=== PATIENT | female | born 1980 | race Caucasian/White ===

== ENCOUNTER 2018-07-25 11:23 | Inpatient (IN) | payer BC, MEDICARE ==
[~2018-07-25] VITALS: Ht 152.4 cm; Wt 94.8 kg
--- OUTSIDE RECORDS SUMMARY | 2018-07-25 11:26 | XMS REPORT ---
Author Author [facility] Address Unknown Phone Unavailable Care Team Providers Care Assembler Bonding Name Role Phone Unavailable Unavailable Payers Payer Name Policy Type Policy Number Effective Date Expiration Date Problems This patient has no known problems. Allergies, Adverse Reactions, Alerts Allergy Name Allergy Type Status Severity Reaction(s) Onset Date Inactive Date Treating Clinician Comments promethazine DA Active 2018-07-24 00:00:00 metoclopramide DA Active 2018-07-24 00:00:00 promethazine DA Active 2018-07-23 00:00:00 metoclopramide DA Active 2018-07-23 00:00:00 promethazine DA Active 2018-07-22 00:00:00 metoclopramide DA Active 2018-07-22 00:00:00 promethazine DA Active 2018-05-12 00:00:00 metoclopramide DA Active 2018-05-12 00:00:00 promethazine DA Active 2018-02-25 00:00:00 metoclopramide DA Active SV 2018-02-25 00:00:00 promethazine DA Active SV 2017-09-17 00:00:00 metoclopramide DA Active SV 2017-09-17 00:00:00 Medications This patient has no known medications. Results Test Description Test Time Test Comments Text Results Atomic Results Result Comments COMPREHENSIVE METABOLIC PANEL 2018-07-24 19:40:00 SODIUM (test code=NA) 138 mmol/L 136-145 POTASSIUM (test code=K) 4.4 mmol/L 3.5-5.1 CHLORIDE (test code=CL) 103.0 mmol/L 98-107 CARBON DIOXIDE (test code=CO2) 24.0 mmol/L 21-32 ANION GAP (test code=GAP) 15.4 10-20 GLUCOSE (test code=GLU) 81 mg/dL 74-106 BLOOD UREA NITROGEN (test code=BUN) 6 mg/dL 7-18 GLOMERULAR FILTRATION RATE (test code=GFR) > 60 mL/min >=60 Estimated GFR by using Modified MDRD formula.Chronic kidney disease is defined as either kidney damageor GFR <60 mL/min/1.73 m2 for >3 months. CREATININE (test code=CREAT) 0.90 mg/dL 0.55-1.02 Note change in reference range due to change in reagent. BUN/CREATININE RATIO (test code=BUN/CREA) 6.9 10-20 TOTAL PROTEIN (test code=PROT) 7.7 gram/dL 6.4-8.2 ALBUMIN (test code=ALB) 3.9 g/dL 3.4-5.0 GLOBULIN (test code=GLOB) 3.8 gram/dL 2.7-4.2 ALBUMIN/GLOBULIN RATIO (test code=A/G) 1.0 0.75-1.50 CALCIUM (test code=CA) 9.2 mg/dL 8.5-10.1 BILIRUBIN TOTAL (test code=BILT) 0.20 mg/dL 0.0-1.0 SGOT/AST (test code=AST) 20 IUnit/L 15-37 SGPT/ALT (test code=ALT) 66 IUnit/L 12-78 ALKALINE PHOSPHATASE TOTAL (test code=ALKP) 92 IUnit/L 45-117 Note change in reference range due to change in reagent. HCG SERUM [id number] 19:40:00* Test Item Value Reference Range Comments HCG SERUM QUAL (test code=HCGQL) NEGATIVE NEGATIVE This HCGQL test is NOT applicable for MALE patients.Check with nurse about probable order error.If Tumor Marker Test needed, nurse should order test "HCGTU"(Test #550.28413) COMPREHENSIVE METABOLIC [id number] 19:22:00* Test Item Value Reference Range Comments SODIUM (test code=NA) 138 mmol/L 136-145 POTASSIUM (test code=K) 4.4 mmol/L 3.5-5.1 CHLORIDE (test code=CL) 103.0 mmol/L 98-107 CARBON DIOXIDE (test code=CO2) mmol/L 21-32 ANION GAP (test code=GAP) 10-20 GLUCOSE (test code=GLU) mg/dL 74-106 BLOOD UREA NITROGEN (test code=BUN) mg/dL 7-18 GLOMERULAR FILTRATION RATE (test code=GFR) mL/min >=60 CREATININE (test code=CREAT) mg/dL 0.55-1.02 BUN/CREATININE RATIO (test code=BUN/CREA) 10-20 TOTAL PROTEIN (test code=PROT) gram/dL 6.4-8.2 ALBUMIN (test code=ALB) g/dL 3.4-5.0 GLOBULIN (test code=GLOB) gram/dL 2.7-4.2 ALBUMIN/GLOBULIN RATIO (test code=A/G) 0.75-1.50 CALCIUM (test code=CA) mg/dL 8.5-10.1 BILIRUBIN TOTAL (test code=BILT) mg/dL 0.0-1.0 SGOT/AST (test code=AST) IUnit/L 15-37 SGPT/ALT (test code=ALT) IUnit/L 12-78 ALKALINE PHOSPHATASE TOTAL (test code=ALKP) IUnit/L 45-117 HCG SERUM [id number] 19:22:00* Test Item Value Reference Range Comments HCG SERUM QUAL (test code=HCGQL) NEGATIVE NEGATIVE This HCGQL test is NOT applicable for MALE patients.Check with nurse about probable order error.If Tumor Marker Test needed, nurse should order test "HCGTU"(Test #550.71429) COMPREHENSIVE METABOLIC [id number] 19:13:00* Test Item Value Reference Range Comments SODIUM (test code=NA) 138 mmol/L 136-145 POTASSIUM (test code=K) 4.4 mmol/L 3.5-5.1 CHLORIDE (test code=CL) 103.0 mmol/L 98-107 CARBON DIOXIDE (test code=CO2) mmol/L 21-32 ANION GAP (test code=GAP) 10-20 GLUCOSE (test code=GLU) mg/dL 74-106 BLOOD UREA NITROGEN (test code=BUN) mg/dL 7-18 GLOMERULAR FILTRATION RATE (test code=GFR) mL/min >=60 CREATININE (test code=CREAT) mg/dL 0.55-1.02 BUN/CREATININE RATIO (test code=BUN/CREA) 10-20 TOTAL PROTEIN (test code=PROT) gram/dL 6.4-8.2 ALBUMIN (test code=ALB) g/dL 3.4-5.0 GLOBULIN (test code=GLOB) gram/dL 2.7-4.2 ALBUMIN/GLOBULIN RATIO (test code=A/G) 0.75-1.50 CALCIUM (test code=CA) mg/dL 8.5-10.1 BILIRUBIN TOTAL (test code=BILT) mg/dL 0.0-1.0 SGOT/AST (test code=AST) IUnit/L 15-37 SGPT/ALT (test code=ALT) IUnit/L 12-78 ALKALINE PHOSPHATASE TOTAL (test code=ALKP) IUnit/L 45-117 HCG SERUM [id number] 19:13:00* Test Item Value Reference Range Comments HCG SERUM QUAL (test code=HCGQL) NEGATIVE CBC W/MANUAL [id number] 19:06:00* Test Item Value Reference Range Comments WHITE BLOOD CELL (test code=WBC) 11.4 K/mm3 4.5-12.5 RED BLOOD CELL (test code=RBC) 5.11 mill/mm3 3.7-5.2 HEMOGLOBIN (test code=HGB) 15.3 gram/dL 11.5-15.5 HEMATOCRIT (test code=HCT) 46.6 % 36.0-46.0 MEAN CELL VOLUME (test code=MCV) 91.2 fL 80-98 MEAN CELL HGB (test code=MCH) 29.9 picogram 27.0-33.0 MEAN CELL HGB CONCETRATION (test code=MCHC) 32.8 gram/dL 33.0-36.0 RED CELL DISTRIBUTION WIDTH (test code=RDW) 12.5 % 11.6-16.2 RED CELL DISTRIBUTION WIDTH SD (test code=RDW-SD) 41.6 fL 37.0-51.0 PLATELET COUNT (test code=PLT) 271 K/mm3 150-450 MEAN PLATELET VOLUME (test code=MPV) 9.7 fL 6.7-11.0 IMMATURE GRANULOCYTE % (test code=IG%) 0.4 % 0.0-5.0 NUCLEATED RBC % (test code=NRBC%) 0.0 % 0-0 NEUTROPHIL # (test code=NT#) 5.77 K/mm3 1.8-7.7 IMMATURE GRANULOCYTE # (test code=IG#) 0.05 x10 3/uL 0-0.03 LYMPHOCYTE # (test code=LY#) 4.53 K/mm3 1.0-5.0 MONOCYTE # (test code=MO#) 0.82 K/mm3 0-0.8 EOSINOPHIL # (test code=EO#) 0.20 K/mm3 0.0-0.5 BASOPHIL # (test code=BA#) 0.04 K/mm3 0.0-0.2 NUCLEATED RBC # (test code=NRBC#) 0.00 K/mm3 0.0-0.1 MANUAL DIFF REQUIRED (test code=MDIFF) YES STAIN ACCEPTABILITY (test code=STN ACCEPTABLE) STAIN ACCEPTABLE TOTAL CELLS COUNTED (test code=TCC) 112 #CELLS SEGMENTED NEUTROPHILS (test code=SEG) 51.8 % 39-69 BAND NEUTROPHIL (test code=BAND) 0 % 0-10 LYMPHOCYTE (test code=LYMPH) 41.1 % 25-55 REACTIVE LYMPH (test code=RELYMPH) 0.9 % MONOCYTE (test code=MON) 5.3 % 0-10 EOSINOPHIL (test code=EOS) 0 % 0.0-5.0 BASOPHIL (test code=BASO) 0.9 % 0-1.0 METAMYELOCYTE (test code=META) 0 % 0-0 MYELOCYTE (test code=MYELO) 0 % 0.0-0.0 PROMYELOCYTE (test code=PROM) 0 % 0-0 PLATELET ESTIMATE (test code=PLTEST) ADEQUATE PLATELET MORPHOLOGY (test code=PLTMORPH) NORMAL IMMATURE FORMS (test code=IMMAT) 0 % - XR HAND 3 + V [id number] 19:04:00 FAX: OSMAR LALA MD [place]: [address] St: REG FAX: Elieco Queen [phone] Name: XOCHILT FAN [facility] : 1980 Age/S: 37/F [address] [facility] Unit #: [id number] Loc: [place] [address] Phys: Eliceo Queen NP Acct: [id number] Dis Date: Status: REG ER PHONE #: [phone] Exam Date: 07/24/2018 1859 FAX #: [phone] Reason: SWELLING EXAMS: CPT CODE: [id number] XR HAND 3 + [place] [id number] REASON FOR EXAM: SWELLING EXAM ORDER DATE: 07/24/2018 6:11 PM Ordering [place]: Eliceo Queen NP PROCEDURE: - XR HAND 3 + V LT FINDINGS: 3 views of the left hand were obtained. The osseous structures are unremarkable in size and shape. The joint spaces are maintained. No evidence of fracture. The phalanges are intact. The carpal and metacarpal bones are unremarkable. There is normal alignment of the radiocarpal joint space IMPRESSION: Unremarkable left hand at 1904 Reported and signed by: Mohit Hudson M.D. CC: OSMAR LALA MD; Eliceo Queen NP Technologist: RT Paul(R Trnscrd Date/Time/By: 07/24/2018 (1903) : By: Teddy Orig Print D/T: S: 07/24/2018 (1907) PAGE 1 Signed Report CBC W/MANUAL [id number] 18:53:00 * Test Item Value Reference Range Comments WHITE BLOOD CELL (test code=WBC) 11.4 K/mm3 4.5-12.5 RED BLOOD CELL (test code=RBC) 5.11 mill/mm3 3.7-5.2 HEMOGLOBIN (test code=HGB) 15.3 gram/dL 11.5-15.5 HEMATOCRIT (test code=HCT) 46.6 % 36.0-46.0 MEAN CELL VOLUME (test code=MCV) 91.2 fL 80-98 MEAN CELL HGB (test code=MCH) 29.9 picogram 27.0-33.0 MEAN CELL HGB CONCETRATION (test code=MCHC) 32.8 gram/dL 33.0-36.0 RED CELL DISTRIBUTION WIDTH (test code=RDW) 12.5 % 11.6-16.2 RED CELL DISTRIBUTION WIDTH SD (test code=RDW-SD) 41.6 fL 37.0-51.0 PLATELET COUNT (test code=PLT) 271 K/mm3 150-450 MEAN PLATELET VOLUME (test code=MPV) 9.7 fL 6.7-11.0 IMMATURE GRANULOCYTE % (test code=IG%) 0.4 % 0.0-5.0 NUCLEATED RBC % (test code=NRBC%) 0.0 % 0-0 NEUTROPHIL # (test code=NT#) 5.77 K/mm3 1.8-7.7 IMMATURE GRANULOCYTE # (test code=IG#) 0.05 x10 3/uL 0-0.03 LYMPHOCYTE # (test code=LY#) 4.53 K/mm3 1.0-5.0 MONOCYTE # (test code=MO#) 0.82 K/mm3 0-0.8 EOSINOPHIL # (test code=EO#) 0.20 K/mm3 0.0-0.5 BASOPHIL # (test code=BA#) 0.04 K/mm3 0.0-0.2 NUCLEATED RBC # (test code=NRBC#) 0.00 K/mm3 0.0-0.1 MANUAL DIFF REQUIRED (test code=MDIFF) YES STAIN ACCEPTABILITY (test code=STN ACCEPTABLE) TOTAL CELLS COUNTED (test code=TCC) #CELLS SEGMENTED NEUTROPHILS (test code=SEG) % 39-69 LYMPHOCYTE (test code=LYMPH) % 25-55 MONOCYTE (test code=MON) % 0-10 MORPHOLOGY COMMENT (test code=MOC) PLATELET ESTIMATE (test code=PLTEST) PLATELET MORPHOLOGY (test code=PLTMORPH) CBC W/MANUAL [id number] 18:46:00* Test Item Value Reference Range Comments WHITE BLOOD CELL (test code=WBC) 11.4 K/mm3 4.5-12.5 RED BLOOD CELL (test code=RBC) 5.11 mill/mm3 3.7-5.2 HEMOGLOBIN (test code=HGB) 15.3 gram/dL 11.5-15.5 HEMATOCRIT (test code=HCT) 46.6 % 36.0-46.0 MEAN CELL VOLUME (test code=MCV) 91.2 fL 80-98 MEAN CELL HGB (test code=MCH) 29.9 picogram 27.0-33.0 MEAN CELL HGB CONCETRATION (test code=MCHC) 32.8 gram/dL 33.0-36.0 RED CELL DISTRIBUTION WIDTH (test code=RDW) 12.5 % 11.6-16.2 RED CELL DISTRIBUTION WIDTH SD (test code=RDW-SD) 41.6 fL 37.0-51.0 PLATELET COUNT (test code=PLT) 271 K/mm3 150-450 MEAN PLATELET VOLUME (test code=MPV) 9.7 fL 6.7-11.0 IMMATURE GRANULOCYTE % (test code=IG%) 0.4 % 0.0-5.0 NUCLEATED RBC % (test code=NRBC%) 0.0 % 0-0 NEUTROPHIL # (test code=NT#) 5.77 K/mm3 1.8-7.7 IMMATURE GRANULOCYTE # (test code=IG#) 0.05 x10 3/uL 0-0.03 LYMPHOCYTE # (test code=LY#) 4.53 K/mm3 1.0-5.0 MONOCYTE # (test code=MO#) 0.82 K/mm3 0-0.8 EOSINOPHIL # (test code=EO#) 0.20 K/mm3 0.0-0.5 BASOPHIL # (test code=BA#) 0.04 K/mm3 0.0-0.2 NUCLEATED RBC # (test code=NRBC#) 0.00 K/mm3 0.0-0.1 MANUAL DIFF REQUIRED (test code=MDIFF) YES STAIN ACCEPTABILITY (test code=STN ACCEPTABLE) TOTAL CELLS COUNTED (test code=TCC) #CELLS SEGMENTED NEUTROPHILS (test code=SEG) % 39-69 LYMPHOCYTE (test code=LYMPH) % 25-55 MONOCYTE (test code=MON) % 0-10 EOSINOPHIL (test code=EOS) % 0.0-5.0 CABOT RINGS (test code=CAB) MORPHOLOGY COMMENT (test code=MOC) PLATELET ESTIMATE (test code=PLTEST) PLATELET MORPHOLOGY (test code=PLTMORPH) CBC W/MANUAL [id number] 18:46:00* Test Item Value Reference Range Comments WHITE BLOOD CELL (test code=WBC) 11.4 K/mm3 4.5-12.5 RED BLOOD CELL (test code=RBC) 5.11 mill/mm3 3.7-5.2 HEMOGLOBIN (test code=HGB) 15.3 gram/dL 11.5-15.5 HEMATOCRIT (test code=HCT) 46.6 % 36.0-46.0 MEAN CELL VOLUME (test code=MCV) 91.2 fL 80-98 MEAN CELL HGB (test code=MCH) 29.9 picogram 27.0-33.0 MEAN CELL HGB CONCETRATION (test code=MCHC) 32.8 gram/dL 33.0-36.0 RED CELL DISTRIBUTION WIDTH (test code=RDW) 12.5 % 11.6-16.2 RED CELL DISTRIBUTION WIDTH SD (test code=RDW-SD) 41.6 fL 37.0-51.0 PLATELET COUNT (test code=PLT) 271 K/mm3 150-450 MEAN PLATELET VOLUME (test code=MPV) 9.7 fL 6.7-11.0 IMMATURE GRANULOCYTE % (test code=IG%) 0.4 % 0.0-5.0 NUCLEATED RBC % (test code=NRBC%) 0.0 % 0-0 NEUTROPHIL # (test code=NT#) 5.77 K/mm3 1.8-7.7 IMMATURE GRANULOCYTE # (test code=IG#) 0.05 x10 3/uL 0-0.03 LYMPHOCYTE # (test code=LY#) 4.53 K/mm3 1.0-5.0 MONOCYTE # (test code=MO#) 0.82 K/mm3 0-0.8 EOSINOPHIL # (test code=EO#) 0.20 K/mm3 0.0-0.5 BASOPHIL # (test code=BA#) 0.04 K/mm3 0.0-0.2 NUCLEATED RBC # (test code=NRBC#) 0.00 K/mm3 0.0-0.1 MANUAL DIFF REQUIRED (test code=MDIFF) YES STAIN ACCEPTABILITY (test code=STN ACCEPTABLE) TOTAL CELLS COUNTED (test code=TCC) #CELLS SEGMENTED NEUTROPHILS (test code=SEG) % 39-69 LYMPHOCYTE (test code=LYMPH) % 25-55 MONOCYTE (test code=MON) % 0-10 EOSINOPHIL (test code=EOS) % 0.0-5.0 CABOT RINGS (test code=CAB) MORPHOLOGY COMMENT (test code=MOC) PLATELET ESTIMATE (test code=PLTEST) PLATELET MORPHOLOGY (test code=PLTMORPH) CBC W/MANUAL [id number] 18:46:00* Test Item Value Reference Range Comments WHITE BLOOD CELL (test code=WBC) 11.4 K/mm3 4.5-12.5 RED BLOOD CELL (test code=RBC) 5.11 mill/mm3 3.7-5.2 HEMOGLOBIN (test code=HGB) 15.3 gram/dL 11.5-15.5 HEMATOCRIT (test code=HCT) 46.6 % 36.0-46.0 MEAN CELL VOLUME (test code=MCV) 91.2 fL 80-98 MEAN CELL HGB (test code=MCH) 29.9 picogram 27.0-33.0 MEAN CELL HGB CONCETRATION (test code=MCHC) 32.8 gram/dL 33.0-36.0 RED CELL DISTRIBUTION WIDTH (test code=RDW) 12.5 % 11.6-16.2 RED CELL DISTRIBUTION WIDTH SD (test code=RDW-SD) 41.6 fL 37.0-51.0 PLATELET COUNT (test code=PLT) 271 K/mm3 150-450 MEAN PLATELET VOLUME (test code=MPV) 9.7 fL 6.7-11.0 IMMATURE GRANULOCYTE % (test code=IG%) 0.4 % 0.0-5.0 NUCLEATED RBC % (test code=NRBC%) 0.0 % 0-0 NEUTROPHIL # (test code=NT#) 5.77 K/mm3 1.8-7.7 IMMATURE GRANULOCYTE # (test code=IG#) 0.05 x10 3/uL 0-0.03 LYMPHOCYTE # (test code=LY#) 4.53 K/mm3 1.0-5.0 MONOCYTE # (test code=MO#) 0.82 K/mm3 0-0.8 EOSINOPHIL # (test code=EO#) 0.20 K/mm3 0.0-0.5 BASOPHIL # (test code=BA#) 0.04 K/mm3 0.0-0.2 NUCLEATED RBC # (test code=NRBC#) 0.00 K/mm3 0.0-0.1 MANUAL DIFF REQUIRED (test code=MDIFF) YES STAIN ACCEPTABILITY (test code=STN ACCEPTABLE) TOTAL CELLS COUNTED (test code=TCC) #CELLS SEGMENTED NEUTROPHILS (test code=SEG) % 39-69 LYMPHOCYTE (test code=LYMPH) % 25-55 MONOCYTE (test code=MON) % 0-10 EOSINOPHIL (test code=EOS) % 0.0-5.0 MORPHOLOGY COMMENT (test code=MOC) PLATELET ESTIMATE (test code=PLTEST) PLATELET MORPHOLOGY (test code=PLTMORPH) CBC W/MANUAL [id number] 18:46:00* Test Item Value Reference Range Comments WHITE BLOOD CELL (test code=WBC) 11.4 K/mm3 4.5-12.5 RED BLOOD CELL (test code=RBC) 5.11 mill/mm3 3.7-5.2 HEMOGLOBIN (test code=HGB) 15.3 gram/dL 11.5-15.5 HEMATOCRIT (test code=HCT) 46.6 % 36.0-46.0 MEAN CELL VOLUME (test code=MCV) 91.2 fL 80-98 MEAN CELL HGB (test code=MCH) 29.9 picogram 27.0-33.0 MEAN CELL HGB CONCETRATION (test code=MCHC) 32.8 gram/dL 33.0-36.0 RED CELL DISTRIBUTION WIDTH (test code=RDW) 12.5 % 11.6-16.2 RED CELL DISTRIBUTION WIDTH SD (test code=RDW-SD) 41.6 fL 37.0-51.0 PLATELET COUNT (test code=PLT) 271 K/mm3 150-450 MEAN PLATELET VOLUME (test code=MPV) 9.7 fL 6.7-11.0 IMMATURE GRANULOCYTE % (test code=IG%) 0.4 % 0.0-5.0 NUCLEATED RBC % (test code=NRBC%) 0.0 % 0-0 NEUTROPHIL # (test code=NT#) 5.77 K/mm3 1.8-7.7 IMMATURE GRANULOCYTE # (test code=IG#) 0.05 x10 3/uL 0-0.03 LYMPHOCYTE # (test code=LY#) 4.53 K/mm3 1.0-5.0 MONOCYTE # (test code=MO#) 0.82 K/mm3 0-0.8 EOSINOPHIL # (test code=EO#) 0.20 K/mm3 0.0-0.5 BASOPHIL # (test code=BA#) 0.04 K/mm3 0.0-0.2 NUCLEATED RBC # (test code=NRBC#) 0.00 K/mm3 0.0-0.1 MANUAL DIFF REQUIRED (test code=MDIFF) YES STAIN ACCEPTABILITY (test code=STN ACCEPTABLE) TOTAL CELLS COUNTED (test code=TCC) #CELLS SEGMENTED NEUTROPHILS (test code=SEG) % 39-69 LYMPHOCYTE (test code=LYMPH) % 25-55 MONOCYTE (test code=MON) % 0-10 EOSINOPHIL (test code=EOS) % 0.0-5.0 CABOT RINGS (test code=CAB) MORPHOLOGY COMMENT (test code=MOC) PLATELET ESTIMATE (test code=PLTEST) PLATELET MORPHOLOGY (test code=PLTMORPH) BASIC METABOLIC [id number] 09:12:00* Test Item Value Reference Range Comments SODIUM (test code=NA) 139 mmol/L 136-145 POTASSIUM (test code=K) 4.1 mmol/L 3.5-5.1 CHLORIDE (test code=CL) 106.0 mmol/L 98-107 CARBON DIOXIDE (test code=CO2) 25.0 mmol/L 21-32 ANION GAP (test code=GAP) 12.1 10-20 GLUCOSE (test code=GLU) 75 mg/dL 74-106 BLOOD UREA NITROGEN (test code=BUN) 5 mg/dL 7-18 GLOMERULAR FILTRATION RATE (test code=GFR) > 60 mL/min >=60 Estimated GFR by using Modified MDRD formula.Chronic kidney disease is defined as either kidney damageor GFR <60 mL/min/1.73 m2 for >3 months. CREATININE (test code=CREAT) 0.90 mg/dL 0.55-1.02 Note change in reference range due to change in reagent. BUN/CREATININE RATIO (test code=BUN/CREA) 5.8 10-20 CALCIUM (test code=CA) 8.3 mg/dL 8.5-10.1 HCG SERUM [id number] 09:12:00* Test Item Value Reference Range Comments HCG SERUM QUAL (test code=HCGQL) NEGATIVE NEGATIVE This HCGQL test is NOT applicable for MALE patients.Check with nurse about probable order error.If Tumor Marker Test needed, nurse should order test "HCGTU"(Test #[id number]) BASIC METABOLIC [id number] 09:11:00* Test Item Value Reference Range Comments SODIUM (test code=NA) 139 mmol/L 136-145 POTASSIUM (test code=K) 4.1 mmol/L 3.5-5.1 CHLORIDE (test code=CL) 106.0 mmol/L 98-107 CARBON DIOXIDE (test code=CO2) 25.0 mmol/L 21-32 ANION GAP (test code=GAP) 12.1 10-20 GLUCOSE (test code=GLU) 75 mg/dL 74-106 BLOOD UREA NITROGEN (test code=BUN) 5 mg/dL 7-18 GLOMERULAR FILTRATION RATE (test code=GFR) > 60 mL/min >=60 Estimated GFR by using Modified MDRD formula.Chronic kidney disease is defined as either kidney damageor GFR <60 mL/min/1.73 m2 for >3 months. CREATININE (test code=CREAT) 0.90 mg/dL 0.55-1.02 Note change in reference range due to change in reagent. BUN/CREATININE RATIO (test code=BUN/CREA) 5.8 10-20 CALCIUM (test code=CA) 8.3 mg/dL 8.5-10.1 HCG SERUM [id number] 09:11:00* Test Item Value Reference Range Comments HCG SERUM QUAL (test code=HCGQL) NEGATIVE CBC W/O [id number] 09:03:00* Test Item Value Reference Range Comments WHITE BLOOD CELL (test code=WBC) 9.7 K/mm3 4.5-12.5 RED BLOOD CELL (test code=RBC) 5.09 mill/mm3 3.7-5.2 HEMOGLOBIN (test code=HGB) 15.2 gram/dL 11.5-15.5 HEMATOCRIT (test code=HCT) 47.2 % 36.0-46.0 MEAN CELL VOLUME (test code=MCV) 92.7 fL 80-98 MEAN CELL HGB (test code=MCH) 29.9 picogram 27.0-33.0 MEAN CELL HGB CONCETRATION (test code=MCHC) 32.2 gram/dL 33.0-36.0 RED CELL DISTRIBUTION WIDTH (test code=RDW) 12.5 % 11.6-16.2 PLATELET COUNT (test code=PLT) 229 K/mm3 150-450 MEAN PLATELET VOLUME (test code=MPV) 10.4 fL 6.7-11.0 CBC W/O [id number] 09:00:00* Test Item Value Reference Range Comments WHITE BLOOD CELL (test code=WBC) K/mm3 4.5-12.5 RED BLOOD CELL (test code=RBC) mill/mm3 3.7-5.2 HEMOGLOBIN (test code=HGB) 15.2 gram/dL 11.5-15.5 HEMATOCRIT (test code=HCT) % 36.0-46.0 MEAN CELL VOLUME (test code=MCV) fL 80-98 MEAN CELL HGB (test code=MCH) picogram 27.0-33.0 MEAN CELL HGB CONCETRATION (test code=MCHC) gram/dL 33.0-36.0 RED CELL DISTRIBUTION WIDTH (test code=RDW) % 11.6-16.2 PLATELET COUNT (test code=PLT) K/mm3 150-450 MEAN PLATELET VOLUME (test code=MPV) fL 6.7-11.0
[2018-07-25] MEDS ORDERED: CLINDAMYCIN PHOS 600 MG/ 4 ML VIAL IM NR (11:30)
[2018-07-25] MEDS ORDERED: HYDROCODONE/APAP 10MG-325MG TAB PO NR (11:30)
[2018-07-25] MEDS ORDERED: SODIUM CHLORIDE 0.9% 1000ML 1,000 ML IV STA (11:31)
[2018-07-25 12:17] LABS: CLARITY,URINE HAZY (CLEAR); COLOR,URINE YELLOW (YELLOW); KETONES,URINE NEGATIVE (NEGATIVE); LEUKOCYTE ESTERASE ,URINE TRACE (NEGATIVE); NITRITE,URINE NEGATIVE (NEGATIVE); PROTEIN,URINE DIPSTICK TRACE (NEGATIVE)
[2018-07-25 12:18] LABS: AMPHETAMINES SCREEN,URINE POSITIVE (NEGATIVE); BENZODIAZEPINES SCREEN,URINE POSITIVE (NEGATIVE); PHENCYCLIDINE SCREEN,URINE NEGATIVE (NEGATIVE)
[2018-07-25 12:19] LABS: PREGNANCY TEST, URINE NEGATIVE (NEGATIVE)
[2018-07-25 12:25] LABS: BILIRUBIN,URINE NEGATIVE (NEGATIVE); URINE UROBILINOGEN 0.2 mg/dL (0.2 - 1)
--- NOTE | 2018-07-25 12:25 | Diagnostic Imaging Report ---
Exam: Left hand radiographs - 3 views. History: Scabs on hand, no history of trauma. Query gas. Comparison: None. Findings: No radiographic evidence of acute fracture, malalignment, or soft tissue gas. Diffuse soft tissue edema in the hand. Impression: No acute osseous abnormality. Diffuse soft tissue edema in the hand without radiographic evidence of soft tissue gas. Signed by: Dr. Ap Angel MD on 07/25/2018 12:22 PM
[2018-07-25 12:26] LABS: BACTERIA,URINE FEW /HPF; EPITHELIAL CELLS,URINE MANY /LPF; RBC,URINE 0-5 /HPF (0-5); WBC,URINE (MAN) 0-5 /HPF (0-5)
[2018-07-25] MEDS: PIPER-TAZ 3.375 GM 50 ML IV SCH ×2 (13:05→17:27)
[2018-07-25 13:10] LABS: BASOPHILS % 0.3 % (0.0-1.0); EOSINOPHILS # (AUTO) 0.2 (0.0-0.4); EOSINOPHILS % 2.4 % (0.0-6.0); HEMATOCRIT 42.5 % (34.2-44.1); LYMPHOCYTES # (AUTO) 3.3 (1.0-3.2); LYMPHOCYTES % 44.6 % (18.0-39.1); MEAN CORPUSCULAR HEMOGLOBIN 29.4 pg (28-32); MEAN CORPUSCULAR HGB CONC 32.9 g/dL (31-35); MEAN CORPUSCULAR VOLUME 89.3 fL (81-99); MONOCYTES # (AUTO) 0.5 (0.2-0.8); MONOCYTES % 6.6 % (4.4-11.3); NEUTROPHILS # (AUTO) 3.4 (2.1-6.9); NEUTROPHILS % 45.7 % (38.7-80.0); PLATELET COUNT 240 x10e3/uL (140-360); RED BLOOD COUNT 4.76 x10e6/uL (3.6-5.1); RED CELL DISTRIBUTION WIDTH 12.7 % (11.7-14.4)
[2018-07-25] MEDS: VANCOMYCIN 1GM/NS 250 ML 250 ML IV SCH (13:22)
[2018-07-25 13:28] LABS: ALANINE AMINOTRANSFERASE 42 IU/L (0-55); ALBUMIN 3.4 g/dL (3.5-5.0); ALBUMIN/GLOBULIN RATIO 1.1 (0.8-2.0); ALKALINE PHOSPHATASE 63 IU/L (40-150); ANION GAP 14.3 mmol/L (8-16); BLOOD UREA NITROGEN 6 mg/dL (7-26); BUN/CREATININE RATIO 7 (6-25); CALCIUM 9.2 mg/dL (8.4-10.2); CARBON DIOXIDE 20 mmol/L (22-29); CHLORIDE 105 mmol/L (98-107); EST GLOMERULAR FILTRATION RATE > 60 ML/MIN (60-); GLUCOSE 106 mg/dL (74-118); POTASSIUM 4.3 mmol/L (3.5-5.1); SODIUM 135 mmol/L (136-145)
[2018-07-25] MEDS ORDERED: MORPHINE SULFATE INJ 4 MG/ML INJ 1ML IV PRN (13:45)
[2018-07-25] MEDS ORDERED: SODIUM CHLORIDE 0.9% 1000ML 1,000 ML IV SCH (14:15)
[2018-07-25] MEDS ORDERED: CYMBALTA20 MG (15:32)
[2018-07-25] MEDS ORDERED: PRAZOSIN HCL2 MG (15:32)
[2018-07-25] MEDS ORDERED: LUNESTA3 MG (15:32)
[2018-07-25] MEDS ORDERED: ADDERALL 20 MG20 MG PO (15:32)
[2018-07-25] MEDS ORDERED: TRAZODONE HCL50 MG PO (15:32)
[2018-07-25] MEDS ORDERED: BUPROPION XL300 MG (15:32)
[2018-07-25] MEDS ORDERED: ABILIFY10 MG (15:32)
[2018-07-25] MEDS ORDERED: CLONAZEPAM2 MG (15:32)
[2018-07-25 16:01] VITALS: BP 122/61
[2018-07-25 16:20] VITALS: BP 122/61
--- NOTE | 2018-07-25 16:20 | NUR ---
RECEIVED PATIENT FROM ER TO ROOM 286, SHE IS IN STABLE CONDITION. PAIN AT A TOLERABLE LEVEL. PATIENT ORIENTED TO ROOM, POLICIES, AND VISITING HOURS. ADMISSION HISTORY AND INITIAL PHYSICAL ASSESSMENT COMPLETED AND DOCUMENTED. CALL LIGHT WITHIN REACH. BED IN THE LOWEST POSITION.
--- NOTE | 2018-07-25 16:22 | Diagnostic Imaging Report ---
TECHNIQUE: Magnetic resonance imaging of the LEFT RING FINGER (hand) was performed WITHOUT injected contrast. HISTORY: Abscess, pulmonary side a subtle ring finger, open and unhealed wound COMPARISON: Left hip radiographs the 2018. FINDINGS: BONES: No focal or infiltrative bone marrow replacing abnormalities identified. No acute fracture or osteonecrosis. JOINTS: No dislocation or joint effusion. SOFT TISSUES: Cannot assess the enhancement in the absence of intravenous contrast. Amorphous confluent fluid sensitive hyperintense of the within the volar superficial soft tissues of the ring finger at the level of the proximal phalanx. No definitive well-defined drainable fluid collection. The visualized tendons are intact, no flexor tendon tenosynovitis. IMPRESSION: 1. No osteomyelitis. 2. Volar soft tissue edema may reflect cellulitis or possibly a phlegmon, but there is no discrete drainable abscess. A preliminary report was provided by Dr. Angel on July 25, 2018 at 1621 hours. Signed by: Dr. Don Sainz D.O., M.M.M. on 07/27/2018 8:10 AM
[2018-07-25 16:32] VITALS: BP 122/61
[2018-07-25] MEDS: SODIUM CHLORIDE 0.9% 1000ML 1,000 ML IV SCH ×2 (18:33→21:23)
--- NOTE | 2018-07-25 18:58 | NUR ---
REPORT GIVEN TO ONCOMING NURSE, WALKING ROUNDS DONE. PATIENT IS RESTING IN BED. NO ACUTE DISTRESS NOTED. NO S/S OF PAIN NOTED. CALL LIGHT WITHIN REACH. BED IN THE LOWEST POSITION.
--- NOTE | 2018-07-25 19:05 | NUR ---
Report received and walking rounds complete. Pt resting in bed and in no apparent distress. Pt on RA and no tele. L hand wound open to air. All safety measures ensured and pt call [facility] near.
[2018-07-25 20:00] VITALS: BP 95/42
[2018-07-25] MEDS: ONDANSETRON HCL INJ 2MG/ML 2ML 2 MG/ML VIAL IV PRN (21:09)
[2018-07-26] VITALS (8 sets, daily range): BP systolic 84–105; BP diastolic 47–58
[2018-07-26] MEDS: PIPER-TAZ 3.375 GM 50 ML IV SCH ×4 (00:37→17:52)
[2018-07-26] MEDS: VANCOMYCIN 1GM/NS 250 ML 250 ML IV SCH ×2 (01:11→12:50)
--- NOTE | 2018-07-26 03:36 | Consultation ---
DATE OF CONSULTATION: REASON FOR CONSULTATION: Left hand abscess. Thank you for asking me to see this patient. HISTORY OF PRESENT ILLNESS: This patient is a pleasant, unfortunate 37-year-old white female with history of posttraumatic stress syndrome, history of obesity, IV drug abuse as she is on methamphetamine. After drug abuse, the patient had left hand redness and swelling for the last 5 days. She went to [facility] twice, she was given oral antibiotics twice without any improvement, came here. Now the hand is red and swollen. While the patient denies any fever or chills, she says she is not feeling well. PAST MEDICAL HISTORY: IV drug abuser, obesity, posttraumatic stress syndrome. PAST SURGICAL HISTORY: Denies. ALLERGIES: NO KNOWN ALLERGIES. SOCIAL HISTORY: Currently, she smokes one pack a day. She also drinks alcohol . REVIEW OF SYSTEMS: HEENT: Negative. PULMONARY: Negative. CARDIAC: Negative. : Negative. SKIN: There are no other rashes. All her symptoms so far are negative as mentioned above except for the hands redness and swelling. PHYSICAL EXAMINATION: GENERAL: She is currently alert, oriented, does not seem to be in acute distress. VITAL SIGNS: Stable. HEENT: NECK: Supple. CHEST: Clear. COR: ABDOMEN: Soft. . EXTREMITIES: Left hand, there is erythema, there is edema and swelling. IMPRESSION: Left hand cellulitis with early abscess. I agree with MRI. I agree with vancomycin and Zosyn. We will obtain blood cultures. We will consult hand surgery, Dr. Sommer. We will check CBC panel. Obtain HIV hepatitis serology, RPR. We will follow. MD NORIS Mendoza/IFTIKHAR /[id number]
[2018-07-26 05:12] LABS: BASOPHILS % 0.4 % (0.0-1.0); EOSINOPHILS # (AUTO) 0.2 (0.0-0.4); EOSINOPHILS % 1.9 % (0.0-6.0); HEMATOCRIT 41.4 % (34.2-44.1); HEMOGLOBIN 12.9 g/dL (12.0-16.0); LYMPHOCYTES # (AUTO) 4.1 (1.0-3.2); LYMPHOCYTES % 51.6 % (18.0-39.1); MEAN CORPUSCULAR HEMOGLOBIN 29.5 pg (28-32); MEAN CORPUSCULAR HGB CONC 31.2 g/dL (31-35); MEAN CORPUSCULAR VOLUME 94.5 fL (81-99); MONOCYTES # (AUTO) 0.6 (0.2-0.8); MONOCYTES % 7.1 % (4.4-11.3); NEUTROPHILS # (AUTO) 3.1 (2.1-6.9); NEUTROPHILS % 38.7 % (38.7-80.0); PLATELET COUNT 152 x10e3/uL (140-360); RED BLOOD COUNT 4.38 x10e6/uL (3.6-5.1); RED CELL DISTRIBUTION WIDTH 12.6 % (11.7-14.4)
[2018-07-26] MEDS: SODIUM CHLORIDE 0.9% 1000ML 1,000 ML IV SCH ×3 (05:23→22:20)
[2018-07-26 05:27] LABS: ANION GAP 10.5 mmol/L (8-16); BLOOD UREA NITROGEN 7 mg/dL (7-26); BUN/CREATININE RATIO 9 (6-25); CALCIUM 8.1 mg/dL (8.4-10.2); CARBON DIOXIDE 19 mmol/L (22-29); CHLORIDE 111 mmol/L (98-107); CREATININE, SERUM 0.81 mg/dL (0.57-1.11); EST GLOMERULAR FILTRATION RATE > 60 ML/MIN (60-); GLUCOSE 85 mg/dL (74-118); POTASSIUM 4.5 mmol/L (3.5-5.1); SODIUM 136 mmol/L (136-145)
[2018-07-26 05:28] LABS: INR 0.86; PARTIAL THROMBOPLASTIN TIME 25.2 seconds (23.8-35.5); PROTHROMBIN TIME 12.5 seconds (11.9-14.5)
--- NOTE | 2018-07-26 07:00 | NUR ---
RECEIVED PATIENT RESTING IN BED. NO ACUTE DISTRESS NOTED. CALL LIGHT WITHIN REACH. BED IN THE LOWEST POSITION.
--- NOTE | 2018-07-26 07:05 | NUR ---
Report given and walking rounds completed.
--- NOTE | 2018-07-26 07:27 | NUR ---
PATIENT C/O PAIN, BP HAS BEEN LOW SINCE YESTERDAY. PAGED DR. MONTAÑO FOR A DIFFERENT PAIN MEDICATION THAN MORPHINE.
--- NOTE | 2018-07-26 08:10 | NUR ---
DR. MONTAÑO ROUNDING ON PATIENT AT THIS TIME.
[2018-07-26] MEDS ORDERED: TRAZODONE HCL 50 MG TAB PO PRN (08:15)
[2018-07-26] MEDS: ADDERALL 30MG PO SCH ×2 (09:07→12:50)
[2018-07-26] MEDS: BUPROPION HCL 150 MG TABCR PO SCH (09:08)
[2018-07-26] MEDS: HYDROCODONE/APAP 10MG-325MG TAB PO PRN ×2 (09:08→17:58)
[2018-07-26] MEDS ORDERED: MORPHINE SULFATE INJ 4 MG/ML INJ 1ML IV NR (11:00)
[2018-07-26] MEDS: ONDANSETRON HCL INJ 2MG/ML 2ML 2 MG/ML VIAL IV PRN (11:30)
[2018-07-26] MEDS ORDERED: D AMPHET PO SCH (12:00)
[2018-07-26] MEDS ORDERED: AMPHET PO SCH (12:00)
[2018-07-26] MEDS ORDERED: AMPHET ASP PO SCH (12:00)
--- NOTE | 2018-07-26 12:51 | Consultation ---
DATE OF CONSULTATION: WOUND CARE CONSULTATION Thank you, Dr. Cunningham for asking me to see this patient. HISTORY OF PRESENT ILLNESS: A 37-year-old female patient who is getting drugs, shooting at meth into her fingers between the finger fold, developed swelling, redness, pain on the left hand at the fourth finger at palmar aspect. Patient came to the emergency room, was draining some pus. She was admitted for cellulitis infection. She had MRI. PAST MEDICAL HISTORY: Bipolar, ADHD, manic depression. PAST SURGICAL HISTORY: Exploratory laparotomy, cholecystectomy, appendectomy, lap banding, T and A. PERSONAL HISTORY: Injects drugs, smokes cigarettes. GENERAL PHYSICAL EXAMINATION VITAL SIGNS: Blood pressure 80/48, pulse 63. HEENT: Normal. NECK: No JVD. LUNGS: Clear. ABDOMEN: Soft. Bowel sounds are normal. LOWER EXTREMITIES: No edema. Left hand between metacarpophalangeal area at the palmar aspect, patient has a wound with cellulitis, draining pus. After explaining the procedure, I did selective debridement, deroofed the slough and there was drainage of pus from the wound. There was an undermining for 0.3 cm between and 12 o'clock position. After draining the pus, I irrigated the wound with normal saline and also irrigated with iodine and packed the wound with 0.25-inch iodoform gauze, 4x4 and tape. Patient tolerated the procedure. Wound culture has been sent from the emergency room. ASSESSMENT: Abscess, hand, status post incision and drainage and selective debridement. PLAN: Continue IV antibiotic and pack wound with iodoform. Patient also had MRI. No specific MRI evidence of osteomyelitis and no evidence of tenosynovitis at this time. Also, patient was seen by hand surgeon, Dr. Sommer, who agreed with continuation of antibiotic and close monitoring. Job#: [id number]
--- NOTE | 2018-07-26 12:53 | Operative Report ---
DATE OF PROCEDURE: PROCEDURE PERFORMED: Incision, drainage and selective debridement of the left hand abscess. HISTORY: Pleasant 37-year-old female patient admitted with left hand abscess after IV drug use. Patient was injecting meth through the subcutaneous tissue between the finger fold, developed an abscess. DESCRIPTION OF PROCEDURE: After I explained the procedure, I used a #10 blade. I assisted on pickup. Incision and drainage of the abscess done and selective debridement of the wound done, removing the necrotic tissue. After draining the pus, irrigated with normal saline and iodine, packed with iodoform gauze, 4 x 4, and tape. Patient tolerated the procedure well. Morphine 4 mg given for pain. Job#: [id number] ARPIT
--- NOTE | 2018-07-26 17:04 | History and Physical ---
CHIEF COMPLAINT: Swelling in the left hand and abscess. HISTORY OF PRESENT ILLNESS: Ms. Ramírez is a 37-year-old female who presented to the emergency room with complaints of boil in the left hand, which is painful and drainage has been started. She has IV drug use. She shoots IV methamphetamine between her fingers and that resulted in abscess. She is on multiple psychiatric medications as well. She has mental health problems. She denies any complaints of chest pain, abdominal pain, nausea, or vomiting. She smokes for the last 10 years. REVIEW OF SYSTEMS: GENERAL: Denies any fever or chills. HEAD: Denies any head trauma. ENT: Denies any earaches. CV: Denies any chest pain. RESPIRATORY: Denies any shortness of breath. Rest of the review of systems are negative except as in the HPI. PAST MEDICAL HISTORY: Obesity, bipolar, and IV drug use. PAST SURGICAL HISTORY: None. SOCIAL HISTORY: She has been a smoker for 10 years. She uses IV drugs, methamphetamine. She denies any other drug use. FAMILY HISTORY: Not significant. She lives with her parents. PHYSICAL EXAMINATION: VITAL SIGNS: Temperature 97.0, pulse is 69, and blood pressure 105/55. CHEST: Clear to auscultation bilaterally. No wheezing. GENERAL APPEARANCE: Obese lady, in mild distress because of the hand abscess. ABDOMEN: Soft, nontender, nondistended. EXTREMITIES: No clubbing, cyanosis or edema. NEUROLOGICAL: Awake and alert, following commands. No focal neurologic deficits. LABORATORY DATA: White count of 7.8, hemoglobin 12.9, platelets 152. Chemistries within normal limits. ASSESSMENT: Ms. Ramírez is a 37-year-old female. She presented to the emergency room with hand abscess which is draining. PLAN: 1. Continue the patient on IV antibiotics per ID recommendation. 2. Dr. Sommer's consultation has been called. Hand MRIs are showing possibility of abscess. 3. The patient is hypotensive. I will discontinue morphine and start her on [place] for pain control. 4. Resume her bipolar medications and also start her on Adderall. I have asked, the patient is refusing psychiatric consultation. MD LELA Rodriguez/IFTIKHAR /[id number]
--- NOTE | 2018-07-26 18:47 | NUR ---
REPORT GIVEN TO ONCOMING NURSE, WALKING ROUNDS DONE. PATIENT IS IN STABLE CONDITION. CALL LIGHT WITHIN REACH. BED IN THE LOWEST POSITION.
--- NOTE | 2018-07-26 19:22 | NUR ---
Report received and walking rounds complete. Pt standing at bedside returning from bathroom.
[2018-07-26] MEDS: CLONAZEPAM 1 MG TAB PO SCH (20:16)
[2018-07-26] MEDS: DULOXETINE HCL 20 MG DELAYED RELEASE PO SCH (20:16)
[2018-07-26] MEDS: ARIPIPRAZOLE 20 MG TAB PO SCH (20:16)
[2018-07-27] VITALS (7 sets, daily range): BP systolic 82–114; BP diastolic 46–70
[2018-07-27] MEDS: PIPER-TAZ 3.375 GM 50 ML IV SCH ×4 (00:25→18:42)
[2018-07-27] MEDS: VANCOMYCIN 1GM/NS 250 ML 250 ML IV SCH ×3 (01:18→23:45)
[2018-07-27] MEDS: SODIUM CHLORIDE 0.9% 1000ML 1,000 ML IV SCH ×4 (05:23→20:28)
--- NOTE | 2018-07-27 07:03 | NUR ---
report given and walking rounds complete. pt sleeping in bed and in no apparent distress.
--- NOTE | 2018-07-27 07:30 | NUR ---
pt in bed sleeping ,no s/s discomfort.
[2018-07-27] MEDS: ADDERALL 30MG PO SCH ×2 (09:22→12:30)
[2018-07-27] MEDS: BUPROPION HCL 150 MG TABCR PO SCH (09:22)
[2018-07-27] MEDS: HYDROCODONE/APAP 10MG-325MG TAB PO PRN ×3 (09:23→21:12)
--- NOTE | 2018-07-27 09:23 | NUR ---
dr barroso here changed drsg to lt hand ,tolerated well
--- NOTE | 2018-07-27 13:38 | Consultation ---
DATE OF CONSULTATION: 07/26/2018 CHIEF COMPLAINT: Possible tenosynovitis, left hand. HISTORY OF PRESENT ILLNESS: The patient is a 37-year-old right-hand dominant female, who has a history of intravenous drug abuse. She was seen in the ER in the evening of July 25. According to the ER history, she had been seen at local area ER several times in the preceding days for possible abscess of the left hand secondary to intravenous drug abuse. Each time she was discharged; however, she states that the symptoms became rapidly worse on Friday morning and she presented to the emergency room. She was admitted and started on intravenous antibiotics and MRI was obtained without contrast. The patient was then admitted and started on intravenous vancomycin and Hand Surgery is now requested to consult to evaluate the possibility of tenosynovitis. On pertinent physical exam, the patient is afebrile. At the time of the consult, the primary care physician was performing a limited incision and drainage of left ring finger. There was noted to be a moderate amount of erythema and swelling on the volar aspect of the MPJ area and proximal phalanx area of the right ring finger. The soft tissues had been unroofed. The patient was able to both actively and passively extend and flexed the ring finger without significant pain. A Q-Tip was used to explore the subcutaneous space and a small mount of purulent exudate was encountered and there were noted to be no loculations. The patient's current white cell count is 7. The MRI shows no discrete abscess. No evidence of osteomyelitis and no evidence of tenosynovitis. IMPRESSION: Cellulitis, left hand. PLAN: After discussing the case with primary care physician, I feel that the patient should be maintained on IV antibiotics, warm soaks and elevation. It does not appear to be a surgical indication right now as there is no flexor tenosynovitis present. I will follow the patient along with you. Thank you for allowing me to participate in the care of your patient. Alonzo Sommer MD ER/MODL /[id number]
--- NOTE | 2018-07-27 17:29 | NUR ---
PT UP ON SIDE OF BED NO DISTRESS NTOED,PAIN LEVEL 4 TO LT HAND
--- NOTE | 2018-07-27 19:43 | NUR ---
RECEIVED PT IN BED AOX3 .LEFT HAND WITH DRESSING DENIES PAIN .LEFT FA 18G WITH NS AT 125 CC/HR NO ACUTE DISRTESS NOTED .CALL LIGHT WITH IN REACH .CONTINUE TO MONITOR
[2018-07-27] MEDS: DULOXETINE HCL 20 MG DELAYED RELEASE PO SCH (20:28)
[2018-07-27] MEDS: ARIPIPRAZOLE 20 MG TAB PO SCH (20:28)
[2018-07-27] MEDS: CLONAZEPAM 1 MG TAB PO SCH (20:28)
[2018-07-28] VITALS: BP 116/58
[2018-07-28 02:31] VITALS: BP 116/58
[2018-07-28 04:00] VITALS: BP 129/72
[2018-07-28] MEDS: PIPER-TAZ 3.375 GM 50 ML IV SCH ×2 (05:21)
[2018-07-28] MEDS: SODIUM CHLORIDE 0.9% 1000ML 1,000 ML IV SCH (05:21)
[2018-07-28] MEDS: HYDROCODONE/APAP 10MG-325MG TAB PO PRN ×2 (06:15→11:46)
--- NOTE | 2018-07-28 07:09 | NUR ---
pt c/o pain and given ordered pain medication .pt resting call light with in reach continue to monitor
[2018-07-28 07:25] VITALS: BP 106/53
--- NOTE | 2018-07-28 07:25 | NUR ---
PT UP IN BED , PAIN LEVEL 2 TO LT HAND
[2018-07-28 08:00] VITALS: BP 106/53
[2018-07-28] MEDS: ADDERALL 30MG PO SCH (08:25)
[2018-07-28] MEDS: BUPROPION HCL 150 MG TABCR PO SCH (08:25)
--- NOTE | 2018-07-28 10:26 | NUR ---
DR SEGURA HERE CHANGED DRSTiffanie.
[2018-07-28] MEDS: VANCOMYCIN 1GM/NS 250 ML 250 ML IV SCH (11:46)
[2018-07-28 12:03] VITALS: BP 129/65
[2018-07-28] MEDS ORDERED: CIPRO500 MG PO (13:18)
[2018-07-28] MEDS ORDERED: DOXYCYCLINE HY100 MG PO (13:18)
--- NOTE | 2018-07-28 15:08 | NUR ---
PT DISCHARGED HOME,IV DCD WITHOUT REDNESS OR SWELLING ,DRSG TO LT FINGER CD&I,INSTRUCTIONS GIVEN,PRESCRIPTIONS GIVNE COPY ON CHaRT.TRANSPORTED TO AUTO VIA W/C
--- NOTE | 2018-07-29 18:53 | Discharge Summary ---
FINAL DIAGNOSES: 1. Hand abscess. 2. Bipolar disorder. 3. Active IV drug use with methamphetamine. ADMISSION HISTORY AND HOSPITAL COURSE: Ms. Ramírez is a 37-year-old female. She is a regular patient of [facility], came in with swelling in the left hand and abscess. She has been shooting IV methamphetamine between the fingers that resulted in abscess. The patient was started on IV antibiotics. ID was consulted. Wound Care was consulted and wound debridement was done by Dr. Gardner. Dr. Sommer was consulted and he recommended no intervention. From surgical standpoint, the patient has been doing well, cleared by all services, the patient will be discharged home and follow up with Infectious Disease nursing consultant and Wound Care. MD LELA Rodriguez/IFTIKHAR /[id number]
== END 2018-07-28 13:43 | disposition home or self-care (01) | DRG 603 ==
LOC: ER 11:23 → ERHOLD 13:46 → MED/SURG3 15:50
PROVIDERS: ADMIT Internal Medicine; ATTEND Internal Medicine
PROC: 0H9GXZZ Drainage of Left Hand Skin, External Approach (ICD-10-PCS; principal; 2018-07-26)
DX: L02.512 Cutaneous abscess of left hand (principal); F11.20 Opioid dependence, uncomplicated; Z68.41 Body mass index [BMI] 40.0-44.9, adult; F31.9 Bipolar disorder, unspecified; F43.10 Post-traumatic stress disorder, unspecified; E66.01 Morbid (severe) obesity due to excess calories
CPT/HCPCS: 36415; 80048; 80053; 80202; 80307; 81001; 81025; 85025; 85610; 85730; 87040; 87071; 87086; 87205; 99284; J2270; J2405; J2543; J3370; J7030

== ENCOUNTER 2018-11-07 16:44 | Emergency (ER) | payer MEDICARE ==
[~2018-11-07] VITALS: Ht 152.4 cm; Wt 94.8 kg
[~2018-11-07 16:44] MED LIST: ABILIFY10 MG; ADDERALL 20 MG20 MG PO; BUPROPION XL300 MG; CIPRO500 MG PO; CLONAZEPAM2 MG; CYMBALTA20 MG; DOXYCYCLINE HY100 MG PO; LUNESTA3 MG; PRAZOSIN HCL2 MG; TRAZODONE HCL50 MG PO
--- OUTSIDE RECORDS SUMMARY | 2018-11-07 16:46 | XMS REPORT | Encounter Summary ---
Author Organization Unknown Address [address] [place] [address] Phone [phone] Care Team Providers Care Supervisor Press Room Name Role Phone Dr. Larry Rodarte 3 [phone] Herbert Whitkaer MD 102 [phone] Reason for Visit other - see typed reason; Tobacco Cessation Counseling Instructions 1. Body mass index 40+ - severely obese body mass index: care instructions learning about healthy weight 2. Long-term drug therapy 3. Nicotine dependence stopping smoking: care instructions advised to quit smoking deciding about using medicines to quit smoking 4. Abscess of upper limb general surgery referral Bactrim DS 800 mg-160 mg tablet Discussion Note will refer to general surgeon Plan of Care Patient Instructions Quitting Tobacco Goals Quitting smoking is important for your health, but it is hard to do. We agreed to the following goals towards reducing your tobacco habits: Today we talked about how you are . Since you want to smoke less, but are not ready to quit yet, we agreed that by your next appointment, you would . Since your ready to quit smoking, we agreed that you would smoke your last cigarette on . 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 *Regular exercise *Chew gum or hard candy *Identify triggers that lead to smoking, and establish new strategies for coping with these situations *Keep yourself busy *Contact additional resources for support, such as [employer] *Don't give up, even if you have a setback How can my healthcare team support me in quitting smoking? *Follow up visits to assess progress *Identify resources available to help you quit smoking *Consider medication to increase your chances of successfully quitting smoking *Referral to counseling for additional support Reminders Provider Appointments None recorded. Lab None recorded. Referral General Surgery Referral 09/30/2018 Herbert Tate MD Procedures None recorded. Surgeries None recorded. Imaging None recorded. Medications Name Start Date aripiprazole 30 mg tablet Take 1 tablet every day by oral route for 30 days. Bactrim DS 800 mg-160 mg tablet Take 1 tablet every 12 hours by oral route. bupropion HCl XL 300 mg 24 hr tablet, extended release Take 1 tablet every day by oral route at bedtime for 30 days. buspirone 10 mg tablet Take 2 tablets twice a day by oral route for 90 days. clonazepam 2 mg tablet Take 0.5 tablets 3 times a day by oral route as needed for 30 days. dextroamphetamine-amphetamine 20 mg tablet Take 1 tablet 3 times a day by oral route for 30 days. duloxetine 60 mg capsule,delayed release Take 1 capsule every day by oral route for 30 days. eszopiclone 3 mg tablet Take 1 tablet every day by oral route at bedtime for 30 days. lamotrigine 200 mg tablet Take 1 tablet every day by oral route for 30 days. prazosin 2 mg capsule Take 1 capsule every day by oral route for 30 days. trazodone 50 mg tablet Take 1 tablet 3 times a day by oral route as needed for 30 days. Medications Administered None recorded. Vitals Height Weight BMI Blood Pressure 5 ft 1 in 220.4 lbs 41.6 kg/m2 (1) 138/90 mm[Hg] (2) 120/78 mm[Hg] Lab Results None recorded. 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 Tobacco User Active 09/10/2016 Posttraumatic Stress Disorder Active 09/10/2016 Asthma Active 09/10/2016 Infection of Skin AND/OR Subcutaneous Tissue Active 09/10/2016 Tachycardia Active 09/10/2016 Electrocardiogram Abnormal Active 09/10/2016 Long-term Drug Therapy Active 09/10/2016 Vitamin D Deficiency Active 09/19/2016 Mixed Hyperlipidemia Active 09/19/2016 Elevated Blood-pressure Reading without Diagnosis of Hypertension Active 09/19/2016 Procedures Date Name Performed by 06/02/2004 Cholecystectomy (Gall Bladder Removal) Information not available 06/02/1995 Appendectomy Information not available 06/02/1983 Tonsillectomy Information not available Vaccine List Vaccine Type influenza, unspecified formulation 03/02/2018 Tdap 06/02/2013 Social History Smoking Status Heavy Tobacco Smoker (1/2 PPD) Past Encounters 09/30/2018 Body Mass Index 40+ - Severely Obese; Long-term Drug Therapy; Nicotine Dependence; Abscess of Upper Limb Mello Mayer MD: [address] [place] [address], Ph. History of Present Illness Tobacco Cessation Reported By: Patient Note:known iv amphetamine user c/o abscess R wrist/L forearm,ulcerated area L elbow Review of Systems:ROS as noted in the HPI Review of Systems None recorded. Physical Exam General Adult Exam (Female) Reported By: Patient Skin: Inspection and palpation: ulcer; abscess R ulna styloid/L fore arm/ulcerated lesion L ant cubital fossa
--- OUTSIDE RECORDS SUMMARY | 2018-11-07 16:47 | XMS REPORT | Encounter Summary ---
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 Larry Rodarte 3 [phone] Herbert Whitaker MD 102 [phone] Reason for Visit cold symptom Instructions 1. Body mass index 30+ - obesity body mass index: care instructions learning about healthy weight 2. Acute exacerbation of chronic obstructive airways disease dexamethasone 4 mg/mL injection solution triamcinolone acetonide 40 mg/mL suspension for injection albuterol sulfate 2.5 mg/3 mL (0.083 %) solution for nebulization ProAir RespiClick 90 mcg/actuation breath activated doxycycline hyclate 100 mg tablet XR, chest, 2 view - copd exacerbation with possible pneumonis Discussion Note f/u in 5 day s, Did inform pt we have urgent care clinic , if needed pl go there on Sat. Also encouraged to not start smoking anymore. Plan of Care Reminders Provider Appointments Est Patient 10/19/2018 10:15AM Larry Griffin MD Lab None recorded. Referral None recorded. Procedures None recorded. Surgeries None recorded. Imaging XR, Chest, 2 View 10/14/2018 [facility] [place] Medications Name Start Date albuterol sulfate 2.5 mg/3 mL (0.083 %) solution for nebulization Inhale 3 mL every day by nebulization route for 1 day. aripiprazole 30 mg tablet Take 1 tablet every day by oral route for 30 days. bupropion HCl XL 300 mg 24 hr tablet, extended release Take 1 tablet every day by oral route at bedtime for 30 days. buspirone 10 mg tablet Take 2 tablets twice a day by oral route for 90 days. clonazepam 2 mg tablet Take 0.5 tablets 3 times a day by oral route as needed for 30 days. dexamethasone 4 mg/mL injection solution Take 4 mg by injection route for 1 day. dextroamphetamine-amphetamine 20 mg tablet Take 1 tablet 3 times a day by oral route for 30 days. doxycycline hyclate 100 mg tablet Take 1 tablet twice a day by oral route for 10 days. Stay away from the sun when on this abx. duloxetine 60 mg capsule,delayed release Take 1 capsule every day by oral route for 30 days. eszopiclone 3 mg tablet Take 1 tablet every day by oral route at bedtime for 30 days. lamotrigine 200 mg tablet Take 1 tablet every day by oral route for 30 days. prazosin 2 mg capsule Take 1 capsule every day by oral route for 30 days. ProAir RespiClick 90 mcg/actuation breath activated Inhale 2 puffs every 4 hours by inhalation route as needed for 30 days. trazodone 50 mg tablet Take 1 tablet 3 times a day by oral route as needed for 30 days. triamcinolone acetonide 40 mg/mL suspension for injection Take 40 mg by injection route. Medications Administered Name Date dexamethasone 4 mg/mL injection solution Take 4 mg by injection route for 1 day. 6283-64-81V83:40:01 triamcinolone acetonide 40 mg/mL suspension for injection Take 40 mg by injection route. 9900-47-69Q15:39:02 albuterol sulfate 2.5 mg/3 mL (0.083 %) solution for nebulization Inhale 3 mL every day by nebulization route for 1 day. 6190-52-57F48:38:10 Vitals Height Weight BMI Blood Pressure 5 ft 1 in 220.6 lbs 41.7 kg/m2 138/79.99 mm[Hg] Lab Results None recorded. Allergies Code Code System Name Reaction Severity Status Onset 898487 RxNorm Phenergan Active 9230 RxNorm Reglan Active [...] not available 06/02/1983 Tonsillectomy Information not available 10/14/2018 XR, Chest, 2 View [facility] [place] [address] [place], [place] [phone] (Work Place) Vaccine List Vaccine Type influenza, unspecified formulation 03/02/2018 Tdap 06/02/2013 Social History Smoking Status Heavy Tobacco Smoker (1/2 PPD) Past Encounters 10/14/2018 Body Mass Index 30+ - Obesity; Acute Exacerbation of Chronic Obstructive Airways Disease Calista Sherman MD: [address] [place] [phone], Ph. 09/30/2018 Body Mass Index 40+ - Severely Obese; Long-term Drug Therapy; Nicotine Dependence; Abscess of Upper Limb Mello Mayer MD: [address] [place] [address], Ph. History of Present Illness Note:Here because she has cough & chest pain - like some one is sitting on her chest , breathing difficult x 2 days , Smoking - 1/2 pack / day , none in the last 2 days . No fever , chills x 1 day s, Took ashvin d<div> SMOKES-1/2 pack since 18 yrs , no recent long distance travel </div> Review of Systems:ROS as noted in the HPI Review of Systems None recorded. Physical Exam General Adult Exam (Female) Reported By: Patient Constitutional: General Appearance: well-developed, morbidly obese; short coughs. Level of Distress: NAD. Ambulation: ambulating normally Psychiatric: Insight: good judgement. Mental Status: active and alert, normal mood, normal affect. Orientation: to time, to place, to person Head: Head: normocephalic, atraumatic Eyes: Lids and Conjunctivae: non-injected, no discharge, no pallor. Pupils: PERRLA. Corneas: grossly intact. EOM: EOMI. Lens: clear. Sclerae: non-icteric ENMT: Ears: no lesions on external ear, EACs clear, TMs clear. Hearing: no hearing loss. Nose: no lesions on external nose, nares patent, no septal deviation, nasal passages clear, no sinus tenderness, no nasal discharge. Lips, Teeth, and Gums: no mouth or lip ulcers, no bleeding gums, normal dentition. Oropharynx: moist mucous membranes, no erythema, no exudates, tonsils not enlarged Neck: Neck: supple, trachea midline, no masses, FROM. Lymph Nodes: no cervical LAD, no supraclavicular LAD, no axillary LAD. Thyroid: no enlargement, non- tender, no nodules Lungs: Respiratory effort: no dyspnea. Auscultation: breath sounds normal, good air movement, CTA except as noted, no wheezing, no rales/crackles, no rhonchi Cardiovascular: Heart Auscultation: RRR, normal S1, normal S2, no murmurs, no rubs, no gallops Abdomen: Bowel Sounds: normal. Inspection and Palpation: soft, non-distended, no tenderness, no guarding, no rebound tenderness, no masses, no CVA tenderness. Liver: non-tender, no hepatomegaly Musculoskeletal:: Motor Strength and Tone: normal motor strength, normal tone. Joints, Bones, and Muscles: normal movement of all extremities, no bony abnormalities, no contractures, no malalignment, no tenderness. Extremities: no cyanosis, no edema, no varicosities Neurologic: Gait and Station: normal gait, normal station. Cranial Nerves: grossly intact. Sensation: grossly intact Skin: Inspection and palpation: no rash, no lesions, no abnormal nevi, good turgor, no jaundice; Punch biopsy on Rt fore arm , tattoos on gabrielle forearms. Nails: normal Back: Thoracolumbar Appearance: normal curvature
== END 2018-11-07 17:24 | disposition home or self-care (01) ==
LOC: ER 16:44
DX: L02.416 Cutaneous abscess of left lower limb (principal); L02.413 Cutaneous abscess of right upper limb; F19.90 Other psychoactive substance use, unspecified, uncomplicated; F17.210 Nicotine dependence, cigarettes, uncomplicated
CPT/HCPCS: 99282

== ENCOUNTER 2018-11-16 21:59 | Emergency (ER) | payer MEDICARE ==
[~2018-11-16] VITALS: Ht 152.4 cm; Wt 99.8 kg
[~2018-11-16 21:59] MED LIST changes: -CLONAZEPAM2 MG; +CLONAZEPAM2 MG PO
[2018-11-16] MEDS ORDERED: BUSPIRONE HCL5 MG PO (22:18)
[2018-11-16 23:16] LABS: BASOPHILS # (AUTO) 0.1 (0.0-0.1); BASOPHILS % 0.4 % (0.0-1.0); EOSINOPHILS # (AUTO) 0.2 (0.0-0.4); EOSINOPHILS % 1.5 % (0.0-6.0); HEMATOCRIT 40.1 % (34.2-44.1); HEMOGLOBIN 13.7 g/dL (12.0-16.0); LYMPHOCYTES # (AUTO) 3.9 (1.0-3.2); LYMPHOCYTES % 30.1 % (18.0-39.1); MEAN CORPUSCULAR HEMOGLOBIN 30.1 pg (28-32); MEAN CORPUSCULAR HGB CONC 34.2 g/dL (31-35); MEAN CORPUSCULAR VOLUME 88.1 fL (81-99); MONOCYTES % 7.4 % (4.4-11.3); NEUTROPHILS # (AUTO) 7.7 (2.1-6.9); NEUTROPHILS % 60.1 % (38.7-80.0); PLATELET COUNT 303 x10e3/uL (140-360); RED BLOOD COUNT 4.55 x10e6/uL (3.6-5.1); RED CELL DISTRIBUTION WIDTH 13.1 % (11.7-14.4)
[2018-11-16 23:36] LABS: ALANINE AMINOTRANSFERASE 16 IU/L (0-55); ALBUMIN 3.3 g/dL (3.5-5.0); ALBUMIN/GLOBULIN RATIO 0.9 (0.8-2.0); ALKALINE PHOSPHATASE 79 IU/L (40-150); ANION GAP 15.2 mmol/L (8-16); BLOOD UREA NITROGEN 8 mg/dL (7-26); BUN/CREATININE RATIO 8 (6-25); CALCIUM 9.1 mg/dL (8.4-10.2); CARBON DIOXIDE 23 mmol/L (22-29); CHLORIDE 99 mmol/L (98-107); CREATININE, SERUM 0.95 mg/dL (0.57-1.11); EST GLOMERULAR FILTRATION RATE > 60 ML/MIN (60-); GLUCOSE 99 mg/dL (74-118); POTASSIUM 4.2 mmol/L (3.5-5.1); SODIUM 133 mmol/L (136-145)
[2018-11-17 00:27] VITALS: BP 101/69
== END 2018-11-17 00:37 | disposition home or self-care (01) ==
LOC: ER 21:59
DX: L03.114 Cellulitis of left upper limb (principal); F11.90 Opioid use, unspecified, uncomplicated; E78.5 Hyperlipidemia, unspecified; F31.9 Bipolar disorder, unspecified
CPT/HCPCS: 36415; 80053; 85025; 87040; 99283

== ENCOUNTER 2018-12-13 04:11 | Emergency (ER) | payer MEDICARE ==
[~2018-12-13] VITALS: Ht 152.4 cm; Wt 99.8 kg
[~2018-12-13 04:11] MED LIST changes: +BUSPIRONE HCL5 MG PO
--- OUTSIDE RECORDS SUMMARY | 2018-12-13 04:15 | XMS REPORT | Encounter Summary ---
Author Organization Unknown Address [address] [place] [address] Phone [phone] Care Team Providers Care Pattern Keeper Name Role Phone Dr. Larry Rodarte 3 [phone] Herbert Whitaker MD 102 [phone] Reason for Visit other - see typed reason Instructions None recorded. Discussion Note: None recorded. Patient educational handouts: No information available. Plan of Care Reminders Provider Appointments None recorded. Lab None recorded. Referral None recorded. Procedures None recorded. Surgeries None recorded. Imaging None recorded. Medications Name Start Date albuterol sulfate 2.5 [...] day by oral route for 10 days. duloxetine 60 mg capsule,delayed release Take 1 capsule every day by oral route for 30 days. eszopiclone 3 mg tablet Take 1 tablet every day by oral route at bedtime for 30 days. lamotrigine 200 mg tablet Take 1 tablet every day by oral route for 30 days. levofloxacin 500 mg tablet prazosin 2 mg capsule Take 1 capsule [...] injection Take 40 mg by injection route. zolpidem 10 mg tablet Take 1 tablet every day by oral route as needed for 30 days. Medications Administered None recorded. Vitals None recorded. Lab Results None recorded. Allergies Code Code System Name Reaction Severity Status Onset 6915 RxNorm Metoclopramide Active 07/25/2018 8745 RxNorm Promethazine Active 07/25/2018 659437 RxNorm Phenergan Active 9230 RxNorm Reglan Active [...] not available 10/14/2018 XR, Chest, 2 View [facility] [place] [address] [place], [place] [phone] (Work Place) Vaccine List Vaccine Type influenza, unspecified formulation 03/02/2018 Tdap 06/02/2013 Social History Smoking Status Heavy Tobacco Smoker (1/2 PPD) Past Encounters 10/30/2018 Yaima Rodriguez MD: [address] [place] [address], Ph. 10/14/2018 Body Mass Index 30+ - Obesity; Acute Exacerbation of Chronic Obstructive Airways Disease Calista Sherman MD: [address] [place] [address], Ph. 09/30/2018 Body Mass Index 40+ - Severely Obese; Long-term Drug Therapy; Nicotine Dependence; Abscess of Upper Limb Mello Mayer MD: [address] [place] [address], Ph. History of Present Illness None recorded. Review of Systems None recorded. Physical Exam None recorded.
[2018-12-13] MEDS ORDERED: CLINDAMYCIN PHOS 900MG/ 50ML 50 ML IV ONE (05:00)
[2018-12-13 05:41] LABS: BASOPHILS # (AUTO) 0.1 (0.0-0.1); BASOPHILS % 0.7 % (0.0-1.0); EOSINOPHILS # (AUTO) 0.4 (0.0-0.4); EOSINOPHILS % 3.1 % (0.0-6.0); HEMATOCRIT 40.9 % (34.2-44.1); HEMOGLOBIN 13.6 g/dL (12.0-16.0); LYMPHOCYTES # (AUTO) 5.1 (1.0-3.2); LYMPHOCYTES % 40.6 % (18.0-39.1); MEAN CORPUSCULAR HEMOGLOBIN 29.7 pg (28-32); MEAN CORPUSCULAR HGB CONC 33.3 g/dL (31-35); MEAN CORPUSCULAR VOLUME 89.3 fL (81-99); MONOCYTES # (AUTO) 0.7 (0.2-0.8); MONOCYTES % 5.7 % (4.4-11.3); NEUTROPHILS # (AUTO) 6.2 (2.1-6.9); NEUTROPHILS % 49.6 % (38.7-80.0); PLATELET COUNT 292 x10e3/uL (140-360); RED BLOOD COUNT 4.58 x10e6/uL (3.6-5.1); RED CELL DISTRIBUTION WIDTH 13.1 % (11.7-14.4)
[2018-12-13 06:00] LABS: ALANINE AMINOTRANSFERASE 13 IU/L (0-55); ALBUMIN 3.4 g/dL (3.5-5.0); ALKALINE PHOSPHATASE 66 IU/L (40-150); ANION GAP 12.9 mmol/L (8-16); BLOOD UREA NITROGEN < 5 mg/dL (7-26); CALCIUM 8.8 mg/dL (8.4-10.2); CARBON DIOXIDE 23 mmol/L (22-29); CHLORIDE 107 mmol/L (98-107); CREATININE, SERUM 0.78 mg/dL (0.57-1.11); EST GLOMERULAR FILTRATION RATE > 60 ML/MIN (60-); GLUCOSE 74 mg/dL (74-118); POTASSIUM 3.9 mmol/L (3.5-5.1); SODIUM 139 mmol/L (136-145)
[2018-12-13 06:03] LABS: BUN/CREATININE RATIO 6 (6-25)
[2018-12-13 08:18] LABS: EOSINOPHILS % (MANUAL) 1 % (0-7); LYMPHOCYTES % (MANUAL) 46 % (19-48); MONOCYTES % (MANUAL) 1 % (3.4-9.0); NEUTROPHILS % (MANUAL) 51 % (40-74)
[2018-12-13 08:19] LABS: PLATELET ESTIMATE ADEQUATE; PLATELET MORPHOLOGY COMMENT NORMAL; RBC MORPHOLOGY COMMENT NORMAL
== END 2018-12-13 06:35 | disposition home or self-care (01) ==
LOC: ER 04:11
DX: L02.413 Cutaneous abscess of right upper limb (principal); F15.180 Other stimulant abuse with stimulant-induced anxiety disorder; F17.210 Nicotine dependence, cigarettes, uncomplicated
CPT/HCPCS: 36415; 80053; 85025; 87040; 96365; 99283

== ENCOUNTER 2019-04-21 13:54 | Emergency (ER) | payer MEDICARE ==
[~2019-04-21] VITALS: Ht 152.4 cm; Wt 99.8 kg
[2019-04-21] MEDS ORDERED: IPRATROPIUM BROMIDE 0.02% 2.5 ML NEB NEB STA (14:16)
[2019-04-21] MEDS ORDERED: ALBUTEROL SULF 0.083% NEB SOLN 3 ML NEB NEB STA (14:16)
[2019-04-21] MEDS ORDERED: DEXAMETHASONE SOD PHOS 10 MG/1 ML VIAL IM ONE (14:30)
[2019-04-21] MEDS ORDERED: ACETAMINOPHEN/CODEINE ELIX 120-12 MG/5 ML UDC PO ONE (14:30)
--- NOTE | 2019-04-21 15:47 | Diagnostic Imaging Report ---
EXAMINATION: CHEST 2 VIEWS INDICATION: Shortness of breath COMPARISON: None FINDINGS: LINES/TUBES:None LUNGS:The lungs are well-inflated. No focal consolidation or pulmonary edema. PLEURA:No pleural effusion or pneumothorax. MEDIASTINUM:The cardiomediastinal silhouette appears normal in size and shape. BONES/SOFT TISSUES:No acute osseous injury. ABDOMEN:No free air under the diaphragm. Status post gastric lap band. IMPRESSION: No focal pneumonia or pulmonary edema. Signed by: Otto Lau MD on 04/21/2019 3:44 PM
[2019-04-21] MEDS ORDERED: LIDOCAINE HCL 1% LOCAL INJ 20 ML VIAL INJ ONE (16:00)
[2019-04-21] MEDS ORDERED: KETOROLAC TROMETHAMINE 30 MG/ML VIAL IV STA (16:20)
[2019-04-21] MEDS ORDERED: DIPHENHYDRAMINE HCL INJ 50 MG/ML VIAL IV ONE (16:30)
== END 2019-04-21 16:20 | disposition home or self-care (01) ==
LOC: ER 13:54
DX: R05 Cough (principal); J20.9 Acute bronchitis, unspecified; E78.5 Hyperlipidemia, unspecified; F41.9 Anxiety disorder, unspecified; F31.9 Bipolar disorder, unspecified; F43.10 Post-traumatic stress disorder, unspecified; Z98.84 Bariatric surgery status
CPT/HCPCS: 71046; 87400; 94640; 99284; J1100

== ENCOUNTER 2019-10-04 05:02 | Emergency (ER) | payer MEDICARE ==
[~2019-10-04] VITALS: Ht 152.4 cm; Wt 99.8 kg
== END 2019-10-04 05:25 | disposition home or self-care (01) ==
LOC: ER 05:02
DX: L03.114 Cellulitis of left upper limb (principal); E78.5 Hyperlipidemia, unspecified; F41.9 Anxiety disorder, unspecified; Z98.84 Bariatric surgery status
CPT/HCPCS: 99282

== ENCOUNTER 2019-10-07 10:08 | Emergency (ER) | payer MEDICARE ==
[~2019-10-07] VITALS: Ht 152.4 cm; Wt 99.8 kg
[2019-10-07] MEDS ORDERED: VANCOMYCIN 1GM/NS 250 ML 250 ML IV STA (10:51)
[2019-10-07 11:31] LABS: BASOPHILS % 0.3 % (0.0-1.0); EOSINOPHILS # (AUTO) 0.2 (0.0-0.4); EOSINOPHILS % 2.6 % (0.0-6.0); HEMATOCRIT 42.7 % (34.2-44.1); HEMOGLOBIN 13.6 g/dL (12.0-16.0); LYMPHOCYTES % 33.3 % (18.0-39.1); MEAN CORPUSCULAR HEMOGLOBIN 28.7 pg (28-32); MEAN CORPUSCULAR HGB CONC 31.9 g/dL (31-35); MEAN CORPUSCULAR VOLUME 90.1 fL (81-99); MONOCYTES # (AUTO) 0.4 (0.2-0.8); MONOCYTES % 4.5 % (4.4-11.3); NEUTROPHILS # (AUTO) 5.2 (2.1-6.9); NEUTROPHILS % 58.7 % (38.7-80.0); PLATELET COUNT 349 x10e3/uL (140-360); RED BLOOD COUNT 4.74 x10e6/uL (3.6-5.1); RED CELL DISTRIBUTION WIDTH 12.8 % (11.7-14.4)
[2019-10-07 12:15] LABS: ANION GAP 11.8 mmol/L (8-16); BLOOD UREA NITROGEN 5 mg/dL (7-26); BUN/CREATININE RATIO 6 (6-25); CARBON DIOXIDE 24 mmol/L (22-29); CHLORIDE 105 mmol/L (98-107); CREATININE, SERUM 0.86 mg/dL (0.57-1.11); EST GLOMERULAR FILTRATION RATE > 60 ML/MIN (60-); GLUCOSE 140 mg/dL (74-118); POTASSIUM 3.8 mmol/L (3.5-5.1); SODIUM 137 mmol/L (136-145)
[2019-10-07] MEDS ORDERED: LIDOCAINE 1% W/EPINEPHRINE 20 ML VIAL INJ ONE (12:15)
== END 2019-10-07 13:34 | disposition home or self-care (01) ==
LOC: ER 10:08
DX: M25.522 Pain in left elbow (principal); L03.114 Cellulitis of left upper limb; L02.414 Cutaneous abscess of left upper limb
CPT/HCPCS: 10060; 36415; 80048; 85025; 93971; 99284; J3370

== ENCOUNTER 2019-10-19 15:24 | Emergency (ER) | payer MEDICARE ==
[~2019-10-19] VITALS: Ht 152.4 cm; Wt 108.0 kg
--- OUTSIDE RECORDS SUMMARY | 2019-10-19 15:27 | XMS REPORT ---
Author Author [facility] t Organization [facility] Address [address] [place] [address] Phone Unavailable Care Team Providers Care Assembly Operator Name Role Phone NO, PCP PCP Unavailable Chaparro TO Attphys Unavailable SABRACLUADIA ALMARAZHAMMAD Attphys Unavailable SABRADOREEN Admphys Unavailable Payers Payer Name Policy Type Policy Number Effective Date Expiration Date S ource Medicare A & B [id number] 2013 00:00:00 [facility] Medicare A & B [id number] 2013 00:00:00 [facility] Medicare A & B [id number] 2013 00:00:00 [facility] Medicare A & B [id number] 2013 00:00:00 [facility] Medicare A & B [id number] 2013 00:00:00 [facility] Advance Directives Directive Decision Effective Date Termination Date Comments Sour ce Yes N/A [facility] Problems Condition Name Condition Details Condition Category Status Onset Date Resolution Date Last Treatment Date Treating Clinician Comments Source Vitamin D deficiency Vitamin D Deficiency Problem Active 00:00:00 [facility] ice Mixed hyperlipidemia Mixed Hyperlipidemia Problem Active 00:00:00 [facility] ice Elevated blood-pressure reading without diagnosis of h ypertension Elevated Blood-pressure Reading without Diagnosis of Hypertension Problem Act van 2016-09-19 00:00:00 [facility] Body mass index 30+ - obesity Body Mass Index 30+ - Obesity Problem Active 2016-09-10 00:00:00 [facility] Bipolar disorder Bipolar Disorder Problem Active 2016-09-10 00:00:00 [facility] Multiple personality disorder Multiple Personality Disorder Problem Active 2016-09-10 00:00:00 [facility] Tobacco user Tobacco User Problem Active 2016-09-10 00:00:00 [facility] Posttraumatic stress disorder Posttraumatic Stress Disorder Problem Active 2016-09-10 00:00:00 [facility] Asthma Asthma Problem Active 2016-09-10 00:00:00 [facility] Infection of skin AND/OR subcutaneous tissue Infection of Skin AND/OR Subcutaneous Tissue Problem Active 2016-09-10 00:00:00 [facility] Tachycardia Tachycardia Problem Active 2016-09-10 00:00:00 [facility] Electrocardiogram abnormal Electrocardiogram Abnormal Problem Active 2016-09-10 00:00:00 [facility] Long-term drug therapy Long-term Drug Therapy Problem Active 2016-09-10 00:00:00 [facility] Problem Condition [facility] Allergies, Adverse Reactions, Alerts Allergy Name Allergy Type Status Severity Reaction(s) Onset Date Inacti ve Date Treating Clinician Comments Source Promethazine Allergy to substance Active Moderate COMBATIVE 2018-06 00:00:00 [facility] Metoclopramide Allergy to substance Active Moderate COMBATIVE 2019-04-21 00:00:00 [facility] Metoclopramide Allergy to substance Active 2018-07-25 00:00 :00 [facility] Promethazine Allergy to substance Active 2018-07-25 00:00:0 0 [facility] promethazine DA Active 2018-07-24 00:00:00 [facility] metoclopramide DA Active 2018-07-24 00:00:00 [facility] promethazine DA Active 2018-07-23 00:00:00 [facility] metoclopramide DA Active 2018-07-23 00:00:00 [facility] promethazine DA Active 2018-07-22 00:00:00 [facility] metoclopramide DA Active 2018-07-22 00:00:00 [facility] promethazine DA Active 2018-05-12 00:00:00 [facility] metoclopramide DA Active 2018-05-12 00:00:00 [facility] promethazine DA Active 2018-02-25 00:00:00 [facility] metoclopramide DA Active 2018-02-25 00:00:00 [facility] promethazine DA Active 2017-09-17 00:00:00 [facility] metoclopramide DA Active 2017-09-17 00:00:00 [facility] Phenergan Allergy to substance Active [facility] Reglan Allergy to substance Active [facility] Social History Social Habit Start Date Stop Date Quantity Comments Source Sex Ass[birth year] At 1980 00:00:00 1980 00:00:00 Female [facility] Smoking Status Start Date Stop Date Source Heavy Tobacco Smoker [facility] Medications Ordered Medication Name Filled Medication Name Start Date Stop Da te Current Medication? Ordering Clinician Indication Dosage Frequency Signature (SIG) Comments Components Source albuterol sulfate 2.5 mg/3 mL (0.083 %) solution for nebulization Inhale 3 mL every day by nebulization route for 1 day. albuterol sulfate 2.5 mg/3 mL (0.083 %) solution for nebulization Inhale 3 mL every day by nebulization route for 1 day. No 3mL Q1D albuterol sulfat e 2.5 mg/3 mL (0.083 %) solution for nebulization Inhale 3 mL every day by nebulization route for 1 day. [facility] aripiprazole 30 mg tablet Take 1 tablet every day by o ral route for 30 days. aripiprazole 30 mg tablet Take 1 tablet every day by oral route for 30 days. No aripiprazole 3 0 mg tablet Take 1 tablet every day by oral route for 30 days. [facility] 300 mg 24 hr tablet, ex tended release Take 1 tablet every day by oral route at bedtime for 30 days. bupropion HCl XL 300 mg 24 hr tablet, extended release Take 1 tablet every day by oral route at bedtime for 30 days. No bupropion HCl XL 300 mg 24 hr tablet, extended release Take 1 tablet every day by oral route at bedtime for 30 days. [facility] buspirone 10 mg tablet Take 2 tablets twice a day by o ral route for 90 days. buspirone 10 mg tablet Take 2 tablets twice a day by oral route for 90 days. No buspirone 10 m g tablet Take 2 tablets twice a day by oral route for 90 days. [facility] ice clonazepam 2 mg tablet Take 0.5 tablets 3 times a day by oral route as needed for 30 days. clonazepam 2 mg tablet Take 0.5 tablets 3 times a day by oral route as needed for 30 days. No c lonazepam 2 mg tablet Take 0.5 tablets 3 times a day by oral route as needed for 30 days. [facility] dexamethasone 4 mg/mL injection solution Take 4 mg by injection route for 1 day. dexamethasone 4 mg/mL injection solution Take 4 mg by injection route for 1 day. No 4mg dexamethasone 4 mg/mL injection solution Take 4 mg by injection route for 1 day. [facility] ice dextroamphetamine-amphetamine 20 mg tabl et Take 1 tablet 3 times a day by oral route for 30 days. dextroamphetamine-amphetamine 20 mg tabl et Take 1 tablet 3 times a day by oral route for 30 days. No dextroamphetamine- amphetamine 20 mg tablet Take 1 tablet 3 times a day by oral route for 30 days. [facility] doxycycline hyclate 100 mg tablet Take 1 tablet twice a day by oral route for 10 days. doxycycline hyclate 100 mg tablet Take 1 tablet twice a day by oral route for 10 days. No doxycycline hyclate 100 mg tablet Take 1 tablet twice a day by oral route for 10 days. [facility] duloxetine 60 mg capsule,delayed release Take 1 capsule every day by oral route for 30 days. duloxetine 60 mg capsule,delayed release Take 1 capsule every day by oral route for 30 days. No duloxetine 60 mg capsule,delayed release Take 1 capsule every day by oral route for 30 days. [facility] eszopiclone 3 mg tablet Take 1 tablet ev carlos day by oral route at bedtime for 30 days. eszopiclone 3 mg tablet Take 1 tablet ev carlos day by oral route at bedtime for 30 days. No eszopiclone 3 mg tablet Take 1 tablet every day by oral route at bedtime for 30 days. [facility] lamotrigine 200 mg tablet Take 1 tablet every day by o ral route for 30 days. lamotrigine 200 mg tablet Take 1 tablet every day by oral route for 30 days. No lamotrigine 20 0 mg tablet Take 1 tablet every day by oral route for 30 days. [facility] levofloxacin 500 mg tablet levofloxacin 500 mg tablet No levofloxacin 500 mg tablet [facility] prazosin 2 mg capsule Take 1 capsule every day by oral route for 30 days. prazosin 2 mg capsule Take 1 capsule every day by oral route for 30 days. No prazosin 2 mg c apsule Take 1 capsule every day by oral route for 30 days. [facility] ice ProAir RespiClick 90 mcg/actuation breat h activated Inhale 2 puffs every 4 hours by inhalation route as needed for 30 days. ProAir RespiClick 90 mcg/actuation breath activated Inhale 2 puffs every 4 hours by inhalation route as needed for 30 days. No ProAir RespiCli ck 90 mcg/actuation breath activated Inhale 2 puffs every 4 hours by inhalation route as needed for 30 days. [facility] trazodone 50 mg tablet Take 1 tablet 3 t imes a day by oral route as needed for 30 days. trazodone 50 mg tablet Take 1 tablet 3 t imes a day by oral route as needed for 30 days. No traz odone 50 mg tablet Take 1 tablet 3 times a day by oral route as needed for 30 days. [facility] triamcinolone acetonide 40 mg/mL suspens ion for injection Take 40 mg by injection route. triamcinolone acetonide 40 mg/mL suspens ion for injection Take 40 mg by injection route. No 40mg triamcinolone acetonide 40 mg/mL suspension for injection Take 40 mg by injection route. [facility] zolpidem 10 mg tablet Take 1 tablet ever y day by oral route as needed for 30 days. zolpidem 10 mg tablet Take 1 tablet ever y day by oral route as needed for 30 days. No zolpidem 10 mg tablet Take 1 tablet every day by oral route as needed for [address] [facility] Amphet Asp/Amphet/D-Amphet (Adderall 20 Mg Tablet) 20 Mg TABLET Amphet Asp/Amphet/D-Amphet (Adderall 20 Mg Tablet) 20 Mg TABLET Yes 60 [facility] Aripiprazole (Abilify) 10 Mg TABLET Aripiprazole (Abilify) 10 Mg TABL ET Yes 30 [facility] Bupropion Hcl (Bupropion Xl) 300 Mg TAB.ER.24H Bupropi on Hcl (Bupropion Xl) 300 Mg TAB.ER.24H Yes 300 [facility] Buspirone Hcl Buspirone Hcl Yes 20 [facility] Clonazepam Clonazepam Yes 2 [facility] Duloxetine Hcl (Cymbalta) 20 Mg CAPCR Duloxetine Hcl (Cymbalta) 20 Mg CAPCR Yes 60 [facility] Eszopiclone (Lunesta) 3 Mg TABLET Eszopiclone (Lunesta) 3 Mg TABLET Yes 3 [facility] Prazosin Hcl Prazosin Hcl Yes 2 [facility] Trazodone Hcl Trazodone Hcl Yes 50 [facility] Ciprofloxacin Hcl (Cipro) 500 Mg TABLET Ciprofloxacin Hcl (C ipro) 500 Mg TABLET 2018-11-16 00:00:00 No 500 [facility] Doxycycline Hyclate Doxycycline Hyclate 2018-11-16 00:00:00 No 100 [facility] Immunizations Ordered Immunization Name Filled Immunization Name Date Status Comments Source influenza, unspecified formulation influenza, unspecified fo rmulation 2018-03-02 00:00:00 [facility] 2013-06-02 00:00:00 Completed [facility] Vital Signs Vital Name Observation Time Observation Value Comments Source BP Diastolic 2018-10-14 00:00:00 79.99 mm[Hg] [facility] Height 2018-10-14 00:00:00 61 [in_i] [facility] BMI (Body Mass Index) 2018-10-14 00:00:00 41.7 kg/m2 [facility] BP Systolic 2018-10-14 00:00:00 138 mm[Hg] [facility] Body Weight 2018-10-14 00:00:00 220.6 [lb_av] [facility] BP Diastolic 2018-09-30 00:00:00 90 mm[Hg] [facility] Height 2018-09-30 00:00:00 61 [in_i] [facility] BMI (Body Mass Index) 2018-09-30 00:00:00 41.6 kg/m2 [facility] BP Systolic 2018-09-30 00:00:00 138 mm[Hg] [facility] Body Weight 2018-09-30 00:00:00 220.4 [lb_av] [facility] Weight 2019-10-07 10:45:00 220 [lb_av] [facility] BMI (Body Mass Index) 2019-10-07 10:45:00 43.0 kg/m2 [facility] Weight 2019-10-04 05:11:00 220 [lb_av] [facility] BMI (Body Mass Index) 2019-10-04 05:11:00 43.0 kg/m2 [facility] Procedures Procedure Date / Time Performed Performing Clinician [facility] e X-ray of chest, two views 2019-04-21 00:00:00 NICHOLE CHANG [facility] X-RAY OF CHEST 2 VIEW 2018-10-14 00:00:[address] [facility] Cholecystectomy (Gall Bladder Removal) 2004-06-02 00:00:00 [facility] Appendectomy 1995-06-02 00:00:00 [facility] Tonsillectomy 1983-06-02 00:00:00 [facility] Plan of Care Planned Activity Planned Date Details Comments Source Goal Patient referral [code = 3608144 ] [facility] Goal Patient referral [code = 7009118 ] [facility] Instructions Skin Abscess [facility] Instructions Skin Abscess [facility] Encounters Start Date/Time End Date/Time Encounter Type Admission Type Attendi [facility] Care Department Encounter ID Source 2019-10-07 10:08:00 2019-10-07 13:34:[address] [facility] [id number] [facility]3]. [facility] 2019-10-04 05:02:00 2019-10-04 05:25:00 Departed Emergency Room [facility] [id number] [facility] 2019-04-21 12:54:00 2019-04-21 15:20:00 Departed Emergency Room 1 YOUSUF MATTHEW [facility] [id number] Kris [facility] 2018-12-13 04:11:00 2018-12-13 06:35:[address] [facility] [id number] [facility]3]. [facility] 2018-11-16 21:59:00 2018-11-17 00:37:00 Departed Emergency Room [facility] [id number] [facility] 2018-11-07 16:44:00 2018-11-07 17:24:00 Departed Emergency Room [facility] [id number] [facility] 2018-10-30 00:00:00 2018-10-30 00:00:00 Yaima Rodriguez MD: [address] [place] [address], Ph. [facility] [id number] [facility] 2018-10-14 00:00:00 2018-10-14 00:00:00 Calista hopson MD: [address] [place] [address], Ph. [facility] [id number] [facility] 2018-09-30 00:00:00 2018-09-30 00:00:00 Mello Mayer MD: [address] [place] [address], Ph. [facility] [id number] [facility] 2018-07-25 13:46:00 2018-07-28 13:43:00 Discharged Inpatient 1 DOREEN MONTAÑO [facility] [id number] [facility] Results Test Description Test Time Test Comments Results Result Comments Source Blood leukocytes automated count (number/volume) 2019-10-07 10:53:00 Test Item White Blood Count (test code = 6690-2) 8.87 [facility] automated count (number/volume)2019-10-07 10:53:00* Test Item Value Reference Range Interpretation Comments Red Blood Count (test code = 789-8) 4.74 [facility] hemoglobin measurement (moles/volume)2019-10-07 10:53:00* Test Item Value Reference Range Interpretation Comments Hemoglobin (test code = 90547-9) 13.6 [facility] blood hematocrit (volume fraction)2019-10-07 10:53:00* Test Item Value Reference Range Interpretation Comments Hematocrit (test code = 4544-3) 42.7 [facility] erythrocyte mean corpuscular [id number] 10:53:00* Test Item Value Reference Range Interpretation Comments Mean Corpuscular Volume (test code = 787-2) 90.1 [facility] eryth[facility] mean corpuscular hemoglobin (mass per erythrocyte)2019-10-07 10:53:00* Test Item Value Reference Range Interpretation Comments Mean Corpuscular Hemoglobin (test code = 785-6) 28.7 [facility] erythrocyte mean corpuscular hemoglobin concentration measurement (mass/volume)2019-10-07 10:53:00* Test Item Value Reference Range Interpretation Comments Mean Corpuscular Hemoglobin Concent (test code = 786-4) 31.9 [facility] HospitalRDW [id number]-[id number] 10:53:00* Test Item Value Reference Range Interpretation Comments Red Cell Distribution Width (test code = 22268-1) 12.8 [facility] blood platelet count (count/volume)2019-10-07 10:53:00* Test Item Value Reference Range Interpretation Comments Platelet Count (test code = 777-3) 349 [facility] HospitalAutomated blood segmented neutrophil count as percentage of total [id number] 10:53:00* Test Item Value Reference Range Interpretation Comments Neutrophils (%) (Auto) (test code = 86240-0) 58.7 [facility]Aut[facility]ed [facility] lymphocyte count as percentage ot total [id number] 10:53:00* Test Item Value Reference Range Interpretation Comments Lymphocytes (%) (Auto) (test code = 736-9) 33.3 [facility] HospitalAutomated blood monocyte count as percentage of total [id number] 10:53:00* Test Item Value Reference Range Interpretation Comments Monocytes (%) (Auto) (test code = 5905-5) 4.5 [facility]ed blood eosinophil count as percentage of total iprqhfutdw9464-51-71 10:53:00* Test Item Value Reference Range Interpretation Comments Eosinophils (%) (Auto) (test code = 713-8) 2.6 [facility] HospitalAutom[facility] blood basophil count as percentage of total [id number] 10:53:00* Test Item Value Reference Range Interpretation Comments Basophils (%) (Auto) (test code = 706-2) 0.3 [facility] HospitalFluoroscopic procedure less than one hour [id number] 10:53:00* Test Item Value Reference Range Interpretation Comments IM GRANULOCYTES % (test code = IM GRANULOCYTES %) 0.6 [facility] HospitalAutomated blood neutrophil count 2019-10-07 10:53:00* Test Item Value Reference Range Interpretation Comments Neutrophils # (Auto) (test code = 751-8) 5.2 [facility]Blood lymphocytes count (number/volume) 2019-10-07 10:53:00* Test Item Value Reference Range Interpretation Comments Lymphocytes # (Auto) (test code = 74163-3) 3.0 [facility] monocytes automated count (number/volume)2019-10-07 10:53:00* Test Item Value Reference Range Interpretation Comments Monocytes # (Auto) (test code = 742-7) 0.4 [facility] HospitalAutom[facility] blood eosinophil count 2019-10-07 10:53:00* Test Item Value Reference Range Interpretation Comments Eosinophils # (Auto) (test code = 711-2) 0.2 [facility] HospitalAutomated blood basophil count (count/volume)2019-10-07 10:53:00* Test Item Value Reference Range Interpretation Comments Basophils # (Auto) (test code = 704-7) 0.0 [facility] HospitalFluoroscopic procedure less than one hour [id number] 10:53:00* Test Item Value Reference Range Interpretation Comments Absolute Immature Granulocyte (auto (aron t code = Absolute Immature Granulocyte (auto) 0.05 [facility] sodium measurement (moles/volume)2019-10-07 10:53:00* Test Item Value Reference Range Interpretation Comments Sodium Level (test code = 2951-2) 137 [facility] plasma potassium measurement (moles/volume)2019-10-07 10:53:00* Test Item Value Reference Range Interpretation Comments Potassium Level (test code = 2823-3) 3.8 [facility] or plasma chloride measurement (moles/volume)2019-10-07 10:53:00* Test Item Value Reference Range Interpretation Comments Chloride Level (test code = 2075-0) 105 [facility] or plasma carbon dioxide, total measurement (moles/volume)2019-10-07 10:53:00* Test Item Value Reference Range Interpretation Comments Carbon Dioxide Level (test code = 2028-9) 24 [facility] or plasma anion [id number] 10:53:00* Test Item Value Reference Range Interpretation Comments Anion Gap (test code = 04670-7) 11.8 [facility] or plasma urea nitrogen measurement (mass/volume)2019-10-07 10:53:00* Test Item Value Reference Range Interpretation Comments Blood Urea Nitrogen (test code = 3094-0) 5 [facility] or plasma creatinine measurement (mass/volume)2019-10-07 10:53:00* Test Item Value Reference Range Interpretation Comments Creatinine (test code = 2160-0) 0.86 [facility] or plasma urea nitrogen/creatinine mass [id number] 10:53:00* Test Item Value Reference Range Interpretation Comments BUN/Creatinine Ratio (test code = 3097-3) 6 [facility] HospitalEstimated glomerular filtration rate (GFR) [id number] 10:53:00* Test Item Value Reference Range Interpretation Comments Estimat Glomerular Filtration Rate (test code = 789208078) > 60 [facility] HospitalGlucose [id number] 10:53:00* Test Item Value Reference Range Interpretation Comments Glucose Level (test code = TDT4060) 140 [facility] or plasma calcium measurement (mass/volume)2019-10-07 10:53:00* Test Item Value Reference Range Interpretation Comments Calcium Level (test code = 59163-0) 9.0 [facility] HospitalCHEST 2 [id number] 15:43:00 [facility] [address] [address] Patient Name: XOCHILT FAN MR #: [id number] : 1980 Age/Sex: 38/F Req #: [id number] Adm Physician: Ordered by: NICHOLE CHANG [facility] Report #: [id number] Location: ER Room/Bed: Procedure: [id number] DX/ CHEST 2 VIEWS Exam Date: 04/21/19 Exam Time: 1515 REPORT STATUS: Signed EXAMINATION: CHEST 2 VIEWS INDICATION: Shortness of breath COMPARISON: None FINDINGS: LINES/TUBES:None LUNGS:The lungs are well-inflated. No focal consolidation or pulmonary edema. PLEURA:No pleural effusion or p neumothorax. MEDIASTINUM:The cardiomediastinal silhouette appears normal in size and shape. BONES/SOFT TISSUES:No acute osseous injury. ABDOMEN:No free air under the diaphragm. Status post gastric lap band. IMPRESSION: No focal pneumonia or pulmonary edema. Signed by: Cristian Vasquez MD on 3:44 PM Dictated By: CRISTIAN VASQUEZ MD [id number] Transcribed By: YULISSA on 04/21/19 1542 RADIOLOGY TECHNOLOGIST Y TO: NICHOLE CHANG [facility] Influenza virus A and B antigen identification by ncoxkvpobhumakoudf8986-08-31 14:10:00* Test Item Value Reference Range Interpretation Comments Influenza Virus Types A,B Antigen (test code = 93815-4) NEGATIVE [facility]Blood [id number] 05:28:00* Test Item Value Reference Range Interpretation Comments Blood Culture (test code = 15419240) NO GROWTH AFTER 5 DAYS, FINAL REPORT [facility] HospitalFluoroscopic procedure less than one hour bojotufc8055-43-28 05:23:00* Test Item Value Reference Range Interpretation Comments Differential Total Cells Counted (test code = Michele guerrier Total Cells Counted) 100 [facility] HospitalManual blood neutrophils/100 leukocytes 2018-12-13 05:23:00* Test Item Value Reference Range Interpretation Comments Neutrophils % (Manual) (test code = 00842-5) 51 [facility] lymphocytes[facility]100 leukocytes 2018-12-13 05:23:00* Test Item Value Reference Range Interpretation Comments Lymphocytes % (Manual) (test code = 737-7) 46 [facility]100 leukocytes 2018-12-13 05:23:00* Test Item Value Reference Range Interpretation Comments Monocytes % (Manual) (test code = 744-3) 1 [facility] blood eosinophil count as percentage of total [id number] 05:23:00* Test Item Value Reference Range Interpretation Comments Eosinophils % (Manual) (test code = 714-6) 1 [facility] [id number] 05:23:00* Test Item Value Reference Range Interpretation Comments Basophils % (Manual) (test code = 14743-5) 1 [facility] count by estimate (number/volume)2018-12-13 05:23:00* Test Item Value Reference Range Interpretation Comments Platelet Estimate (test code = 27402-2) ADEQUATE [facility]ate[facility] [id number] 05:23:00* Test Item Value Reference Range Interpretation Comments Platelet Morphology Comment (test code = 41683-2) NORMAL [facility] [id number] 05:23:00* Test Item Value Reference Range Interpretation Comments Red Cell Morphology Comment (test code = 6742-1) [facility]AL [facility] total bilirubin measurement (mass/volume)2018-12-13 05:23:00* Test Item Value Reference Range Interpretation Comments Total Bilirubin (test code = 1975-2) 0.2 [facility] less than one hour [id number] 05:23:00* Test Item Value Reference Range Interpretation Comments Aspartate Amino Transf (AST/SGOT) (test code = Aspartate Amino Transf (AST/SGOT)) 16 [facility] alanine aminotransferase measurement (enzymatic activity/volume)2018-12-13 05:23:00* Test Item Value Reference Range Interpretation Comments Alanine Aminotransferase (ALT/SGPT) (test code = 1742-6) 13 [facility] protein measurement (mass/volume)2018-12-13 05:23:00* Test Item Value Reference Range Interpretation Comments Total Protein (test code = 2885-2) 6.7 [facility] albumin measurement (mass/volume)2018-12-13 05:23:00* Test Item Value Reference Range Interpretation Comments Albumin (test code = 1751-7) 3.4 [facility] globulin measurement (mass/volume) 2018-12-13 05:23:00* Test Item Value Reference Range Interpretation Comments Globulin (test code = 54904-9) 3.3 [facility] plasma albumin/globulin mass [id number] 05:23:00* Test Item Value Reference Range Interpretation Comments Albumin/Globulin Ratio (test code = 1759-0) 1.0 [facility] plasma alkaline phosphatase measurement (enzymatic activity/volume)2018-12-13 05:23:00* Test Item Value Reference Range Interpretation Comments Alkaline Phosphatase (test code = 6768-6) 66 [facility] [id number] 15:54:00* Test Item Value Reference Range Interpretation Comments UA COLOR (test code = COLU) YELLOW YELLOW UA APPEARANCE (test code = APPU) CLEAR CLEAR UA GLUCOSE DIPSTICK (test code = DGLUU) norm mg/dL NEGATIVE UA BILIRUBIN DIPSTICK (test code = BILU) NEGATIVE mg/dL NEGATIVE UA KETONE DIPSTICK (test code = KETU) neg mg/dL NEGATIVE UA SPECIFIC GRAVITY (test code = SGU) 1.005 1.001-1.035 UA BLOOD DIPSTICK (test code = RENÉE) neg Carlos/uL NEGATIVE UA PH DIPSTICK (test code = DAWIT) 5.0 5.0-8.0 UA PROTEIN DIPSTICK (test code = PROU) neg mg/dL Neg-15 UA UROBILINIOGEN DIPSTICK (test code = URO) norm mg/dL 0.0-0.2 UA NITRITE DIPSTICK (test code = WILLIAMS) NEGATIVE NEGATIVE UA LEUKOCYTE ESTERASE DIPSTICK (test code = LEUU) neg uL NEGA TIVE UA WBC (test code = WBCU) NONE SEEN per HPF 0-5 UA RBC (test code = RBCU) NONE SEEN per HPF 0-5 UA EPITHELIAL CELLS (test code = EPIU) Moderate (5-10/hpf) per HPF Few UA BACTERIA (test code = BACU) TRACE per HPF NONE Urine Source? Clean CatchUR HCG [id number] 15:54:00* Test Item Value Reference Range Interpretation Comments UR HCG QUAL (test code = HCGQLU) NEGATIVE This HCGQL test is NOT applicable for MALE patients.Check with nurse about probable order error.If Tumor Marker Test needed, nurse should order test "HCGTU"(Test #550.01424) Urine Source? Clean CatchMRI HAND LEFT [id number] 16:10:00 [place] [address] Patient Name: XOCHILT FAN MR #: [id number] : 1980 Age/Sex: 37/F Req #: [id number] Adm Physician: DOREEN MONTAÑO MD Ordered by: KARLA FLORES MD Report #: [id number] Location: MED/SURG3 Room/Bed: [facility] Procedure: [id number] MRI/MRI HAND LEFT WO Exam Date: 07/25/18 Exam Time: 1515 REPORT STATUS: Signed TECHN IQUE: Magnetic resonance imaging of the LEFT RING FINGER (hand) was performed WITHOUT injected contrast. HISTORY: Abscess, pulmonary side a subtle ri ng finger, open and unhealed wound COMPARISON: Left hip radiographs the 2018. FINDINGS: BONES: No focal or infiltrative bone marrow replacing abnormalities identified. No acute fracture or osteonecrosis. JOINTS: No dislocation or joint effusion. SOFT TISSUES: Cannot assess the en hancement in the absence of intravenous contrast. Amorphous confluent fluid se nsitive hyperintense of the within the volar superficial soft tissues of the r ing finger at the level of the proximal phalanx. No definitive well-defined dr ainable fluid collection. The visualized tendons are intact, no flexor tendon tenosynovitis. IMPRESSION: 1. No osteomyelitis. 2. Volar soft tis natalia edema may reflect cellulitis or possibly a phlegmon, but there is no discr ete drainable abscess. A preliminary report was provided by Dr. Paul on Jul ru2018 at 1621 hours. Signed by: Dr. Don Davis D.O., M.M.M. on 07/27/2018 8:10 AM Dictated By: DON DAVIS DO 9 Transcribed By: YULISSA on 07/27/18809 COPY TO: KARLA FLORES MD HAND 3+ VIEWS [id number] 12:16:00 [place] [address] Patient Name: XOCHILT FAN MR #: [id number] : 1980 Age/Sex: 37/F Req #: [id number] Adm Physician: Ordered by: NICHOLE CHANG [employer] Report #: [id number] Location: ER Room/Bed: Procedure: [id number] DX/ HAND 3+ VIEWS LEFT Exam Date: 07/25/18 Exam Time: 12 10 REPORT STATUS: Signed Exam : Left hand radiographs - 3 views. History: Scabs on hand, no history of trauma. Query gas. Comparison: None. Findings: No radiographic [place]an[place] dence of acute fracture, malalignment, or soft tissue gas. Diffuse soft tissue edema in the hand. Impression: No acute osseous abnormality. Diffuse soft tissue edema in the hand without radiographic evidence of soft tissue gas. Signed by: Dr. Isma Paul MD on 07/25/2018 12:22 PM Dictated By: ISMA PAUL MD 1222 Transcribed By: YULISSA on 07/25/18 1222 COPY TO: NICHOLE CHANG NP COMPREHENSIVE METABOLIC [id number] 19:40:00* Test Item Value Reference Range Interpretation Comments SODIUM (test code = NA) 138 mmol/L 136-145 N POTASSIUM (test code = K) 4.4 mmol/L 3.5-5.1 N CHLORIDE (test code = CL) 103.0 mmol/L 98-107 N CARBON DIOXIDE (test code = CO2) 24.0 mmol/L 21-32 N ANION GAP (test code = GAP) 15.4 10-20 N GLUCOSE (test code = GLU) 81 mg/dL 74-106 N BLOOD UREA NITROGEN (test code = BUN) 6 mg/dL 7-18 L GLOMERULAR FILTRATION RATE (test code = GFR) > 60 mL/min >=60 Estimated GFR by using Modified MDRD formula.Chronic kidney disease is defined as either kidney damageor GFR <60 mL/min/1.73 m2 for >3 months. CREATININE (test code = CREAT) 0.90 mg/dL 0.55-1.02 N Note change in reference range due to change in reagent. BUN/CREATININE RATIO (test code = BUN/CREA) 6.9 10-20 L TOTAL PROTEIN (test code = PROT) 7.7 gram/dL 6.4-8.2 N ALBUMIN (test code = ALB) 3.9 g/dL 3.4-5.0 N GLOBULIN (test code = GLOB) 3.8 gram/dL 2.7-4.2 N ALBUMIN/GLOBULIN RATIO (test code = A/G) 1.0 0.75-1.50 N CALCIUM (test code = CA) 9.2 mg/dL 8.5-10.1 N BILIRUBIN TOTAL (test code = BILT) 0.20 mg/dL 0.0-1.0 N SGOT/AST (test code = AST) 20 IUnit/L 15-37 N SGPT/ALT (test code = ALT) 66 IUnit/L 12-78 N ALKALINE PHOSPHATASE TOTAL (test code = ALKP) 92 IUnit/L 45-117 N Note change in reference range due to change in reagent. HCG SERUM [id number] 19:40:00* Test Item Value Reference Range Interpretation Comments HCG SERUM QUAL (test code = HCGQL) NEGATIVE NEGATIVE This HCGQL test is NOT applicable for MALE patients.Check with nurse about probable order error.If Tumor Marker Test needed, nurse should order test "HCGTU"(Test #550.56284) COMPREHENSIVE METABOLIC [id number] 19:22:00* Test Item Value Reference Range Interpretation Comments SODIUM (test code = NA) 138 mmol/L 136-145 N POTASSIUM (test code = K) 4.4 mmol/L 3.5-5.1 N CHLORIDE (test code = CL) 103.0 mmol/L 98-107 N CARBON DIOXIDE (test code = CO2) mmol/L 21-32 ANION GAP (test code = GAP) 10-20 GLUCOSE (test code = GLU) mg/dL 74-106 BLOOD UREA NITROGEN (test code = BUN) mg/dL 7-18 GLOMERULAR FILTRATION RATE (test code = GFR) mL/min >=60 CREATININE (test code = CREAT) mg/dL 0.55-1.02 BUN/CREATININE RATIO (test code = BUN/CREA) 10-20 TOTAL PROTEIN (test code = PROT) gram/dL 6.4-8.2 ALBUMIN (test code = ALB) g/dL 3.4-5.0 GLOBULIN (test code = GLOB) gram/dL 2.7-4.2 ALBUMIN/GLOBULIN RATIO (test code = A/G) 0.75-1.50 CALCIUM (test code = CA) mg/dL 8.5-10.1 BILIRUBIN TOTAL (test code = BILT) mg/dL 0.0-1.0 SGOT/AST (test code = AST) IUnit/L 15-37 SGPT/ALT (test code = ALT) IUnit/L 12-78 ALKALINE PHOSPHATASE TOTAL (test code = ALKP) IUnit/L 45-117 HCG SERUM [id number] 19:22:00* Test Item Value Reference Range Interpretation Comments HCG SERUM QUAL (test code = HCGQL) NEGATIVE NEGATIVE This HCGQL test is NOT applicable for MALE patients.Check with nurse about probable order error.If Tumor Marker Test needed, nurse should order test "HCGTU"(Test #550.61421) COMPREHENSIVE METABOLIC [id number] 19:13:00* Test Item Value Reference Range Interpretation Comments SODIUM (test code = NA) 138 mmol/L 136-145 N POTASSIUM (test code = K) 4.4 mmol/L 3.5-5.1 N CHLORIDE (test code = CL) 103.0 mmol/L 98-107 N CARBON DIOXIDE (test code = CO2) mmol/L 21-32 ANION GAP (test code = GAP) 10-20 GLUCOSE (test code = GLU) mg/dL 74-106 BLOOD UREA NITROGEN (test code = BUN) mg/dL 7-18 GLOMERULAR FILTRATION RATE (test code = GFR) mL/min >=60 CREATININE (test code = CREAT) mg/dL 0.55-1.02 BUN/CREATININE RATIO (test code = BUN/CREA) 10-20 TOTAL PROTEIN (test code = PROT) gram/dL 6.4-8.2 ALBUMIN (test code = ALB) g/dL 3.4-5.0 GLOBULIN (test code = GLOB) gram/dL 2.7-4.2 ALBUMIN/GLOBULIN RATIO (test code = A/G) 0.75-1.50 CALCIUM (test code = CA) mg/dL 8.5-10.1 BILIRUBIN TOTAL (test code = BILT) mg/dL 0.0-1.0 SGOT/AST (test code = AST) IUnit/L 15-37 SGPT/ALT (test code = ALT) IUnit/L 12-78 ALKALINE PHOSPHATASE TOTAL (test code = ALKP) IUnit/L 45-117 HCG SERUM [id number] 19:13:00* Test Item Value Reference Range Interpretation Comments HCG SERUM QUAL (test code = HCGQL) NEGATIVE CBC W/MANUAL [id number] 19:06:00* Test Item Value Reference Range Interpretation Comments WHITE BLOOD CELL (test code = WBC) 11.4 K/mm3 4.5-12.5 N RED BLOOD CELL (test code = RBC) 5.11 mill/mm3 3.7-5.2 N HEMOGLOBIN (test code = HGB) 15.3 gram/dL 11.5-15.5 N HEMATOCRIT (test code = HCT) 46.6 % 36.0-46.0 H MEAN CELL VOLUME (test code = MCV) 91.2 fL 80-98 N MEAN CELL HGB (test code = MCH) 29.9 picogram 27.0-33.0 N MEAN CELL HGB CONCETRATION (test code = MCHC) 32.8 gram/dL 33.0-36. 0 L RED CELL DISTRIBUTION WIDTH (test code = RDW) 12.5 % 11.6-16. 2 N RED CELL DISTRIBUTION WIDTH SD (test code = RDW-SD) 41.6 fL 37 .0-51.0 N PLATELET COUNT (test code = PLT) 271 K/mm3 150-450 N MEAN PLATELET VOLUME (test code = MPV) 9.7 fL 6.7-11.0 N IMMATURE GRANULOCYTE % (test code = IG%) 0.4 % 0.0-5.0 N NUCLEATED RBC % (test code = NRBC%) 0.0 % 0-0 N NEUTROPHIL # (test code = NT#) 5.77 K/mm3 1.8-7.7 N IMMATURE GRANULOCYTE # (test code = IG#) 0.05 x10 3/uL 0-0.03 H LYMPHOCYTE # (test code = LY#) 4.53 K/mm3 1.0-5.0 N MONOCYTE # (test code = MO#) 0.82 K/mm3 0-0.8 H EOSINOPHIL # (test code = EO#) 0.20 K/mm3 0.0-0.5 N BASOPHIL # (test code = BA#) 0.04 K/mm3 0.0-0.2 N NUCLEATED RBC # (test code = NRBC#) 0.00 K/mm3 0.0-0.1 N MANUAL DIFF REQUIRED (test code = MDIFF) YES STAIN ACCEPTABILITY (test code = STN ACCEPTABLE) STAIN ACCEPTABLE TOTAL CELLS COUNTED (test code = TCC) 112 #CELLS SEGMENTED NEUTROPHILS (test code = SEG) 51.8 % 39-69 N BAND NEUTROPHIL (test code = BAND) 0 % 0-10 N LYMPHOCYTE (test code = LYMPH) 41.1 % 25-55 N REACTIVE LYMPH (test code = RELYMPH) 0.9 % MONOCYTE (test code = MON) 5.3 % 0-10 N EOSINOPHIL (test code = EOS) 0 % 0.0-5.0 N BASOPHIL (test code = BASO) 0.9 % 0-1.0 N METAMYELOCYTE (test code = META) 0 % 0-0 N MYELOCYTE (test code = MYELO) 0 % 0.0-0.0 N PROMYELOCYTE (test code = PROM) 0 % 0-0 N PLATELET ESTIMATE (test code = PLTEST) ADEQUATE PLATELET MORPHOLOGY (test code = PLTMORPH) NORMAL IMMATURE FORMS (test code = IMMAT) 0 % - XR HAND 3 + V [id number] 19:04:00 FAX: OSMAR LALA MD [place]: B St: REG FAX: Eliceo Queen [phone] [facility] 1980 Age/S: 37/F [address] Unit #: [id number] Loc: [place] [address] Phys: Eliceo Queen NP Acct: [id number] Dis Date: Status: REG ER PHONE #: [phone] Exam Date: 07/24/2018 1859 FAX #: [phone] Reason: SWELLING EXAMS: CPT CODE: [id number] XR HAND 3 + [place] [id number] REASON FOR EXAM: SWELLING EXAM ORDER DATE: 07/24/2018 6:11 PM Ordering MElgin: Eliceo Queen NP PROCEDURE: - XR HAND [...] OSMAR LALA MD; Eliceo Queen NP Technologist: PRASHANTH MillerR Trnscrd Date/Time/By: 07/24/2018 (1903) : By: JenniferVTL Orig Print D/T: S: 07/24/2018 (1907) PAGE 1 Signed Report CBC W/MANUAL [id number] 18:53:00 * Test Item Value Reference Range Interpretation Comments WHITE BLOOD CELL (test code = WBC) 11.4 K/mm3 4.5-12.5 N RED BLOOD CELL (test code = RBC) 5.11 mill/mm3 3.7-5.2 N HEMOGLOBIN (test code = HGB) 15.3 gram/dL 11.5-15.5 N HEMATOCRIT (test code = HCT) 46.6 % 36.0-46.0 H MEAN CELL VOLUME (test code = MCV) 91.2 fL 80-98 N MEAN CELL HGB (test code = MCH) 29.9 picogram 27.0-33.0 N MEAN CELL HGB CONCETRATION (test code = MCHC) 32.8 gram/dL 33.0-36. 0 L RED CELL DISTRIBUTION WIDTH (test code = RDW) 12.5 % 11.6-16. 2 N RED CELL DISTRIBUTION WIDTH SD (test code = RDW-SD) 41.6 fL 37 .0-51.0 N PLATELET COUNT (test code = PLT) 271 K/mm3 150-450 N MEAN PLATELET VOLUME (test code = MPV) 9.7 fL 6.7-11.0 N IMMATURE GRANULOCYTE % (test code = IG%) 0.4 % 0.0-5.0 N NUCLEATED RBC % (test code = NRBC%) 0.0 % 0-0 N NEUTROPHIL # (test code = NT#) 5.77 K/mm3 1.8-7.7 N IMMATURE GRANULOCYTE # (test code = IG#) 0.05 x10 3/uL 0-0.03 H LYMPHOCYTE # (test code = LY#) 4.53 K/mm3 1.0-5.0 N MONOCYTE # (test code = MO#) 0.82 K/mm3 0-0.8 H EOSINOPHIL # (test code = EO#) 0.20 K/mm3 0.0-0.5 N BASOPHIL # (test code = BA#) 0.04 K/mm3 0.0-0.2 N NUCLEATED RBC # (test code = NRBC#) 0.00 K/mm3 0.0-0.1 N MANUAL DIFF REQUIRED (test code = MDIFF) YES STAIN ACCEPTABILITY (test code = STN ACCEPTABLE) TOTAL CELLS COUNTED (test code = TCC) #CELLS SEGMENTED NEUTROPHILS (test code = SEG) % 39-69 LYMPHOCYTE (test code = LYMPH) % 25-55 MONOCYTE (test code = MON) % 0-10 MORPHOLOGY COMMENT (test code = MOC) PLATELET ESTIMATE (test code = PLTEST) PLATELET MORPHOLOGY (test code = PLTMORPH) CBC W/MANUAL [id number] 18:46:00* Test Item Value Reference Range Interpretation Comments WHITE BLOOD CELL (test code = WBC) 11.4 K/mm3 4.5-12.5 N RED BLOOD CELL (test code = RBC) 5.11 mill/mm3 3.7-5.2 N HEMOGLOBIN (test code = HGB) 15.3 gram/dL 11.5-15.5 N HEMATOCRIT (test code = HCT) 46.6 % 36.0-46.0 H MEAN CELL VOLUME (test code = MCV) 91.2 fL 80-98 N MEAN CELL HGB (test code = MCH) 29.9 picogram 27.0-33.0 N MEAN CELL HGB CONCETRATION (test code = MCHC) 32.8 gram/dL 33.0-36. 0 L RED CELL DISTRIBUTION WIDTH (test code = RDW) 12.5 % 11.6-16. 2 N RED CELL DISTRIBUTION WIDTH SD (test code = RDW-SD) 41.6 fL 37 .0-51.0 N PLATELET COUNT (test code = PLT) 271 K/mm3 150-450 N MEAN PLATELET VOLUME (test code = MPV) 9.7 fL 6.7-11.0 N IMMATURE GRANULOCYTE % (test code = IG%) 0.4 % 0.0-5.0 N NUCLEATED RBC % (test code = NRBC%) 0.0 % 0-0 N NEUTROPHIL # (test code = NT#) 5.77 K/mm3 1.8-7.7 N IMMATURE GRANULOCYTE # (test code = IG#) 0.05 x10 3/uL 0-0.03 H LYMPHOCYTE # (test code = LY#) 4.53 K/mm3 1.0-5.0 N MONOCYTE # (test code = MO#) 0.82 K/mm3 0-0.8 H EOSINOPHIL # (test code = EO#) 0.20 K/mm3 0.0-0.5 N BASOPHIL # (test code = BA#) 0.04 K/mm3 0.0-0.2 N NUCLEATED RBC # (test code = NRBC#) 0.00 K/mm3 0.0-0.1 N MANUAL DIFF REQUIRED (test code = MDIFF) YES STAIN ACCEPTABILITY (test code = STN ACCEPTABLE) TOTAL CELLS COUNTED (test code = TCC) #CELLS SEGMENTED NEUTROPHILS (test code = SEG) % 39-69 LYMPHOCYTE (test code = LYMPH) % 25-55 MONOCYTE (test code = MON) % 0-10 EOSINOPHIL (test code = EOS) % 0.0-5.0 CABOT RINGS (test code = CAB) MORPHOLOGY COMMENT (test code = MOC) PLATELET ESTIMATE (test code = PLTEST) PLATELET MORPHOLOGY (test code = PLTMORPH) CBC W/MANUAL [id number] 18:46:00* Test Item Value Reference Range Interpretation Comments WHITE BLOOD CELL (test code = WBC) 11.4 K/mm3 4.5-12.5 N RED BLOOD CELL (test code = RBC) 5.11 mill/mm3 3.7-5.2 N HEMOGLOBIN (test code = HGB) 15.3 gram/dL 11.5-15.5 N HEMATOCRIT (test code = HCT) 46.6 % 36.0-46.0 H MEAN CELL VOLUME (test code = MCV) 91.2 fL 80-98 N MEAN CELL HGB (test code = MCH) 29.9 picogram 27.0-33.0 N MEAN CELL HGB CONCETRATION (test code = MCHC) 32.8 gram/dL 33.0-36. 0 L RED CELL DISTRIBUTION WIDTH (test code = RDW) 12.5 % 11.6-16. 2 N RED CELL DISTRIBUTION WIDTH SD (test code = RDW-SD) 41.6 fL 37 .0-51.0 N PLATELET COUNT (test code = PLT) 271 K/mm3 150-450 N MEAN PLATELET VOLUME (test code = MPV) 9.7 fL 6.7-11.0 N IMMATURE GRANULOCYTE % (test code = IG%) 0.4 % 0.0-5.0 N NUCLEATED RBC % (test code = NRBC%) 0.0 % 0-0 N NEUTROPHIL # (test code = NT#) 5.77 K/mm3 1.8-7.7 N IMMATURE GRANULOCYTE # (test code = IG#) 0.05 x10 3/uL 0-0.03 H LYMPHOCYTE # (test code = LY#) 4.53 K/mm3 1.0-5.0 N MONOCYTE # (test code = MO#) 0.82 K/mm3 0-0.8 H EOSINOPHIL # (test code = EO#) 0.20 K/mm3 0.0-0.5 N BASOPHIL # (test code = BA#) 0.04 K/mm3 0.0-0.2 N NUCLEATED RBC # (test code = NRBC#) 0.00 K/mm3 0.0-0.1 N MANUAL DIFF REQUIRED (test code = MDIFF) YES STAIN ACCEPTABILITY (test code = STN ACCEPTABLE) TOTAL CELLS COUNTED (test code = TCC) #CELLS SEGMENTED NEUTROPHILS (test code = SEG) % 39-69 LYMPHOCYTE (test code = LYMPH) % 25-55 MONOCYTE (test code = MON) % 0-10 EOSINOPHIL (test code = EOS) % 0.0-5.0 CABOT RINGS (test code = CAB) MORPHOLOGY COMMENT (test code = MOC) PLATELET ESTIMATE (test code = PLTEST) PLATELET MORPHOLOGY (test code = PLTMORPH) CBC W/MANUAL [id number] 18:46:00* Test Item Value Reference Range Interpretation Comments WHITE BLOOD CELL (test code = WBC) 11.4 K/mm3 4.5-12.5 N RED BLOOD CELL (test code = RBC) 5.11 mill/mm3 3.7-5.2 N HEMOGLOBIN (test code = HGB) 15.3 gram/dL 11.5-15.5 N HEMATOCRIT (test code = HCT) 46.6 % 36.0-46.0 H MEAN CELL VOLUME (test code = MCV) 91.2 fL 80-98 N MEAN CELL HGB (test code = MCH) 29.9 picogram 27.0-33.0 N MEAN CELL HGB CONCETRATION (test code = MCHC) 32.8 gram/dL 33.0-36. 0 L RED CELL DISTRIBUTION WIDTH (test code = RDW) 12.5 % 11.6-16. 2 N RED CELL DISTRIBUTION WIDTH SD (test code = RDW-SD) 41.6 fL 37 .0-51.0 N PLATELET COUNT (test code = PLT) 271 K/mm3 150-450 N MEAN PLATELET VOLUME (test code = MPV) 9.7 fL 6.7-11.0 N IMMATURE GRANULOCYTE % (test code = IG%) 0.4 % 0.0-5.0 N NUCLEATED RBC % (test code = NRBC%) 0.0 % 0-0 N NEUTROPHIL # (test code = NT#) 5.77 K/mm3 1.8-7.7 N IMMATURE GRANULOCYTE # (test code = IG#) 0.05 x10 3/uL 0-0.03 H LYMPHOCYTE # (test code = LY#) 4.53 K/mm3 1.0-5.0 N MONOCYTE # (test code = MO#) 0.82 K/mm3 0-0.8 H EOSINOPHIL # (test code = EO#) 0.20 K/mm3 0.0-0.5 N BASOPHIL # (test code = BA#) 0.04 K/mm3 0.0-0.2 N NUCLEATED RBC # (test code = NRBC#) 0.00 K/mm3 0.0-0.1 N MANUAL DIFF REQUIRED (test code = MDIFF) YES STAIN ACCEPTABILITY (test code = STN ACCEPTABLE) TOTAL CELLS COUNTED (test code = TCC) #CELLS SEGMENTED NEUTROPHILS (test code = SEG) % 39-69 LYMPHOCYTE (test code = LYMPH) % 25-55 MONOCYTE (test code = MON) % 0-10 EOSINOPHIL (test code = EOS) % 0.0-5.0 MORPHOLOGY COMMENT (test code = MOC) PLATELET ESTIMATE (test code = PLTEST) PLATELET MORPHOLOGY (test code = PLTMORPH) CBC W/MANUAL [id number] 18:46:00* Test Item Value Reference Range Interpretation Comments WHITE BLOOD CELL (test code = WBC) 11.4 K/mm3 4.5-12.5 N RED BLOOD CELL (test code = RBC) 5.11 mill/mm3 3.7-5.2 N HEMOGLOBIN (test code = HGB) 15.3 gram/dL 11.5-15.5 N HEMATOCRIT (test code = HCT) 46.6 % 36.0-46.0 H MEAN CELL VOLUME (test code = MCV) 91.2 fL 80-98 N MEAN CELL HGB (test code = MCH) 29.9 picogram 27.0-33.0 N MEAN CELL HGB CONCETRATION (test code = MCHC) 32.8 gram/dL 33.0-36. 0 L RED CELL DISTRIBUTION WIDTH (test code = RDW) 12.5 % 11.6-16. 2 N RED CELL DISTRIBUTION WIDTH SD (test code = RDW-SD) 41.6 fL 37 .0-51.0 N PLATELET COUNT (test code = PLT) 271 K/mm3 150-450 N MEAN PLATELET VOLUME (test code = MPV) 9.7 fL 6.7-11.0 N IMMATURE GRANULOCYTE % (test code = IG%) 0.4 % 0.0-5.0 N NUCLEATED RBC % (test code = NRBC%) 0.0 % 0-0 N NEUTROPHIL # (test code = NT#) 5.77 K/mm3 1.8-7.7 N IMMATURE GRANULOCYTE # (test code = IG#) 0.05 x10 3/uL 0-0.03 H LYMPHOCYTE # (test code = LY#) 4.53 K/mm3 1.0-5.0 N MONOCYTE # (test code = MO#) 0.82 K/mm3 0-0.8 H EOSINOPHIL # (test code = EO#) 0.20 K/mm3 0.0-0.5 N BASOPHIL # (test code = BA#) 0.04 K/mm3 0.0-0.2 N NUCLEATED RBC # (test code = NRBC#) 0.00 K/mm3 0.0-0.1 N MANUAL DIFF REQUIRED (test code = MDIFF) YES STAIN ACCEPTABILITY (test code = STN ACCEPTABLE) TOTAL CELLS COUNTED (test code = TCC) #CELLS SEGMENTED NEUTROPHILS (test code = SEG) % 39-69 LYMPHOCYTE (test code = LYMPH) % 25-55 MONOCYTE (test code = MON) % 0-10 EOSINOPHIL (test code = EOS) % 0.0-5.0 CABOT RINGS (test code = CAB) MORPHOLOGY COMMENT (test code = MOC) PLATELET ESTIMATE (test code = PLTEST) PLATELET MORPHOLOGY (test code = PLTMORPH) BASIC METABOLIC [id number] 09:12:00* Test Item Value Reference Range Interpretation Comments SODIUM (test code = NA) 139 mmol/L 136-145 N POTASSIUM (test code = K) 4.1 mmol/L 3.5-5.1 N CHLORIDE (test code = CL) 106.0 mmol/L 98-107 N CARBON DIOXIDE (test code = CO2) 25.0 mmol/L 21-32 N ANION GAP (test code = GAP) 12.1 10-20 N GLUCOSE (test code = GLU) 75 mg/dL 74-106 N BLOOD UREA NITROGEN (test code = BUN) 5 mg/dL 7-18 L GLOMERULAR FILTRATION RATE (test code = GFR) > 60 mL/min >=60 Estimated GFR by using Modified MDRD formula.Chronic kidney disease is defined as either kidney damageor GFR <60 mL/min/1.73 m2 for >3 months. CREATININE (test code = CREAT) 0.90 mg/dL 0.55-1.02 N Note change in reference range due to change in reagent. BUN/CREATININE RATIO (test code = BUN/CREA) 5.8 10-20 L CALCIUM (test code = CA) 8.3 mg/dL 8.5-10.1 L HCG SERUM [id number] 09:12:00* Test Item Value Reference Range Interpretation Comments HCG SERUM QUAL (test code = HCGQL) NEGATIVE NEGATIVE This HCGQL test is NOT applicable for MALE patients.Check with nurse about probable order error.If Tumor Marker Test needed, nurse should order test "HCGTU"(Test #[id number]) BASIC METABOLIC [id number] 09:11:00* Test Item Value Reference Range Interpretation Comments SODIUM (test code = NA) 139 mmol/L 136-145 N POTASSIUM (test code = K) 4.1 mmol/L 3.5-5.1 N CHLORIDE (test code = CL) 106.0 mmol/L 98-107 N CARBON DIOXIDE (test code = CO2) 25.0 mmol/L 21-32 N ANION GAP (test code = GAP) 12.1 10-20 N GLUCOSE (test code = GLU) 75 mg/dL 74-106 N BLOOD UREA NITROGEN (test code = BUN) 5 mg/dL 7-18 L GLOMERULAR FILTRATION RATE (test code = GFR) > 60 mL/min >=60 Estimated GFR by using Modified MDRD formula.Chronic kidney disease is defined as either kidney damageor GFR <60 mL/min/1.73 m2 for >3 months. CREATININE (test code = CREAT) 0.90 mg/dL 0.55-1.02 N Note change in reference range due to change in reagent. BUN/CREATININE RATIO (test code = BUN/CREA) 5.8 10-20 L CALCIUM (test code = CA) 8.3 mg/dL 8.5-10.1 L HCG SERUM [id number] 09:11:00* Test Item Value Reference Range Interpretation Comments HCG SERUM QUAL (test code = HCGQL) NEGATIVE CBC W/O [id number] 09:03:00* Test Item Value Reference Range Interpretation Comments WHITE BLOOD CELL (test code = WBC) 9.7 K/mm3 4.5-12.5 N RED BLOOD CELL (test code = RBC) 5.09 mill/mm3 3.7-5.2 N HEMOGLOBIN (test code = HGB) 15.2 gram/dL 11.5-15.5 N HEMATOCRIT (test code = HCT) 47.2 % 36.0-46.0 H MEAN CELL VOLUME (test code = MCV) 92.7 fL 80-98 N MEAN CELL HGB (test code = MCH) 29.9 picogram 27.0-33.0 N MEAN CELL HGB CONCETRATION (test code = MCHC) 32.2 gram/dL 33.0-36. 0 L RED CELL DISTRIBUTION WIDTH (test code = RDW) 12.5 % 11.6-16. 2 N PLATELET COUNT (test code = PLT) 229 K/mm3 150-450 N MEAN PLATELET VOLUME (test code = MPV) 10.4 fL 6.7-11.0 N CBC W/O [id number] 09:00:00* Test Item Value Reference Range Interpretation Comments WHITE BLOOD CELL (test code = WBC) K/mm3 4.5-12.5 RED BLOOD CELL (test code = RBC) mill/mm3 3.7-5.2 HEMOGLOBIN (test code = HGB) 15.2 gram/dL 11.5-15.5 N HEMATOCRIT (test code = HCT) % 36.0-46.0 MEAN CELL VOLUME (test code = MCV) fL 80-98 MEAN CELL HGB (test code = MCH) picogram 27.0-33.0 MEAN CELL HGB CONCETRATION (test code = MCHC) gram/dL 33.0-36. 0 RED CELL DISTRIBUTION WIDTH (test code = RDW) % 11.6-16. 2 PLATELET COUNT (test code = PLT) K/mm3 150-450 MEAN PLATELET VOLUME (test code = MPV) fL 6.7-11.0
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
[2019-10-19] MEDS ORDERED: LIDOCAINE 1% W/EPINEPHRINE 20 ML VIAL INJ ONE (16:15)
[2019-10-19 17:05] VITALS: BP 116/80
== END 2019-10-19 17:07 | disposition home or self-care (01) ==
LOC: ER 15:24
DX: L02.413 Cutaneous abscess of right upper limb (principal); E78.5 Hyperlipidemia, unspecified; F31.9 Bipolar disorder, unspecified; Z98.84 Bariatric surgery status; F15.10 Other stimulant abuse, uncomplicated
CPT/HCPCS: 99283

== ENCOUNTER 2019-10-29 00:11 | Emergency (ER) | payer MEDICARE ==
[~2019-10-29] VITALS: Ht 152.4 cm; Wt 108.0 kg
--- OUTSIDE RECORDS SUMMARY | 2019-10-29 00:15 | XMS REPORT ---
Author Author [facility] t Organization [facility] Address [address] [place] [address] Phone Unavailable Care Team Providers Care Receiving Checker Name Role Phone NO, PCP PCP Unavailable YOUSUFChaparro CRUZ Attphys Unavailable SABRA, LOGAN Attphys Unavailable SABRA, LOGAN Admphys Unavailable Payers Payer Name Policy Type Policy Number Effective Date Expiration Date S ource Medicare A & B NA 2013 00:00:00 [facility] Problems Condition Name Condition Details Condition Category Status Onset Date Resolution Date Last Treatment Date Treating Clinician Comments Source Vitamin D deficiency Vitamin D Deficiency Problem Active 00:00:00 [facility] Pract ice Mixed hyperlipidemia Mixed Hyperlipidemia Problem Active 00:00:00 [facility] Pract ice Elevated blood-pressure reading without diagnosis of h ypertension Elevated Blood-pressure Reading without Diagnosis of Hypertension Problem Act jacqui 2016-09-19 00:00:00 [facility] Body mass index 30+ - obesity Body Mass Index 30+ - Obesity Problem Active 2016-09-10 00:00:00 [facility] Bipolar disorder Bipolar Disorder Problem Active 2016-09-10 00:00:00 [facility] Multiple personality disorder Multiple Personality Disorder Problem Active 2016-09-10 00:00:00 [facility] Tobacco user Tobacco User Problem Active 2016-09-10 00:00:00 [facility] Posttraumatic stress disorder Posttraumatic Stress Disorder Problem Active 2016-09-10 00:00:00 [facility] Asthma Asthma Problem Active 2016-09-10 00:00:00 [facility] Infection of skin AND/OR subcutaneous tissue Infection of Skin AND/OR Subcutaneous Tissue Problem Active 2016-09-10 00:00:00 [facility] Tachycardia Tachycardia Problem Active 2016-09-10 00:00:00 [facility] Electrocardiogram abnormal Electrocardiogram Abnormal Problem Active 2016-09-10 00:00:00 [facility] Long-term drug therapy Long-term Drug Therapy Problem Active 2016-09-10 00:00:00 [facility] Abscess Problem Active [facility] Cellulitis Problem Active [facility] Allergies, Adverse Reactions, Alerts Allergy Name Allergy Type Status Severity Reaction(s) Onset Date Inacti ve Date Treating Clinician Comments Source Promethazine Allergy to substance Active Moderate COMBATIVE 2018-06 00:00:00 [facility] Metoclopramide Allergy to substance Active Moderate COMBATIVE 2019-04-21 00:00:00 [facility] Metoclopramide Allergy to substance Active 2018-07-25 00:00 :00 [facility] Promethazine Allergy to substance Active 2018-07-25 00:00:0 0 [facility] promethazine DA Active 2018-07-24 00:00:00 [facility] metoclopramide DA Active 2018-07-24 00:00:00 [facility] promethazine DA Active 2018-07-23 00:00:00 [facility] metoclopramide DA Active 2018-07-23 00:00:00 [facility] promethazine DA Active 2018-07-22 00:00:00 [facility] metoclopramide DA Active 2018-07-22 00:00:00 [facility] promethazine DA Active 2018-05-12 00:00:00 [facility] metoclopramide DA Active 2018-05-12 00:00:00 [facility] promethazine DA Active 2018-02-25 00:00:00 [facility] metoclopramide DA Active 2018-02-25 00:00:00 [facility] promethazine DA Active 2017-09-17 00:00:00 [facility] metoclopramide DA Active 2017-09-17 00:00:00 [facility] Phenergan Allergy to substance Active [facility] Reglan Allergy to substance Active [facility] Social History Social Habit Start Date Stop Date Quantity Comments Source Sex Assigned At 1980 00:00:00 1980 00:00:00 Female [facility] Smoking Status Start Date Stop Date Source Heavy Tobacco Smoker [facility] Medications Ordered Medication Name Filled Medication [...] day by nebulization route for 1 day. [facility] aripiprazole 30 mg tablet Take 1 tablet every day by o ral route for 30 days. aripiprazole 30 mg tablet Take 1 tablet every day by oral route for 30 days. No aripiprazole 3 0 mg tablet Take 1 tablet every day by oral route for 30 days. [facility] ice bupropion HCl XL 300 mg 24 [...] oral route at bedtime for 30 days. [facility] buspirone 10 mg tablet Take 2 tablets twice a day by o ral route for 90 days. buspirone 10 mg tablet Take 2 tablets twice a day by oral route for 90 days. No buspirone 10 m g tablet Take 2 tablets twice a day by oral route for 90 days. [facility] mg tablet Take 0.5 tablets 3 times a day by oral route as needed for 30 days. clonazepam 2 mg tablet Take 0.5 tablets 3 times a day by oral route as needed for 30 days. No c lonazepam 2 mg tablet Take 0.5 tablets 3 times a day by oral route as needed for 30 days. [facility] dexamethasone 4 mg/mL injection solution Take 4 mg by injection route for 1 day. dexamethasone 4 mg/mL injection solution Take 4 mg by injection route for 1 day. No 4mg dexamethasone 4 mg/mL injection solution Take 4 mg by injection route for 1 day. [facility] dextroamphetamine-amphetamine 20 mg tabl et Take 1 tablet 3 times a day by oral route for 30 days. dextroamphetamine-amphetamine 20 mg tabl et Take 1 tablet 3 times a day by oral route for 30 days. No dextroamphetamine- amphetamine 20 mg tablet Take 1 tablet 3 times a day by oral route for 30 days. [facility] doxycycline hyclate 100 mg tablet Take 1 tablet twice a day by oral route for 10 days. doxycycline hyclate 100 mg tablet Take 1 tablet twice a day by oral route for 10 days. No doxycycline hyclate 100 mg tablet Take 1 tablet twice a day by oral route for 10 days. [facility] duloxetine 60 mg capsule,delayed release Take 1 capsule every day by oral route for 30 days. duloxetine 60 mg capsule,delayed release Take 1 capsule every day by oral route for 30 days. No duloxetine 60 mg capsule,delayed release Take 1 capsule every day by oral route for 30 days. [facility] eszopiclone 3 mg tablet Take 1 tablet ev carlos day by oral route at bedtime for 30 days. eszopiclone 3 mg tablet Take 1 tablet ev carlos day by oral route at bedtime for 30 days. No eszopiclone 3 mg tablet Take 1 tablet every day by oral route at bedtime for 30 days. [facility] lamotrigine 200 mg tablet Take 1 tablet every day by o ral route for 30 days. lamotrigine 200 mg tablet Take 1 tablet every day by oral route for 30 days. No lamotrigine 20 0 mg tablet Take 1 tablet every day by oral route for 30 days. [facility] lev[facility]oxacin 500 mg tablet levofloxacin 500 mg tablet No levofloxacin 500 mg tablet [facility] prazosin 2 mg capsule Take 1 capsule every day by oral route for 30 days. prazosin 2 mg capsule Take 1 capsule every day by oral route for 30 days. No prazosin 2 mg c apsule Take 1 capsule every day by oral route for 30 days. [facility] ProAir RespiClick 90 mcg/actuation breat h [...] inhalation route as needed for 30 days. [facility] trazodone 50 mg tablet Take 1 tablet 3 t imes a day by oral route as needed for 30 days. trazodone 50 mg tablet Take 1 tablet 3 t imes a day by oral route as needed for 30 days. No traz odone 50 mg tablet Take 1 tablet 3 times a day by oral route as needed for 30 days. [facility] triamcinolone acetonide 40 mg/mL suspens ion for injection Take 40 mg by injection route. triamcinolone acetonide 40 mg/mL suspens ion for injection Take 40 mg by injection route. No 40mg triamcinolone acetonide 40 mg/mL suspension for injection Take 40 mg by injection route. [facility] zolpidem 10 mg tablet Take 1 tablet ever y day by oral route as needed for 30 days. zolpidem 10 mg tablet Take 1 tablet ever y day by oral route as needed for 30 days. No zolpidem 10 mg tablet Take 1 tablet every day by oral route as needed for 30 days. [facility] Amphet Asp/Amphet/D-Amphet (Adderall 20 Mg Tablet) 20 Mg TABLET Amphet Asp/Amphet/D-Amphet (Adderall 20 Mg Tablet) 20 Mg TABLET Yes 60 Daily [facility] Aripiprazole (Abilify) 10 Mg TABLET Aripiprazole (Abilify) 10 Mg TABL ET Yes 30 Bedtime [facility] Bupropion Hcl (Bupropion Xl) 300 Mg TAB.ER.24H Bupropi on Hcl (Bupropion Xl) 300 Mg TAB.ER.24H Yes 300 Daily [facility] Buspirone Hcl Buspirone Hcl Yes 20 Bedtime [facility] Clonazepam Clonazepam Yes 2 Three Time s A Day as needed for Anxiety [facility] Duloxetine Hcl (Cymbalta) 20 Mg CAPCR Duloxetine Hcl (Cymbalta) 20 Mg CAPCR Yes 60 Bedtime [facility] Eszopiclone (Lunesta) 3 Mg TABLET Eszopiclone (Lunesta) 3 Mg TABLET Yes 3 Bedtime [facility] Prazosin Hcl Prazosin Hcl Yes 2 Bedtime [facility] Trazodone Hcl Trazodone Hcl Yes 50 Bedtime as n eeded for Insomnia [facility] Ciprofloxacin Hcl (Cipro) 500 Mg TABLET Ciprofloxacin Hcl (C ipro) 500 Mg TABLET 2018-11-16 00:00:00 No 500 Every 12 Hours [facility] Doxycycline Hyclate Doxycycline Hyclate 2018-11-16 00:00:00 No 100 Every 12 Hours [facility] Immunizations Ordered Immunization Name Filled Immunization Name Date Status Comments Source influenza, unspecified formulation influenza, unspecified fo rmulation 2018-03-02 00:00:00 Completed [facility] Tdap Tdap 2013-06-02 00:00:00 Completed [facility] Vital Signs Vital Name Observation Time Observation Value Comments Source BP Diastolic 2018-10-14 00:00:00 79.99 mm[Hg] [facility] Height 2018-10-14 00:00:00 61 [in_i] [facility] BMI (Body Mass Index) 2018-10-14 00:00:00 41.7 kg/m2 [facility] BP Systolic 2018-10-14 00:00:00 138 mm[Hg] [facility] Body Weight 2018-10-14 00:00:00 220.6 [lb_av] [facility] BP Diastolic 2018-09-30 00:00:00 90 mm[Hg] [facility] Height 2018-09-30 00:00:00 61 [in_i] [facility] BMI (Body Mass Index) 2018-09-30 00:00:00 41.6 kg/m2 [facility] BP Systolic 2018-09-30 00:00:00 138 mm[Hg] [facility] Body Weight 2018-09-30 00:00:00 220.4 [lb_av] [facility] Weight 2019-10-19 15:49:00 238 [lb_av] [facility] BMI (Body Mass Index) 2019-10-19 15:49:00 46.5 kg/m2 [facility] Weight 2019-10-07 10:45:00 220 [lb_av] [facility] BMI (Body Mass Index) 2019-10-07 10:45:00 43.0 kg/m2 [facility] Weight 2019-10-04 05:11:00 220 [lb_av] [facility] BMI (Body Mass Index) 2019-10-04 05:11:00 43.0 kg/m2 [facility] Procedures Procedure Date / Time Performed Performing Clinician Dorcas lay DRAINAGE OF SKIN ABSCESS 2019-10-07 00:00:00 [facility] X-ray of chest, two views 2019-04-21 00:00:00 NICHOLE CHANG [facility] X-RAY OF CHEST 2 VIEW 2018-10-14 00:00:00 Tirso lay [facility] Cholecystectomy (Gall Bladder Removal) 2004-06-02 00:00:00 [facility] Appendectomy 1995-06-02 00:00:00 [facility] Tonsillectomy 1983-06-02 00:00:00 [facility] Plan of Care Planned Activity Planned Date Details Comments Source Instructions Skin Abscess [facility] Encounters Start Date/Time End Date/Time Encounter Type Admission Type Attendi [facility] Care Department Encounter ID Source 2019-10-19 15:24:00 2019-10-19 17:07:00 Departed Emergency Room [facility] [id number] [facility] 2019-10-07 10:08:00 2019-10-07 13:34:00 Departed Emergency Room [facility] [id number] [facility] 2019-10-04 05:02:00 2019-10-04 05:25:00 Departed Emergency Room [facility] [id number] [facility] 2019-04-21 12:54:00 2019-04-21 15:20:00 [facility] [id number] [facility] 2018-12-13 04:11:00 2018-12-13 06:35:00 Departed Emergency Room [facility] [id number] [facility] 2018-11-16 21:59:00 2018-11-17 00:37:00 Departed Emergency Room [facility] [id number] [facility] 2018-11-07 16:44:00 2018-11-07 17:24:00 Departed Emergency Room [facility] [id number] [facility] 2018-10-30 00:00:00 2018-10-30 00:00:00 Yaima Rodriguez MD: [address] [place] [address], Ph. [facility] [id number] [facility] 2018-10-14 00:00:00 2018-10-14 00:00:00 Calista hopson MD: [address] [place] [address], Ph. [facility] [id number] [facility] 2018-09-30 00:00:00 2018-09-30 00:00:00 Mello Mayer MD: [address] [place] [address], Ph. [facility] [id number] [facility] 2018-07-25 13:46:00 2018-07-28 13:43:00 Discharged Inpatient 1 SABRA, LOGAN [facility] [id number] [facility] Results Test Description Test Time Test Comments Results Result Comments Source Blood leukocytes automated count (number/volume) 2019-10-07 10:53:00 Test Item White Blood Count (test code = 6690-2) 8.87 4.8-10.8 [facility] count (number/volume)2019-10-07 10:53:00* Test Item Value Reference Range Interpretation Comments Red Blood Count (test code = 789-8) 4.74 3.6-5.1 [facility] measurement (moles/volume)2019-10-07 10:53:00* Test Item Value Reference Range Interpretation Comments Hemoglobin (test code = 61000-1) 13.6 12.0-16.0 [facility] blood hematocrit (volume fraction)2019-10-07 10:53:00* Test Item Value Reference Range Interpretation Comments Hematocrit (test code = 4544-3) 42.7 34.2-44.1 [facility] erythrocyte mean corpuscular [id number] 10:53:00* Test Item Value Reference Range Interpretation Comments Mean Corpuscular Volume (test code = 787-2) 90.1 81-99 [facility] mean corpuscular hemoglobin (mass per erythrocyte)2019-10-07 10:53:00* Test Item Value Reference Range Interpretation Comments Mean Corpuscular Hemoglobin (test code = 785-6) 28.7 28-32 [facility] erythrocyte mean corpuscular hemoglobin concentration measurement (mass/volume)2019-10-07 10:53:00* Test Item Value Reference Range Interpretation Comments Mean Corpuscular Hemoglobin Concent (test code = 786-4) 31.9 31-35 [facility] HospitalRDW [id number]-[id number] 10:53:00* Test Item Value Reference Range Interpretation Comments Red Cell Distribution Width (test code = 59538-1) 12.8 11.7 -14.4 [facility] blood platelet count (count/volume)2019-10-07 10:53:00* Test Item Value Reference Range Interpretation Comments Platelet Count (test code = 777-3) 349 140-360 [facility] HospitalAutom[facility] blood segmented neutrophil count as percentage of total [id number] 10:53:00* Test Item Value Reference Range Interpretation Comments Neutrophils (%) (Auto) (test code = 68231-8) 58.7 38.7-80.0 [facility] HospitalAutom[facility] blood lymphocyte count as percentage ot total [id number] 10:53:00* Test Item Value Reference Range Interpretation Comments Lymphocytes (%) (Auto) (test code = 736-9) 33.3 18.0-39.1 [facility] HospitalAutom[facility] blood monocyte count as percentage of total rlvvvoqdep1782-49-67 10:53:00* Test Item Value Reference Range Interpretation Comments Monocytes (%) (Auto) (test code = 5905-5) 4.5 4.4-11.3 [facility] HospitalAut[facility] hospitaled blood eosinophil count as percentage of total phbmsggkyq2993-68-77 10:53:00* Test Item Value Reference Range Interpretation Comments Eosinophils (%) (Auto) (test code = 713-8) 2.6 0.0-6.0 [facility] HospitalAutom[facility] blood basophil count as percentage of total [id number] 10:53:00* Test Item Value Reference Range Interpretation Comments Basophils (%) (Auto) (test code = 706-2) 0.3 0.0-1.0 [facility] HospitalFluoroscopic procedure less than one hour [id number] 10:53:00* Test Item Value Reference Range Interpretation Comments IM GRANULOCYTES % (test code = IM GRANULOCYTES %) 0.6 0.0- 1.0 [facility] HospitalAutom[facility] blood neutrophil count 2019-10-07 10:53:00* Test Item Value Reference Range Interpretation Comments Neutrophils # (Auto) (test code = 751-8) 5.2 2.1-6.9 [facility] HospitalBlood lymphocytes count (number/volume) 2019-10-07 10:53:00* Test Item Value Reference Range Interpretation Comments Lymphocytes # (Auto) (test code = 78553-0) 3.0 1.0-3.2 [facility] HospitalBlood monocytes automated count (number/volume)2019-10-07 10:53:00* Test Item Value Reference Range Interpretation Comments Monocytes # (Auto) (test code = 742-7) 0.4 0.2-0.8 [facility] HospitalAutomated blood eosinophil count 2019-10-07 10:53:00* Test Item Value Reference Range Interpretation Comments Eosinophils # (Auto) (test code = 711-2) 0.2 0.0-0.4 [facility] HospitalAutomated blood basophil count (count/volume)2019-10-07 10:53:00* Test Item Value Reference Range Interpretation Comments Basophils # (Auto) (test code = 704-7) 0.0 0.0-0.1 [facility] HospitalFluoroscopic procedure less than one hour [id number] 10:53:00* Test Item Value Reference Range Interpretation Comments Absolute Immature Granulocyte (auto (aron t code = Absolute Immature Granulocyte (auto) 0.05 0-0.1 [facility] sodium measurement (moles/volume)2019-10-07 10:53:00* Test Item Value Reference Range Interpretation Comments Sodium Level (test code = 2951-2) 137 136-145 [facility] plasma potassium measurement (moles/volume)2019-10-07 10:53:00* Test Item Value Reference Range Interpretation Comments Potassium Level (test code = 2823-3) 3.8 3.5-5.1 [facility] or plasma chloride measurement (moles/volume)2019-10-07 10:53:00* Test Item Value Reference Range Interpretation Comments Chloride Level (test code = 2075-0) 105 98-107 [facility]erum or plasma carbon dioxide, total measurement (moles/volume)2019-10-07 10:53:00* Test Item Value Reference Range Interpretation Comments Carbon Dioxide Level (test code = 2028-9) 24 22-29 [facility] Hospitalerum or plasma anion kap2051-32-16 10:53:00* Test Item Value Reference Range Interpretation Comments Anion Gap (test code = 15574-2) 11.8 8-16 [facility] or plasma urea nitrogen measurement (mass/volume)2019-10-07 10:53:00* Test Item Value Reference Range Interpretation Comments Blood Urea Nitrogen (test code = 3094-0) 5 7-26 [facility] or plasma creatinine measurement (mass/volume)2019-10-07 10:53:00* Test Item Value Reference Range Interpretation Comments Creatinine (test code = 2160-0) 0.86 0.57-1.11 [facility] or plasma urea nitrogen/creatinine mass [id number] 10:53:00* Test Item Value Reference Range Interpretation Comments BUN/Creatinine Ratio (test code = 3097-3) 6 6-25 [facility] HospitalEstimated glomerular filtration rate (GFR) goimheeixrsji7048-69-66 10:53:00* Test Item Value Reference Range Interpretation Comments Estimat Glomerular Filtration Rate (test code = 162552824) > 60 >60 Ranges were taken from the National Kidney Disease Education Program and the [facility] Foundation literature.Reference ranges:60 or greater: Xsiiyr54-59 ( for 3 consecutive months): Chronic kidney disease 15 or less: Kidney failureHill Country Memorial HospitalGlucose dwcvgxukqkf1207-57-91 10:53:00* Test Item Value Reference Range Interpretation Comments Glucose Level (test code = GMQ7102) 140 74-118 [facility]um or plasma calcium measurement (mass/volume)2019-10-07 10:53:00* Test Item Value Reference Range Interpretation Comments Calcium Level (test code = 98850-1) 9.0 8.4-10.2 [facility] HospitalBlood leukocytes automated count (number/volume)2019-10-07 10:53:00* Test Item Value Reference Range Interpretation Comments White Blood Count (test code = 6690-2) 8.87 4.8-10.8 [facility] HospitalBlood erythrocytes automated count (number/volume)2019-10-07 10:53:00* Test Item Value Reference Range Interpretation Comments Red Blood Count (test code = 789-8) 4.74 3.6-5.1 [facility] HospitalBlood hemoglobin measurement (moles/volume)2019-10-07 10:53:00* Test Item Value Reference Range Interpretation Comments Hemoglobin (test code = 95941-2) 13.6 12.0-16.0 [facility] HospitalAutomated blood hematocrit (volume fraction)2019-10-07 10:53:00* Test Item Value Reference Range Interpretation Comments Hematocrit (test code = 4544-3) 42.7 34.2-44.1 [facility] HospitalAutomated erythrocyte mean corpuscular [id number] 10:53:00* Test Item Value Reference Range Interpretation Comments Mean Corpuscular Volume (test code = 787-2) 90.1 81-99 [facility] HospitalAutomated erythrocyte mean corpuscular hemoglobin (mass per erythrocyte)2019-10-07 10:53:00* Test Item Value Reference Range Interpretation Comments Mean Corpuscular Hemoglobin (test code = 785-6) 28.7 28-32 [facility] HospitalAutomated erythrocyte mean corpuscular hemoglobin concentration measurement (mass/volume)2019-10-07 10:53:00* Test Item Value Reference Range Interpretation Comments Mean Corpuscular Hemoglobin Concent (test code = 786-4) 31.9 31-35 [facility] HospitalRDW PnpJo-Zlz9058-99-07 10:53:00* Test Item Value Reference Range Interpretation Comments Red Cell Distribution Width (test code = 01443-3) 12.8 11.7 -14.4 [facility] HospitalAutomated blood platelet count (count/volume)2019-10-07 10:53:00* Test Item Value Reference Range Interpretation Comments Platelet Count (test code = 777-3) 349 140-360 [facility] HospitalAutcone health [facility] hospitaled blood segmented neutrophil count as percentage of total nooiiyzqkc6039-78-73 10:53:00* Test Item Value Reference Range Interpretation Comments Neutrophils (%) (Auto) (test code = 86597-2) 58.7 38.7-80.0 [facility] HospitalAutomated blood lymphocyte count as percentage ot total bannukkeax6258-13-86 10:53:00* Test Item Value Reference Range Interpretation Comments Lymphocytes (%) (Auto) (test code = 736-9) 33.3 18.0-39.1 [facility] HospitalAutomated blood monocyte count as percentage of total bjmwgdvezz8851-02-15 10:53:00* Test Item Value Reference Range Interpretation Comments Monocytes (%) (Auto) (test code = 5905-5) 4.5 4.4-11.3 [facility] HospitalAutomated blood eosinophil count as percentage of total uojfrtlxfz5844-89-90 10:53:00* Test Item Value Reference Range Interpretation Comments Eosinophils (%) (Auto) (test code = 713-8) 2.6 0.0-6.0 [facility] HospitalAutomated blood basophil count as percentage of total ajowonqoul0800-37-36 10:53:00* Test Item Value Reference Range Interpretation Comments Basophils (%) (Auto) (test code = 706-2) 0.3 0.0-1.0 [facility] HospitalFluoroscopic procedure less than one hour vevzyhzn2216-13-30 10:53:00* Test Item Value Reference Range Interpretation Comments IM GRANULOCYTES % (test code = IM GRANULOCYTES %) 0.6 0.0- 1.0 [facility] HospitalAutomated blood neutrophil count 2019-10-07 10:53:00* Test Item Value Reference Range Interpretation Comments Neutrophils # (Auto) (test code = 751-8) 5.2 2.1-6.9 [facility] HospitalBlood lymphocytes count (number/volume) 2019-10-07 10:53:00* Test Item Value Reference Range Interpretation Comments Lymphocytes # (Auto) (test code = 50105-7) 3.0 1.0-3.2 [facility] HospitalBlood monocytes automated count (number/volume)2019-10-07 10:53:00* Test Item Value Reference Range Interpretation Comments Monocytes # (Auto) (test code = 742-7) 0.4 0.2-0.8 [facility] HospitalAutomated blood eosinophil count 2019-10-07 10:53:00* Test Item Value Reference Range Interpretation Comments Eosinophils # (Auto) (test code = 711-2) 0.2 0.0-0.4 [facility] HospitalAutomated blood basophil count (count/volume)2019-10-07 10:53:00* Test Item Value Reference Range Interpretation Comments Basophils # (Auto) (test code = 704-7) 0.0 0.0-0.1 [facility] HospitalFluoroscopic procedure less than one hour ojaahcfk9341-66-17 10:53:00* Test Item Value Reference Range Interpretation Comments Absolute Immature Granulocyte (auto (aron t code = Absolute Immature Granulocyte (auto) 0.05 0-0.1 [facility]er[facility] plasma sodium measurement (moles/volume)2019-10-07 10:53:00* Test Item Value Reference Range Interpretation Comments Sodium Level (test code = 2951-2) 137 136-145 [facility] Hospitalerum or plasma potassium measurement (moles/volume)2019-10-07 10:53:00* Test Item Value Reference Range Interpretation Comments Potassium Level (test code = 2823-3) 3.8 3.5-5.1 [facility] Hospitalerum or plasma chloride measurement (moles/volume)2019-10-07 10:53:00* Test Item Value Reference Range Interpretation Comments Chloride Level (test code = 2075-0) 105 98-107 [facility] Hospitalerum or plasma carbon dioxide, total measurement (moles/volume)2019-10-07 10:53:00* Test Item Value Reference Range Interpretation Comments Carbon Dioxide Level (test code = 2028-9) 24 22-29 [facility] Hospitalerum or plasma anion gvr1445-10-51 10:53:00* Test Item Value Reference Range Interpretation Comments Anion Gap (test code = 79834-7) 11.8 8-16 [facility] Hospitalerum or plasma urea nitrogen measurement (mass/volume)2019-10-07 10:53:00* Test Item Value Reference Range Interpretation Comments Blood Urea Nitrogen (test code = 3094-0) 5 12-25 [facility] Hospitalerum or plasma creatinine measurement (mass/volume)2019-10-07 10:53:00* Test Item Value Reference Range Interpretation Comments Creatinine (test code = 2160-0) 0.86 0.57-1.11 [facility] Hospitalerum or plasma urea nitrogen/creatinine mass lksjz7488-03-86 10:53:00* Test Item Value Reference Range Interpretation Comments BUN/Creatinine Ratio (test code = 3097-3) 6 11-24 [facility] HospitalEstimated glomerular filtration rate (GFR) nwwclboxmzydn0068-39-22 10:53:00* Test Item Value Reference Range Interpretation Comments Estimat Glomerular Filtration Rate (test code = 896540949) > 60 >60 Ranges were taken from the National Kidney Disease Education Program and the [facility] literature.Reference ranges:60 or greater: Wonkrh71-66 ( for 3 consecutive months): Chronic kidney disease 15 or less: Kidney failureHill Country Memorial HospitalGlucose ykjoeaojoas4682-33-04 10:53:00* Test Item Value Reference Range Interpretation Comments Glucose Level (test code = VGT5296) 140 74-118 [facility] Hospitalerum or plasma calcium measurement (mass/volume)2019-10-07 10:53:00* Test Item Value Reference Range Interpretation Comments Calcium Level (test code = 25274-0) 9.0 8.4-10.2 [facility] HospitalCHEST 2 CHABA3923-61-04 15:43:00 [place] [address] Patient Name: XOCHILT FAN MR #: [id number] : 1980 Age/Sex: 38/F Req #: [id number] Adm Physician: Ordered by: NICHOLE CHANG NP Report #: [id number] Location: ER Room/Bed: Procedure: [id number] DX/ CHEST 2 VIEWS Exam Date: 04/21/19 Exam Time: 1515 REPORT STATUS: Signed EXAMINATION: CHEST 2 VIEWS INDICATION: Shortness of breath COMPARISON: None FINDINGS: LINES/TUBES:None LUNGS:The lungs are well-inflated. No focal consolidation or pulmonary edema. PLEURA:No pleural effusion or p neumothorax. MEDIASTINUM:The cardiomediastinal silhouette appears normal in size and shape. BONES/SOFT TISSUES:No acute osseous injury. ABDOMEN:N o free air under the diaphragm. Status post gastric lap band. IMPRESSION : No focal pneumonia or pulmonary edema. Signed by: Cristian Vasquez MD on 3:44 PM Dictated By: CRISTIAN VASQUEZ MD 43 Transcribed By: YULISSA on 04/21/191543 OB/GYN DOCTOR Y TO: NICHOLE CHANG [employer] Influenza virus A and B antigen identification by kfocyowkzgyrasypgh3307-02-79 14:10:00* Test Item Value Reference Range Interpretation Comments Influenza Virus Types A,B Antigen (test code = 86263-2) NEGATIVE NEGATIVE [facility] HospitalInfluenza virus A and B antigen identification by gosprcffhytjaoexgb4594-79-83 14:10:00* Test Item Value Reference Range Interpretation Comments Influenza Virus Types A,B Antigen (test code = 69094-5) NEGATIVE NEGATIVE [facility] HospitalInfluenza virus A and B antigen identification by lhvcchtkehgvinmqoz2976-39-05 14:10:00* Test Item Value Reference Range Interpretation Comments Influenza Virus Types A,B Antigen (test code = 20526-8) NEGATIVE NEGATIVE [facility] HospitalBlood Gugzvvl9494-48-07 05:56:00* Test Item Value Reference Range Interpretation Comments Blood Culture (test code = 33037851) NO GROWTH AFTER 5 DAYS, FINAL REPORT [facility] HospitalDifferential Total Cells Counted 2018-12-13 08:19:00* Test Item Value Reference Range Interpretation Comments Differential Total Cells Counted (test code = Michele guerrier Total Cells Counted) 100 [facility] HospitalNeutrophils % (Manual)2018-12-13 08:19:00 * Test Item Value Reference Range Interpretation Comments Neutrophils % (Manual) (test code = 27938-8) 51 40-74 [facility] HospitalLymphocytes % (Manual)2018-12-13 08:19:00 * Test Item Value Reference Range Interpretation Comments Lymphocytes % (Manual) (test code = 737-7) 46 19-48 [facility] HospitalMonocytes % (Manual)2018-12-13 08:19:00* Test Item Value Reference Range Interpretation Comments Monocytes % (Manual) (test code = 744-3) 1 3.4-9.0 L [facility] HospitalEosinophils % (Manual)2018-12-13 08:19:00 * Test Item Value Reference Range Interpretation Comments Eosinophils % (Manual) (test code = 714-6) 1 0-7 [facility] HospitalBasophils % (Manual)2018-12-13 08:19:00* Test Item Value Reference Range Interpretation Comments Basophils % (Manual) (test code = 06555-5) 1 0-1.5 [facility] HospitalPlatelet Exeeswhm1652-42-20 08:19:00* Test Item Value Reference Range Interpretation Comments Platelet Estimate (test code = 91802-2) ADEQUATE [facility] HospitalPlatelet Morphology Xhaejyb5799-33-23 08:19:00* Test Item Value Reference Range Interpretation Comments Platelet Morphology Comment (test code = 98975-4) NORMAL [facility] HospitalRed Cell Morphology Cvryqcd4402-13-76 08:19:00* Test Item Value Reference Range Interpretation Comments Red Cell Morphology Comment (test code = 6742-1) NORMAL [facility] Hospitalodium Uprdd2637-49-72 06:03:00* Test Item Value Reference Range Interpretation Comments Sodium Level (test code = 2951-2) 139 136-145 [facility] HospitalPotassium Ndafu8137-72-40 06:03:00* Test Item Value Reference Range Interpretation Comments Potassium Level (test code = 2823-3) 3.9 3.5-5.1 [facility] HospitalChloride Dirgm2594-35-78 06:03:00* Test Item Value Reference Range Interpretation Comments Chloride Level (test code = 2075-0) 107 98-107 [facility] HospitalCarbon Dioxide Kquzg9403-34-16 06:03:00* Test Item Value Reference Range Interpretation Comments Carbon Dioxide Level (test code = 2028-9) 23 22-29 [facility] HospitalAnion Nwz0400-81-51 06:03:00* Test Item Value Reference Range Interpretation Comments Anion Gap (test code = 01015-7) 12.9 8-16 [facility] HospitalBlood Urea Ipoodham8550-59-83 06:03:00* Test Item Value Reference Range Interpretation Comments Blood Urea Nitrogen (test code = 3094-0) < 5 7-26 L [facility] HospitalCreatinine2019-07-14 06:03:00* Test Item Value Reference Range Interpretation Comments Creatinine (test code = 2160-0) 0.78 0.57-1.11 [facility] HospitalBUN/Creatinine Rzhto0448-48-76 06:03:00* Test Item Value Reference Range Interpretation Comments BUN/Creatinine Ratio (test code = 3097-3) 6 6-25 [facility] HospitalEstimat Glomerular Filtration Rate 2018-12-13 06:03:00* Test Item Value Reference Range Interpretation Comments Estimat Glomerular Filtration Rate (test code = 916103257) > 60 >60 Ranges were taken from the National Kidney Disease Education Program and the [facility] Kidney Foundation literature.Reference ranges:60 or greater: Nhcjik54-04 ( for 3 consecutive months): Chronic kidney disease 15 or less: Kidney failureHill Country Memorial HospitalGlucose Ebxxz0714-05-21 06:03:00* Test Item Value Reference Range Interpretation Comments Glucose Level (test code = LFA6323) 74 74-118 [facility] HospitalCalcium Usidp9039-93-56 06:03:00* Test Item Value Reference Range Interpretation Comments Calcium Level (test code = 30752-2) 8.8 8.4-10.2 [facility] HospitalTotal Lkwmouxil1971-18-16 06:03:00* Test Item Value Reference Range Interpretation Comments Total Bilirubin (test code = 1975-2) 0.2 0.2-1.2 [facility] HospitalAspartate Amino Transf (AST/SGOT) 2018-12-13 06:03:00* Test Item Value Reference Range Interpretation Comments Aspartate Amino Transf (AST/SGOT) (test code = Aspartate Amino Transf (AST/SGOT)) 16 5-34 [facility] HospitalAlanine Aminotransferase (ALT/SGPT) 2018-12-13 06:03:00* Test Item Value Reference Range Interpretation Comments Alanine Aminotransferase (ALT/SGPT) (test code = 1742-6) 13 0-55 [facility] Ukuxqat3965-62-34 06:03:00* Test Item Value Reference Range Interpretation Comments Total Protein (test code = 2885-2) 6.7 6.5-8.1 [facility] HospitalAlbumin2019-07-14 06:03:00* Test Item Value Reference Range Interpretation Comments Albumin (test code = 1751-7) 3.4 3.5-5.0 L [facility] HospitalGlobulin2019-07-14 06:03:00* Test Item Value Reference Range Interpretation Comments Globulin (test code = 32281-9) 3.3 2.3-3.5 [facility] HospitalAlbumin/Globulin Hmywj2997-04-03 06:03:00 * Test Item Value Reference Range Interpretation Comments Albumin/Globulin Ratio (test code = 1759-0) 1.0 0.8-2.0 [facility] HospitalAlkaline Vvnycgeqqci3810-47-56 06:03:00* Test Item Value Reference Range Interpretation Comments Alkaline Phosphatase (test code = 6768-6) 66 40-150 [facility] Hospitalodium Urfpm2302-56-71 06:03:00* Test Item Value Reference Range Interpretation Comments Sodium Level (test code = 2951-2) 139 136-145 [facility] HospitalPotassium Rhzyc9304-75-75 06:03:00* Test Item Value Reference Range Interpretation Comments Potassium Level (test code = 2823-3) 3.9 3.5-5.1 [facility] HospitalChloride Llvhl6955-76-42 06:03:00* Test Item Value Reference Range Interpretation Comments Chloride Level (test code = 2075-0) 107 98-107 [facility] HospitalCarbon Dioxide Xmzsr1206-50-47 06:03:00* Test Item Value Reference Range Interpretation Comments Carbon Dioxide Level (test code = 2028-9) 23 22-29 [facility] HospitalAnion Jzk2484-58-13 06:03:00* Test Item Value Reference Range Interpretation Comments Anion Gap (test code = 46414-8) 12.9 8-16 [facility] HospitalBlood Urea Hyjexktp4461-22-79 06:03:00* Test Item Value Reference Range Interpretation Comments Blood Urea Nitrogen (test code = 3094-0) < 5 7-26 L [facility] HospitalCreatinine2019-07-14 06:03:00* Test Item Value Reference Range Interpretation Comments Creatinine (test code = 2160-0) 0.78 0.57-1.11 [facility] HospitalBUN/Creatinine Bqrww0403-25-82 06:03:00* Test Item Value Reference Range Interpretation Comments BUN/Creatinine Ratio (test code = 3097-3) 6 6-25 [facility] HospitalEstimat Glomerular Filtration Rate 2018-12-13 06:03:00* Test Item Value Reference Range Interpretation Comments Estimat Glomerular Filtration Rate (test code = 591810542) > 60 >60 Ranges were taken from the National Kidney Disease Education Program and the [facility] Foundation literature.Reference ranges:60 or greater: Ikfjzx32-02 ( for 3 consecutive months): Chronic kidney disease 15 or less: Kidney failureHill Country Memorial HospitalGlucose Jqpzq6817-62-17 06:03:00* Test Item Value Reference Range Interpretation Comments Glucose Level (test code = SOJ1766) 74 74-118 [facility] HospitalCalcium Kdiuj9402-13-38 06:03:00* Test Item Value Reference Range Interpretation Comments Calcium Level (test code = 07744-6) 8.8 8.4-10.2 [facility] HospitalTotal Sigmurprd2389-82-65 06:03:00* Test Item Value Reference Range Interpretation Comments Total Bilirubin (test code = 1975-2) 0.2 0.2-1.2 [facility] HospitalAspartate Amino Transf (AST/SGOT) 2018-12-13 06:03:00* Test Item Value Reference Range Interpretation Comments Aspartate Amino Transf (AST/SGOT) (test code = Aspartate Amino Transf (AST/SGOT)) 16 5-34 [facility] HospitalAlanine Aminotransferase (ALT/SGPT) 2018-12-13 06:03:00* Test Item Value Reference Range Interpretation Comments Alanine Aminotransferase (ALT/SGPT) (test code = 1742-6) 13 0-55 [facility] HospitalTotal Qyolqwu8953-83-93 06:03:00* Test Item Value Reference Range Interpretation Comments Total Protein (test code = 2885-2) 6.7 6.5-8.1 [facility] HospitalAlbumin2019-07-14 06:03:00* Test Item Value Reference Range Interpretation Comments Albumin (test code = 1751-7) 3.4 3.5-5.0 L [facility] HospitalGlobulin2019-07-14 06:03:00* Test Item Value Reference Range Interpretation Comments Globulin (test code = 35842-5) 3.3 2.3-3.5 [facility] HospitalAlbumin/Globulin Ixhly6550-19-36 06:03:00 * Test Item Value Reference Range Interpretation Comments Albumin/Globulin Ratio (test code = 1759-0) 1.0 0.8-2.0 [facility] HospitalAlkaline Fzdvsgyyuwa5650-39-51 06:03:00* Test Item Value Reference Range Interpretation Comments Alkaline Phosphatase (test code = 6768-6) 66 40-150 [facility] HospitalWhite Blood Jtxzg5610-94-92 05:43:00* Test Item Value Reference Range Interpretation Comments White Blood Count (test code = 6690-2) 12.56 4.8-10.8 H [facility] HospitalRed Blood Wqhef6696-50-05 05:43:00* Test Item Value Reference Range Interpretation Comments Red Blood Count (test code = 789-8) 4.58 3.6-5.1 [facility] HospitalHemoglobin2019-07-14 05:43:00* Test Item Value Reference Range Interpretation Comments Hemoglobin (test code = 68345-7) 13.6 12.0-16.0 [facility] HospitalHematocrit2019-07-14 05:43:00* Test Item Value Reference Range Interpretation Comments Hematocrit (test code = 4544-3) 40.9 34.2-44.1 [facility] HospitalMean Corpuscular Hpxpul5507-67-99 05:43:00* Test Item Value Reference Range Interpretation Comments Mean Corpuscular Volume (test code = 787-2) 89.3 81-99 [facility] HospitalMean Corpuscular Tcrodgkpeg5226-65-54 05:43:00* Test Item Value Reference Range Interpretation Comments Mean Corpuscular Hemoglobin (test code = 785-6) 29.7 28-32 [facility] HospitalMean Corpuscular Hemoglobin Concent 2018-12-13 05:43:00* Test Item Value Reference Range Interpretation Comments Mean Corpuscular Hemoglobin Concent (test code = 786-4) 33.3 31-35 [facility] HospitalRed Cell Distribution Chnug3440-42-89 05:43:00* Test Item Value Reference Range Interpretation Comments Red Cell Distribution Width (test code = 23485-1) 13.1 11.7 -14.4 [facility] HospitalPlatelet Wghml8972-62-27 05:43:00* Test Item Value Reference Range Interpretation Comments Platelet Count (test code = 777-3) 292 140-360 [facility] HospitalNeutrophils (%) (Auto)2018-12-13 05:43:00 * Test Item Value Reference Range Interpretation Comments Neutrophils (%) (Auto) (test code = 47038-6) 49.6 38.7-80.0 [facility] HospitalLymphocytes (%) (Auto)2018-12-13 05:43:00 * Test Item Value Reference Range Interpretation Comments Lymphocytes (%) (Auto) (test code = 736-9) 40.6 18.0-39.1 H [facility] HospitalMonocytes (%) (Auto)2018-12-13 05:43:00* Test Item Value Reference Range Interpretation Comments Monocytes (%) (Auto) (test code = 5905-5) 5.7 4.4-11.3 [facility] HospitalEosinophils (%) (Auto)2018-12-13 05:43:00 * Test Item Value Reference Range Interpretation Comments Eosinophils (%) (Auto) (test code = 713-8) 3.1 0.0-6.0 [facility] HospitalBasophils (%) (Auto)2018-12-13 05:43:00* Test Item Value Reference Range Interpretation Comments Basophils (%) (Auto) (test code = 706-2) 0.7 0.0-1.0 [facility] HospitalIM GRANULOCYTES %2018-12-13 05:43:00* Test Item Value Reference Range Interpretation Comments IM GRANULOCYTES % (test code = IM GRANULOCYTES %) 0.3 0.0- 1.0 [facility] HospitalNeutrophils # (Auto)2018-12-13 05:43:00* Test Item Value Reference Range Interpretation Comments Neutrophils # (Auto) (test code = 751-8) 6.2 2.1-6.9 [facility] HospitalLymphocytes # (Auto)2018-12-13 05:43:00* Test Item Value Reference Range Interpretation Comments Lymphocytes # (Auto) (test code = 34652-2) 5.1 1.0-3.2 H [facility] HospitalMonocytes # (Auto)2018-12-13 05:43:00* Test Item Value Reference Range Interpretation Comments Monocytes # (Auto) (test code = 742-7) 0.7 0.2-0.8 [facility] HospitalEosinophils # (Auto)2018-12-13 05:43:00* Test Item Value Reference Range Interpretation Comments Eosinophils # (Auto) (test code = 711-2) 0.4 0.0-0.4 [facility] HospitalBasophils # (Auto)2018-12-13 05:43:00* Test Item Value Reference Range Interpretation Comments Basophils # (Auto) (test code = 704-7) 0.1 0.0-0.1 [facility] HospitalAbsolute Immature Granulocyte (auto 2018-12-13 05:43:00* Test Item Value Reference Range Interpretation Comments Absolute Immature Granulocyte (auto (aron t code = Absolute Immature Granulocyte (auto) 0.04 0-0.1 [facility] HospitalWhite Blood Ksfek8133-71-06 05:43:00* Test Item Value Reference Range Interpretation Comments White Blood Count (test code = 6690-2) 12.56 4.8-10.8 H [facility] HospitalRed Blood Ncqjf5756-89-42 05:43:00* Test Item Value Reference Range Interpretation Comments Red Blood Count (test code = 789-8) 4.58 3.6-5.1 [facility] HospitalHemoglobin2019-07-14 05:43:00* Test Item Value Reference Range Interpretation Comments Hemoglobin (test code = 91993-7) 13.6 12.0-16.0 [facility] HospitalHematocrit2019-07-14 05:43:00* Test Item Value Reference Range Interpretation Comments Hematocrit (test code = 4544-3) 40.9 34.2-44.1 [facility] HospitalMean Corpuscular Vhuync4719-01-16 05:43:00* Test Item Value Reference Range Interpretation Comments Mean Corpuscular Volume (test code = 787-2) 89.3 81-99 [facility] HospitalMean Corpuscular Cxpdtsjowl7448-80-15 05:43:00* Test Item Value Reference Range Interpretation Comments Mean Corpuscular Hemoglobin (test code = 785-6) 29.7 28-32 [facility] HospitalMean Corpuscular Hemoglobin Concent 2018-12-13 05:43:00* Test Item Value Reference Range Interpretation Comments Mean Corpuscular Hemoglobin Concent (test code = 786-4) 33.3 31-35 [facility] HospitalRed Cell Distribution Ymxda6151-26-70 05:43:00* Test Item Value Reference Range Interpretation Comments Red Cell Distribution Width (test code = 45578-8) 13.1 11.7 -14.4 [facility] HospitalPlatelet Xypmq7699-71-47 05:43:00* Test Item Value Reference Range Interpretation Comments Platelet Count (test code = 777-3) 292 140-360 [facility] HospitalNeutrophils (%) (Auto)2018-12-13 05:43:00 * Test Item Value Reference Range Interpretation Comments Neutrophils (%) (Auto) (test code = 30967-7) 49.6 38.7-80.0 [facility] HospitalLymphocytes (%) (Auto)2018-12-13 05:43:00 * Test Item Value Reference Range Interpretation Comments Lymphocytes (%) (Auto) (test code = 736-9) 40.6 18.0-39.1 H [facility] HospitalMonocytes (%) (Auto)2018-12-13 05:43:00* Test Item Value Reference Range Interpretation Comments Monocytes (%) (Auto) (test code = 5905-5) 5.7 4.4-11.3 [facility] HospitalEosinophils (%) (Auto)2018-12-13 05:43:00 * Test Item Value Reference Range Interpretation Comments Eosinophils (%) (Auto) (test code = 713-8) 3.1 0.0-6.0 [facility] HospitalBasophils (%) (Auto)2018-12-13 05:43:00* Test Item Value Reference Range Interpretation Comments Basophils (%) (Auto) (test code = 706-2) 0.7 0.0-1.0 [facility] HospitalIM GRANULOCYTES %2018-12-13 05:43:00* Test Item Value Reference Range Interpretation Comments IM GRANULOCYTES % (test code = IM GRANULOCYTES %) 0.3 0.0- 1.0 [facility] HospitalNeutrophils # (Auto)2018-12-13 05:43:00* Test Item Value Reference Range Interpretation Comments Neutrophils # (Auto) (test code = 751-8) 6.2 2.1-6.9 [facility] HospitalLymphocytes # (Auto)2018-12-13 05:43:00* Test Item Value Reference Range Interpretation Comments Lymphocytes # (Auto) (test code = 26646-5) 5.1 1.0-3.2 H [facility] HospitalMonocytes # (Auto)2018-12-13 05:43:00* Test Item Value Reference Range Interpretation Comments Monocytes # (Auto) (test code = 742-7) 0.7 0.2-0.8 [facility] HospitalEosinophils # (Auto)2018-12-13 05:43:00* Test Item Value Reference Range Interpretation Comments Eosinophils # (Auto) (test code = 711-2) 0.4 0.0-0.4 [facility] HospitalBasophils # (Auto)2018-12-13 05:43:00* Test Item Value Reference Range Interpretation Comments Basophils # (Auto) (test code = 704-7) 0.1 0.0-0.1 [facility] HospitalAbsolute Immature Granulocyte (auto 2018-12-13 05:43:00* Test Item Value Reference Range Interpretation Comments Absolute Immature Granulocyte (auto (aron t code = Absolute Immature Granulocyte (auto) 0.04 0-0.1 [facility] HospitalBlood nfemzya0265-70-84 05:28:00* Test Item Value Reference Range Interpretation Comments Blood Culture (test code = 03593908) NO GROWTH AFTER 5 DAYS, FINAL REPORT [facility] HospitalBlvirginia hospital rijvxee6071-02-12 05:28:00* Test Item Value Reference Range Interpretation Comments Blood Culture (test code = 30506162) NO GROWTH AFTER 5 DAYS, FINAL REPORT [facility] HospitalBlvirginia hospital leukocytes automated count (number/volume)2018-12-13 05:23:00* Test Item Value Reference Range Interpretation Comments White Blood Count (test code = 6690-2) 12.56 4.8-10.8 [facility] erythrocytes automated count (number/volume)2018-12-13 05:23:00* Test Item Value Reference Range Interpretation Comments Red Blood Count (test code = 789-8) 4.58 3.6-5.1 [facility] HospitalBlood hemoglobin measurement (moles/volume)2018-12-13 05:23:00* Test Item Value Reference Range Interpretation Comments Hemoglobin (test code = 30983-6) 13.6 12.0-16.0 [facility] HospitalAutomated blood hematocrit (volume fraction)2018-12-13 05:23:00* Test Item Value Reference Range Interpretation Comments Hematocrit (test code = 4544-3) 40.9 34.2-44.1 [facility] HospitalAutomated erythrocyte mean corpuscular jggmga5772-74-84 05:23:00* Test Item Value Reference Range Interpretation Comments Mean Corpuscular Volume (test code = 787-2) 89.3 81-99 [facility] HospitalAutomated erythrocyte mean corpuscular hemoglobin (mass per erythrocyte)2018-12-13 05:23:00* Test Item Value Reference Range Interpretation Comments Mean Corpuscular Hemoglobin (test code = 785-6) 29.7 28-32 [facility] HospitalAutomated erythrocyte mean corpuscular hemoglobin concentration measurement (mass/volume)2018-12-13 05:23:00* Test Item Value Reference Range Interpretation Comments Mean Corpuscular Hemoglobin Concent (test code = 786-4) 33.3 31-35 [facility] HospitalRDW KikFt-Dxl5911-13-14 05:23:00* Test Item Value Reference Range Interpretation Comments Red Cell Distribution Width (test code = 94807-0) 13.1 11.7 -14.4 [facility] HospitalAutomated blood platelet count (count/volume)2018-12-13 05:23:00* Test Item Value Reference Range Interpretation Comments Platelet Count (test code = 777-3) 292 140-360 [facility] segmented neutrophil count as percentage of total hgyhohjghj2676-47-43 05:23:00* Test Item Value Reference Range Interpretation Comments Neutrophils (%) (Auto) (test code = 71664-2) 49.6 38.7-80.0 [facility] HospitalAutomated blood lymphocyte count as percentage ot total rodofxlemh0405-34-86 05:23:00* Test Item Value Reference Range Interpretation Comments Lymphocytes (%) (Auto) (test code = 736-9) 40.6 18.0-39.1 [facility] HospitalAutomated blood monocyte count as percentage of total enfqxkibhr5814-14-39 05:23:00* Test Item Value Reference Range Interpretation Comments Monocytes (%) (Auto) (test code = 5905-5) 5.7 4.4-11.3 [facility] HospitalAutomated blood eosinophil count as percentage of total pkwfhccqfm3819-75-61 05:23:00* Test Item Value Reference Range Interpretation Comments Eosinophils (%) (Auto) (test code = 713-8) 3.1 0.0-6.0 [facility] HospitalAutomated blood basophil count as percentage of total wauvakhdix5733-14-38 05:23:00* Test Item Value Reference Range Interpretation Comments Basophils (%) (Auto) (test code = 706-2) 0.7 0.0-1.0 [facility] HospitalFluoroscopic procedure less than one hour myiqkqqc9053-80-26 05:23:00* Test Item Value Reference Range Interpretation Comments IM GRANULOCYTES % (test code = IM GRANULOCYTES %) 0.3 0.0- 1.0 [facility] HospitalAutomated blood neutrophil count 2018-12-13 05:23:00* Test Item Value Reference Range Interpretation Comments Neutrophils # (Auto) (test code = 751-8) 6.2 2.1-6.9 [facility] HospitalBlood lymphocytes count (number/volume) 2018-12-13 05:23:00* Test Item Value Reference Range Interpretation Comments Lymphocytes # (Auto) (test code = 89861-7) 5.1 1.0-3.2 [facility] HospitalBlood monocytes automated count (number/volume)2018-12-13 05:23:00* Test Item Value Reference Range Interpretation Comments Monocytes # (Auto) (test code = 742-7) 0.7 0.2-0.8 [facility] HospitalAutomated blood eosinophil count 2018-12-13 05:23:00* Test Item Value Reference Range Interpretation Comments Eosinophils # (Auto) (test code = 711-2) 0.4 0.0-0.4 [facility] HospitalAutcone health ann[facility] hospitaled blood basophil count (count/volume)2018-12-13 05:23:00* Test Item Value Reference Range Interpretation Comments Basophils # (Auto) (test code = 704-7) 0.1 0.0-0.1 [facility] HospitalFluoroscopic procedure less than one hour poijnsuu8235-69-43 05:23:00* Test Item Value Reference Range Interpretation Comments Absolute Immature Granulocyte (auto (aron t code = Absolute Immature Granulocyte (auto) 0.04 0-0.1 [facility] HospitalFluoroscopic procedure less than one hour pqdyzxgk9737-91-56 05:23:00* Test Item Value Reference Range Interpretation Comments Differential Total Cells Counted (test code = Differzarina tial Total Cells Counted) 100 [facility] blood neutrophils/100 leukocytes 2018-12-13 05:23:00* Test Item Value Reference Range Interpretation Comments Neutrophils % (Manual) (test code = 55550-7) 51 40-74 [facility] blood lymphocytes/100 leukocytes 2018-12-13 05:23:00* Test Item Value Reference Range Interpretation Comments Lymphocytes % (Manual) (test code = 737-7) 46 19-48 [facility] blood monocytes/100 leukocytes 2018-12-13 05:23:00* Test Item Value Reference Range Interpretation Comments Monocytes % (Manual) (test code = 744-3) 1 3.4-9.0 [facility] blood eosinophil count as percentage of total eahsctaaaq2106-00-28 05:23:00* Test Item Value Reference Range Interpretation Comments Eosinophils % (Manual) (test code = 714-6) 1 0-7 [facility] basophil fwbihsypug4853-43-90 05:23:00* Test Item Value Reference Range Interpretation Comments Basophils % (Manual) (test code = 74901-0) 1 0-1.5 [facility] HospitalBlood platelets count by estimate (number/volume)2018-12-13 05:23:00* Test Item Value Reference Range Interpretation Comments Platelet Estimate (test code = 68949-0) ADEQUATE [facility] HospitalPlatelet riqmgnzqtb0934-95-87 05:23:00* Test Item Value Reference Range Interpretation Comments Platelet Morphology Comment (test code = 27283-0) NORMAL [facility] HospitalRBC gwdpokdqxl5874-84-72 05:23:00* Test Item Value Reference Range Interpretation Comments Red Cell Morphology Comment (test code = 6742-1) NORMAL [facility] sodium measurement (moles/volume)2018-12-13 05:23:00* Test Item Value Reference Range Interpretation Comments Sodium Level (test code = 2951-2) 139 136-145 [facility] Hospitalerum or plasma potassium measurement (moles/volume)2018-12-13 05:23:00* Test Item Value Reference Range Interpretation Comments Potassium Level (test code = 2823-3) 3.9 3.5-5.1 [facility] Hospitalerum or plasma chloride measurement (moles/volume)2018-12-13 05:23:00* Test Item Value Reference Range Interpretation Comments Chloride Level (test code = 2075-0) 107 98-107 [facility] Hospitalerum or plasma carbon dioxide, total measurement (moles/volume)2018-12-13 05:23:00* Test Item Value Reference Range Interpretation Comments Carbon Dioxide Level (test code = 2028-9) 23 22-29 [facility] Hospitalerum or plasma anion wsw8364-09-67 05:23:00* Test Item Value Reference Range Interpretation Comments Anion Gap (test code = 88423-6) 12.9 8-16 [facility] Hospitalerum or plasma urea nitrogen measurement (mass/volume)2018-12-13 05:23:00* Test Item Value Reference Range Interpretation Comments Blood Urea Nitrogen (test code = 3094-0) < 5 7-26 [facility] Hospitalerum or plasma creatinine measurement (mass/volume)2018-12-13 05:23:00* Test Item Value Reference Range Interpretation Comments Creatinine (test code = 2160-0) 0.78 0.57-1.11 [facility] Hospitalerum or plasma urea nitrogen/creatinine mass raqxo1522-39-13 05:23:00* Test Item Value Reference Range Interpretation Comments BUN/Creatinine Ratio (test code = 3097-3) 6 6-25 [facility] HospitalEstimated glomerular filtration rate (GFR) hsbdfyffangdd4930-57-30 05:23:00* Test Item Value Reference Range Interpretation Comments Estimat Glomerular Filtration Rate (test code = 600305128) > 60 >60 Ranges were taken from the National Kidney Disease Education Program and the [facility] Foundation literature.Reference ranges:60 or greater: Vgpqxg04-46 ( for 3 consecutive months): Chronic kidney disease 15 or less: Kidney failureHill Country Memorial HospitalGlucose dldxagvdgfn6437-89-17 05:23:00* Test Item Value Reference Range Interpretation Comments Glucose Level (test code = ARO5866) 74 74-118 [facility] Hospitalerum or plasma calcium measurement (mass/volume)2018-12-13 05:23:00* Test Item Value Reference Range Interpretation Comments Calcium Level (test code = 26184-8) 8.8 8.4-10.2 [facility] Hospitalerum or plasma total bilirubin measurement (mass/volume)2018-12-13 05:23:00* Test Item Value Reference Range Interpretation Comments Total Bilirubin (test code = 1975-2) 0.2 0.2-1.2 [facility] HospitalFluoroscopic procedure less than one hour qfcsgxvo5357-54-44 05:23:00* Test Item Value Reference Range Interpretation Comments Aspartate Amino Transf (AST/SGOT) (test code = Aspartate Amino Transf (AST/SGOT)) 16 5-34 [facility] Hospitalerum or plasma alanine aminotransferase measurement (enzymatic activity/volume)2018-12-13 05:23:00* Test Item Value Reference Range Interpretation Comments Alanine Aminotransferase (ALT/SGPT) (test code = 1742-6) 13 0-55 [facility] Hospitalerum or plasma protein measurement (mass/volume)2018-12-13 05:23:00* Test Item Value Reference Range Interpretation Comments Total Protein (test code = 2885-2) 6.7 6.5-8.1 [facility] Hospitalerum or plasma albumin measurement (mass/volume)2018-12-13 05:23:00* Test Item Value Reference Range Interpretation Comments Albumin (test code = 1751-7) 3.4 3.5-5.0 [facility] HospitalPlasma globulin measurement (mass/volume) 2018-12-13 05:23:00* Test Item Value Reference Range Interpretation Comments Globulin (test code = 34019-3) 3.3 2.3-3.5 [facility] Hospitalerum or plasma albumin/globulin mass pfvlf9925-15-30 05:23:00* Test Item Value Reference Range Interpretation Comments Albumin/Globulin Ratio (test code = 1759-0) 1.0 0.8-2.0 [facility] Hospitalerum or plasma alkaline phosphatase measurement (enzymatic activity/volume)2018-12-13 05:23:00* Test Item Value Reference Range Interpretation Comments Alkaline Phosphatase (test code = 6768-6) 66 40-150 [facility] HospitalFluoroscopic procedure less than one hour ddyeidnl6706-51-78 05:23:00* Test Item Value Reference Range Interpretation Comments Differential Total Cells Counted (test code = Differen tial Total Cells Counted) 100 [facility] blood neutrophils/100 leukocytes 2018-12-13 05:23:00* Test Item Value Reference Range Interpretation Comments Neutrophils % (Manual) (test code = 29026-5) 51 40-74 [facility] blood lymphocytes/100 leukocytes 2018-12-13 05:23:00* Test Item Value Reference Range Interpretation Comments Lymphocytes % (Manual) (test code = 737-7) 46 19-48 [facility] blood monocytes/100 leukocytes 2018-12-13 05:23:00* Test Item Value Reference Range Interpretation Comments Monocytes % (Manual) (test code = 744-3) 1 3.4-9.0 [facility] blood eosinophil count as percentage of total jxvrhfbdpt1308-83-66 05:23:00* Test Item Value Reference Range Interpretation Comments Eosinophils % (Manual) (test code = 714-6) 1 0-7 [facility] HospitalManual basophil xrogimilum3447-32-51 05:23:00* Test Item Value Reference Range Interpretation Comments Basophils % (Manual) (test code = 34106-3) 1 0-1.5 [facility] HospitalBlood platelets count by estimate (number/volume)2018-12-13 05:23:00* Test Item Value Reference Range Interpretation Comments Platelet Estimate (test code = 78767-7) ADEQUATE [facility] HospitalPlatelet giffoorfnq3910-65-95 05:23:00* Test Item Value Reference Range Interpretation Comments Platelet Morphology Comment (test code = 45761-1) NORMAL [facility] HospitalRBC dwsmrxersk5614-62-83 05:23:00* Test Item Value Reference Range Interpretation Comments Red Cell Morphology Comment (test code = 6742-1) NORMAL [facility]erum or plasma total bilirubin measurement (mass/volume)2018-12-13 05:23:00* Test Item Value Reference Range Interpretation Comments Total Bilirubin (test code = 1975-2) 0.2 0.2-1.2 [facility] HospitalFluoroscopic procedure less than one hour pyqklmcz4206-17-18 05:23:00* Test Item Value Reference Range Interpretation Comments Aspartate Amino Transf (AST/SGOT) (test code = Aspartate Amino Transf (AST/SGOT)) 16 5-34 [facility] Hospitalerum or plasma alanine aminotransferase measurement (enzymatic activity/volume)2018-12-13 05:23:00* Test Item Value Reference Range Interpretation Comments Alanine Aminotransferase (ALT/SGPT) (test code = 1742-6) 13 0-55 [facility] Hospitalerum or plasma protein measurement (mass/volume)2018-12-13 05:23:00* Test Item Value Reference Range Interpretation Comments Total Protein (test code = 2885-2) 6.7 6.5-8.1 [facility] Hospitalerum or plasma albumin measurement (mass/volume)2018-12-13 05:23:00* Test Item Value Reference Range Interpretation Comments Albumin (test code = 1751-7) 3.4 3.5-5.0 [facility] HospitalPlasma globulin measurement (mass/volume) 2018-12-13 05:23:00* Test Item Value Reference Range Interpretation Comments Globulin (test code = 91917-3) 3.3 2.3-3.5 [facility] Hospitalerum or plasma albumin/globulin mass deddk2242-44-76 05:23:00* Test Item Value Reference Range Interpretation Comments Albumin/Globulin Ratio (test code = 1759-0) 1.0 0.8-2.0 [facility] Hospitalerum or plasma alkaline phosphatase measurement (enzymatic activity/volume)2018-12-13 05:23:00* Test Item Value Reference Range Interpretation Comments Alkaline Phosphatase (test code = 6768-6) 66 40-150 [facility] HospitalBlood Uzzepol9012-71-33 23:12:00* Test Item Value Reference Range Interpretation Comments Blood Culture (test code = 91898766) NO GROWTH AFTER 5 DAYS, FINAL REPORT [facility] Hospitalodium Qhver3393-81-40 23:44:00* Test Item Value Reference Range Interpretation Comments Sodium Level (test code = 2951-2) 133 136-145 L [facility] HospitalPotassium Mmdtf8965-58-06 23:44:00* Test Item Value Reference Range Interpretation Comments Potassium Level (test code = 2823-3) 4.2 3.5-5.1 [facility] HospitalChloride Shbix3815-61-26 23:44:00* Test Item Value Reference Range Interpretation Comments Chloride Level (test code = 2075-0) 99 98-107 [facility] HospitalCarbon Dioxide Pzsuf9852-95-66 23:44:00* Test Item Value Reference Range Interpretation Comments Carbon Dioxide Level (test code = 2028-9) 23 22-29 [facility] HospitalAnion Mtp4272-78-90 23:44:00* Test Item Value Reference Range Interpretation Comments Anion Gap (test code = 97020-6) 15.2 8-16 [facility] HospitalBlood Urea Mvyqmbrg0962-39-25 23:44:00* Test Item Value Reference Range Interpretation Comments Blood Urea Nitrogen (test code = 3094-0) 8 7-26 [facility] HospitalCreatinine2019-06-17 23:44:00* Test Item Value Reference Range Interpretation Comments Creatinine (test code = 2160-0) 0.95 0.57-1.11 [facility] HospitalBUN/Creatinine Knpju8262-01-58 23:44:00* Test Item Value Reference Range Interpretation Comments BUN/Creatinine Ratio (test code = 3097-3) 8 6-25 [facility] HospitalEstimat Glomerular Filtration Rate 2018-11-16 23:44:00* Test Item Value Reference Range Interpretation Comments Estimat Glomerular Filtration Rate (test code = 832739808) > 60 >60 Ranges were taken from the National Kidney Disease Education Program and the [facility] Foundation literature.Reference ranges:60 or greater: Lweaqq02-32 ( for 3 consecutive months): Chronic kidney disease 15 or less: Kidney failureHill Country Memorial HospitalGlucose Phwpk0847-20-85 23:44:00* Test Item Value Reference Range Interpretation Comments Glucose Level (test code = JBF6633) 99 74-118 [facility] HospitalCalcium Fihss2338-20-76 23:44:00* Test Item Value Reference Range Interpretation Comments Calcium Level (test code = 75807-9) 9.1 8.4-10.2 [facility] HospitalTotal Dfxjijlrp1958-55-56 23:44:00* Test Item Value Reference Range Interpretation Comments Total Bilirubin (test code = 1975-2) 0.3 0.2-1.2 [facility] HospitalAspartate Amino Transf (AST/SGOT) 2018-11-16 23:44:00* Test Item Value Reference Range Interpretation Comments Aspartate Amino Transf (AST/SGOT) (test code = Aspartate Amino Transf (AST/SGOT)) 18 5-34 [facility] HospitalAlanine Aminotransferase (ALT/SGPT) 2018-11-16 23:44:00* Test Item Value Reference Range Interpretation Comments Alanine Aminotransferase (ALT/SGPT) (test code = 1742-6) 16 0-55 [facility] HospitalTotal Tzxlgyi0802-54-70 23:44:00* Test Item Value Reference Range Interpretation Comments Total Protein (test code = 2885-2) 7.1 6.5-8.1 [facility] HospitalAlbumin2019-06-17 23:44:00* Test Item Value Reference Range Interpretation Comments Albumin (test code = 1751-7) 3.3 3.5-5.0 L [facility] HospitalGlobulin2019-06-17 23:44:00* Test Item Value Reference Range Interpretation Comments Globulin (test code = 65182-3) 3.8 2.3-3.5 H [facility] HospitalAlbumin/Globulin Juwzs1082-23-97 23:44:00 * Test Item Value Reference Range Interpretation Comments Albumin/Globulin Ratio (test code = 1759-0) 0.9 0.8-2.0 [facility] HospitalAlkaline Apyczmutucf6108-72-40 23:44:00* Test Item Value Reference Range Interpretation Comments Alkaline Phosphatase (test code = 6768-6) 79 40-150 [facility] HospitalWhite Blood Decqf3865-66-87 23:24:00* Test Item Value Reference Range Interpretation Comments White Blood Count (test code = 6690-2) 12.83 4.8-10.8 H [facility] HospitalRed Blood Ivtqg5790-02-14 23:24:00* Test Item Value Reference Range Interpretation Comments Red Blood Count (test code = 789-8) 4.55 3.6-5.1 [facility] HospitalHemoglobin2019-06-17 23:24:00* Test Item Value Reference Range Interpretation Comments Hemoglobin (test code = 93418-7) 13.7 12.0-16.0 [facility] HospitalHematocrit2019-06-17 23:24:00* Test Item Value Reference Range Interpretation Comments Hematocrit (test code = 4544-3) 40.1 34.2-44.1 [facility] HospitalMean Corpuscular Kyyxhb2127-10-05 23:24:00* Test Item Value Reference Range Interpretation Comments Mean Corpuscular Volume (test code = 787-2) 88.1 81-99 [facility] HospitalMean Corpuscular Ylvuswqppx7893-19-63 23:24:00* Test Item Value Reference Range Interpretation Comments Mean Corpuscular Hemoglobin (test code = 785-6) 30.1 28-32 [facility] HospitalMean Corpuscular Hemoglobin Concent 2018-11-16 23:24:00* Test Item Value Reference Range Interpretation Comments Mean Corpuscular Hemoglobin Concent (test code = 786-4) 34.2 31-35 [facility] HospitalRed Cell Distribution Iuaor4291-29-43 23:24:00* Test Item Value Reference Range Interpretation Comments Red Cell Distribution Width (test code = 32976-2) 13.1 11.7 -14.4 [facility] HospitalPlatelet Hupib5217-57-64 23:24:00* Test Item Value Reference Range Interpretation Comments Platelet Count (test code = 777-3) 303 140-360 [facility] HospitalNeutrophils (%) (Auto)2018-11-16 23:24:00 * Test Item Value Reference Range Interpretation Comments Neutrophils (%) (Auto) (test code = 04799-5) 60.1 38.7-80.0 [facility] HospitalLymphocytes (%) (Auto)2018-11-16 23:24:00 * Test Item Value Reference Range Interpretation Comments Lymphocytes (%) (Auto) (test code = 736-9) 30.1 18.0-39.1 [facility] HospitalMonocytes (%) (Auto)2018-11-16 23:24:00* Test Item Value Reference Range Interpretation Comments Monocytes (%) (Auto) (test code = 5905-5) 7.4 4.4-11.3 [facility] HospitalEosinophils (%) (Auto)2018-11-16 23:24:00 * Test Item Value Reference Range Interpretation Comments Eosinophils (%) (Auto) (test code = 713-8) 1.5 0.0-6.0 [facility] HospitalBasophils (%) (Auto)2018-11-16 23:24:00* Test Item Value Reference Range Interpretation Comments Basophils (%) (Auto) (test code = 706-2) 0.4 0.0-1.0 [facility] HospitalIM GRANULOCYTES %2018-11-16 23:24:00* Test Item Value Reference Range Interpretation Comments IM GRANULOCYTES % (test code = IM GRANULOCYTES %) 0.5 0.0- 1.0 [facility] HospitalNeutrophils # (Auto)2018-11-16 23:24:00* Test Item Value Reference Range Interpretation Comments Neutrophils # (Auto) (test code = 751-8) 7.7 2.1-6.9 H [facility] HospitalLymphocytes # (Auto)2018-11-16 23:24:00* Test Item Value Reference Range Interpretation Comments Lymphocytes # (Auto) (test code = 54773-6) 3.9 1.0-3.2 H [facility] HospitalMonocytes # (Auto)2018-11-16 23:24:00* Test Item Value Reference Range Interpretation Comments Monocytes # (Auto) (test code = 742-7) 1.0 0.2-0.8 H [facility] HospitalEosinophils # (Auto)2018-11-16 23:24:00* Test Item Value Reference Range Interpretation Comments Eosinophils # (Auto) (test code = 711-2) 0.2 0.0-0.4 [facility] HospitalBasophils # (Auto)2018-11-16 23:24:00* Test Item Value Reference Range Interpretation Comments Basophils # (Auto) (test code = 704-7) 0.1 0.0-0.1 [facility] HospitalAbsolute Immature Granulocyte (auto 2018-11-16 23:24:00* Test Item Value Reference Range Interpretation Comments Absolute Immature Granulocyte (auto (aron t code = Absolute Immature Granulocyte (auto) 0.06 0-0.1 [facility] HospitalURINALYSIS OYUXUKZE7178-02-45 15:54:00* Test Item Value Reference Range Interpretation [...] HPF NONE Urine Source? Clean CatchUR HCG ZIBB6727-36-38 15:54:00* Test Item Value Reference Range Interpretation Comments UR HCG QUAL (test code = HCGQLU) NEGATIVE This HCGQL test is NOT applicable for MALE patients.Check with nurse about probable order error.If Tumor Marker Test needed, nurse should order test "HCGTU"(Test #550.79540) Urine Source? Clean CatchBlood Uamwpqj6195-23-62 16:36:00* Test Item Value Reference Range Interpretation Comments Blood Culture (test code = 51491526) NO GROWTH AFTER 5 DAYS, FINAL REPORT [facility] Mzqaatt4382-23-33 16:36:00* Test Item Value Reference Range Interpretation Comments Blood Culture (test code = 95273108) NO GROWTH AFTER 5 DAYS, FINAL REPORT [facility] Bwxcfzu2754-86-46 16:36:00* Test Item Value Reference Range Interpretation Comments Blood Culture (test code = 34832408) NO GROWTH AFTER 48 HOURS [facility] Jqblqc9233-49-94 12:01:00* Test Item Value Reference Range Interpretation Comments Vancomycin Level Trough (test code = 4092-3) 11.3 5.0-10.0 HH Results repeated and called to ISSARANACIA at 1200 on 07/26/18 by Babs duarte back and verified.[facility] Ltrgns5526-01-60 12:01:00* Test Item Value Reference Range Interpretation Comments Vancomycin Level Trough (test code = 4092-3) 11.3 5.0-10.0 HH Results repeated and called to ISSARANACIA at 1200 on 07/26/18 by Babs duarte back and verified.[facility] Vmaviu3559-96-28 12:01:00* Test Item Value Reference Range Interpretation Comments Vancomycin Level Trough (test code = 4092-3) 11.3 5.0-10.0 HH Results repeated and called to ISSARANACIA at 1200 on 07/26/18 by Babs duarte back and verified.[facility] Cezqmr2720-85-79 12:01:00* Test Item Value Reference Range Interpretation Comments Vancomycin Level Trough (test code = 4092-3) 11.3 5.0-10.0 HH Results repeated and called to ISMANIA at 1200 on 07/26/18 by Babs duarte back and verified.[facility] Ywagwt9599-18-10 12:01:00* Test Item Value Reference Range Interpretation Comments Vancomycin Level Trough (test code = 4092-3) 11.3 5.0-10.0 HH Results repeated and called to [place] at 1200 on 07/26/18 by Babs duarte back and verified.[facility] 2018-07-26 05:33:00* Test Item Value Reference Range Interpretation Comments Sodium Level (test code = 2951-2) 136 136-145 [facility] HospitalPotassium Emdsh4714-76-84 05:33:00* Test Item Value Reference Range Interpretation Comments Potassium Level (test code = 2823-3) 4.5 3.5-5.1 [facility] HospitalChloride Swlwa7168-69-74 05:33:00* Test Item Value Reference Range Interpretation Comments Chloride Level (test code = 2075-0) 111 98-107 H [facility] HospitalCarbon Dioxide Wuhzs2808-20-36 05:33:00* Test Item Value Reference Range Interpretation Comments Carbon Dioxide Level (test code = 2028-9) 19 22-29 L [facility] HospitalAnion Ayr9858-71-32 05:33:00* Test Item Value Reference Range Interpretation Comments Anion Gap (test code = 90605-6) 10.5 8-16 [facility] HospitalBlood Urea Qyumvbkx7290-85-72 05:33:00* Test Item Value Reference Range Interpretation Comments Blood Urea Nitrogen (test code = 3094-0) 7 7-26 [facility] HospitalCreatinine2019-02-24 05:33:00* Test Item Value Reference Range Interpretation Comments Creatinine (test code = 2160-0) 0.81 0.57-1.11 [facility] HospitalBUN/Creatinine Ydfop6571-12-31 05:33:00* Test Item Value Reference Range Interpretation Comments BUN/Creatinine Ratio (test code = 3097-3) 9 6-25 [facility] HospitalEstimat Glomerular Filtration Rate 2018-07-26 05:33:00* Test Item Value Reference Range Interpretation Comments Estimat Glomerular Filtration Rate (test code = 358883270) > 60 >60 Ranges were taken from the National Kidney Disease Education Program and the [facility] literature.Reference ranges:60 or greater: Csbhlj44-52 ( for 3 consecutive months): Chronic kidney disease 15 or less: Kidney failureHill [facility] Memorial HospitalGlucose Jiphg2333-27-35 05:33:00* Test Item Value Reference Range Interpretation Comments Glucose Level (test code = SRE9772) 85 74-118 [facility] HospitalCalcium Palnq3635-36-31 05:33:00* Test Item Value Reference Range Interpretation Comments Calcium Level (test code = 51977-5) 8.1 8.4-10.2 L [facility] Dihrf8648-44-32 05:33:00* Test Item Value Reference Range Interpretation Comments Sodium Level (test code = 2951-2) 136 136-145 [facility] HospitalPotassium Iajzw8606-20-96 05:33:00* Test Item Value Reference Range Interpretation Comments Potassium Level (test code = 2823-3) 4.5 3.5-5.1 [facility] HospitalChloride Kvkoy8566-13-00 05:33:00* Test Item Value Reference Range Interpretation Comments Chloride Level (test code = 2075-0) 111 98-107 H [facility] HospitalCarbon Dioxide Gnndh8264-08-45 05:33:00* Test Item Value Reference Range Interpretation Comments Carbon Dioxide Level (test code = 2028-9) 19 22-29 L [facility] HospitalAnion Hcl4736-92-56 05:33:00* Test Item Value Reference Range Interpretation Comments Anion Gap (test code = 79336-0) 10.5 8-16 [facility] HospitalBlood Urea Exbuhgoh1252-31-19 05:33:00* Test Item Value Reference Range Interpretation Comments Blood Urea Nitrogen (test code = 3094-0) 7 7-26 [facility] HospitalCreatinine2019-02-24 05:33:00* Test Item Value Reference Range Interpretation Comments Creatinine (test code = 2160-0) 0.81 0.57-1.11 [facility] HospitalBUN/Creatinine Wwjhv3572-07-24 05:33:00* Test Item Value Reference Range Interpretation Comments BUN/Creatinine Ratio (test code = 3097-3) 9 6-25 [facility] HospitalEstimat Glomerular Filtration Rate 2018-07-26 05:33:00* Test Item Value Reference Range Interpretation Comments Estimat Glomerular Filtration Rate (test code = 241886413) > 60 >60 Ranges were taken from the National Kidney Disease Education Program and the [facility] Foundation literature.Reference ranges:60 or greater: Qvrlqt82-51 ( for 3 consecutive months): Chronic kidney disease 15 or less: Kidney failureHill Country Memorial HospitalGlucose Clfce4902-16-48 05:33:00* Test Item Value Reference Range Interpretation Comments Glucose Level (test code = EZB1822) 85 74-118 [facility] HospitalCalcium Boupe2513-36-78 05:33:00* Test Item Value Reference Range Interpretation Comments Calcium Level (test code = 55731-5) 8.1 8.4-10.2 L [facility] HospitalProthrombin Tuuh6442-32-04 05:32:00* Test Item Value Reference Range Interpretation Comments Prothrombin Time (test code = 5902-2) 12.5 11.9-14.5 [facility] HospitalProthromb Time International Ratio 2018-07-26 05:32:00* Test Item Value Reference Range Interpretation Comments Prothromb Time International Ratio (test code = 6301-6) 0.86 Oral Anticoagulant Therapy INR Values:1. Low Intensity Therapy 1.5 - 2.02 . Moderate Intensity Therapy 2.0 - 3.03. High Intensity Therapy(1) 2.5 - 3. 54. High Intensity Therapy(2) 3.0 - 4.05. Panic Value INR > 5.0 [facility] HospitalActivated Partial Thromboplast Time 2018-07-26 05:32:00* Test Item Value Reference Range Interpretation Comments Activated Partial Thromboplast Time (test code = 19901-0) 25.2 23.8-35.5 [facility] HospitalProthrombin Tqgo2090-58-67 05:32:00* Test Item Value Reference Range Interpretation Comments Prothrombin Time (test code = 5902-2) 12.5 11.9-14.5 [facility] HospitalProthromb Time International Ratio 2018-07-26 05:32:00* Test Item Value Reference Range Interpretation Comments Prothromb Time International Ratio (test code = 6301-6) 0.86 Oral Anticoagulant Therapy INR Values:1. Low Intensity Therapy 1.5 - 2.02 . Moderate Intensity Therapy 2.0 - 3.03. High Intensity Therapy(1) 2.5 - 3. 54. High Intensity Therapy(2) 3.0 - 4.05. Panic Value INR > 5.0 [facility] HospitalActivated Partial Thromboplast Time 2018-07-26 05:32:00* Test Item Value Reference Range Interpretation Comments Activated Partial Thromboplast Time (test code = 11982-9) 25.2 23.8-35.5 [facility] HospitalProthrombin Rjgm4449-24-33 05:32:00* Test Item Value Reference Range Interpretation Comments Prothrombin Time (test code = 5902-2) 12.5 11.9-14.5 [facility] HospitalProthromb Time International Ratio 2018-07-26 05:32:00* Test Item Value Reference Range Interpretation Comments Prothromb Time International Ratio (test code = 6301-6) 0.86 Oral Anticoagulant Therapy INR Values:1. Low Intensity Therapy 1.5 - 2.02 . Moderate Intensity Therapy 2.0 - 3.03. High Intensity Therapy(1) 2.5 - 3. 54. High Intensity Therapy(2) 3.0 - 4.05. Panic Value INR > 5.0 [facility] HospitalActivated Partial Thromboplast Time 2018-07-26 05:32:00* Test Item Value Reference Range Interpretation Comments Activated Partial Thromboplast Time (test code = 43509-5) 25.2 23.8-35.5 [facility] HospitalProthrombin Dzbu1266-96-85 05:32:00* Test Item Value Reference Range Interpretation Comments Prothrombin Time (test code = 5902-2) 12.5 11.9-14.5 [facility] HospitalProthromb Time International Ratio 2018-07-26 05:32:00* Test Item Value Reference Range Interpretation Comments Prothromb Time International Ratio (test code = 6301-6) 0.86 Oral Anticoagulant Therapy INR Values:1. Low Intensity Therapy 1.5 - 2.02 . Moderate Intensity Therapy 2.0 - 3.03. High Intensity Therapy(1) 2.5 - 3. 54. High Intensity Therapy(2) 3.0 - 4.05. Panic Value INR > 5.0 [facility] HospitalActivated Partial Thromboplast Time 2018-07-26 05:32:00* Test Item Value Reference Range Interpretation Comments Activated Partial Thromboplast Time (test code = 57739-3) 25.2 23.8-35.5 [facility] HospitalProthrombin Lpvx9730-98-10 05:32:00* Test Item Value Reference Range Interpretation Comments Prothrombin Time (test code = 5902-2) 12.5 11.9-14.5 [facility] HospitalProthromb Time International Ratio 2018-07-26 05:32:00* Test Item Value Reference Range Interpretation Comments Prothromb Time International Ratio (test code = 6301-6) 0.86 Oral Anticoagulant Therapy INR Values:1. Low Intensity Therapy 1.5 - 2.02 . Moderate Intensity Therapy 2.0 - 3.03. High Intensity Therapy(1) 2.5 - 3. 54. High Intensity Therapy(2) 3.0 - 4.05. Panic Value INR > 5.0 [facility] HospitalActivated Partial Thromboplast Time 2018-07-26 05:32:00* Test Item Value Reference Range Interpretation Comments Activated Partial Thromboplast Time (test code = 12534-1) 25.2 23.8-35.5 [facility] HospitalWhite Blood Tqipk4858-00-92 05:16:00* Test Item Value Reference Range Interpretation Comments White Blood Count (test code = 6690-2) 7.88 4.8-10.8 [facility] HospitalRed Blood Ldtik7451-83-53 05:16:00* Test Item Value Reference Range Interpretation Comments Red Blood Count (test code = 789-8) 4.38 3.6-5.1 [facility] HospitalHemoglobin2019-02-24 05:16:00* Test Item Value Reference Range Interpretation Comments Hemoglobin (test code = 51968-4) 12.9 12.0-16.0 [facility] HospitalHematocrit2019-02-24 05:16:00* Test Item Value Reference Range Interpretation Comments Hematocrit (test code = 4544-3) 41.4 34.2-44.1 [facility] HospitalMean Corpuscular Rwhoaj0558-26-02 05:16:00* Test Item Value Reference Range Interpretation Comments Mean Corpuscular Volume (test code = 787-2) 94.5 81-99 [facility] HospitalMean Corpuscular Qdadsyqrkd1704-60-83 05:16:00* Test Item Value Reference Range Interpretation Comments Mean Corpuscular Hemoglobin (test code = 785-6) 29.5 28-32 [facility] HospitalMean Corpuscular Hemoglobin Concent 2018-07-26 05:16:00* Test Item Value Reference Range Interpretation Comments Mean Corpuscular Hemoglobin Concent (test code = 786-4) 31.2 31-35 [facility] HospitalRed Cell Distribution Uxahg4946-69-59 05:16:00* Test Item Value Reference Range Interpretation Comments Red Cell Distribution Width (test code = 31554-1) 12.6 11.7 -14.4 [facility] HospitalPlatelet Omptd0370-96-44 05:16:00* Test Item Value Reference Range Interpretation Comments Platelet Count (test code = 777-3) 152 140-360 [facility] HospitalNeutrophils (%) (Auto)2018-07-26 05:16:00 * Test Item Value Reference Range Interpretation Comments Neutrophils (%) (Auto) (test code = 27560-0) 38.7 38.7-80.0 [facility] HospitalLymphocytes (%) (Auto)2018-07-26 05:16:00 * Test Item Value Reference Range Interpretation Comments Lymphocytes (%) (Auto) (test code = 736-9) 51.6 18.0-39.1 H [facility] HospitalMonocytes (%) (Auto)2018-07-26 05:16:00* Test Item Value Reference Range Interpretation Comments Monocytes (%) (Auto) (test code = 5905-5) 7.1 4.4-11.3 [facility] HospitalEosinophils (%) (Auto)2018-07-26 05:16:00 * Test Item Value Reference Range Interpretation Comments Eosinophils (%) (Auto) (test code = 713-8) 1.9 0.0-6.0 [facility] HospitalBasophils (%) (Auto)2018-07-26 05:16:00* Test Item Value Reference Range Interpretation Comments Basophils (%) (Auto) (test code = 706-2) 0.4 0.0-1.0 [facility] HospitalIM GRANULOCYTES %2018-07-26 05:16:00* Test Item Value Reference Range Interpretation Comments IM GRANULOCYTES % (test code = IM GRANULOCYTES %) 0.3 0.0- 1.0 [facility] HospitalNeutrophils # (Auto)2018-07-26 05:16:00* Test Item Value Reference Range Interpretation Comments Neutrophils # (Auto) (test code = 751-8) 3.1 2.1-6.9 [facility] HospitalLymphocytes # (Auto)2018-07-26 05:16:00* Test Item Value Reference Range Interpretation Comments Lymphocytes # (Auto) (test code = 80516-1) 4.1 1.0-3.2 H [facility] HospitalMonocytes # (Auto)2018-07-26 05:16:00* Test Item Value Reference Range Interpretation Comments Monocytes # (Auto) (test code = 742-7) 0.6 0.2-0.8 [facility] HospitalEosinophils # (Auto)2018-07-26 05:16:00* Test Item Value Reference Range Interpretation Comments Eosinophils # (Auto) (test code = 711-2) 0.2 0.0-0.4 [facility] HospitalBasophils # (Auto)2018-07-26 05:16:00* Test Item Value Reference Range Interpretation Comments Basophils # (Auto) (test code = 704-7) 0.0 0.0-0.1 [facility] HospitalAbsolute Immature Granulocyte (auto 2018-07-26 05:16:00* Test Item Value Reference Range Interpretation Comments Absolute Immature Granulocyte (auto (aron t code = Absolute Immature Granulocyte (auto) 0.02 0-0.1 [facility] HospitalWhite Blood Ukoev0390-49-48 05:16:00* Test Item Value Reference Range Interpretation Comments White Blood Count (test code = 6690-2) 7.88 4.8-10.8 [facility] HospitalRed Blood Ufgcz9341-65-39 05:16:00* Test Item Value Reference Range Interpretation Comments Red Blood Count (test code = 789-8) 4.38 3.6-5.1 [facility] HospitalHemoglobin2019-02-24 05:16:00* Test Item Value Reference Range Interpretation Comments Hemoglobin (test code = 48151-1) 12.9 12.0-16.0 [facility] HospitalHematocrit2019-02-24 05:16:00* Test Item Value Reference Range Interpretation Comments Hematocrit (test code = 4544-3) 41.4 34.2-44.1 [facility] HospitalMean Corpuscular Vfnxin0206-91-53 05:16:00* Test Item Value Reference Range Interpretation Comments Mean Corpuscular Volume (test code = 787-2) 94.5 81-99 [facility] HospitalMean Corpuscular Qdfrdojals7896-96-19 05:16:00* Test Item Value Reference Range Interpretation Comments Mean Corpuscular Hemoglobin (test code = 785-6) 29.5 28-32 [facility] Hemoglobin Concent 2018-07-26 05:16:00* Test Item Value Reference Range Interpretation Comments Mean Corpuscular Hemoglobin Concent (test code = 786-4) 31.2 31-35 [facility] HospitalRed Cell Distribution Eseft1383-52-42 05:16:00* Test Item Value Reference Range Interpretation Comments Red Cell Distribution Width (test code = 05973-2) 12.6 11.7 -14.4 [facility] HospitalPlatelet Fctox6528-50-38 05:16:00* Test Item Value Reference Range Interpretation Comments Platelet Count (test code = 777-3) 152 140-360 [facility] HospitalNeutrophils (%) (Auto)2018-07-26 05:16:00 * Test Item Value Reference Range Interpretation Comments Neutrophils (%) (Auto) (test code = 87172-3) 38.7 38.7-80.0 [facility] HospitalLymphocytes (%) (Auto)2018-07-26 05:16:00 * Test Item Value Reference Range Interpretation Comments Lymphocytes (%) (Auto) (test code = 736-9) 51.6 18.0-39.1 H [facility] HospitalMonocytes (%) (Auto)2018-07-26 05:16:00* Test Item Value Reference Range Interpretation Comments Monocytes (%) (Auto) (test code = 5905-5) 7.1 4.4-11.3 [facility] HospitalEosinophils (%) (Auto)2018-07-26 05:16:00 * Test Item Value Reference Range Interpretation Comments Eosinophils (%) (Auto) (test code = 713-8) 1.9 0.0-6.0 [facility] HospitalBasophils (%) (Auto)2018-07-26 05:16:00* Test Item Value Reference Range Interpretation Comments Basophils (%) (Auto) (test code = 706-2) 0.4 0.0-1.0 [facility] HospitalIM GRANULOCYTES %2018-07-26 05:16:00* Test Item Value Reference Range Interpretation Comments IM GRANULOCYTES % (test code = IM GRANULOCYTES %) 0.3 0.0- 1.0 [facility] HospitalNeutrophils # (Auto)2018-07-26 05:16:00* Test Item Value Reference Range Interpretation Comments Neutrophils # (Auto) (test code = 751-8) 3.1 2.1-6.9 [facility] HospitalLymphocytes # (Auto)2018-07-26 05:16:00* Test Item Value Reference Range Interpretation Comments Lymphocytes # (Auto) (test code = 97104-3) 4.1 1.0-3.2 H [facility] HospitalMonocytes # (Auto)2018-07-26 05:16:00* Test Item Value Reference Range Interpretation Comments Monocytes # (Auto) (test code = 742-7) 0.6 0.2-0.8 [facility] HospitalEosinophils # (Auto)2018-07-26 05:16:00* Test Item Value Reference Range Interpretation Comments Eosinophils # (Auto) (test code = 711-2) 0.2 0.0-0.4 [facility] HospitalBasophils # (Auto)2018-07-26 05:16:00* Test Item Value Reference Range Interpretation Comments Basophils # (Auto) (test code = 704-7) 0.0 0.0-0.1 [facility] HospitalAbsolute Immature Granulocyte (auto 2018-07-26 05:16:00* Test Item Value Reference Range Interpretation Comments Absolute Immature Granulocyte (auto (aron t code = Absolute Immature Granulocyte (auto) 0.02 0-0.1 [facility] HospitalMRI HAND LEFT NG4694-28-74 16:10:00 [place] [address] Patient Name: XOCHILT FAN MR #: [id number] : 1980 Age/Sex: 37/F Req #: [id number] Adm Physician: DOREEN MONTAÑO MD Ordered by: KARLA FLORES MD Report #: [id number] Location: [facility] Room/Bed: [facility] Procedure: [id number] MRI/MRI HAND LEFT WO Exam Date: 07/25/18 [...] was provided by Dr. Paul on Jul at 1621 hours. Signed by: Aneesh HerreraOAllie, M.M.M. on 07/27/2018 8:10 AM Dictated By: RACHEL DAVIS DO 9 Transcribed By: YULISSA on 07/27/18809 COPY TO: KARLA FLORES MD Total Arvefgpzp9637-87-13 13:28:00* Test Item Value Reference Range Interpretation Comments Total Bilirubin (test code = 1975-2) 0.3 0.2-1.2 [facility] HospitalAspartate Amino Transf (AST/SGOT) 2018-07-25 13:28:00* Test Item Value Reference Range Interpretation Comments Aspartate Amino Transf (AST/SGOT) (test code = Aspartate Amino Transf (AST/SGOT)) 14 5-34 [facility] HospitalAlanine Aminotransferase (ALT/SGPT) 2018-07-25 13:28:00* Test Item Value Reference Range Interpretation Comments Alanine Aminotransferase (ALT/SGPT) (test code = 1742-6) 42 0-55 [facility] HospitalTotal Nfdtgiv9891-74-22 13:28:00* Test Item Value Reference Range Interpretation Comments Total Protein (test code = 2885-2) 6.4 6.5-8.1 L [facility] HospitalAlbumin2019-02-23 13:28:00* Test Item Value Reference Range Interpretation Comments Albumin (test code = 1751-7) 3.4 3.5-5.0 L [facility] HospitalGlobulin2019-02-23 13:28:00* Test Item Value Reference Range Interpretation Comments Globulin (test code = 01791-8) 3.0 2.3-3.5 [facility] HospitalAlbumin/Globulin Bmhsp4430-60-57 13:28:00 * Test Item Value Reference Range Interpretation Comments Albumin/Globulin Ratio (test code = 1759-0) 1.1 0.8-2.0 [facility] HospitalAlkaline Xomfhcilvnk4173-15-88 13:28:00* Test Item Value Reference Range Interpretation Comments Alkaline Phosphatase (test code = 6768-6) 63 40-150 [facility] HospitalTotal Zxlcfpkiw0494-46-21 13:28:00* Test Item Value Reference Range Interpretation Comments Total Bilirubin (test code = 1975-2) 0.3 0.2-1.2 [facility] HospitalAspartate Amino Transf (AST/SGOT) 2018-07-25 13:28:00* Test Item Value Reference Range Interpretation Comments Aspartate Amino Transf (AST/SGOT) (test code = Aspartate Amino Transf (AST/SGOT)) 14 5-34 [facility] HospitalAlanine Aminotransferase (ALT/SGPT) 2018-07-25 13:28:00* Test Item Value Reference Range Interpretation Comments Alanine Aminotransferase (ALT/SGPT) (test code = 1742-6) 42 0-55 [facility] HospitalTotal Msdtxpm3791-99-25 13:28:00* Test Item Value Reference Range Interpretation Comments Total Protein (test code = 2885-2) 6.4 6.5-8.1 L [facility] HospitalAlbumin2019-02-23 13:28:00* Test Item Value Reference Range Interpretation Comments Albumin (test code = 1751-7) 3.4 3.5-5.0 L [facility] HospitalGlobulin2019-02-23 13:28:00* Test Item Value Reference Range Interpretation Comments Globulin (test code = 25114-6) 3.0 2.3-3.5 [facility] HospitalAlbumin/Globulin Mgprz3076-39-16 13:28:00 * Test Item Value Reference Range Interpretation Comments Albumin/Globulin Ratio (test code = 1759-0) 1.1 0.8-2.0 [facility] HospitalAlkaline Ajteokxvmgs2081-53-05 13:28:00* Test Item Value Reference Range Interpretation Comments Alkaline Phosphatase (test code = 6768-6) 63 40-150 [facility] HospitalUrine Ebqingorsqda9240-52-63 12:26:00* Test Item Value Reference Range Interpretation Comments Urine Urobilinogen (test code = 59101-7) 0.2 0.2-1 [facility] HospitalUrine Uhfqvwgyw6004-02-17 12:26:00* Test Item Value Reference Range Interpretation Comments Urine Bilirubin (test code = 1977-) NEGATIVE NEGATIVE [facility] Qitjg1466-65-59 12:26:00* Test Item Value Reference Range Interpretation Comments Urine Blood (test code = 98209-8) NEGATIVE NEGATIVE [facility] HospitalUrine XOW8150-08-28 12:26:00* Test Item Value Reference Range Interpretation Comments Urine WBC (test code = 5821-4) 0-5 0-5 [facility] HospitalUrine UVN5811-36-08 12:26:00* Test Item Value Reference Range Interpretation Comments Urine RBC (test code = 96951-6) 0-5 0-5 [facility] HospitalUrine Kcdhisxd5775-50-13 12:26:00* Test Item Value Reference Range Interpretation Comments Urine Bacteria (test code = 39044-7) FEW NONE [facility] HospitalUrine Epithelial Vsbfe3168-61-53 12:26:00 * Test Item Value Reference Range Interpretation Comments Urine Epithelial Cells (test code = 41680-3) MANY NONE [facility] HospitalUrine Hcfiudqccrcl1061-43-53 12:26:00* Test Item Value Reference Range Interpretation Comments Urine Urobilinogen (test code = 45203-4) 0.2 0.2-1 [facility] HospitalUrine Wpbkbzpvy3104-23-89 12:26:00* Test Item Value Reference Range Interpretation Comments Urine Bilirubin (test code = 1977-6) NEGATIVE NEGATIVE [facility] HospitalUrine Xalwj6812-58-72 12:26:00* Test Item Value Reference Range Interpretation Comments Urine Blood (test code = 76474-8) NEGATIVE NEGATIVE [facility] HospitalUrine JTG6665-30-39 12:26:00* Test Item Value Reference Range Interpretation Comments Urine WBC (test code = 5821-4) 0-5 0-5 [facility] HospitalUrine WQL2072-17-23 12:26:00* Test Item Value Reference Range Interpretation Comments Urine RBC (test code = 44587-2) 0-5 0-5 [facility] HospitalUrine Ukfliizu6044-48-03 12:26:00* Test Item Value Reference Range Interpretation Comments Urine Bacteria (test code = 40948-3) FEW NONE [facility] HospitalUrine Epithelial Kgrov6835-97-36 12:26:00 * Test Item Value Reference Range Interpretation Comments Urine Epithelial Cells (test code = 21121-4) MANY NONE [facility] HospitalUrine Pozrtybczfna9229-65-73 12:26:00* Test Item Value Reference Range Interpretation Comments Urine Urobilinogen (test code = 12548-5) 0.2 0.2-1 [facility] HospitalUrine Ihtyanumv7553-93-28 12:26:00* Test Item Value Reference Range Interpretation Comments Urine Bilirubin (test code = 1978-6) NEGATIVE NEGATIVE [facility] HospitalUrine Toimh1024-98-77 12:26:00* Test Item Value Reference Range Interpretation Comments Urine Blood (test code = 24122-6) NEGATIVE NEGATIVE [facility] HospitalUrine DGF9302-53-27 12:26:00* Test Item Value Reference Range Interpretation Comments Urine WBC (test code = 5821-4) 0-5 0-5 [facility] HospitalUrine IAN1739-59-56 12:26:00* Test Item Value Reference Range Interpretation Comments Urine RBC (test code = 33739-4) 0-5 0-5 [facility] HospitalUrine Dwmdjqhh6204-75-13 12:26:00* Test Item Value Reference Range Interpretation Comments Urine Bacteria (test code = 59194-8) FEW NONE [facility] HospitalUrine Epithelial Ploxn9775-81-43 12:26:00 * Test Item Value Reference Range Interpretation Comments Urine Epithelial Cells (test code = 02567-3) MANY NONE [facility] HospitalUrine Kodscvuxezcb9406-33-00 12:26:00* Test Item Value Reference Range Interpretation Comments Urine Urobilinogen (test code = 64627-9) 0.2 0.2-1 [facility] Jaigqvkru9923-70-96 12:26:00* Test Item Value Reference Range Interpretation Comments Urine Bilirubin (test code = 1977-6) NEGATIVE NEGATIVE [facility] Diila9251-67-70 12:26:00* Test Item Value Reference Range Interpretation Comments Urine Blood (test code = 37755-2) NEGATIVE NEGATIVE [facility] FBJ2149-41-03 12:26:00* Test Item Value Reference Range Interpretation Comments Urine WBC (test code = 5821-4) 0-5 0-5 [facility] RHT8452-15-60 12:26:00* Test Item Value Reference Range Interpretation Comments Urine RBC (test code = 37804-9) 0-5 0-5 [facility] Qirglcgr7534-90-31 12:26:00* Test Item Value Reference Range Interpretation Comments Urine Bacteria (test code = 00269-6) [facility]W NONE [facility] Afmvz6145-66-36 12:26:00 * Test Item Value Reference Range Interpretation Comments Urine Epithelial Cells (test code = 53592-6) MANY NONE [facility] Vfnuphikngzt7321-00-85 12:26:00* Test Item Value Reference Range Interpretation Comments Urine Urobilinogen (test code = 76118-0) 0.2 0.2-1 [facility] Vjeyvlsgh2457-08-16 12:26:00* Test Item Value Reference Range Interpretation Comments Urine Bilirubin (test code = 1977-6) NEGATIVE NEGATIVE [facility] Nhoha4512-72-25 12:26:00* Test Item Value Reference Range Interpretation Comments Urine Blood (test code = 27546-6) NEGATIVE NEGATIVE [facility] [id number] 12:26:00* Test Item Value Reference Range Interpretation Comments Urine WBC (test code = 5821-4) 0-5 0-5 [facility] [id number] 12:26:00* Test Item Value Reference Range Interpretation Comments Urine RBC (test code = 02145-9) 0-5 0-5 [facility] Wpebjarr4021-35-92 12:26:00* Test Item Value Reference Range Interpretation Comments Urine Bacteria (test code = 25367-3) FEW NONE [facility]helial Zjmjm5975-19-17 12:26:00 * Test Item Value Reference Range Interpretation Comments Urine Epithelial Cells (test code = 28337-9) MANY NONE [facility] Fzydb2485-70-79 12:19:00* Test Item Value Reference Range Interpretation Comments Urine Color (test code = 5778-6) YELLOW YELLOW [facility] Gyexcjg7499-88-10 12:19:00* Test Item Value Reference Range Interpretation Comments Urine Clarity (test code = 97632-7) HAZY CLEAR [facility] Specific Ntvoovn8125-72-20 12:19:00 * Test Item Value Reference Range Interpretation Comments Urine Specific [place] Switch (test code = 5811-5) 1.030 1.010-1.02 5 H [facility] [id number] 12:19:00* Test Item Value Reference Range Interpretation Comments Urine pH (test code = 54063-9) 6 5-7 [facility] Leukocyte Vpjeuxca0013-09-69 12:19:00* Test Item Value Reference Range Interpretation Comments Urine Leukocyte Esterase (test code = 5799-2) TRACE NEGATIVE H [facility] Flxfjdw6628-49-53 12:19:00* Test Item Value Reference Range Interpretation Comments Urine Nitrite (test code = 49834-8) NEGATIVE NEGATIVE [facility] Lvihbei9038-28-39 12:19:00* Test Item Value Reference Range Interpretation Comments Urine Protein (test code = 5804-0) TRACE NEGATIVE H [facility] Glucose (UA)2018-07-25 12:19:00* Test Item Value Reference Range Interpretation Comments Urine Glucose (UA) (test code = 2349-9) NEGATIVE NEGATIVE [facility] Sjtvaep7625-55-25 12:19:00* Test Item Value Reference Range Interpretation Comments Urine Ketones (test code = 07674-1) NEGATIVE NEGATIVE [facility] Opiates Yrtebo8779-50-65 12:19:00* Test Item Value Reference Range Interpretation Comments Urine Opiates Screen (test code = 43618-4) POSITIVE NEGATIVE H ALL TESTS PERFORMED MANUALLY ON [employer] TOX/SEE TEST This test provides only a sc reen. Positive results should be repeated by a confirmatory test.[facility] Barbiturates Mzbvmd8617-87-82 12:19:00* Test Item Value Reference Range Interpretation Comments Urine Barbiturates Screen (test code = 554793786) NEGATIVE NEGA TIVE [facility] Phencyclidine Zloqza2301-27-06 12:19:00* Test Item Value Reference Range Interpretation Comments Urine Phencyclidine Screen (test code = 82987-2) NEGATIVE NEGAT JACQUI [facility] Amphetamines Uhkyhv3936-87-50 12:19:00* Test Item Value Reference Range Interpretation Comments Urine Amphetamines Screen (test code = 51418-0) POSITIVE NEGATI VE H This test provides only a screen. Positive results should be repeated by a confi rmatory test.[facility] Methamphetamines Hmopgk1098-22-55 12:19:00* Test Item Value Reference Range Interpretation Comments Urine Methamphetamines Screen (test code = Urine Metha mphetamines Screen) POSITIVE NEGATIVE H This test provides only a screen. Positive results should be repeated by a confi rmatory test.[facility] Benzodiazepines Screen 2018-07-25 12:19:00* Test Item Value Reference Range Interpretation Comments Urine Benzodiazepines Screen (test code = 15304-5) POSITIVE NEG ATIVE H This test provides only a screen. Positive results should be repeated by a confi rmatory test.[facility] Cocaine Screen 2018-07-25 12:19:00* Test Item Value Reference Range Interpretation Comments Urine Cocaine Screen (test code = 3398-5) NEGATIVE NEGATIVE [facility] Cannabinoids Qbzynk3265-60-91 12:19:00* Test Item Value Reference Range Interpretation Comments Urine Cannabinoids Screen (test code = 04699-7) NEGATIVE NEGATI VE THESE RESULTS ARE FOR MEDICAL TREATMENT ONLYTHIS REPORT CONTAINS UNCONFIR MED SCREENING RESULTS*POSITIVE RESULTS WILL BE CONFIRMED BY REFERENCE LAB UPON R EQUEST CUT-OFFDRUG CLASS CONCENTRATION ng/mLAmphetamines 1000Methamphetamines 1000Cocaine 300Opiate 300Phencyc lidine 25Cannabinoid 50Barbiturates 300Benzodiazepine 300Methadone 300[facility] Meth[facility]one Bdylns9520-43-97 12:19:00* Test Item Value Reference Range Interpretation Comments Urine Methadone Screen (test code = 99405-4) NEGATIVE NEGATIVE THESE RESULTS ARE FOR MEDICAL TREATMENT ONLYTHIS REPORT CONTAINS UNCONFIR MED SCREENING RESULTS*POSITIVE RESULTS WILL BE CONFIRMED BY REFERENCE LAB UPON R EQUEST CUT-OFFDRUG CLASS CONCENTRATION ng/mLAmphetamines 1000Methamphetamines 1000Cocaine Metabolite 300Opiate 300Phencyc lidine 25Cannabinoid 50Barbiturates 300Benzodiazepine 300Methadone 300[facility] Cacd1085-19-75 12:19:00* Test Item Value Reference Range Interpretation Comments Urine Test (test code = 2106-3) NEGATIVE NEGATIVE [facility] Zsuds1785-51-03 12:19:00* Test Item Value Reference Range Interpretation Comments Urine Color (test code = 5778-6) YELLOW YELLOW [facility] Aunjhbm5614-34-11 12:19:00* Test Item Value Reference Range Interpretation Comments Urine Clarity (test code = 87768-8) HAZY CLEAR [facility] Specific Fcueawt4477-15-30 12:19:00 * Test Item Value Reference Range Interpretation Comments Urine Specific [place] Switch (test code = 5811-5) 1.030 1.010-1.02 5 H [facility] [id number] 12:19:00* Test Item Value Reference Range Interpretation Comments Urine pH (test code = 23533-0) 6 5-7 [facility] Leukocyte Fdpcnigl8318-34-47 12:19:00* Test Item Value Reference Range Interpretation Comments Urine Leukocyte Esterase (test code = 5799-2) TRACE NEGATIVE H [facility] Ytmrltc6324-07-05 12:19:00* Test Item Value Reference Range Interpretation Comments Urine Nitrite (test code = 58050-5) NEGATIVE NEGATIVE [facility] Gcwigks6311-27-17 12:19:00* Test Item Value Reference Range Interpretation Comments Urine Protein (test code = 5804-0) TRACE NEGATIVE H [facility] Glucose (UA)2018-07-25 12:19:00* Test Item Value Reference Range Interpretation Comments Urine Glucose (UA) (test code = 2349-9) NEGATIVE NEGATIVE [facility] Mtvlpsk1414-62-80 12:19:00* Test Item Value Reference Range Interpretation Comments Urine Ketones (test code = 93250-3) NEGATIVE NEGATIVE [facility] Opiates Tomwtk1805-89-64 12:19:00* Test Item Value Reference Range Interpretation Comments Urine Opiates Screen (test code = 46604-1) POSITIVE NEGATIVE H ALL TESTS PERFORMED MANUALLY ON [employer] TOX/SEE TEST This test provides only a sc reen. Positive results should be repeated by a confirmatory test.[facility] Barbiturates Soxwap7665 12:19:00* Test Item Value Reference Range Interpretation Comments Urine Barbiturates Screen (test code = 516937729) NEGATIVE NEGA TIVE [facility] Phencyclidine Gqoecz9060-34-89 12:19:00* Test Item Value Reference Range Interpretation Comments Urine Phencyclidine Screen (test code = 34053-2) NEGATIVE NEGAT JACQUI [facility] Amphetamines Mujcvg3808-66-43 12:19:00* Test Item Value Reference Range Interpretation Comments Urine Amphetamines Screen (test code = 78068-3) POSITIVE NEGATI VE H This test provides only a screen. Positive results should be repeated by a confi rmatory test.[facility] Methamphetamines Obqjmw2079-57-25 12:19:00* Test Item Value Reference Range Interpretation Comments Urine Methamphetamines Screen (test code = Urine Metha mphetamines Screen) POSITIVE NEGATIVE H This test provides only a screen. Positive results should be repeated by a confi rmatory test.[facility] Benzodiazepines Screen 2018-07-25 12:19:00* Test Item Value Reference Range Interpretation Comments Urine Benzodiazepines Screen (test code = 35637-5) POSITIVE NEG ATIVE H This test provides only a screen. Positive results should be repeated by a confi rmatory test.[facility] Cocaine Screen 2018-07-25 12:19:00* Test Item Value Reference Range Interpretation Comments Urine Cocaine Screen (test code = 3398-5) NEGATIVE NEGATIVE [facility] Cannabinoids Ntityx4815-95-04 12:19:00* Test Item Value Reference Range Interpretation Comments Urine Cannabinoids Screen (test code = 08499-8) NEGATIVE NEGATI VE THESE RESULTS ARE FOR MEDICAL TREATMENT ONLYTHIS REPORT CONTAINS UNCONFIR MED SCREENING RESULTS*POSITIVE RESULTS WILL BE CONFIRMED BY REFERENCE LAB UPON R EQUEST CUT-OFFDRUG CLASS CONCENTRATION ng/mLAmphetamines 1000Methamphetamines 1000Cocaine 300Opiate 300Phencyc lidine 25Cannabinoid 50Barbiturates 300Benzodiazepine 300Methadone 300[facility]one Vyzrpf5659-01-97 12:19:00* Test Item Value Reference Range Interpretation Comments Urine Methadone Screen (test code = 44937-0) NEGATIVE NEGATIVE THESE RESULTS ARE FOR MEDICAL TREATMENT ONLYTHIS REPORT CONTAINS UNCONFIR MED SCREENING RESULTS*POSITIVE RESULTS WILL BE CONFIRMED BY REFERENCE LAB UPON R EQUEST CUT-OFFDRUG CLASS CONCENTRATION ng/mLAmphetamines 1000Methamphetamines 1000Cocaine Metabolite 300Opiate 300Phencyc lidine 25Cannabinoid 50Barbiturates 300Benzodiazepine 300Methadone 300[facility] Tmpf3144-04-37 12:19:00* Test Item Value Reference Range Interpretation Comments Urine Test (test code = 2106-3) NEGATIVE NEGATIVE [facility] Xyguz5786-95-17 12:19:00* Test Item Value Reference Range Interpretation Comments Urine Color (test code = 5778-6) YELLOW YELLOW [facility] Daodydd9801-08-92 12:19:00* Test Item Value Reference Range Interpretation Comments Urine Clarity (test code = 34680-6) HAZY CLEAR [facility] Specific Lhzkuve8870-76-44 12:19:00 * Test Item Value Reference Range Interpretation Comments Urine Specific [place] Switch (test code = 5811-5) 1.030 1.010-1.02 5 H [facility] [id number] 12:19:00* Test Item Value Reference Range Interpretation Comments Urine pH (test code = 38036-4) 6 5-7 [facility] Leukocyte Duvazgwz8536-98-09 12:19:00* Test Item Value Reference Range Interpretation Comments Urine Leukocyte Esterase (test code = 5799-2) TRACE NEGATIVE H [facility] Xhrfiqf0104-19-25 12:19:00* Test Item Value Reference Range Interpretation Comments Urine Nitrite (test code = 45863-8) NEGATIVE NEGATIVE [facility] Blqipma6436-15-74 12:19:00* Test Item Value Reference Range Interpretation Comments Urine Protein (test code = 5804-0) TRACE NEGATIVE H [facility] Glucose (UA)2018-07-25 12:19:00* Test Item Value Reference Range Interpretation Comments Urine Glucose (UA) (test code = 2349-9) NEGATIVE NEGATIVE [facility] Ydxyqvv2052-69-10 12:19:00* Test Item Value Reference Range Interpretation Comments Urine Ketones (test code = 09103-2) NEGATIVE NEGATIVE [facility] Opiates Tpuftq0935-57-00 12:19:00* Test Item Value Reference Range Interpretation Comments Urine Opiates Screen (test code = 12276-6) POSITIVE NEGATIVE H ALL TESTS PERFORMED MANUALLY ON [employer] TOX/SEE TEST This test provides only a sc reen. Positive results should be repeated by a confirmatory test.[facility] Barbit[facility]ates Slllds4026-71-84 12:19:00* Test Item Value Reference Range Interpretation Comments Urine Barbiturates Screen (test code = 787458117) NEGATIVE NEGA TIVE [facility] Phencyclidine Znwjna0202-65-86 12:19:00* Test Item Value Reference Range Interpretation Comments Urine Phencyclidine Screen (test code = 46870-7) NEGATIVE NEGAT JACQUI [facility] Amphetamines Hvxizy3763-38-95 12:19:00* Test Item Value Reference Range Interpretation Comments Urine Amphetamines Screen (test code = 33315-9) POSITIVE NEGATI VE H This test provides only a screen. Positive results should be repeated by a confi rmatory test.[facility] Methamphetamines Tlnlnr6699-11-57 12:19:00* Test Item Value Reference Range Interpretation Comments Urine Methamphetamines Screen (test code = Urine Metha mphetamines Screen) POSITIVE NEGATIVE H This test provides only a screen. Positive results should be repeated by a confi rmatory test.[facility] Benzodiazepines Screen 2018-07-25 12:19:00* Test Item Value Reference Range Interpretation Comments Urine Benzodiazepines Screen (test code = 85423-4) POSITIVE NEG ATIVE H This test provides only a screen. Positive results should be repeated by a confi rmatory test.[facility] Cocaine [facility] 2018-07-25 12:19:00* Test Item Value Reference Range Interpretation Comments Urine Cocaine Screen (test code = 3398-5) NEGATIVE NEGATIVE [facility] Cannabinoids Ujpdez6244-83-10 12:19:00* Test Item Value Reference Range Interpretation Comments Urine Cannabinoids Screen (test code = 91765-4) NEGATIVE NEGATI VE THESE RESULTS ARE FOR MEDICAL TREATMENT ONLYTHIS REPORT CONTAINS UNCONFIR MED SCREENING RESULTS*POSITIVE RESULTS WILL BE CONFIRMED BY REFERENCE LAB UPON R EQUEST CUT-OFFDRUG CLASS CONCENTRATION ng/mLAmphetamines 1000Methamphetamines 1000Cocaine 300Opiate 300Phencyc lidine 25Cannabinoid 50Barbiturates 300Benzodiazepine 300Methadone 300[facility] Bsgbty7179-82-88 12:19:00* Test Item Value Reference Range Interpretation Comments Urine Methadone Screen (test code = 94714-7) NEGATIVE NEGATIVE THESE RESULTS ARE FOR MEDICAL TREATMENT ONLYTHIS REPORT CONTAINS UNCONFIR MED SCREENING RESULTS*POSITIVE RESULTS WILL BE CONFIRMED BY REFERENCE LAB UPON R EQUEST CUT-OFFDRUG CLASS CONCENTRATION ng/mLAmphetamines 1000Methamphetamines 1000Cocaine Metabolite 300Opiate 300Phencyc lidine 25Cannabinoid 50Barbiturates 300Benzodiazepine 300Methadone 300[facility] Qqkg2688-22-86 12:19:00* Test Item Value Reference Range Interpretation Comments Urine Test (test code = 2106-3) NEGATIVE NEGATIVE [facility] Xaykm1116-41-19 12:19:00* Test Item Value Reference Range Interpretation Comments Urine Color (test code = 5778-6) YELLOW YELLOW [facility] Xlxygjj2711-27-28 12:19:00* Test Item Value Reference Range Interpretation Comments Urine Clarity (test code = 43907-5) HAZY CLEAR [facility] Specific Xrwbnai9452-58-82 12:19:00 * Test Item Value Reference Range Interpretation Comments Urine Specific [place] Switch (test code = 5811-5) 1.030 1.010-1.02 5 H [facility] [id number] 12:19:00* Test Item Value Reference Range Interpretation Comments Urine pH (test code = 52112-1) 6 5-7 [facility] Leukocyte Vnlaszqi2999-98-55 12:19:00* Test Item Value Reference Range Interpretation Comments Urine Leukocyte Esterase (test code = 5799-2) [facility]GATIVE [facility] Iqanxhx8158-57-90 12:19:00* Test Item Value Reference Range Interpretation Comments Urine Nitrite (test code = 43446-2) NEGATIVE NEGATIVE [facility] Laqldms0696-52-06 12:19:00* Test Item Value Reference Range Interpretation Comments Urine Protein (test code = 5804-0) TRACE NEGATIVE [facility])2018-07-25 12:19:00* Test Item Value Reference Range Interpretation Comments Urine Glucose (UA) (test code = 2349-9) NEGATIVE NEGATIVE [facility] Hsfpqbl5846-10-95 12:19:00* Test Item Value Reference Range Interpretation Comments Urine Ketones (test code = 85663-9) NEGATIVE NEGATIVE [facility] Opiates Mkhioo8101-95-81 12:19:00* Test Item Value Reference Range Interpretation Comments Urine Opiates Screen (test code = 81187-8) POSITIVE NEGATIVE H ALL TESTS PERFORMED MANUALLY ON [employer] TOX/SEE TEST This test provides only a sc reen. Positive results should be repeated by a confirmatory test.[facility] Barbit[facility] Viahnn2519-40-53 12:19:00* Test Item Value Reference Range Interpretation Comments Urine Barbiturates Screen (test code = 187672093) NEGATIVE NEGA TIVE [facility] Phencyclidine Zwksui4254-73-94 12:19:00* Test Item Value Reference Range Interpretation Comments Urine Phencyclidine Screen (test code = 69197-7) NEGATIVE NEGAT JACQUI [facility] Amphetamines Wuwpey8825-31-50 12:19:00* Test Item Value Reference Range Interpretation Comments Urine Amphetamines Screen (test code = 39139-1) POSITIVE NEGATI VE H This test provides only a screen. Positive results should be repeated by a confi rmatory test.[facility] Methamphetamines Rckuaa1219-22-47 12:19:00* Test Item Value Reference Range Interpretation Comments Urine Methamphetamines Screen (test code = Urine Metha mphetamines Screen) POSITIVE NEGATIVE H This test provides only a screen. Positive results should be repeated by a confi rmatory test.[facility] Benzodiazep[facility] Screen 2018-07-25 12:19:00* Test Item Value Reference Range Interpretation Comments Urine Benzodiazepines Screen (test code = 62330-5) POSITIVE NEG ATIVE H This test provides only a screen. Positive results should be repeated by a confi rmatory test.[facility] Cocaine Screen 2018-07-25 12:19:00* Test Item Value Reference Range Interpretation Comments Urine Cocaine Screen (test code = 3398-5) NEGATIVE NEGATIVE [facility] Cannabinoids Qjdoam4331-57-77 12:19:00* Test Item Value Reference Range Interpretation Comments Urine Cannabinoids Screen (test code = 66982-3) NEGATIVE NEGATI VE THESE RESULTS ARE FOR MEDICAL TREATMENT ONLYTHIS REPORT CONTAINS UNCONFIR MED SCREENING RESULTS*POSITIVE RESULTS WILL BE CONFIRMED BY REFERENCE LAB UPON R EQUEST CUT-OFFDRUG CLASS CONCENTRATION ng/mLAmphetamines 1000Methamphetamines 1000Cocaine 300Opiate 300Phencyc lidine 25Cannabinoid 50Barbiturates 300Benzodiazepine 300Methadone 300[facility] Ygjhqi8463-57-17 12:19:00* Test Item Value Reference Range Interpretation Comments Urine Methadone Screen (test code = 36734-8) NEGATIVE NEGATIVE THESE RESULTS ARE FOR MEDICAL TREATMENT ONLYTHIS REPORT CONTAINS UNCONFIR MED SCREENING RESULTS*POSITIVE RESULTS WILL BE CONFIRMED BY REFERENCE LAB UPON R EQUEST CUT-OFFDRUG CLASS CONCENTRATION ng/mLAmphetamines 1000Methamphetamines 1000Cocaine Metabolite 300Opiate 300Phencyc lidine 25Cannabinoid 50Barbiturates 300Benzodiazepine 300Methadone 300[facility] Mivw4374-45-01 12:19:00* Test Item Value Reference Range Interpretation Comments Urine Test (test code = 2106-3) NEGATIVE NEGATIVE [facility] Zrqnm7063-01-53 12:19:00* Test Item Value Reference Range Interpretation Comments Urine Color (test code = 5778-6) YELLOW YELLOW [facility] Mspakhn8955-64-04 12:19:00* Test Item Value Reference Range Interpretation Comments Urine Clarity (test code = 14914-4) HAZY CLEAR [facility] Specific Fqfusbi7052-71-72 12:19:00 * Test Item Value Reference Range Interpretation Comments Urine Specific [place] Switch (test code = 5811-5) 1.030 1.010-1.02 5 H [facility] rX1150-23-21 12:19:00* Test Item Value Reference Range Interpretation Comments Urine pH (test code = 73288-6) 6 5-7 [facility] Leukocyte Ykkxfvqp0181-29-30 12:19:00* Test Item Value Reference Range Interpretation Comments Urine Leukocyte Esterase (test code = 5799-2) TRACE NEGATIVE H [facility] Tumhkwo2541-73-21 12:19:00* Test Item Value Reference Range Interpretation Comments Urine Nitrite (test code = 19991-1) NEGATIVE NEGATIVE [facility] Mlgxalx5023-19-54 12:19:00* Test Item Value Reference Range Interpretation Comments Urine Protein (test code = 5804-0) TRACE NEGATIVE H [facility] Glucose (UA)2018-07-25 12:19:00* Test Item Value Reference Range Interpretation Comments Urine Glucose (UA) (test code = 2349-9) NEGATIVE NEGATIVE [facility] Eqihbpu7315-94-97 12:19:00* Test Item Value Reference Range Interpretation Comments Urine Ketones (test code = 52198-4) NEGATIVE NEGATIVE [facility] Opiates Wzhuod3306-52-44 12:19:00* Test Item Value Reference Range Interpretation Comments Urine Opiates Screen (test code = 31229-1) POSITIVE NEGATIVE H ALL TESTS PERFORMED MANUALLY ON [employer] TOX/SEE TEST This test provides only a sc reen. Positive results should be repeated by a confirmatory test.[facility] Barbit[facility] Pwpazs0114-95-99 12:19:00* Test Item Value Reference Range Interpretation Comments Urine Barbiturates Screen (test code = 641324563) NEGATIVE NEGA TIVE [facility] Phencyclidine Dqakuq7009-15-19 12:19:00* Test Item Value Reference Range Interpretation Comments Urine Phencyclidine Screen (test code = 07434-2) NEGATIVE NEGAT JACQUI [facility] Amphetamines Ktfiax5036-67-51 12:19:00* Test Item Value Reference Range Interpretation Comments Urine Amphetamines Screen (test code = 00456-5) POSITIVE NEGATI VE H This test provides only a screen. Positive results should be repeated by a confi rmatory test.[facility] Methamphetamines Dbvpha8016-36-57 12:19:00* Test Item Value Reference Range Interpretation Comments Urine Methamphetamines Screen (test code = Urine Metha mphetamines Screen) POSITIVE NEGATIVE H This test provides only a screen. Positive results should be repeated by a confi rmatory test.[facility] Benzodiazep[facility] Screen 2018-07-25 12:19:00* Test Item Value Reference Range Interpretation Comments Urine Benzodiazepines Screen (test code = 22265-1) POSITIVE NEG ATIVE H This test provides only a screen. Positive results should be repeated by a confi rmatory test.[facility] Cocaine Screen 2018-07-25 12:19:00* Test Item Value Reference Range Interpretation Comments Urine Cocaine Screen (test code = 3398-5) NEGATIVE NEGATIVE [facility] Cannabinoids Amhloq7614-69-80 12:19:00* Test Item Value Reference Range Interpretation Comments Urine Cannabinoids Screen (test code = 08783-3) NEGATIVE NEGATI VE THESE RESULTS ARE FOR MEDICAL TREATMENT ONLYTHIS REPORT CONTAINS UNCONFIR MED SCREENING RESULTS*POSITIVE RESULTS WILL BE CONFIRMED BY REFERENCE LAB UPON R EQUEST CUT-OFFDRUG CLASS CONCENTRATION ng/mLAmphetamines 1000Methamphetamines 1000Cocaine 300Opiate 300Phencyc lidine 25Cannabinoid 50Barbiturates 300Benzodiazepine 300Methadone 300[facility] [id number] 12:19:00* Test Item Value Reference Range Interpretation Comments Urine Methadone Screen (test code = 23762-5) NEGATIVE NEGATIVE THESE RESULTS ARE FOR MEDICAL TREATMENT ONLYTHIS REPORT CONTAINS UNCONFIR MED SCREENING RESULTS*POSITIVE RESULTS WILL BE CONFIRMED BY REFERENCE LAB UPON R EQUEST CUT-OFFDRUG CLASS CONCENTRATION ng/mLAmphetamines 1000Methamphetamines 1000Cocaine Metabolite 300Opiate 300Phencyc lidine 25Cannabinoid 50Barbiturates 300Benzodiazepine 300Methadone 300[facility] [id number] 12:19:00* Test Item Value Reference Range Interpretation Comments Urine Test (test code = 2106-3) NEGATIVE [facility]GATIVE [facility] [id number] 12:16:00 [facility] [address] [place] [address] Patient Name: XOCHILT FAN MR #: [id number] : 1980 Age/Sex: 37/F Req #: [id number] Adm Physician: Ordered by: NICHOLE CHANG BUCKET HOOKER Report #: [id number] Location: ER Room/Bed: Procedure: [id number] DX/ HAND 3+ VIEWS LEFT Exam Date: 07/25/18 Exam Time: 12 10 REPORT STATUS: Signed Exam : Left hand radiographs - 3 views. History: Scabs on hand, no history of trauma. Query gas. Comparison: None. Findings: No radiographic stanford dence of acute fracture, malalignment, or soft tissue gas. Diffuse soft tissue edema in the hand. Impression: No acute osseous abnormality. Diffuse sof t tissue edema in the hand without radiographic evidence of soft tissue gas. Signed by: Dr. Isma Paul MD on 07/25/2018 12:22 PM Dictated By: STEVEN PAUL MD 1222 Transcribed By: YULISSA on 07/25/18 1222 COPY TO: NICHOLE CHANG BUCKET HOOKER COMPREHENSIVE METABOLIC [id number] 19:40:00* Test Item Value Reference Range Interpretation [...] due to change in reagent. HCG SERUM [id number] 19:40:00* Test Item Value Reference Range Interpretation Comments HCG SERUM QUAL (test code = HCGQL) NEGATIVE NEGATIVE This HCGQL test is NOT applicable for MALE patients.Check with nurse about probable order error.If Tumor Marker Test needed, nurse should order test "HCGTU"(Test #550.10597) COMPREHENSIVE METABOLIC [id number] 19:22:00* Test Item Value Reference Range Interpretation [...] code = ALKP) IUnit/L 45-117 HCG SERUM [id number] 19:22:00* Test Item Value Reference Range Interpretation Comments HCG SERUM QUAL (test code = HCGQL) NEGATIVE NEGATIVE This HCGQL test is NOT applicable for MALE patients.Check with nurse about probable order error.If Tumor Marker Test needed, nurse should order test "HCGTU"(Test #550.48052) COMPREHENSIVE METABOLIC [id number] 19:13:00* Test Item Value Reference Range Interpretation [...] code = ALKP) IUnit/L 45-117 HCG SERUM [id number] 19:13:00* Test Item Value Reference Range Interpretation Comments HCG SERUM QUAL (test code = HCGQL) NEGATIVE CBC W/MANUAL [id number] 19:06:00* Test Item Value Reference Range Interpretation [...] % - XR HAND 3 + V [id number] 19:04:00 FAX: OSMAR LALA MD [place]: [address]: REG FAX: Eliceo Queen [phone] Name: XOCHILT FAN [facility] : 1980 Age/S: 37/F [address] [facility] Unit #: [id number] Loc: [place], [place] [address] Phys: Elicoe Queen NP Acct: [id number] Dis Date: Status: REG ER PHONE #: [phone] Exam Date: 07/24/2018 185 FAX #: [phone] Reason: SWELLING EXAMS: CPT CODE: [id number] XR HAND 3 + [place] [id number] REASON FOR EXAM: SWELLING EXAM ORDER DATE: [...] (1907) PAGE 1 Signed Report CBC W/MANUAL [id number] 18:53:00 * Test Item Value Reference Range [...] MORPHOLOGY (test code = PLTMORPH) CBC W/MANUAL [id number] 18:46:00* Test Item Value Reference Range Interpretation [...] MORPHOLOGY (test code = PLTMORPH) CBC W/MANUAL [id number] 18:46:00* Test Item Value Reference Range Interpretation [...] MORPHOLOGY (test code = PLTMORPH) CBC W/MANUAL [id number] 18:46:00* Test Item Value Reference Range Interpretation [...] MORPHOLOGY (test code = PLTMORPH) CBC W/MANUAL [id number] 18:46:00* Test Item Value Reference Range Interpretation [...] MORPHOLOGY (test code = PLTMORPH) BASIC METABOLIC [id number] 09:12:00* Test Item Value Reference Range Interpretation [...] CA) 8.3 mg/dL 8.5-10.1 L HCG SERUM [id number] 09:12:00* Test Item Value Reference Range Interpretation Comments HCG SERUM QUAL (test code = HCGQL) NEGATIVE NEGATIVE This HCGQL test is NOT applicable for MALE patients.Check with nurse about probable order error.If Tumor Marker Test needed, nurse should order test "HCGTU"(Test #550.39161) BASIC METABOLIC [id number] 09:11:00* Test Item Value Reference Range Interpretation [...] CA) 8.3 mg/dL 8.5-10.1 L HCG SERUM [id number] 09:11:00* Test Item Value Reference Range Interpretation Comments HCG SERUM QUAL (test code = HCGQL) NEGATIVE CBC W/O [id number] 09:03:00* Test Item Value Reference Range Interpretation [...] MPV) 10.4 fL 6.7-11.0 N CBC W/O [id number] 09:00:00* Test Item Value Reference Range Interpretation [...]
[2019-10-29 00:42] VITALS: BP 151/96
--- NOTE | 2019-10-29 02:24 | Emergency Department Note ---
History of Present Illnes History of Present Illness Chief Complaint: Skin Rash or Abscess History of Present Illness This is a 39 year old female arrived to the ED requesting drainage of right AC abscess. Pt states the area was incised and drained ~ 1 week ago, however, she used in the site again and believes she needs it drained. Pt denies any fever, pain localize to that site only and denies any forearm or upper arm pain. Pt states she is still on an antibiotics. 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 LAU IN TRIAGE FOR INITIAL EVAL. . Historian: Patient Arrival Mode: Car Radiation: non-radiation Severity: mild Progression: waxing and waning Past Medical/Family History Physician Review I have reviewed the patient's past medical and family history. Any updates have been documented here. Past Medical History Recent Fever: No Clinical Suspicion of Infectio: No New/Unexplained Change in Ment: No Past Medical History: UTI's, Anxiety, Depression, Other Mental Illness, Hyperlipedemia Other Medical History: BIPOLAR ADHD BORDERLINE PERSONALITY DISORDER MANIC DEPRESSION PTSD SUBSTANCE ABUSE - METH Past Surgical History: Cholecysctectomy, Appendectomy, T&A, Bariatric Surgery Other Surgery: EXPLORATORY LAP CYSTS LAP BAND I&D X2 TO RT FA ( 10/07/19 & 10/19/19) Social History Smoking Cessation: Never Smoker Alcohol Use: None Any Illegal Drug Use: Yes (METH) TB Exposure/Symptoms: No Physically hurt or threatened: No Other Last Tetanus: UTD Any Pre-Existing Lines (PICC,: No Is patient up to date on immun: Yes Last Flu: UTD Last Pneumovax: UTD Review of Systems Review of Systems Constitutional: no symptoms EENTM: no symptoms Cardiovascular: no symptoms Respiratory: no symptoms Gastrointestinal: no symptoms Genitourinary: no symptoms Musculoskeletal: no symptoms, other (skin abscess ) Neurological: no symptoms Psychological: no symptoms Endocrine: no symptoms Hematological/Lymphatic: no symptoms Review of other systems All other systems reviewed and negative. Physical Exam Related Data Allergies: Coded Allergies: metoclopramide (Verified Allergy, Intermediate, COMBATIVE, 04/21/19) promethazine (Verified Allergy, Intermediate, COMBATIVE, 04/21/19) Triage Vital Signs Vital Signs Date Time Temp Pulse Resp B/P (MAP) Pulse Ox O2 Delivery O2 Flow Rate FiO2 10/29/19 00:26 98.4 100 20 151/96 98 Vital signs reviewed: Yes Physical Exam CONSTITUTIONAL Constitutional: well-developed, obese HENT HENT: normocephalic, atraumatic, oropharynx clear/moist, nose normal HENT L/R: left ext ear normal, right ext ear normal EYES Eyes: PERRL, conjunctivae normal NECK Neck: ROM normal PULMONARY Pulmonary: effort normal, breath sounds normal CARDIOVASCULAR Cardiovascular: regular rhythm, heart sounds normal, capillary refill normal, normal rate GASTROINTESTINAL Abdominal: soft, nontender, bowel sounds normal GENITOURINARY Genitourinary: exam deferred SKIN Skin: warm, dry MUSCULOSKELETAL Musculoskeletal: ROM normal, other (+3cm skin fold noted, no palpable abscess, no superimposed cellulitis, compartments are soft +bracial pulse, normal temperature to touch) NEUROLOGICAL Neurological: alert, oriented x 3, no gross motor or sensory deficits PSYCHOLOGICAL Psychological: mood/affect normal, judgement normal Critical Care Time Subsequent provider I assumed direction of critical care for this patient from another provider of my specialty. Assessment & Plan Assessment & Plan Final Impression: (1) ADVERSE EFFECT OF AMPHETAMINES, SUBSEQUENT ENCOUNTER (2) LOCAL INFECTION OF THE SKIN AND SUBCUTANEOUS TISSUE, UNSP Assessment & Plan 39 yo F arrived to the ED requesting I&D of "Abscess" over right AC Pt active methamphetamine user with subcutaneous "popping" On exam no palpable fluid collection noted, no cellulitis and no indications for hospital admission. Spoke to pt at length about no indications for I&D at this time- pt expressed understanding. Pt offered rehab services which she refused. Pt given outpt general surgery referral for further work up and imaging. Depart Disposition: HOME, SELF-CARE Last Vital Signs Date Time Temp Pulse Resp B/P (MAP) Pulse Ox O2 Delivery O2 Flow Rate FiO2 10/29/19 00:42 100 20 98 10/29/19 00:26 98.4 151/96 Home Meds Reported Medications Buspirone Hcl (BUSPIRONE HCL) 5 Mg Tablet, 20 MG PO HS, #60 TAB 11/16/18 Duloxetine Hcl (CYMBALTA) 20 Mg Capcr, 60 MG HS 07/25/18 Bupropion Hcl (BUPROPION XL) 300 Mg Tab.er.24h, 300 MG DAILY 07/25/18 Amphet Asp/Amphet/D-Amphet (ADDERALL 20 MG TABLET) 20 Mg Tablet, 60 MG PO DAILY 07/25/18 Eszopiclone (LUNESTA) 3 Mg Tablet, 3 MG HS 07/25/18 Aripiprazole (ABILIFY) 10 Mg Tablet, 30 MG HS 07/25/18 Trazodone Hcl (TRAZODONE HCL) 50 Mg Tablet, 50 MG PO HS PRN for INSOMNIA 07/25/18 Clonazepam (CLONAZEPAM) 2 Mg Tablet, 2 MG PO TID PRN for ANXIETY 07/25/18 Prazosin Hcl (PRAZOSIN HCL) 2 Mg Capsule, 2 MG HS 07/25/18 ROMA LAU, October 29, 2019 02:24
== END 2019-10-29 00:45 | disposition home or self-care (01) ==
LOC: ER 00:11
DX: L02.413 Cutaneous abscess of right upper limb (principal); F15.90 Other stimulant use, unspecified, uncomplicated; E78.5 Hyperlipidemia, unspecified; F31.9 Bipolar disorder, unspecified; F41.9 Anxiety disorder, unspecified
CPT/HCPCS: 99282

== ENCOUNTER 2020-03-31 13:53 | Emergency (ER) | payer MEDICARE ==
[~2020-03-31] VITALS: Ht 152.4 cm; Wt 108.0 kg
[2020-03-31] MEDS ORDERED: BACITRACIN ZINC 0.9GM TP ONE (14:15)
[2020-03-31] MEDS ORDERED: CLINDAMYCIN HCL 150 MG CAP PO STA (14:22)
[2020-03-31] MEDS ORDERED: CLINDAMYCIN HC150 MG PO (14:26)
--- NOTE | 2020-03-31 14:31 | Emergency Department Note ---
History of Present Illnes History of Present Illness Chief Complaint: Skin Rash or Abscess History of Present Illness This is a 39 year old female that has had for the last week and infection and ulceration over her left before meals. Denies IV drug use for at least 6 months. It is any trauma. Patient states that this started as an abrasion, as been worsening. No fever, denies any other injuries or pain. Historian: Patient Arrival Mode: Car Onset (how long ago): week(s) (1) Location: L AC, arm Quality: ache Radiation: Reports non-radiation Severity: moderate Onset quality: gradual Duration (how long): week(s) (1) Timing of current episode: constant Progression: worsening Relieving factors: none Exacerbating factors: movement Associated symptoms: Reports denies other symptoms Past Medical/Family History Physician Review I have reviewed the patient's past medical and family history. Any updates have been documented here. Past Medical History Recent Fever: No Clinical Suspicion of Infectio: No New/Unexplained Change in Ment: No Past Medical History: UTI's, Anxiety, Depression, Other Mental Illness, Hyperlipedemia Other Medical History: BIPOLAR ADHD BORDERLINE PERSONALITY DISORDER MANIC DEPRESSION PTSD SUBSTANCE ABUSE - METH Past Surgical History: Cholecysctectomy, Appendectomy, T&A, Bariatric Surgery Other Surgery: EXPLORATORY LAP CYSTS LAP BAND I&D X2 TO RT FA ( 10/07/19 & 10/19/19) Other Last Tetanus: UTD Any Pre-Existing Lines (PICC,: No Review of Systems Review of Systems Constitutional: Reports no symptoms EENTM: Reports no symptoms Cardiovascular: Reports no symptoms Respiratory: Reports no symptoms Gastrointestinal: Reports no symptoms Genitourinary: Reports no symptoms Musculoskeletal: Reports no symptoms Integumentary: Reports as per HPI Neurological: Reports no symptoms Psychological: Reports no symptoms Endocrine: Reports no symptoms Hematological/Lymphatic: Reports no symptoms Physical Exam Related Data Allergies: Coded Allergies: metoclopramide (Verified Allergy, Intermediate, COMBATIVE, 04/21/19) promethazine (Verified Allergy, Intermediate, COMBATIVE, 04/21/19) Triage Vital Signs Vital Signs Date Time Temp Pulse Resp B/P (MAP) Pulse Ox O2 Delivery O2 Flow Rate FiO2 03/31/20 14:09 98.2 79 20 105/68 100 Room Air Physical Exam CONSTITUTIONAL Constitutional: Present well-developed, Present well-nourished HENT HENT: Present normocephalic, Present atraumatic, Present oropharynx cl ear/moist, Present nose normal HENT L/R: Present left ext ear normal, Present right ext ear normal EYES Eyes: Reports PERRL, Reports conjunctivae normal NECK Neck: Present ROM normal PULMONARY Pulmonary: Present effort normal, Present breath sounds normal CARDIOVASCULAR Cardiovascular: Present regular rhythm, Present heart sounds normal, Present capillary refill normal, Present normal rate GASTROINTESTINAL Abdominal: Present soft, Present nontender, Present bowel sounds normal GENITOURINARY Genitourinary: Present exam deferred SKIN Skin: Present warm, Present dry, Present other (left before meals with a 3 x 1 cm ulceration, minimal necrotic tissue on top, cellulitis, warmth, erythema, extending about 1-2 cm. Neurovascularly intact distally, no fluctuance.) MUSCULOSKELETAL Musculoskeletal: Present ROM normal NEUROLOGICAL Neurological: Present alert, Present oriented x 3, Present no gross motor or sensory deficits PSYCHOLOGICAL Psychological: Present mood/affect normal, Present judgement normal Assessment & Plan Medical Decision Making MDM Is a 39-year-old with a wound infection, we'll start on antibiotics, with local wound care, return if worsening. She states her tetanus is up-to-date. Assessment & Plan Final Impression: (1) Cellulitis Depart Disposition: HOME, SELF-CARE Last Vital Signs Date Time Temp Pulse Resp B/P (MAP) Pulse Ox O2 Delivery O2 Flow Rate FiO2 03/31/20 14:09 98.2 79 20 105/68 100 Room Air Home Meds Active Scripts Clindamycin Hcl (CLINDAMYCIN HCL) 150 Mg Capsule, 3 CAP PO TID, #90 Prov:MAICO FARIA MD 03/31/20 Reported Medications Buspirone Hcl (BUSPIRONE HCL) 5 Mg Tablet, 20 MG PO HS, #60 TAB 11/16/18 Duloxetine Hcl (CYMBALTA) 20 Mg Capcr, 60 MG HS 07/25/18 Bupropion Hcl (BUPROPION XL) 300 Mg Tab.er.24h, 300 MG DAILY 07/25/18 Amphet Asp/Amphet/D-Amphet (ADDERALL 20 MG TABLET) 20 Mg Tablet, 60 MG PO DAILY 07/25/18 Eszopiclone (LUNESTA) 3 Mg Tablet, 3 MG HS 07/25/18 Aripiprazole (ABILIFY) 10 Mg Tablet, 30 MG HS 07/25/18 Trazodone Hcl (TRAZODONE HCL) 50 Mg Tablet, 50 MG PO HS PRN for INSOMNIA 07/25/18 Clonazepam (CLONAZEPAM) 2 Mg Tablet, 2 MG PO TID PRN for ANXIETY 07/25/18 Prazosin Hcl (PRAZOSIN HCL) 2 Mg Capsule, 2 MG HS 07/25/18 Medications in the ED Bacitracin Zinc 1 ea ONCE ONCE TP ; Start 03/31/20 at 14:15; Stop 03/31/20 at 14:17; Status DC Clindamycin HCl 450 mg ONCE STAT PO ; Start 03/31/20 at 14:22; Stop 03/31/20 at 14:24; Status DC MAICO FARIA MD Mar 31, 2020 14:31
[2020-03-31 14:49] VITALS: BP 134/88
--- OUTSIDE RECORDS SUMMARY | 2020-04-06 18:03 | XMS REPORT | Continuity of Care Document ---
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 Role Phone NO, PCP PCP Unavailable YOUSUFChaparro CRUZ Attphys Unavailable SABRA, LOGAN Attphys Unavailable SABRA, LOGAN Admphys Unavailable Payers Payer Name Policy Type Policy Number Effective Date Expiration Date S ource Medicare A & B NA 2013 00:00:00 [facility] Problems Condition Name Condition Details Condition Category Status Onset Date Resolution Date Last Treatment Date Treating Clinician Comments Source Vitamin D deficiency Vitamin D Deficiency Problem Active 00:00:00 [facility] Mixed hyperlipidemia Mixed Hyperlipidemia Problem Active 00:00:00 [facility] Elevated blood-pressure reading without diagnosis of h ypertension Elevated Blood-pressure Reading without Diagnosis of Hypertension Problem Act jacqui 2016-09-19 00:00:00 [facility] Body mass index 30+ - obesity Body Mass Index 30+ - Obesity Problem Active 2016-09-10 00:00:00 [facility] Bipolar disorder Bipolar Disorder Problem Active 2016-09-10 00:00:00 [facility] Multiple personality disorder Multiple Personality Disorder Problem Active 2016-09-10 00:00:00 [facility] Tobacco user Tobacco User Problem Active 2016-09-10 00:00:00 [facility] Posttraumatic stress disorder Posttraumatic Stress Disorder Problem Active 2016-09-10 00:00:00 [facility] Asthma Asthma Problem Active 2016-09-10 00:00:00 [facility] Infection of skin AND/OR subcutaneous tissue Infection of Skin AND/OR Subcutaneous Tissue Problem Active 2016-09-10 00:00:00 [facility] Tachycardia Tachycardia Problem Active 2016-09-10 00:00:00 [facility] Electrocardiogram abnormal Electrocardiogram Abnormal Problem Active 2016-09-10 00:00:00 [facility] Long-term drug therapy Long-term Drug Therapy Problem Active 2016-09-10 00:00:00 [facility] Abscess Problem Active [facility] Cellulitis Problem Active [facility] Allergies, Adverse Reactions, Alerts Allergy Name Allergy Type Status Severity Reaction(s) Onset Date Inacti ve Date Treating Clinician Comments Source promethazine DA Active 2020-01-31 00:00:00 [facility] metoclopramide DA Active 2020-01-31 00:00:00 [facility] Promethazine Allergy to substance Active Moderate COMBATIVE 2018-06 00:00:00 [facility] Metoclopramide Allergy to substance Active Moderate COMBATIVE 2019-04-21 00:00:00 [facility] Metoclopramide Allergy to substance Active 2018-07-25 00:00 :00 [facility] Promethazine Allergy to substance Active 2018-07-25 00:00:0 0 [facility] promethazine DA Active 2018-07-24 00:00:00 [facility] metoclopramide DA Active 2018-07-24 00:00:00 [facility] promethazine DA Active SV 2018-07-23 00:00:00 [facility] metoclopramide DA Active SV 2018-07-23 00:00:00 [facility] promethazine DA Active 2018-07-22 00:00:00 [facility] metoclopramide DA Active 2018-07-22 00:00:00 [facility] promethazine DA Active 2018-05-12 00:00:00 [facility] metoclopramide DA Active 2018-05-12 00:00:00 [facility] promethazine DA Active 2018-02-25 00:00:00 [facility] metoclopramide DA Active 2018-02-25 00:00:00 [facility] promethazine DA Active 2017-09-17 00:00:00 [facility] metoclopramide DA Active SV 2017-09-17 00:00:00 [facility] Phenergan Allergy to substance Active [facility] Reglan Allergy to substance Active [facility] Social History Social Habit Start Date Stop Date Quantity Comments Source Sex Assigned At 1980 00:00:00 1980 00:00:00 Female [facility] Smoking Status Start Date Stop Date Source Heavy Tobacco Smoker [facility] Medications Ordered Medication Name Filled Medication Name [...] day by nebulization route for 1 day. [facility] aripiprazole 30 mg tablet Take 1 tablet every day by o ral route for 30 days. aripiprazole 30 mg tablet Take 1 tablet every day by oral route for 30 days. No aripiprazole 3 0 mg tablet Take 1 tablet every day by oral route for 30 days. [facility] b[facility] XL 300 [...] oral route at bedtime for 30 days. [facility] buspirone 10 mg tablet Take 2 tablets twice a day by o ral route for 90 days. buspirone 10 mg tablet Take 2 tablets twice a day by oral route for 90 days. No buspirone 10 m g tablet Take 2 tablets twice a day by oral route for 90 days. [facility] clonazepam 2 mg tablet Take 0.5 tablets 3 times a day by oral route as needed for 30 days. clonazepam 2 mg tablet Take 0.5 tablets 3 times a day by oral route as needed for 30 days. No c lonazepam 2 mg tablet Take 0.5 tablets 3 times a day by oral route as needed for 30 days. [facility] dexamethasone 4 mg/mL injection solution Take 4 mg by injection route for 1 day. dexamethasone 4 mg/mL injection solution Take 4 mg by injection route for 1 day. No 4mg dexamethasone 4 mg/mL injection solution Take 4 mg by injection route for 1 day. [facility] dextroamphetamine-amphetamine 20 mg tabl et Take 1 tablet 3 times a day by oral route for 30 days. dextroamphetamine-amphetamine 20 mg tabl et Take 1 tablet 3 times a day by oral route for 30 days. No dextroamphetamine- amphetamine 20 mg tablet Take 1 tablet 3 times a day by oral route for 30 days. [facility] doxycycline hyclate 100 mg tablet Take 1 tablet twice a day by oral route for 10 days. doxycycline hyclate 100 mg tablet Take 1 tablet twice a day by oral route for 10 days. No doxycycline hyclate 100 mg tablet Take 1 tablet twice a day by oral route for 10 days. V [facility] duloxetine 60 mg capsule,delayed release Take 1 capsule every day by oral route for 30 days. duloxetine 60 mg capsule,delayed release Take 1 capsule every day by oral route for 30 days. No duloxetine 60 mg capsule,delayed release Take 1 capsule every day by oral route for 30 days. [facility] eszopiclone 3 mg tablet Take 1 tablet ev carlos day by oral route at bedtime for 30 days. eszopiclone 3 mg tablet Take 1 tablet ev carlos day by oral route at bedtime for 30 days. No eszopiclone 3 mg tablet Take 1 tablet every day by oral route at bedtime for 30 days. [facility] lam[facility] mg tablet Take 1 tablet every day by o ral route for 30 days. lamotrigine 200 mg tablet Take 1 tablet every day by oral route for 30 days. No lamotrigine 20 0 mg tablet Take 1 tablet every day by oral route for 30 days. [facility] levofloxacin 500 mg tablet levofloxacin 500 mg tablet No levofloxacin 500 mg tablet [facility] prazosin 2 mg capsule Take 1 capsule every day by oral route for 30 days. prazosin 2 mg capsule Take 1 capsule every day by oral route for 30 days. No prazosin 2 mg c apsule Take 1 capsule every day by oral route for 30 days. [facility] ProAir RespiClick 90 mcg/actuation [...] inhalation route as needed for 30 days. [facility] trazodone 50 mg tablet Take 1 tablet 3 t imes a day by oral route as needed for 30 days. trazodone 50 mg tablet Take 1 tablet 3 t imes a day by oral route as needed for 30 days. No traz odone 50 mg tablet Take 1 tablet 3 times a day by oral route as needed for 30 days. [facility] triamcinolone acetonide 40 mg/mL suspens ion for injection Take 40 mg by injection route. triamcinolone acetonide 40 mg/mL suspens ion for injection Take 40 mg by injection route. No 40mg triamcinolone acetonide 40 mg/mL suspension for injection Take 40 mg by injection route. [facility] zolpidem 10 mg tablet Take 1 tablet ever y day by oral route as needed for 30 days. zolpidem 10 mg tablet Take 1 tablet ever y day by oral route as needed for 30 days. No zolpidem 10 mg tablet Take 1 tablet every day by oral route as needed for 30 days. [facility] Amphet Asp/Amphet/D-Amphet (Adderall 20 Mg Tablet) 20 Mg TABLET Amphet Asp/Amphet/D-Amphet (Adderall 20 Mg Tablet) 20 Mg TABLET Yes 60 Daily [facility] Aripiprazole (Abilify) 10 Mg TABLET Aripiprazole (Abilify) 10 Mg TABL ET Yes 30 Bedtime [facility] Bupropion Hcl (Bupropion Xl) 300 Mg TAB.ER.24H Bupropi on Hcl (Bupropion Xl) 300 Mg TAB.ER.24H Yes 300 Daily [facility] Buspirone Hcl Buspirone Hcl Yes 20 Bedtime [facility] Clonazepam Clonazepam Yes 2 Three Time s A Day as needed for Anxiety [facility] Duloxetine Hcl (Cymbalta) 20 Mg CAPCR Duloxetine Hcl (Cymbalta) 20 Mg CAPCR Yes 60 Bedtime [facility] Eszopiclone (Lunesta) 3 Mg TABLET Eszopiclone (Lunesta) 3 Mg TABLET Yes 3 Bedtime [facility] Prazosin Hcl Prazosin Hcl Yes 2 Bedtime [facility] Trazodone Hcl Trazodone Hcl Yes 50 Bedtime as n eeded for Insomnia [facility] Ciprofloxacin Hcl (Cipro) 500 Mg TABLET Ciprofloxacin Hcl (C ipro) 500 Mg TABLET 2018-11-16 00:00:00 No 500 Every 12 Hours [facility] Doxycycline Hyclate Doxycycline Hyclate 2018-11-16 00:00:00 No 100 Every 12 Hours [facility] Immunizations Ordered Immunization Name Filled Immunization Name Date Status Comments Source influenza, unspecified formulation influenza, unspecified fo rmulation 2018-03-02 00:00:00 Completed [facility] Td[facility] Tdap 2013-06-02 00:00:00 Completed [facility] Vital Signs Vital Name Observation Time Observation Value Comments Source BP Diastolic 2018-10-14 00:00:00 79.99 mm[Hg] [facility] Height 2018-10-14 00:00:00 61 [in_i] [facility] BMI (Body Mass Index) 2018-10-14 00:00:00 41.7 kg/m2 [facility] BP Systolic 2018-10-14 00:00:00 138 mm[Hg] [facility] Body Weight 2018-10-14 00:00:00 220.6 [lb_av] [facility] BP Diastolic 2018-09-30 00:00:00 90 mm[Hg] [facility] Height 2018-09-30 00:00:00 61 [in_i] [facility] BMI (Body Mass Index) 2018-09-30 00:00:00 41.6 kg/m2 [facility] BP Systolic 2018-09-30 00:00:00 138 mm[Hg] [facility] Body Weight 2018-09-30 00:00:00 220.4 [lb_av] [facility] Weight 2019-10-19 15:49:00 238 [lb_av] [facility] BMI (Body Mass Index) 2019-10-19 15:49:00 46.5 kg/m2 [facility] Weight 2019-10-07 10:45:00 220 [lb_av] [facility] BMI (Body Mass Index) 2019-10-07 10:45:00 43.0 kg/m2 [facility] Weight 2019-10-04 05:11:00 220 [lb_av] [facility] BMI (Body Mass Index) 2019-10-04 05:11:00 43.0 kg/m2 [facility] Procedures Procedure Date / Time Performed Performing Clinician Dorcas lay DRAINAGE OF SKIN ABSCESS 2019-10-07 00:00:00 [facility] X-ray of chest, two views 2019-04-21 00:00:00 NICHOLE CHANG [facility] X-RAY OF CHEST 2 VIEW 2018-10-14 00:00:00 [facility] Cholecystectomy (Gall Bladder Removal) 2004-06-02 00:00:00 [facility] Appendectomy 1995-06-02 00:00:00 [facility] bibi [facility] Tonsillectomy 1983-06-02 00:00:00 [facility] Plan of Care Planned Activity Planned Date Details Comments Source Instructions Skin Abscess [facility] Encounters Start Date/Time End Date/Time Encounter Type Admission Type [facility] Facility Care Department Encounter ID Source 2019-10-19 15:24:00 2019-10-19 17:07:00 Departed Emergency Room [facility] [id number] [facility] dical [place] 2019-10-07 10:08:00 2019-10-07 13:34:00 Departed Emergency Room [facility] [id number] [facility] 2019-10-04 05:02:00 2019-10-04 05:25:00 Departed Emergency Room [facility] [id number] [facility] 2019-04-21 12:54:00 2019-04-21 15:20:00 Departed Emergency Room 1 [facility] [id number] [facility] 2018-12-13 04:11:00 2018-12-13 06:35:00 Departed Emergency Room [facility] [id number] [facility] 2018-11-16 21:59:00 2018-11-17 00:37:00 Departed Emergency Room [facility] [id number] [facility] 2018-11-07 16:44:00 2018-11-07 17:24:00 Departed Emergency Room [facility] [id number] [facility] 2018-10-30 00:00:00 2018-10-30 00:00:00 Yaima Rodriguez MD: [address] [place] [address], Ph. [facility] [id number] [facility] 2018-10-14 00:00:00 2018-10-14 00:00:00 Calista hopson MD: [address] [place] [address], Ph. [facility] [id number] [facility] 2018-09-30 00:00:00 2018-09-30 00:00:00 Mello Mayer MD: [address] [place] [address], Ph. [facility] [id number] [facility] 2018-07-25 13:46:00 2018-07-28 13:43:00 Discharged Inpatient 1 DOREEN MONTAÑO [facility] [id number] [facility] Results Test Description Test Time Test Comments Results Result Comments Source PROTHROMBIN TIME 2020-04-05 08:53:00 Test Item PROTHROMBIN TIME PATIENT (test code = PTP) 10.4 SECONDS 9.3-12.9 N INTERNATIONAL NORMAL RATIO (test code = INR) 1.0 0.8-1.2 N TARGET INR BY INDICATION Indication INR1. Prophylaxis of venous thrombosis 2.0 - 3.0 (orthopedic surgery), Prophylaxis of venous thrombosis (other than high-risk surgery), Treatment of Deep Vein Thrombosis/Pulmonary Embolism, Prevention of systemic embolism - Tissue heart valves, Acute Myocardial Infarction (to prevent systemic embolism), Valvular heart disease, Atrial Fibrillation, Bileaflet mechanical valve in aortic position.2. Mechanical prosthetic valves (high risk), 2.5 - 3.5 Presence of Lupus Anticoagulant or Antiphospholipid Antibodies, Prevention of systemic embolism - Acute Myocardial Infarction (to prevent recurrent infarct). THROMBOPLASTIN TIME [id number] 08:53:00* Test Item Value Reference Range Interpretation Comments THROMBOPLASTIN TIME PARTIAL (test code = PTT) 33.0 Seconds 25.0-39. 5 N Therapeutic Range: 50.4 - 88.3 Seconds Effective 09/15/2018 BASIC METABOLIC [id number] 08:51:00* Test Item Value Reference Range Interpretation Comments SODIUM (test code = NA) 135 mEq/L 134-147 N POTASSIUM (test code = K) 4.1 mEq/L 3.4-5.0 N CHLORIDE (test code = CL) 107 mEq/L 100-108 N CARBON DIOXIDE (test code = CO2) 24 mEq/L 21-33 N ANION GAP (test code = GAP) 8 0-20 N GLUCOSE (test code = GLU) 83 mg/dL 70-110 N BLOOD UREA NITROGEN (test code = BUN) 7 mg/dL 7-18 N GLOMERULAR FILTRATION RATE (test code = GFR) 69.3 95-105 L Units of measure = ml/min/1.73 m2 CREATININE (test code = CREAT) 0.9 mg/dL 0.6-1.3 N CALCIUM (test code = CA) 8.2 mg/dL 8.0-10.5 N HCG SERUM [id number] 08:51:00* Test Item Value Reference Range Interpretation Comments HCG SERUM QUAL (test code = HCGQL) SERUM NEGATIVE NEGATIVE PROTHROMBIN [id number] 08:46:00* Test Item Value Reference Range Interpretation Comments PROTHROMBIN TIME PATIENT (test code = PTP) 10.4 SECONDS 9.3-12.9 N INTERNATIONAL NORMAL RATIO (test code = INR) 1.0 0.8-1.2 N TARGET INR BY INDICATION Indication INR1. Prophylaxis of venous thrombosis 2.0 - 3.0 (orthopedic surgery), Prophylaxis of venous thrombosis (other than high-risk surgery), Treatment of Deep Vein Thrombosis/Pulmonary Embolism, Prevention of systemic embolism - Tissue heart valves, Acute Myocardial Infarction (to prevent systemic embolism), Valvular heart disease, Atrial Fibrillation, Bileaflet mechanical valve in aortic position.2. Mechanical prosthetic valves (high risk), 2.5 - 3.5 Presence of Lupus Anticoagulant or Antiphospholipid Antibodies, Prevention of systemic embolism - Acute Myocardial Infarction (to prevent recurrent infarct). THROMBOPLASTIN TIME [id number] 08:46:00* Test Item Value Reference Range Interpretation Comments THROMBOPLASTIN TIME PARTIAL (test code = PTT) Seconds 25.0-39. 5 BASIC METABOLIC [id number] 08:43:00* Test Item Value Reference Range Interpretation Comments SODIUM (test code = NA) mEq/L 134-147 POTASSIUM (test code = K) mEq/L 3.4-5.0 CHLORIDE (test code = CL) mEq/L 100-108 CARBON DIOXIDE (test code = CO2) mEq/L 21-33 ANION GAP (test code = GAP) 0-20 GLUCOSE (test code = GLU) mg/dL 70-110 BLOOD UREA NITROGEN (test code = BUN) mg/dL 7-18 GLOMERULAR FILTRATION RATE (test code = GFR) 95-105 CREATININE (test code = CREAT) mg/dL 0.6-1.3 CALCIUM (test code = CA) mg/dL 8.0-10.5 HCG SERUM [id number] 08:43:00* Test Item Value Reference Range Interpretation Comments HCG SERUM QUAL (test code = HCGQL) SERUM NEGATIVE NEGATIVE CBC W/AUTO [id number] 08:38:00* Test Item Value Reference Range Interpretation Comments WHITE BLOOD CELL (test code = WBC) 8.8 x10 3/uL 4.5-11.0 N RED BLOOD CELL (test code = RBC) 5.02 x10 6/uL 3.54-5.02 N HEMOGLOBIN (test code = HGB) 14.4 g/dL 11.0-15.0 N HEMATOCRIT (test code = HCT) 47.5 % 33.0-45.0 H MEAN CELL VOLUME (test code = MCV) 94.6 fL 81.0-99.0 MEAN CELL HGB (test code = MCH) 28.7 pg 27.0-33.0 N MEAN CELL HGB CONCETRATION (test code = MCHC) 30.3 g/dL 33.0-37. 0 L RED CELL DISTRIBUTION WIDTH CV (test code = RDW) 13.2 % 11.5- 14.5 N RED CELL DISTRIBUTION WIDTH SD (test code = RDW-SD) 46.4 fL 37 .0-54.0 N PLATELET COUNT (test code = PLT) 278 x10 3/uL 150-400 N MEAN PLATELET VOLUME (test code = MPV) 9.1 fL 7.0-9.0 H NEUTROPHIL % (test code = NT%) 44.5 % 56.0-77.0 L IMMATURE GRANULOCYTE % (test code = IG%) 0.2 % 0.0-2.0 N LYMPHOCYTE % (test code = LY%) 47.1 % 14.0-32.0 H MONOCYTE % (test code = MO%) 6.0 % 4.8-9.0 N EOSINOPHIL % (test code = EO%) 1.6 % 0.3-3.7 N BASOPHIL % (test code = BA%) 0.6 % 0.0-2.0 N NUCLEATED RBC % (test code = NRBC%) 0.0 % 0-0 N NEUTROPHIL # (test code = NT#) 3.94 x10 3/uL 2.0-7.6 N IMMATURE GRANULOCYTE # (test code = IG#) 0.02 x10 3/uL 0.00-0.03 N LYMPHOCYTE # (test code = LY#) 4.16 x10 3/uL 1.0-3.8 H MONOCYTE # (test code = MO#) 0.53 x10 3/uL 0.1-0.8 N EOSINOPHIL # (test code = EO#) 0.14 x10 3/uL 0.0-0.2 N BASOPHIL # (test code = BA#) 0.05 x10 3/uL 0.0-0.2 N NUCLEATED RBC # (test code = NRBC#) 0.00 x10 3/uL 0.0-0.1 N MANUAL DIFF REQUIRED (test code = MDIFF) NO COVID 19 Asymptomatic IH [id number] 05:25:00* Test Item Value Reference Range Interpretation Comments COVID 19 Asymptomatic IH AG (test code = COVNONPUIAG) Negative Negative A negative result is presumptive and should be confirmedwith an FDA authorized molecular assay, if necessary forpatient management.A positive result does not rule out co-infections withother pathogens.This test detects both viable (live) and non-viable,SARS-CoV, and SARS-CoV-2. Test performance depends on theamount of virus (antigen) in the sample.This test has not been FDA cleared or approved; the test hasbeen authorized by FDA under an Emergency Use Authorization(EUA) for use by laboratories certified under the CLIA thatmeet the requirements to perform moderate, high or waivedcomplexity tests. COMMENTS: If not done this admissionCBC W/AUTO [id number] 17:37:00* Test Item Value Reference Range Interpretation Comments WHITE BLOOD CELL (test code = WBC) 11.8 x10 3/uL 4.5-11.0 H RED BLOOD CELL (test code = RBC) 4.81 x10 6/uL 3.54-5.02 N HEMOGLOBIN (test code = HGB) 13.9 g/dL 11.0-15.0 N HEMATOCRIT (test code = HCT) 43.4 % 33.0-45.0 N MEAN CELL VOLUME (test code = MCV) 90.2 fL 81.0-99.0 N MEAN CELL HGB (test code = MCH) 28.9 pg 27.0-33.0 N MEAN CELL HGB CONCETRATION (test code = MCHC) 32.0 g/dL 33.0-37. 0 L RED CELL DISTRIBUTION WIDTH CV (test code = RDW) 13.0 % 11.5- 14.5 N RED CELL DISTRIBUTION WIDTH SD (test code = RDW-SD) 42.5 fL 37 .0-54.0 N PLATELET COUNT (test code = PLT) 333 x10 3/uL 150-400 N MEAN PLATELET VOLUME (test code = MPV) 9.6 fL 7.0-9.0 H NEUTROPHIL % (test code = NT%) 54.7 % 56.0-77.0 L IMMATURE GRANULOCYTE % (test code = IG%) 0.3 % 0.0-2.0 N LYMPHOCYTE % (test code = LY%) 37.3 % 14.0-32.0 H MONOCYTE % (test code = MO%) 5.8 % 4.8-9.0 N EOSINOPHIL % (test code = EO%) 1.6 % 0.3-3.7 N BASOPHIL % (test code = BA%) 0.3 % 0.0-2.0 N NUCLEATED RBC % (test code = NRBC%) 0.0 % 0-0 N NEUTROPHIL # (test code = NT#) 6.47 x10 3/uL 2.0-7.6 N IMMATURE GRANULOCYTE # (test code = IG#) 0.03 x10 3/uL 0.00-0.03 N LYMPHOCYTE # (test code = LY#) 4.40 x10 3/uL 1.0-3.8 H MONOCYTE # (test code = MO#) 0.68 x10 3/uL 0.1-0.8 N EOSINOPHIL # (test code = EO#) 0.19 x10 3/uL 0.0-0.2 N BASOPHIL # (test code = BA#) 0.04 x10 3/uL 0.0-0.2 N NUCLEATED RBC # (test code = NRBC#) 0.00 x10 3/uL 0.0-0.1 N MANUAL DIFF REQUIRED (test code = MDIFF) NO SED RATE [id number] 17:37:00* Test Item Value Reference Range Interpretation Comments SED RATE WESTERGREN (test code = SEDW) 54 mm/hr 0-20 H C REACTIVE [id number] 15:56:00* Test Item Value Reference Range Interpretation Comments C REACTIVE PROTEIN (test code = CRP) 7.0 mg/L <10.0 N COMPREHENSIVE METABOLIC [id number] 15:56:00* Test Item Value Reference Range Interpretation Comments SODIUM (test code = NA) 134 mEq/L 134-147 N POTASSIUM (test code = K) 4.2 mEq/L 3.4-5.0 N CHLORIDE (test code = CL) 102 mEq/L 100-108 N CARBON DIOXIDE (test code = CO2) 30 mEq/L 21-33 N ANION GAP (test code = GAP) 6 0-20 N GLUCOSE (test code = GLU) 86 mg/dL 70-110 N BLOOD UREA NITROGEN (test code = BUN) 9 mg/dL 7-18 N GLOMERULAR FILTRATION RATE (test code = GFR) 69.3 95-105 L Units of measure = ml/min/1.73 m2 CREATININE (test code = CREAT) 0.9 mg/dL 0.6-1.3 N TOTAL PROTEIN (test code = PROT) 6.9 g/dL 6.4-8.2 N ALBUMIN (test code = ALB) 3.70 g/dL 3.4-5.0 N CALCIUM (test code = CA) 9.1 mg/dL 8.0-10.5 N BILIRUBIN TOTAL (test code = BILT) 0.30 mg/dL 0.0-1.0 N SGOT/AST (test code = AST) 18 IUnit/L 15-37 N SGPT/ALT (test code = ALT) 9 IUnit/L 30-65 L ALKALINE PHOSPHATASE TOTAL (test code = ALKP) 73 IUnit/L 20-125 N CREATINE KINASE (CK)2020-04-04 15:56:00* Test Item Value Reference Range Interpretation Comments CREATINE KINASE (CK) (test code = CK) 87 35-232 N Result is in INTERNATIONAL UNITS/LITER CBC W/AUTO [id number] 15:40:00* Test Item Value Reference Range Interpretation Comments WHITE BLOOD CELL (test code = WBC) 11.8 x10 3/uL 4.5-11.0 H RED BLOOD CELL (test code = RBC) 4.81 x10 6/uL 3.54-5.02 N HEMOGLOBIN (test code = HGB) 13.9 g/dL 11.0-15.0 N HEMATOCRIT (test code = HCT) 43.4 % 33.0-45.0 N MEAN CELL VOLUME (test code = MCV) 90.2 fL 81.0-99.0 N MEAN CELL HGB (test code = MCH) 28.9 pg 27.0-33.0 N MEAN CELL HGB CONCETRATION (test code = MCHC) 32.0 g/dL 33.0-37. 0 L RED CELL DISTRIBUTION WIDTH CV (test code = RDW) 13.0 % 11.5- 14.5 N RED CELL DISTRIBUTION WIDTH SD (test code = RDW-SD) 42.5 fL 37 .0-54.0 N PLATELET COUNT (test code = PLT) 333 x10 3/uL 150-400 N MEAN PLATELET VOLUME (test code = MPV) 9.6 fL 7.0-9.0 H NEUTROPHIL % (test code = NT%) 54.7 % 56.0-77.0 L IMMATURE GRANULOCYTE % (test code = IG%) 0.3 % 0.0-2.0 N LYMPHOCYTE % (test code = LY%) 37.3 % 14.0-32.0 H MONOCYTE % (test code = MO%) 5.8 % 4.8-9.0 N EOSINOPHIL % (test code = EO%) 1.6 % 0.3-3.7 N BASOPHIL % (test code = BA%) 0.3 % 0.0-2.0 N NUCLEATED RBC % (test code = NRBC%) 0.0 % 0-0 N NEUTROPHIL # (test code = NT#) 6.47 x10 3/uL 2.0-7.6 N IMMATURE GRANULOCYTE # (test code = IG#) 0.03 x10 3/uL 0.00-0.03 N LYMPHOCYTE # (test code = LY#) 4.40 x10 3/uL 1.0-3.8 H MONOCYTE # (test code = MO#) 0.68 x10 3/uL 0.1-0.8 N EOSINOPHIL # (test code = EO#) 0.19 x10 3/uL 0.0-0.2 N BASOPHIL # (test code = BA#) 0.04 x10 3/uL 0.0-0.2 N NUCLEATED RBC # (test code = NRBC#) 0.00 x10 3/uL 0.0-0.1 N MANUAL DIFF REQUIRED (test code = MDIFF) NO SED RATE LMDWCBOLXP5972-48-85 15:40:00* Test Item Value Reference Range Interpretation Comments SED RATE MILTON (test code = SEDW) mm/hr 0-20 CBC W/AUTO [id number] 15:39:00* Test Item Value Reference Range Interpretation Comments WHITE BLOOD CELL (test code = WBC) x10 3/uL 4.5-11.0 RED BLOOD CELL (test code = RBC) x10 6/uL 3.54-5.02 HEMOGLOBIN (test code = HGB) 13.9 g/dL 11.0-15.0 N HEMATOCRIT (test code = HCT) 43.4 % 33.0-45.0 N MEAN CELL VOLUME (test code = MCV) fL 81.0-99.0 MEAN CELL HGB (test code = MCH) pg 27.0-33.0 MEAN CELL HGB CONCETRATION (test code = MCHC) g/dL 33.0-37. 0 RED CELL DISTRIBUTION WIDTH CV (test code = RDW) % 11.5- 14.5 PLATELET COUNT (test code = PLT) 333 x10 3/uL 150-400 N NEUTROPHIL % (test code = NT%) % 56.0-77.0 LYMPHOCYTE % (test code = LY%) % 14.0-32.0 NEUTROPHIL # (test code = NT#) x10 3/uL 2.0-7.6 LYMPHOCYTE # (test code = LY#) x10 3/uL 1.0-3.8 MANUAL DIFF REQUIRED (test code = MDIFF) SED RATE OBVAIVRZWZ8721-01-52 15:39:00* Test Item Value Reference Range Interpretation Comments SED RATE MILTON (test code = SEDW) mm/hr 0-20 - XR ELBOW 2 VIEWS [id number] 12:37:00 [facility] BEL[facility]N FAN : 1980 Sex: F FAX: Curtis Patterson [phone] [place]: St: PRE FAX: Joseph Kim --------- Name: BELÉN FAN [facility] : 1980 Age/S: 39/F [address] [place] [address] it #: [id number] Loc: [address] [address] Phys: Joseph Kim Acct: [id number] Dis Date: Status: PRE ER PH ONE #: [phone] Exam Date: 04/04/2020 1208 FAX #: [phone] Reason: non healing abscess/ cellultits to AC EXAMS: CPT CODE: [id number] XR ELBOW 2 [place] [address] Study: - XR E LBOW 2 VIEWS LT 04/04/2020 11:50 AM Patient Name: BELÉN FAN MR: [id number] : 1980; Age: 39 years y/o Female Ordering Physic yonathan: LENORA Subramanian Clinical Indication: non healing abscess/ cellultits to AC Comparison: None LEFT ELBOW, 2 view s: No acute fracture, dislocation, or suspicious focal osseous les ion. Subcutaneous emphysema in the region of the antecubital fossa a nteriorly. IMPRESSION: 1. No radiogr aphic findings to suggest osteomyelitis. If there is persistent clinical concern for osteomyelitis, MRI foot with contrast can be performed for further evaluation. 2. Subcutaneous emphysema in the anterior elbow sof t tissues. SL: [id number] Electronica lly Signed by Ivett Arita on 04/04/2020 at 1237 Re ported and signed by: Jeremiah Arita M.D. CC: Curtis Mae DO; Louis COOLEY Technologist: Fazal Hernandez, RT(R); Angelina Reeves as, RT(R) [facility] Date/Time/By: 04/04/2020 (7502) : By: [email or web address] Orig Print D/T: S: 04/04/2020 (5204) PAGE 1 Signed Report - XR SHOULDER 2 + V [id number] 10:57:00 [facility] ([facility])Name: XOCHILT FAN : 1980 Sex: F Name: XOCHILT FAN [facility] : 1980 Age/S:39 /F [address] [facility] Unit#:[id number] Loc : [place] [address] Phys: Sagar Arboleda MD Dis Date: PHONE #: [phone] Status: PRE ER FAX #: [phone] Exam Date: 03/27/2020 Reason: LT SHOU LDER PAIN EXAMS: CPT CODE: [id number] XR SHOULDER 2 + [place] [address] HISTORY: Left shoulder pain. COMPAR ROMULO: None available. Location: [facility]. 3 views of the left shoulder: No acute fracture or dislocation. Narrowed glenohum eral and AC joints. Scapula, glenoid, and the coracoid are normal. Visuali zed lungs are clear. Soft tissues are normal. IMPRESSION: No acute fracture or dislocation. Narrowed glenohumeral and AC joints. at 1057 Reported and signed by: Juan Eid M.D. CC: Sagar Arboleda MD [facility] hnologist: Nicki Jones Trnscrpt Data: 03/27/2020 (5381) t.SDR.TH4 Orig Print D/T: S: 020 (3047) PAGE 1 Signed Report Blood leukocytes automated count (number/volume) 2019-10-07 10:53:00* Test Item Value Reference Range Interpretation Comments White Blood Count (test code = 6690-2) 8.87 4.8-10.8 [facility] erythrocytes automated count (number/volume)2019-10-07 10:53:00* Test Item Value Reference Range Interpretation Comments Red Blood Count (test code = 789-8) 4.74 3.6-5.1 [facility] hemoglobin measurement (moles/volume)2019-10-07 10:53:00* Test Item Value Reference Range Interpretation Comments Hemoglobin (test code = 25683-3) 13.6 12.0-16.0 [facility]oAutomated blood hematocrit (volume fraction)2019-10-07 10:53:00* Test Item Value Reference Range Interpretation Comments Hematocrit (test code = 4544-3) 42.7 34.2-44.1 [facility]oAutomated erythrocyte mean corpuscular oglyns5568-96-86 10:53:00* Test Item Value Reference Range Interpretation Comments Mean Corpuscular Volume (test code = 787-2) 90.1 81-99 [facility]oAutomated erythrocyte mean corpuscular hemoglobin (mass per erythrocyte)2019-10-07 10:53:00* Test Item Value Reference Range Interpretation Comments Mean Corpuscular Hemoglobin (test code = 785-6) 28.7 28-32 [facility]oAutomated erythrocyte mean corpuscular hemoglobin concentration measurement (mass/volume)2019-10-07 10:53:00* Test Item Value Reference Range Interpretation Comments Mean Corpuscular Hemoglobin Concent (test code = 786-4) 31.9 31-35 [facility]aredoRDW SgoKi-Jrg8559-45-07 10:53:00* Test Item Value Reference Range Interpretation Comments Red Cell Distribution Width (test code = 25812-7) 12.8 11.7 -14.4 [facility]oAutomated blood platelet count (count/volume)2019-10-07 10:53:00* Test Item Value Reference Range Interpretation Comments Platelet Count (test code = 777-3) 349 140-360 [facility]oAutomated blood segmented neutrophil count as percentage of total gazqiwpmfc3258-51-38 10:53:00* Test Item Value Reference Range Interpretation Comments Neutrophils (%) (Auto) (test code = 70581-7) 58.7 38.7-80.0 [facility]oAutomated blood lymphocyte count as percentage ot total wizrmoqcdc9700-87-71 10:53:00* Test Item Value Reference Range Interpretation Comments Lymphocytes (%) (Auto) (test code = 736-9) 33.3 18.0-39.1 [facility]oAutomated blood monocyte count as percentage of total kprfrmsfss2425-74-50 10:53:00* Test Item Value Reference Range Interpretation Comments Monocytes (%) (Auto) (test code = 5905-5) 4.5 4.4-11.3 [facility]oAutomated blood eosinophil count as percentage of total rneresqjcn2699-83-90 10:53:00* Test Item Value Reference Range Interpretation Comments Eosinophils (%) (Auto) (test code = 713-8) 2.6 0.0-6.0 [facility]oAutomated blood basophil count as percentage of total jectfusrip7525-35-48 10:53:00* Test Item Value Reference Range Interpretation Comments Basophils (%) (Auto) (test code = 706-2) 0.3 0.0-1.0 [facility]aredoFluoroscopic procedure less than one hour lsquanes5117-94-97 10:53:00* Test Item Value Reference Range Interpretation Comments IM GRANULOCYTES % (test code = IM GRANULOCYTES %) 0.6 0.0- 1.0 [facility]oAutomated blood neutrophil count 2019-10-07 10:53:00* Test Item Value Reference Range Interpretation Comments Neutrophils # (Auto) (test code = 751-8) 5.2 2.1-6.9 [facility]oBlood lymphocytes count (number/volume) 2019-10-07 10:53:00* Test Item Value Reference Range Interpretation Comments Lymphocytes # (Auto) (test code = 08156-1) 3.0 1.0-3.2 [facility]oBlood monocytes automated count (number/volume)2019-10-07 10:53:00* Test Item Value Reference Range Interpretation Comments Monocytes # (Auto) (test code = 742-7) 0.4 0.2-0.8 [facility]oAutomated blood eosinophil count 2019-10-07 10:53:00* Test Item Value Reference Range Interpretation Comments Eosinophils # (Auto) (test code = 711-2) 0.2 0.0-0.4 [facility]oAutomated blood basophil count (count/volume)2019-10-07 10:53:00* Test Item Value Reference Range Interpretation Comments Basophils # (Auto) (test code = 704-7) 0.0 0.0-0.1 [facility]oFluoroscopic procedure less than one hour ztbqymjn3942-03-56 10:53:00* Test Item Value Reference Range Interpretation Comments Absolute Immature Granulocyte (auto (aron t code = Absolute Immature Granulocyte (auto) 0.05 0-0.1 [facility] or plasma sodium measurement (moles/volume)2019-10-07 10:53:00* Test Item Value Reference Range Interpretation Comments Sodium Level (test code = 2951-2) 137 136-145 [facility] Hospitalerum or plasma potassium measurement (moles/volume)2019-10-07 10:53:00* Test Item Value Reference Range Interpretation Comments Potassium Level (test code = 2823-3) 3.8 3.5-5.1 [facility] Hospitalerum or plasma chloride measurement (moles/volume)2019-10-07 10:53:00* Test Item Value Reference Range Interpretation Comments Chloride Level (test code = 2075-0) 105 98-107 [facility] Hospitalerum or plasma carbon dioxide, total measurement (moles/volume)2019-10-07 10:53:00* Test Item Value Reference Range Interpretation Comments Carbon Dioxide Level (test code = 2028-9) 24 22-29 [facility] Hospitalerum or plasma anion dvr5404-75-15 10:53:00* Test Item Value Reference Range Interpretation Comments Anion Gap (test code = 39883-7) 11.8 8-16 [facility] Hospitalerum or plasma urea nitrogen measurement (mass/volume)2019-10-07 10:53:00* Test Item Value Reference Range Interpretation Comments Blood Urea Nitrogen (test code = 3094-0) 5 7-26 [facility] Hospitalerum or plasma creatinine measurement (mass/volume)2019-10-07 10:53:00* Test Item Value Reference Range Interpretation Comments Creatinine (test code = 2160-0) 0.86 0.57-1.11 [facility] Hospitalerum or plasma urea nitrogen/creatinine mass thlzw4143-92-62 10:53:00* Test Item Value Reference Range Interpretation Comments BUN/Creatinine Ratio (test code = 3097-3) 6 6-25 [facility]oEstimated glomerular filtration rate (GFR) emnxonxhfznlx0935-33-73 10:53:00* Test Item Value Reference Range Interpretation Comments Estimat Glomerular Filtration Rate (test code = 949711107) > 60 >60 Ranges were taken from the National Kidney Disease Education Program and the [facility] literature.Reference ranges:60 or greater: Txpptk38-27 ( for 3 consecutive months): Chronic kidney disease 15 or less: Kidney failureDoctors Hospital of LaredoGlucose xroolbimbwv7415-72-15 10:53:00* Test Item Value Reference Range Interpretation Comments Glucose Level (test code = ZWJ5933) 140 74-118 [facility] Hospitalerum or plasma calcium measurement (mass/volume)2019-10-07 10:53:00* Test Item Value Reference Range Interpretation Comments Calcium Level (test code = 53452-1) 9.0 8.4-10.2 [facility]oBlood leukocytes automated count (number/volume)2019-10-07 10:53:00* Test Item Value Reference Range Interpretation Comments White Blood Count (test code = 6690-2) 8.87 4.8-10.8 [facility]oBlood erythrocytes automated count (number/volume)2019-10-07 10:53:00* Test Item Value Reference Range Interpretation Comments Red Blood Count (test code = 789-8) 4.74 3.6-5.1 [facility] hemoglobin measurement (moles/volume)2019-10-07 10:53:00* Test Item Value Reference Range Interpretation Comments Hemoglobin (test code = 42801-1) 13.6 12.0-16.0 [facility]oAutomated blood hematocrit (volume fraction)2019-10-07 10:53:00* Test Item Value Reference Range Interpretation Comments Hematocrit (test code = 4544-3) 42.7 34.2-44.1 [facility]aredoAutomated erythrocyte mean corpuscular qgbogs3646-36-39 10:53:00* Test Item Value Reference Range Interpretation Comments Mean Corpuscular Volume (test code = 787-2) 90.1 81-99 [facility]aredoAutomated erythrocyte mean corpuscular hemoglobin (mass per erythrocyte)2019-10-07 10:53:00* Test Item Value Reference Range Interpretation Comments Mean Corpuscular Hemoglobin (test code = 785-6) 28.7 28-32 [facility]aredoAutomated erythrocyte mean corpuscular hemoglobin concentration measurement (mass/volume)2019-10-07 10:53:00* Test Item Value Reference Range Interpretation Comments Mean Corpuscular Hemoglobin Concent (test code = 786-4) 31.9 31-35 [facility] LaredoRDW AzeYe-Uxk3359-21-07 10:53:00* Test Item Value Reference Range Interpretation Comments Red Cell Distribution Width (test code = 81174-6) 12.8 11.7 -14.4 [facility]aredoAutomated blood platelet count (count/volume)2019-10-07 10:53:00* Test Item Value Reference Range Interpretation Comments Platelet Count (test code = 777-3) 349 140-360 [facility]used [facility] segmented neutrophil count as percentage of total txlndnmifi2378-68-96 10:53:00* Test Item Value Reference Range Interpretation Comments Neutrophils (%) (Auto) (test code = 80153-9) 58.7 38.7-80.0 [facility]aredoAutomated blood lymphocyte count as percentage ot total ogkmccmusj0492-50-48 10:53:00* Test Item Value Reference Range Interpretation Comments Lymphocytes (%) (Auto) (test code = 736-9) 33.3 18.0-39.1 [facility]aredoAutomated blood monocyte count as percentage of total xehgefnczg2523-75-67 10:53:00* Test Item Value Reference Range Interpretation Comments Monocytes (%) (Auto) (test code = 5905-5) 4.5 4.4-11.3 [facility]oAutnovant health medical park hospitaled blood eosinophil count as percentage of total efrazrvkxb0832-00-52 10:53:00* Test Item Value Reference Range Interpretation Comments Eosinophils (%) (Auto) (test code = 713-8) 2.6 0.0-6.0 [facility]aredoAutomated blood basophil count as percentage of total mphsimhtij8076-37-25 10:53:00* Test Item Value Reference Range Interpretation Comments Basophils (%) (Auto) (test code = 706-2) 0.3 0.0-1.0 [facility]aredoFluoroscopic procedure less than one hour jdbuxzds5748-15-69 10:53:00* Test Item Value Reference Range Interpretation Comments IM GRANULOCYTES % (test code = IM GRANULOCYTES %) 0.6 0.0- 1.0 [facility]aredoAutomated blood neutrophil count 2019-10-07 10:53:00* Test Item Value Reference Range Interpretation Comments Neutrophils # (Auto) (test code = 751-8) 5.2 2.1-6.9 [facility]oBlood lymphocytes count (number/volume) 2019-10-07 10:53:00* Test Item Value Reference Range Interpretation Comments Lymphocytes # (Auto) (test code = 77873-2) 3.0 1.0-3.2 [facility]oBlsteven [facility] monocytes automated count (number/volume)2019-10-07 10:53:00* Test Item Value Reference Range Interpretation Comments Monocytes # (Auto) (test code = 742-7) 0.4 0.2-0.8 [facility]aredoAutomated blood eosinophil count 2019-10-07 10:53:00* Test Item Value Reference Range Interpretation Comments Eosinophils # (Auto) (test code = 711-2) 0.2 0.0-0.4 [facility]aredoAutomated blood basophil count (count/volume)2019-10-07 10:53:00* Test Item Value Reference Range Interpretation Comments Basophils # (Auto) (test code = 704-7) 0.0 0.0-0.1 [facility] LaredoFluoroscopic procedure less than one hour acsficge8936-97-20 10:53:00* Test Item Value Reference Range Interpretation Comments Absolute Immature Granulocyte (auto (aron t code = Absolute Immature Granulocyte (auto) 0.05 0-0.1 [facility] Hospitalerum or plasma sodium measurement (moles/volume)2019-10-07 10:53:00* Test Item Value Reference Range Interpretation Comments Sodium Level (test code = 2951-2) 137 136-145 [facility] Hospitalerum or plasma potassium measurement (moles/volume)2019-10-07 10:53:00* Test Item Value Reference Range Interpretation Comments Potassium Level (test code = 2823-3) 3.8 3.5-5.1 [facility] Hospitalerum or plasma chloride measurement (moles/volume)2019-10-07 10:53:00* Test Item Value Reference Range Interpretation Comments Chloride Level (test code = 2075-0) 105 98-107 [facility] Hospitalerum or plasma carbon dioxide, total measurement (moles/volume)2019-10-07 10:53:00* Test Item Value Reference Range Interpretation Comments Carbon Dioxide Level (test code = 2028-9) 24 22-29 [facility] Hospitalerum or plasma anion exk4136-65-34 10:53:00* Test Item Value Reference Range Interpretation Comments Anion Gap (test code = 35816-5) 11.8 8-16 [facility] Hospitalerum or plasma urea nitrogen measurement (mass/volume)2019-10-07 10:53:00* Test Item Value Reference Range Interpretation Comments Blood Urea Nitrogen (test code = 3094-0) 5 - [facility] Hospitalerum or plasma creatinine measurement (mass/volume)2019-10-07 10:53:00* Test Item Value Reference Range Interpretation Comments Creatinine (test code = 2160-0) 0.86 0.57-1.11 [facility] Hospitalerum or plasma urea nitrogen/creatinine mass jvvdc5625-29-82 10:53:00* Test Item Value Reference Range Interpretation Comments BUN/Creatinine Ratio (test code = 3097-3) 6 11-24 [facility]aredoEstimated glomerular filtration rate (GFR) wbwxpduiowkay5967-01-77 10:53:00* Test Item Value Reference Range Interpretation Comments Estimat Glomerular Filtration Rate (test code = 254658489) > 60 >60 Ranges were taken from the National Kidney Disease Education Program and the [facility] literature.Reference ranges:60 or greater: Elvswj28-39 ( for 3 consecutive months): Chronic kidney disease 15 or less: Kidney failureDoctors Hospital of LaredoGlucose mhzweaknfkp1160-50-07 10:53:00* Test Item Value Reference Range Interpretation Comments Glucose Level (test code = WTY6101) 140 74-118 [facility] Hospitalerum or plasma calcium measurement (mass/volume)2019-10-07 10:53:00* Test Item Value Reference Range Interpretation Comments Calcium Level (test code = 83512-8) 9.0 8.4-10.2 [facility] LaredoCHEST 2 BQILI3927-49-24 15:43:00 [facility] [address] [place] [address] Patient Name: XOCHILT FAN MR #: [id number] : 1980 Age/Sex: 38/F Req #: [id number] Adm Physician: Ordered by: NICHOLE CHANG NP Report #: [id number] Location: ER Room/Bed: Procedure: [id number] DX/ CHEST 2 VIEWS Exam Date: 04/21/19 [...] MD 43 Transcribed By: YULISSA on 04/21/191543 [facility] Y TO: NICHOLE CHANG ACCORDION REPAIRER Influenza virus A and B antigen identification by yxsvyryfrnkwysvvyh8610-88-94 14:10:00* Test Item Value Reference Range Interpretation Comments Influenza Virus Types A,B Antigen (test code = 49992-9) NEGATIVE NEGATIVE [facility] LaredoInfluenza virus A and B antigen identification by svevvxwqunumojtizm2459-31-56 14:10:00* Test Item Value Reference Range Interpretation Comments Influenza Virus Types A,B Antigen (test code = 59725-1) NEGATIVE NEGATIVE [facility]aredoInfluenza virus A and B antigen identification by ifbcozczyjbrlrsigz5691-48-57 14:10:00* Test Item Value Reference Range Interpretation Comments Influenza Virus Types A,B Antigen (test code = 25945-3) NEGATIVE NEGATIVE [facility] LaredoBlood Vrncndv6573-99-18 05:56:00* Test Item Value Reference Range Interpretation Comments Blood Culture (test code = 50786834) NO GROWTH AFTER 5 DAYS, FINAL REPORT [facility] LaredoDifferential Total Cells Counted 2018-12-13 08:19:00* Test Item Value Reference Range Interpretation Comments Differential Total Cells Counted (test code = Michele pennl Total Cells Counted) 100 [facility]aredoNeutrophils % (Manual)2018-12-13 08:19:00 * Test Item Value Reference Range Interpretation Comments Neutrophils % (Manual) (test code = 04538-7) 51 40-74 [facility] LaredoLymphocytes % (Manual)2018-12-13 08:19:00 * Test Item Value Reference Range Interpretation Comments Lymphocytes % (Manual) (test code = 737-7) 46 19-48 [facility]oMonocytes % (Manual)2018-12-13 08:19:00* Test Item Value Reference Range Interpretation Comments Monocytes % (Manual) (test code = 744-3) 1 3.4-9.0 L [facility]oEosinophils % (Manual)2018-12-13 08:19:00 * Test Item Value Reference Range Interpretation Comments Eosinophils % (Manual) (test code = 714-6) 1 0-7 [facility]oBasophils % (Manual)2018-12-13 08:19:00* Test Item Value Reference Range Interpretation Comments Basophils % (Manual) (test code = 33591-6) 1 0-1.5 [facility] LaredoPlatelet Xlynbvaa6658-72-02 08:19:00* Test Item Value Reference Range Interpretation Comments Platelet Estimate (test code = 74162-0) ADEQUATE [facility] LaredoPlatelet Morphology Dcqholo0109-88-00 08:19:00* Test Item Value Reference Range Interpretation Comments Platelet Morphology Comment (test code = 10566-9) NORMAL [facility]aredoRed Cell Morphology Ydmzqcu0117-74-08 08:19:00* Test Item Value Reference Range Interpretation Comments Red Cell Morphology Comment (test code = 6742-1) NORMAL [facility] Hospitalodium Ceayn6616-74-22 06:03:00* Test Item Value Reference Range Interpretation Comments Sodium Level (test code = 2951-2) 139 136-145 [facility]oPotassium Orrxs5594-27-45 06:03:00* Test Item Value Reference Range Interpretation Comments Potassium Level (test code = 2823-3) 3.9 3.5-5.1 [facility]aredoChloride Rhrgw8962-41-12 06:03:00* Test Item Value Reference Range Interpretation Comments Chloride Level (test code = 2075-0) 107 98-107 [facility] LaredoCarbon Dioxide Otmav3113-56-86 06:03:00* Test Item Value Reference Range Interpretation Comments Carbon Dioxide Level (test code = 2028-9) 23 22-29 [facility] LaredoAnion Axd9803-26-27 06:03:00* Test Item Value Reference Range Interpretation Comments Anion Gap (test code = 62390-0) 12.9 8-16 [facility]oBlood Urea Ucykyuui1475-20-54 06:03:00* Test Item Value Reference Range Interpretation Comments Blood Urea Nitrogen (test code = 3094-0) < 5 7-26 L [facility]aredoCreatinine2019-07-14 06:03:00* Test Item Value Reference Range Interpretation Comments Creatinine (test code = 2160-0) 0.78 0.57-1.11 [facility]oBUN/Creatinine Zoeqg4622-92-43 06:03:00* Test Item Value Reference Range Interpretation Comments BUN/Creatinine Ratio (test code = 3097-3) 6 6-25 [facility] LaredoEstimat Glomerular Filtration Rate 2018-12-13 06:03:00* Test Item Value Reference Range Interpretation Comments Estimat Glomerular Filtration Rate (test code = 645031607) > 60 >60 Ranges were taken from the National Kidney Disease Education Program and the [facility] literature.Reference ranges:60 or greater: Bgamjq39-58 ( for 3 consecutive months): Chronic kidney disease 15 or less: Kidney failureDoctors Hospital of LaredoGlucose Pjrpt2125-60-12 06:03:00* Test Item Value Reference Range Interpretation Comments Glucose Level (test code = ATY5863) 74 74-118 [facility]aredoCalcium Iipyt2781-57-99 06:03:00* Test Item Value Reference Range Interpretation Comments Calcium Level (test code = 28795-7) 8.8 8.4-10.2 [facility] LaredoTotal Svznnvxcz4724-03-48 06:03:00* Test Item Value Reference Range Interpretation Comments Total Bilirubin (test code = 1975-2) 0.2 0.2-1.2 [facility]artate Amino Transf (AST/SGOT) 2018-12-13 06:03:00* Test Item Value Reference Range Interpretation Comments Aspartate Amino Transf (AST/SGOT) (test code = Aspartate Amino Transf (AST/SGOT)) 16 5-34 [facility]oAlanine Aminotransferase (ALT/SGPT) 2018-12-13 06:03:00* Test Item Value Reference Range Interpretation Comments Alanine Aminotransferase (ALT/SGPT) (test code = 1742-6) 13 0-55 [facility]oTotal Fvohile0883-07-07 06:03:00* Test Item Value Reference Range Interpretation Comments Total Protein (test code = 2885-2) 6.7 6.5-8.1 [facility]oAlbumin2019-07-14 06:03:00* Test Item Value Reference Range Interpretation Comments Albumin (test code = 1751-7) 3.4 3.5-5.0 L [facility]oGlobulin2019-07-14 06:03:00* Test Item Value Reference Range Interpretation Comments Globulin (test code = 82234-8) 3.3 2.3-3.5 [facility]oAlbumin/Globulin Mqirm9779-35-65 06:03:00 * Test Item Value Reference Range Interpretation Comments Albumin/Globulin Ratio (test code = 1759-0) 1.0 0.8-2.0 [facility]oAlkaline Widwkcdkbuj8512-81-97 06:03:00* Test Item Value Reference Range Interpretation Comments Alkaline Phosphatase (test code = 6768-6) 66 40-150 [facility]odium Xsxhu4963-10-73 06:03:00* Test Item Value Reference Range Interpretation Comments Sodium Level (test code = 2951-2) 139 136-145 [facility]oPotassium Cmhbh5464-96-31 06:03:00* Test Item Value Reference Range Interpretation Comments Potassium Level (test code = 2823-3) 3.9 3.5-5.1 [facility]oChloride Xhmpk0678-47-96 06:03:00* Test Item Value Reference Range Interpretation Comments Chloride Level (test code = 2075-0) 107 98-107 [facility]oCarbon Dioxide Eauid2464-71-79 06:03:00* Test Item Value Reference Range Interpretation Comments Carbon Dioxide Level (test code = 2028-9) 23 22-29 [facility]oAnion Ujk9025-09-71 06:03:00* Test Item Value Reference Range Interpretation Comments Anion Gap (test code = 87054-3) 12.9 8-16 [facility]oBlood Urea Ynpdsgri0103-34-67 06:03:00* Test Item Value Reference Range Interpretation Comments Blood Urea Nitrogen (test code = 3094-0) < 5 7-26 L [facility]oCreatinine2019-07-14 06:03:00* Test Item Value Reference Range Interpretation Comments Creatinine (test code = 2160-0) 0.78 0.57-1.11 [facility]oBUN/Creatinine Vchiz7813-70-11 06:03:00* Test Item Value Reference Range Interpretation Comments BUN/Creatinine Ratio (test code = 3097-3) 6 6-25 [facility]oEstimat Glomerular Filtration Rate 2018-12-13 06:03:00* Test Item Value Reference Range Interpretation Comments Estimat Glomerular Filtration Rate (test code = 826063866) > 60 >60 Ranges were taken from the National Kidney Disease Education Program and the [facility] literature.Reference ranges:60 or greater: Tobokp85-27 ( for 3 consecutive months): Chronic kidney disease 15 or less: Kidney failureDoctors Hospital of LaredoGlucose Eisll0449-41-92 06:03:00* Test Item Value Reference Range Interpretation Comments Glucose Level (test code = IEA2765) 74 74-118 [facility]oCalcium Lqfcr8328-95-87 06:03:00* Test Item Value Reference Range Interpretation Comments Calcium Level (test code = 95984-1) 8.8 8.4-10.2 [facility]oTotal Jhanbtydg8138-74-94 06:03:00* Test Item Value Reference Range Interpretation Comments Total Bilirubin (test code = 1975-2) 0.2 0.2-1.2 [facility]oAspartate Amino Transf (AST/SGOT) 2018-12-13 06:03:00* Test Item Value Reference Range Interpretation Comments Aspartate Amino Transf (AST/SGOT) (test code = Aspartate Amino Transf (AST/SGOT)) 16 5-34 [facility]oAlanine Aminotransferase (ALT/SGPT) 2018-12-13 06:03:00* Test Item Value Reference Range Interpretation Comments Alanine Aminotransferase (ALT/SGPT) (test code = 1742-6) 13 0-55 [facility]oTotal Lptjsft9961-82-42 06:03:00* Test Item Value Reference Range Interpretation Comments Total Protein (test code = 2885-2) 6.7 6.5-8.1 [facility]oAlbumin2019-07-14 06:03:00* Test Item Value Reference Range Interpretation Comments Albumin (test code = 1751-7) 3.4 3.5-5.0 L [facility]oGlobulin2019-07-14 06:03:00* Test Item Value Reference Range Interpretation Comments Globulin (test code = 75541-3) 3.3 2.3-3.5 [facility]oAlbumin/Globulin Ghimp1402-99-38 06:03:00 * Test Item Value Reference Range Interpretation Comments Albumin/Globulin Ratio (test code = 1759-0) 1.0 0.8-2.0 [facility]oAlkaline Rexyxuvorhh3384-51-99 06:03:00* Test Item Value Reference Range Interpretation Comments Alkaline Phosphatase (test code = 6768-6) 66 40-150 [facility]oWhite Blood Svisx7641-95-81 05:43:00* Test Item Value Reference Range Interpretation Comments White Blood Count (test code = 6690-2) 12.56 4.8-10.8 H [facility]oRed Blood Zvcmm7771-90-68 05:43:00* Test Item Value Reference Range Interpretation Comments Red Blood Count (test code = 789-8) 4.58 3.6-5.1 [facility]oHemoglobin2019-07-14 05:43:00* Test Item Value Reference Range Interpretation Comments Hemoglobin (test code = 66908-1) 13.6 12.0-16.0 [facility]oHematocrit2019-07-14 05:43:00* Test Item Value Reference Range Interpretation Comments Hematocrit (test code = 4544-3) 40.9 34.2-44.1 [facility]oMean Corpuscular Xntipt8423-07-18 05:43:00* Test Item Value Reference Range Interpretation Comments Mean Corpuscular Volume (test code = 787-2) 89.3 81-99 [facility]oMean Corpuscular Afoggtjqyx1558-53-52 05:43:00* Test Item Value Reference Range Interpretation Comments Mean Corpuscular Hemoglobin (test code = 785-6) 29.7 28-32 [facility] 2018-12-13 05:43:00* Test Item Value Reference Range Interpretation Comments Mean Corpuscular Hemoglobin Concent (test code = 786-4) 33.3 31-35 [facility]oRed Cell Distribution Casru4025-29-42 05:43:00* Test Item Value Reference Range Interpretation Comments Red Cell Distribution Width (test code = 07298-3) 13.1 11.7 -14.4 [facility]oPlatelet Euenx1954-64-59 05:43:00* Test Item Value Reference Range Interpretation Comments Platelet Count (test code = 777-3) 292 140-360 [facility]oNeutrophils (%) (Auto)2018-12-13 05:43:00 * Test Item Value Reference Range Interpretation Comments Neutrophils (%) (Auto) (test code = 81194-1) 49.6 38.7-80.0 [facility]aredoLymphocytes (%) (Auto)2018-12-13 05:43:00 * Test Item Value Reference Range Interpretation Comments Lymphocytes (%) (Auto) (test code = 736-9) 40.6 18.0-39.1 H [facility]oMonocytes (%) (Auto)2018-12-13 05:43:00* Test Item Value Reference Range Interpretation Comments Monocytes (%) (Auto) (test code = 5905-5) 5.7 4.4-11.3 [facility]oEosinophils (%) (Auto)2018-12-13 05:43:00 * Test Item Value Reference Range Interpretation Comments Eosinophils (%) (Auto) (test code = 713-8) 3.1 0.0-6.0 [facility]oBasophils (%) (Auto)2018-12-13 05:43:00* Test Item Value Reference Range Interpretation Comments Basophils (%) (Auto) (test code = 706-2) 0.7 0.0-1.0 [facility]oIM GRANULOCYTES %2018-12-13 05:43:00* Test Item Value Reference Range Interpretation Comments IM GRANULOCYTES % (test code = IM GRANULOCYTES %) 0.3 0.0- 1.0 [facility]oNeutrophils # (Auto)2018-12-13 05:43:00* Test Item Value Reference Range Interpretation Comments Neutrophils # (Auto) (test code = 751-8) 6.2 2.1-6.9 [facility]oLymphocytes # (Auto)2018-12-13 05:43:00* Test Item Value Reference Range Interpretation Comments Lymphocytes # (Auto) (test code = 32653-5) 5.1 1.0-3.2 H [facility]oMonocytes # (Auto)2018-12-13 05:43:00* Test Item Value Reference Range Interpretation Comments Monocytes # (Auto) (test code = 742-7) 0.7 0.2-0.8 [facility]oEosinophils # (Auto)2018-12-13 05:43:00* Test Item Value Reference Range Interpretation Comments Eosinophils # (Auto) (test code = 711-2) 0.4 0.0-0.4 [facility]oBasophils # (Auto)2018-12-13 05:43:00* Test Item Value Reference Range Interpretation Comments Basophils # (Auto) (test code = 704-7) 0.1 0.0-0.1 [facility]oAbsolute Immature Granulocyte (auto 2018-12-13 05:43:00* Test Item Value Reference Range Interpretation Comments Absolute Immature Granulocyte (auto (aron t code = Absolute Immature Granulocyte (auto) 0.04 0-0.1 [facility]oWhite Blood Bjgla6603-52-68 05:43:00* Test Item Value Reference Range Interpretation Comments White Blood Count (test code = 6690-2) 12.56 4.8-10.8 H [facility]oRed Blood Ntshh3193-96-25 05:43:00* Test Item Value Reference Range Interpretation Comments Red Blood Count (test code = 789-8) 4.58 3.6-5.1 [facility]oHemoglobin2019-07-14 05:43:00* Test Item Value Reference Range Interpretation Comments Hemoglobin (test code = 71806-5) 13.6 12.0-16.0 [facility]oHematocrit2019-07-14 05:43:00* Test Item Value Reference Range Interpretation Comments Hematocrit (test code = 4544-3) 40.9 34.2-44.1 [facility]oMean Corpuscular Zseuyf8526-34-93 05:43:00* Test Item Value Reference Range Interpretation Comments Mean Corpuscular Volume (test code = 787-2) 89.3 81-99 [facility]oMean Corpuscular Jjtfughrlj5998-63-47 05:43:00* Test Item Value Reference Range Interpretation Comments Mean Corpuscular Hemoglobin (test code = 785-6) 29.7 28-32 [facility]oMean Corpuscular Hemoglobin Concent 2018-12-13 05:43:00* Test Item Value Reference Range Interpretation Comments Mean Corpuscular Hemoglobin Concent (test code = 786-4) 33.3 31-35 [facility]oRed Cell Distribution Qdeah4495-58-93 05:43:00* Test Item Value Reference Range Interpretation Comments Red Cell Distribution Width (test code = 35797-4) 13.1 11.7 -14.4 [facility]oPlatelet Hjdad8154-36-12 05:43:00* Test Item Value Reference Range Interpretation Comments Platelet Count (test code = 777-3) 292 140-360 [facility]oNeutrophils (%) (Auto)2018-12-13 05:43:00 * Test Item Value Reference Range Interpretation Comments Neutrophils (%) (Auto) (test code = 00655-1) 49.6 38.7-80.0 [facility]oLymphocytes (%) (Auto)2018-12-13 05:43:00 * Test Item Value Reference Range Interpretation Comments Lymphocytes (%) (Auto) (test code = 736-9) 40.6 18.0-39.1 H [facility]oMonocytes (%) (Auto)2018-12-13 05:43:00* Test Item Value Reference Range Interpretation Comments Monocytes (%) (Auto) (test code = 5905-5) 5.7 4.4-11.3 [facility]oEosinophils (%) (Auto)2018-12-13 05:43:00 * Test Item Value Reference Range Interpretation Comments Eosinophils (%) (Auto) (test code = 713-8) 3.1 0.0-6.0 [facility]oBasophils (%) (Auto)2018-12-13 05:43:00* Test Item Value Reference Range Interpretation Comments Basophils (%) (Auto) (test code = 706-2) 0.7 0.0-1.0 [facility]oIM GRANULOCYTES %2018-12-13 05:43:00* Test Item Value Reference Range Interpretation Comments IM GRANULOCYTES % (test code = IM GRANULOCYTES %) 0.3 0.0- 1.0 [facility]oNeutrophils # (Auto)2018-12-13 05:43:00* Test Item Value Reference Range Interpretation Comments Neutrophils # (Auto) (test code = 751-8) 6.2 2.1-6.9 [facility]oLymphocytes # (Auto)2018-12-13 05:43:00* Test Item Value Reference Range Interpretation Comments Lymphocytes # (Auto) (test code = 77886-7) 5.1 1.0-3.2 H [facility]oMonocytes # (Auto)2018-12-13 05:43:00* Test Item Value Reference Range Interpretation Comments Monocytes # (Auto) (test code = 742-7) 0.7 0.2-0.8 [facility]oEosinophils # (Auto)2018-12-13 05:43:00* Test Item Value Reference Range Interpretation Comments Eosinophils # (Auto) (test code = 711-2) 0.4 0.0-0.4 [facility]oBasophils # (Auto)2018-12-13 05:43:00* Test Item Value Reference Range Interpretation Comments Basophils # (Auto) (test code = 704-7) 0.1 0.0-0.1 [facility]oAbsolute Immature Granulocyte (auto 2018-12-13 05:43:00* Test Item Value Reference Range Interpretation Comments Absolute Immature Granulocyte (auto (aron t code = Absolute Immature Granulocyte (auto) 0.04 0-0.1 [facility]oBlood hezyhgk2202-66-04 05:28:00* Test Item Value Reference Range Interpretation Comments Blood Culture (test code = 59717402) NO GROWTH AFTER 5 DAYS, FINAL REPORT [facility] tcprbtd2017-[facility] 05:28:00* Test Item Value Reference Range Interpretation Comments Blood Culture (test code = 60215678) NO GROWTH AFTER 5 DAYS, FINAL REPORT [facility]oBlood leukocytes automated count (number/volume)2018-12-13 05:23:00* Test Item Value Reference Range Interpretation Comments White Blood Count (test code = 6690-2) 12.56 4.8-10.8 [facility]oBlood erythrocytes automated count (number/volume)2018-12-13 05:23:00* Test Item Value Reference Range Interpretation Comments Red Blood Count (test code = 789-8) 4.58 3.6-5.1 [facility]oBlood hemoglobin measurement (moles/volume)2018-12-13 05:23:00* Test Item Value Reference Range Interpretation Comments Hemoglobin (test code = 45877-0) 13.6 12.0-16.0 [facility]oAutomated blood hematocrit (volume fraction)2018-12-13 05:23:00* Test Item Value Reference Range Interpretation Comments Hematocrit (test code = 4544-3) 40.9 34.2-44.1 [facility]oAutomated erythrocyte mean corpuscular fyuwkx2355-50-84 05:23:00* Test Item Value Reference Range Interpretation Comments Mean Corpuscular Volume (test code = 787-2) 89.3 81-99 [facility]oAutomated erythrocyte mean corpuscular hemoglobin (mass per erythrocyte)2018-12-13 05:23:00* Test Item Value Reference Range Interpretation Comments Mean Corpuscular Hemoglobin (test code = 785-6) 29.7 28-32 [facility]oAutomated erythrocyte mean corpuscular hemoglobin concentration measurement (mass/volume)2018-12-13 05:23:00* Test Item Value Reference Range Interpretation Comments Mean Corpuscular Hemoglobin Concent (test code = 786-4) 33.3 31-35 [facility]oRDW NcwFw-Ktg3655-49-14 05:23:00* Test Item Value Reference Range Interpretation Comments Red Cell Distribution Width (test code = 63774-3) 13.1 11.7 -14.4 [facility]oAutomated blood platelet count (count/volume)2018-12-13 05:23:00* Test Item Value Reference Range Interpretation Comments Platelet Count (test code = 777-3) 292 140-360 [facility]oAutomated blood segmented neutrophil count as percentage of total rgpknvvecw2082-47-97 05:23:00* Test Item Value Reference Range Interpretation Comments Neutrophils (%) (Auto) (test code = 58323-2) 49.6 38.7-80.0 [facility]oAutomated blood lymphocyte count as percentage ot total payxxvfinf9408-95-30 05:23:00* Test Item Value Reference Range Interpretation Comments Lymphocytes (%) (Auto) (test code = 736-9) 40.6 18.0-39.1 [facility]oAutomated blood monocyte count as percentage of total cfjraoiesn2686-78-82 05:23:00* Test Item Value Reference Range Interpretation Comments Monocytes (%) (Auto) (test code = 5905-5) 5.7 4.4-11.3 [facility]oAutomated blood eosinophil count as percentage of total uzvucldpth8558-20-87 05:23:00* Test Item Value Reference Range Interpretation Comments Eosinophils (%) (Auto) (test code = 713-8) 3.1 0.0-6.0 [facility]oAutomated blood basophil count as percentage of total ggztbuhyby9160-28-94 05:23:00* Test Item Value Reference Range Interpretation Comments Basophils (%) (Auto) (test code = 706-2) 0.7 0.0-1.0 [facility]oFluoroscopic procedure less than one hour swguejmg3864-71-82 05:23:00* Test Item Value Reference Range Interpretation Comments IM GRANULOCYTES % (test code = IM GRANULOCYTES %) 0.3 0.0- 1.0 [facility]oAutomated blood neutrophil count 2018-12-13 05:23:00* Test Item Value Reference Range Interpretation Comments Neutrophils # (Auto) (test code = 751-8) 6.2 2.1-6.9 [facility]oBlood lymphocytes count (number/volume) 2018-12-13 05:23:00* Test Item Value Reference Range Interpretation Comments Lymphocytes # (Auto) (test code = 87368-9) 5.1 1.0-3.2 [facility]oBlood monocytes automated count (number/volume)2018-12-13 05:23:00* Test Item Value Reference Range Interpretation Comments Monocytes # (Auto) (test code = 742-7) 0.7 0.2-0.8 [facility]oAutomated blood eosinophil count 2018-12-13 05:23:00* Test Item Value Reference Range Interpretation Comments Eosinophils # (Auto) (test code = 711-2) 0.4 0.0-0.4 [facility] bas[facility] count (count/volume)2018-12-13 05:23:00* Test Item Value Reference Range Interpretation Comments Basophils # (Auto) (test code = 704-7) 0.1 0.0-0.1 [facility]oFluoroscopic procedure less than one hour vrjehkyx6160-31-56 05:23:00* Test Item Value Reference Range Interpretation Comments Absolute Immature Granulocyte (auto (aron t code = Absolute Immature Granulocyte (auto) 0.04 0-0.1 [facility]oFluoroscopic procedure less than one hour xldryaae1724-53-92 05:23:00* Test Item Value Reference Range Interpretation Comments Differential Total Cells Counted (test code = Differen tial Total Cells Counted) 100 [facility] blood neutrophils/100 leukocytes 2018-12-13 05:23:00* Test Item Value Reference Range Interpretation Comments Neutrophils % (Manual) (test code = 10762-8) 51 40-74 [facility] blood lymphocytes/100 leukocytes 2018-12-13 05:23:00* Test Item Value Reference Range Interpretation Comments Lymphocytes % (Manual) (test code = 737-7) 46 19-48 [facility] blood monocytes/100 leukocytes 2018-12-13 05:23:00* Test Item Value Reference Range Interpretation Comments Monocytes % (Manual) (test code = 744-3) 1 3.4-9.0 [facility] blood eosinophil count as percentage of total cilviuvgim5557-57-80 05:23:00* Test Item Value Reference Range Interpretation Comments Eosinophils % (Manual) (test code = 714-6) 1 0-7 [facility] basophil wdhpfefpfp7113-10-64 05:23:00* Test Item Value Reference Range Interpretation Comments Basophils % (Manual) (test code = 92185-3) 1 0-1.5 [facility]oBlood platelets count by estimate (number/volume)2018-12-13 05:23:00* Test Item Value Reference Range Interpretation Comments Platelet Estimate (test code = 40075-8) ADEQUATE [facility]oPlatelet qrnpujvpzx1470-92-96 05:23:00* Test Item Value Reference Range Interpretation Comments Platelet Morphology Comment (test code = 03987-4) NORMAL [facility]oRBC kyrlvqabnp1211-51-41 05:23:00* Test Item Value Reference Range Interpretation Comments Red Cell Morphology Comment (test code = 6742-1) NORMAL [facility] Hospitalerum or plasma sodium measurement (moles/volume)2018-12-13 05:23:00* Test Item Value Reference Range Interpretation Comments Sodium Level (test code = 2951-2) 139 136-145 [facility] Hospitalerum or plasma potassium measurement (moles/volume)2018-12-13 05:23:00* Test Item Value Reference Range Interpretation Comments Potassium Level (test code = 2823-3) 3.9 3.5-5.1 [facility] Hospitalerum or plasma chloride measurement (moles/volume)2018-12-13 05:23:00* Test Item Value Reference Range Interpretation Comments Chloride Level (test code = 2075-0) 107 98-107 [facility] Hospitalerum or plasma carbon dioxide, total measurement (moles/volume)2018-12-13 05:23:00* Test Item Value Reference Range Interpretation Comments Carbon Dioxide Level (test code = 2028-9) 23 22-29 [facility] Hospitalerum or plasma anion qwk0403-00-91 05:23:00* Test Item Value Reference Range Interpretation Comments Anion Gap (test code = 30892-9) 12.9 8-16 [facility] Hospitalerum or plasma urea nitrogen measurement (mass/volume)2018-12-13 05:23:00* Test Item Value Reference Range Interpretation Comments Blood Urea Nitrogen (test code = 3094-0) < 5 7-26 [facility] Hospitalerum or plasma creatinine measurement (mass/volume)2018-12-13 05:23:00* Test Item Value Reference Range Interpretation Comments Creatinine (test code = 2160-0) 0.78 0.57-1.11 [facility] Hospitalerum or plasma urea nitrogen/creatinine mass wvyzp9094-56-54 05:23:00* Test Item Value Reference Range Interpretation Comments BUN/Creatinine Ratio (test code = 3097-3) 6 6-25 [facility]oEstimated glomerular filtration rate (GFR) uyurprtnfirwi3874-88-42 05:23:00* Test Item Value Reference Range Interpretation Comments Estimat Glomerular Filtration Rate (test code = 658767750) > 60 >60 Ranges were taken from the National Kidney Disease Education Program and the [facility] literature.Reference ranges:60 or greater: Mgzink27-63 ( for 3 consecutive months): Chronic kidney disease 15 or less: Kidney failureDoctors Hospital of LaredoGlucose dmhacicxlxq3556-20-17 05:23:00* Test Item Value Reference Range Interpretation Comments Glucose Level (test code = LNI4411) 74 74-118 [facility] Hospitalerum or plasma calcium measurement (mass/volume)2018-12-13 05:23:00* Test Item Value Reference Range Interpretation Comments Calcium Level (test code = 07047-2) 8.8 8.4-10.2 [facility] Hospitalerum or plasma total bilirubin measurement (mass/volume)2018-12-13 05:23:00* Test Item Value Reference Range Interpretation Comments Total Bilirubin (test code = 1975-2) 0.2 0.2-1.2 [facility]oFluoroscopic procedure less than one hour pigwazoh1138-18-83 05:23:00* Test Item Value Reference Range Interpretation Comments Aspartate Amino Transf (AST/SGOT) (test code = Aspartate Amino Transf (AST/SGOT)) 16 5-34 [facility] Hospitalerum or plasma alanine aminotransferase measurement (enzymatic activity/volume)2018-12-13 05:23:00* Test Item Value Reference Range Interpretation Comments Alanine Aminotransferase (ALT/SGPT) (test code = 1742-6) 13 0-55 [facility] Hospitalerum or plasma protein measurement (mass/volume)2018-12-13 05:23:00* Test Item Value Reference Range Interpretation Comments Total Protein (test code = 2885-2) 6.7 6.5-8.1 [facility] Hospitalerum or plasma albumin measurement (mass/volume)2018-12-13 05:23:00* Test Item Value Reference Range Interpretation Comments Albumin (test code = 1751-7) 3.4 3.5-5.0 [facility]oPlasma globulin measurement (mass/volume) 2018-12-13 05:23:00* Test Item Value Reference Range Interpretation Comments Globulin (test code = 41052-8) 3.3 2.3-3.5 [facility] Hospitalerum or plasma albumin/globulin mass rwbmr1593-74-99 05:23:00* Test Item Value Reference Range Interpretation Comments Albumin/Globulin Ratio (test code = 1759-0) 1.0 0.8-2.0 [facility] Hospitalerum or plasma alkaline phosphatase measurement (enzymatic activity/volume)2018-12-13 05:23:00* Test Item Value Reference Range Interpretation Comments Alkaline Phosphatase (test code = 6768-6) 66 40-150 [facility]oFluoroscopic procedure less than one hour zklqjcxi0885-19-68 05:23:00* Test Item Value Reference Range Interpretation Comments Differential Total Cells Counted (test code = Differen tial Total Cells Counted) 100 [facility]oManual blood neutrophils/100 leukocytes 2018-12-13 05:23:00* Test Item Value Reference Range Interpretation Comments Neutrophils % (Manual) (test code = 90846-2) 51 40-74 [facility] blood lymphocytes/100 leukocytes 2018-12-13 05:23:00* Test Item Value Reference Range Interpretation Comments Lymphocytes % (Manual) (test code = 737-7) 46 19-48 [facility] blood monocytes/100 leukocytes 2018-12-13 05:23:00* Test Item Value Reference Range Interpretation Comments Monocytes % (Manual) (test code = 744-3) 1 3.4-9.0 [facility] eosinophil count as percentage of total ssjlwzcxzp2766-24-96 05:23:00* Test Item Value Reference Range Interpretation Comments Eosinophils % (Manual) (test code = 714-6) 1 0-7 [facility] basophil jweznnambq7303-90-70 05:23:00* Test Item Value Reference Range Interpretation Comments Basophils % (Manual) (test code = 05662-4) 1 0-1.5 [facility]oBlood platelets count by estimate (number/volume)2018-12-13 05:23:00* Test Item Value Reference Range Interpretation Comments Platelet Estimate (test code = 10479-4) ADEQUATE [facility]oPlatelet unperfeued3401-26-56 05:23:00* Test Item Value Reference Range Interpretation Comments Platelet Morphology Comment (test code = 07049-8) NORMAL [facility]oRB huujsnllqs7243-01-08 05:23:00* Test Item Value Reference Range Interpretation Comments Red Cell Morphology Comment (test code = 6742-1) NORMAL [facility] plasma total bilirubin measurement (mass/volume)2018-12-13 05:23:00* Test Item Value Reference Range Interpretation Comments Total Bilirubin (test code = 1975-2) 0.2 0.2-1.2 [facility]oFluoroscopic procedure less than one hour ybrqxcfi2441-71-50 05:23:00* Test Item Value Reference Range Interpretation Comments Aspartate Amino Transf (AST/SGOT) (test code = Aspartate Amino Transf (AST/SGOT)) 16 5-34 [facility] or plasma alanine aminotransferase measurement (enzymatic activity/volume)2018-12-13 05:23:00* Test Item Value Reference Range Interpretation Comments Alanine Aminotransferase (ALT/SGPT) (test code = 1742-6) 13 0-55 [facility] or plasma protein measurement (mass/volume)2018-12-13 05:23:00* Test Item Value Reference Range Interpretation Comments Total Protein (test code = 2885-2) 6.7 6.5-8.1 [facility] or plasma albumin measurement (mass/volume)2018-12-13 05:23:00* Test Item Value Reference Range Interpretation Comments Albumin (test code = 1751-7) 3.4 3.5-5.0 [facility]oPlasma globulin measurement (mass/volume) 2018-12-13 05:23:00* Test Item Value Reference Range Interpretation Comments Globulin (test code = 55760-6) 3.3 2.3-3.5 [facility]er[facility] or plasma albumin/globulin mass weeob8851-85-43 05:23:00* Test Item Value Reference Range Interpretation Comments Albumin/Globulin Ratio (test code = 1759-0) 1.0 0.8-2.0 [facility]er[facility] or plasma alkaline phosphatase measurement (enzymatic activity/volume)2018-12-13 05:23:00* Test Item Value Reference Range Interpretation Comments Alkaline Phosphatase (test code = 6768-6) 66 40-150 [facility]oBlood Vqpxtdj7940-21-13 23:12:00* Test Item Value Reference Range Interpretation Comments Blood Culture (test code = 43941213) NO GROWTH AFTER 5 DAYS, FINAL REPORT [facility] Hospitalodium Ldptb2407-60-04 23:44:00* Test Item Value Reference Range Interpretation Comments Sodium Level (test code = 2951-2) 133 136-145 L [facility]oPotassium Hrkfl1960-91-49 23:44:00* Test Item Value Reference Range Interpretation Comments Potassium Level (test code = 2823-3) 4.2 3.5-5.1 [facility]oChloride Haqlm9898-56-96 23:44:00* Test Item Value Reference Range Interpretation Comments Chloride Level (test code = 2075-0) 99 98-107 [facility]oCarbon Dioxide Vqrka6964-34-73 23:44:00* Test Item Value Reference Range Interpretation Comments Carbon Dioxide Level (test code = 2028-9) 23 22-29 [facility]oAnion Ltt8985-77-23 23:44:00* Test Item Value Reference Range Interpretation Comments Anion Gap (test code = 35380-5) 15.2 8-16 [facility]oBlood Urea Esplcvzr1550-33-95 23:44:00* Test Item Value Reference Range Interpretation Comments Blood Urea Nitrogen (test code = 3094-0) 8 7-26 [facility]oCreatinine2019-06-17 23:44:00* Test Item Value Reference Range Interpretation Comments Creatinine (test code = 2160-0) 0.95 0.57-1.11 [facility]oBUN/Creatinine Hktab5418-23-47 23:44:00* Test Item Value Reference Range Interpretation Comments BUN/Creatinine Ratio (test code = 3097-3) 8 6-25 [facility]oEstimat Glomerular Filtration Rate 2018-11-16 23:44:00* Test Item Value Reference Range Interpretation Comments Estimat Glomerular Filtration Rate (test code = 869221269) > 60 >60 Ranges were taken from the National Kidney Disease Education Program and the [facility] literature.Reference ranges:60 or greater: Kwednw38-20 ( for 3 consecutive months): Chronic kidney disease 15 or less: Kidney failureDoctors Hospital of LaredoGlucose Gjeud0402-31-78 23:44:00* Test Item Value Reference Range Interpretation Comments Glucose Level (test code = PPM9604) 99 74-118 [facility]oCalcium Yjeim2466-94-04 23:44:00* Test Item Value Reference Range Interpretation Comments Calcium Level (test code = 64740-6) 9.1 8.4-10.2 [facility]oTotal Dzigbnikl9603-50-71 23:44:00* Test Item Value Reference Range Interpretation Comments Total Bilirubin (test code = 1975-2) 0.3 0.2-1.2 [facility]aredoAspartate Amino Transf (AST/SGOT) 2018-11-16 23:44:00* Test Item Value Reference Range Interpretation Comments Aspartate Amino Transf (AST/SGOT) (test code = Aspartate Amino Transf (AST/SGOT)) 18 5-34 [facility]oAlanine Aminotransferase (ALT/SGPT) 2018-11-16 23:44:00* Test Item Value Reference Range Interpretation Comments Alanine Aminotransferase (ALT/SGPT) (test code = 1742-6) 16 0-55 [facility]oTotal Xapxfnc2312-34-13 23:44:00* Test Item Value Reference Range Interpretation Comments Total Protein (test code = 2885-2) 7.1 6.5-8.1 [facility]oAlbumin2019-06-17 23:44:00* Test Item Value Reference Range Interpretation Comments Albumin (test code = 1751-7) 3.3 3.5-5.0 L [facility]oGlobulin2019-06-17 23:44:00* Test Item Value Reference Range Interpretation Comments Globulin (test code = 41067-1) 3.8 2.3-3.5 H [facility]aredoAlbumin/Globulin Pukqx7892-30-67 23:44:00 * Test Item Value Reference Range Interpretation Comments Albumin/Globulin Ratio (test code = 1759-0) 0.9 0.8-2.0 [facility]oAlkaline Oedyrqfeohw1554-89-33 23:44:00* Test Item Value Reference Range Interpretation Comments Alkaline Phosphatase (test code = 6768-6) 79 40-150 [facility]oWhite Blood Vqbod1853-58-05 23:24:00* Test Item Value Reference Range Interpretation Comments White Blood Count (test code = 6690-2) 12.83 4.8-10.8 H [facility]oRed Blood Pfieb6663-75-19 23:24:00* Test Item Value Reference Range Interpretation Comments Red Blood Count (test code = 789-8) 4.55 3.6-5.1 [facility]oHemoglobin2019-06-17 23:24:00* Test Item Value Reference Range Interpretation Comments Hemoglobin (test code = 72823-1) 13.7 12.0-16.0 [facility]oHematocrit2019-06-17 23:24:00* Test Item Value Reference Range Interpretation Comments Hematocrit (test code = 4544-3) 40.1 34.2-44.1 [facility]aredoMean Corpuscular Pakxmy5840-83-67 23:24:00* Test Item Value Reference Range Interpretation Comments Mean Corpuscular Volume (test code = 787-2) 88.1 81-99 [facility]oMean Corpuscular Jwxwfdgnxh7103-35-81 23:24:00* Test Item Value Reference Range Interpretation Comments Mean Corpuscular Hemoglobin (test code = 785-6) 30.1 28-32 [facility]oMean Corpuscular Hemoglobin Concent 2018-11-16 23:24:00* Test Item Value Reference Range Interpretation Comments Mean Corpuscular Hemoglobin Concent (test code = 786-4) 34.2 31-35 [facility]aredoRed Cell Distribution Vwzzm7479-53-58 23:24:00* Test Item Value Reference Range Interpretation Comments Red Cell Distribution Width (test code = 82845-6) 13.1 11.7 -14.4 [facility]oPlatelet Pnnqv6143-08-25 23:24:00* Test Item Value Reference Range Interpretation Comments Platelet Count (test code = 777-3) 303 140-360 [facility]oNeutrophils (%) (Auto)2018-11-16 23:24:00 * Test Item Value Reference Range Interpretation Comments Neutrophils (%) (Auto) (test code = 39116-5) 60.1 38.7-80.0 [facility] LaredoLymphocytes (%) (Auto)2018-11-16 23:24:00 * Test Item Value Reference Range Interpretation Comments Lymphocytes (%) (Auto) (test code = 736-9) 30.1 18.0-39.1 [facility]oMonocytes (%) (Auto)2018-11-16 23:24:00* Test Item Value Reference Range Interpretation Comments Monocytes (%) (Auto) (test code = 5905-5) 7.4 4.4-11.3 [facility]oEosinophils (%) (Auto)2018-11-16 23:24:00 * Test Item Value Reference Range Interpretation Comments Eosinophils (%) (Auto) (test code = 713-8) 1.5 0.0-6.0 [facility]oBasophils (%) (Auto)2018-11-16 23:24:00* Test Item Value Reference Range Interpretation Comments Basophils (%) (Auto) (test code = 706-2) 0.4 0.0-1.0 [facility]oIM GRANULOCYTES %2018-11-16 23:24:00* Test Item Value Reference Range Interpretation Comments IM GRANULOCYTES % (test code = IM GRANULOCYTES %) 0.5 0.0- 1.0 [facility]oNeutrophils # (Auto)2018-11-16 23:24:00* Test Item Value Reference Range Interpretation Comments Neutrophils # (Auto) (test code = 751-8) 7.7 2.1-6.9 H [facility]aredoLymphocytes # (Auto)2018-11-16 23:24:00* Test Item Value Reference Range Interpretation Comments Lymphocytes # (Auto) (test code = 74584-6) 3.9 1.0-3.2 H [facility]oMonocytes # (Auto)2018-11-16 23:24:00* Test Item Value Reference Range Interpretation Comments Monocytes # (Auto) (test code = 742-7) 1.0 0.2-0.8 H [facility]oEosinophils # (Auto)2018-11-16 23:24:00* Test Item Value Reference Range Interpretation Comments Eosinophils # (Auto) (test code = 711-2) 0.2 0.0-0.4 [facility]oBasophils # (Auto)2018-11-16 23:24:00* Test Item Value Reference Range Interpretation Comments Basophils # (Auto) (test code = 704-7) 0.1 0.0-0.1 [facility]aredoAbsolute Immature Granulocyte (auto 2018-11-16 23:24:00* Test Item Value Reference Range Interpretation Comments Absolute Immature Granulocyte (auto (aron t code = Absolute Immature Granulocyte (auto) 0.06 0-0.1 [facility]oURINALYSIS OURETVKF1138-11-52 15:54:00* Test Item Value Reference Range Interpretation [...] HPF NONE Urine Source? Clean CatchUR HCG [id number] 15:54:00* Test Item Value Reference Range Interpretation Comments UR HCG QUAL (test code = HCGQLU) NEGATIVE This HCGQL test is NOT applicable for MALE patients.Check with nurse about probable order error.If Tumor Marker Test needed, nurse should order test "HCGTU"(Test #550.32263) Urine Source? Clean CatchBlood Epzmcnf5247-86-36 16:36:00* Test Item Value Reference Range Interpretation Comments Blood Culture (test code = 11452917) NO GROWTH AFTER 5 DAYS, FINAL REPORT [facility]oBlood Vavavqy4150-43-40 16:36:00* Test Item Value Reference Range Interpretation Comments Blood Culture (test code = 06380153) NO GROWTH AFTER 5 DAYS, FINAL REPORT [facility]aredoBlood Pzvivcp6442-48-97 16:36:00* Test Item Value Reference Range Interpretation Comments Blood Culture (test code = 18423502) NO GROWTH AFTER [address] [facility] Aecawn1833-17-68 12:01:00* Test Item Value Reference Range Interpretation Comments Vancomycin Level Trough (test code = 4092-3) 11.3 5.0-10.0 HH Results repeated and called to ISMANIA at 1200 on 07/26/18 by aBbs duarte back and verified.[facility] Krkmqm7945-03-70 12:01:00* Test Item Value Reference Range Interpretation Comments Vancomycin Level Trough (test code = 4092-3) 11.3 5.0-10.0 HH Results repeated and called to ISMANIA at 1200 on 07/26/18 by Babs duarte back and verified.[facility] Zwahes0770-23-49 12:01:00* Test Item Value Reference Range Interpretation Comments Vancomycin Level Trough (test code = 4092-3) 11.3 5.0-10.0 HH Results repeated and called to ISMANIA at 1200 on 07/26/18 by Babs duarte back and verified.[facility] Svecck0714-12-93 12:01:00* Test Item Value Reference Range Interpretation Comments Vancomycin Level Trough (test code = 4092-3) 11.3 5.0-10.0 HH Results repeated and called to ISMANIA at 1200 on 07/26/18 by Babs duarte back and verified.[facility] Mflwhp4437-42-13 12:01:00* Test Item Value Reference Range Interpretation Comments Vancomycin Level Trough (test code = 4092-3) 11.3 5.0-10.0 HH Results repeated and called to ISMANIA at 1200 on 07/26/18 by Babs duarte back and verified.[facility] 2018-07-26 05:33:00* Test Item Value Reference Range Interpretation Comments Sodium Level (test code = 2951-2) 136 136-145 [facility]oPotassium Udizs0118-35-54 05:33:00* Test Item Value Reference Range Interpretation Comments Potassium Level (test code = 2823-3) 4.5 3.5-5.1 [facility]oChloride Tdnin9026-48-34 05:33:00* Test Item Value Reference Range Interpretation Comments Chloride Level (test code = 2075-0) 111 98-107 H [facility]aredoCarbon Dioxide Yfbfi1691-45-90 05:33:00* Test Item Value Reference Range Interpretation Comments Carbon Dioxide Level (test code = 2028-9) 19 22-29 L [facility]aredoAnion Dii7474-99-20 05:33:00* Test Item Value Reference Range Interpretation Comments Anion Gap (test code = 34184-6) 10.5 8-16 [facility]oBlood Urea Ecxtxywn8022-90-05 05:33:00* Test Item Value Reference Range Interpretation Comments Blood Urea Nitrogen (test code = 3094-0) 7 7-26 [facility]oCreatinine2019-02-24 05:33:00* Test Item Value Reference Range Interpretation Comments Creatinine (test code = 2160-0) 0.81 0.57-1.11 [facility]oBUN/Creatinine Bbiff1696-49-84 05:33:00* Test Item Value Reference Range Interpretation Comments BUN/Creatinine Ratio (test code = 3097-3) 9 6-25 [facility]aredoEstimat Glomerular Filtration Rate 2018-07-26 05:33:00* Test Item Value Reference Range Interpretation Comments Estimat Glomerular Filtration Rate (test code = 548936350) > 60 >60 Ranges were taken from the National Kidney Disease Education Program and the [facility] literature.Reference ranges:60 or greater: Aksmuo18-55 ( for 3 consecutive months): Chronic kidney disease 15 or less: Kidney failureDoctors Hospital of LaredoGlucose Vfazg5978-60-66 05:33:00* Test Item Value Reference Range Interpretation Comments Glucose Level (test code = LBX9656) 85 74-118 [facility]oCalcium Ogaof2148-61-25 05:33:00* Test Item Value Reference Range Interpretation Comments Calcium Level (test code = 84633-3) 8.1 8.4-10.2 L [facility]odium Sbdmk7500-10-05 05:33:00* Test Item Value Reference Range Interpretation Comments Sodium Level (test code = 2951-2) 136 136-145 [facility]oPotassium Mrxgb5647-54-74 05:33:00* Test Item Value Reference Range Interpretation Comments Potassium Level (test code = 2823-3) 4.5 3.5-5.1 [facility]oChloride Dchhw1652-40-31 05:33:00* Test Item Value Reference Range Interpretation Comments Chloride Level (test code = 2075-0) 111 98-107 H [facility]aredoCarbon Dioxide Lpxvk8897-36-78 05:33:00* Test Item Value Reference Range Interpretation Comments Carbon Dioxide Level (test code = 2028-9) 19 22-29 L [facility]aredoAnion Nos7492-64-85 05:33:00* Test Item Value Reference Range Interpretation Comments Anion Gap (test code = 83990-4) 10.5 8-16 [facility]oBlood Urea Ifgitltt9921-58-05 05:33:00* Test Item Value Reference Range Interpretation Comments Blood Urea Nitrogen (test code = 3094-0) 7 7-26 [facility]oCreatinine2019-02-24 05:33:00* Test Item Value Reference Range Interpretation Comments Creatinine (test code = 2160-0) 0.81 0.57-1.11 [facility]oBUN/Creatinine Sgvtd0482-06-74 05:33:00* Test Item Value Reference Range Interpretation Comments BUN/Creatinine Ratio (test code = 3097-3) 9 6-25 [facility]aredoEstimat Glomerular Filtration Rate 2018-07-26 05:33:00* Test Item Value Reference Range Interpretation Comments Estimat Glomerular Filtration Rate (test code = 600819080) > 60 >60 Ranges were taken from the National Kidney Disease Education Program and the [facility] Kidney Foundation literature.Reference ranges:60 or greater: Rrbqjv04-77 ( for 3 consecutive months): Chronic kidney disease 15 or less: Kidney failureDoctors Hospital of LaredoGlucose Amxqz0503-08-25 05:33:00* Test Item Value Reference Range Interpretation Comments Glucose Level (test code = XHI9294) 85 74-118 [facility]oCalcium Hdamn7371-57-81 05:33:00* Test Item Value Reference Range Interpretation Comments Calcium Level (test code = 91327-5) 8.1 8.4-10.2 L [facility]aredoProthrombin Xccj2525-29-47 05:32:00* Test Item Value Reference Range Interpretation Comments Prothrombin Time (test code = 5902-2) 12.5 11.9-14.5 [facility]aredoProthromb Time International Ratio 2018-07-26 05:32:00* Test Item Value Reference Range Interpretation Comments Prothromb Time International Ratio (test code = 6301-6) 0.86 Oral Anticoagulant Therapy INR Values:1. Low Intensity Therapy 1.5 - 2.02 . Moderate Intensity Therapy 2.0 - 3.03. High Intensity Therapy(1) 2.5 - 3. 54. High Intensity Therapy(2) 3.0 - 4.05. Panic Value INR > 5.0 [facility]aredoActivated Partial Thromboplast Time 2018-07-26 05:32:00* Test Item Value Reference Range Interpretation Comments Activated Partial Thromboplast Time (test code = 45126-5) 25.2 23.8-35.5 [facility]aredoProthrombin Grop8700-96-05 05:32:00* Test Item Value Reference Range Interpretation Comments Prothrombin Time (test code = 5902-2) 12.5 11.9-14.5 [facility]aredoProthromb Time International Ratio 2018-07-26 05:32:00* Test Item Value Reference Range Interpretation Comments Prothromb Time International Ratio (test code = 6301-6) 0.86 Oral Anticoagulant Therapy INR Values:1. Low Intensity Therapy 1.5 - 2.02 . Moderate Intensity Therapy 2.0 - 3.03. High Intensity Therapy(1) 2.5 - 3. 54. High Intensity Therapy(2) 3.0 - 4.05. Panic Value INR > 5.0 [facility]oActivated Partial Thromboplast Time 2018-07-26 05:32:00* Test Item Value Reference Range Interpretation Comments Activated Partial Thromboplast Time (test code = 70231-2) 25.2 23.8-35.5 [facility]oProthrombin Meda8127-50-57 05:32:00* Test Item Value Reference Range Interpretation Comments Prothrombin Time (test code = 5902-2) 12.5 11.9-14.5 [facility]oProthromb Time International Ratio 2018-07-26 05:32:00* Test Item Value Reference Range Interpretation Comments Prothromb Time International Ratio (test code = 6301-6) 0.86 Oral Anticoagulant Therapy INR Values:1. Low Intensity Therapy 1.5 - 2.02 . Moderate Intensity Therapy 2.0 - 3.03. High Intensity Therapy(1) 2.5 - 3. 54. High Intensity Therapy(2) 3.0 - 4.05. Panic Value INR > 5.0 [facility]oActivated Partial Thromboplast Time 2018-07-26 05:32:00* Test Item Value Reference Range Interpretation Comments Activated Partial Thromboplast Time (test code = 12038-6) 25.2 23.8-35.5 [facility]oProthrombin Inah5123-66-53 05:32:00* Test Item Value Reference Range Interpretation Comments Prothrombin Time (test code = 5902-2) 12.5 11.9-14.5 [facility]oProthromb Time International Ratio 2018-07-26 05:32:00* Test Item Value Reference Range Interpretation Comments Prothromb Time International Ratio (test code = 6301-6) 0.86 Oral Anticoagulant Therapy INR Values:1. Low Intensity Therapy 1.5 - 2.02 . Moderate Intensity Therapy 2.0 - 3.03. High Intensity Therapy(1) 2.5 - 3. 54. High Intensity Therapy(2) 3.0 - 4.05. Panic Value INR > 5.0 [facility]oActivated Partial Thromboplast Time 2018-07-26 05:32:00* Test Item Value Reference Range Interpretation Comments Activated Partial Thromboplast Time (test code = 68135-9) 25.2 23.8-35.5 [facility]oProthrombin Hwbr0328-52-20 05:32:00* Test Item Value Reference Range Interpretation Comments Prothrombin Time (test code = 5902-2) 12.5 11.9-14.5 [facility]oProthromb Time International Ratio 2018-07-26 05:32:00* Test Item Value Reference Range Interpretation Comments Prothromb Time International Ratio (test code = 6301-6) 0.86 Oral Anticoagulant Therapy INR Values:1. Low Intensity Therapy 1.5 - 2.02 . Moderate Intensity Therapy 2.0 - 3.03. High Intensity Therapy(1) 2.5 - 3. 54. High Intensity Therapy(2) 3.0 - 4.05. Panic Value INR > 5.0 [facility]oActivated Partial Thromboplast Time 2018-07-26 05:32:00* Test Item Value Reference Range Interpretation Comments Activated Partial Thromboplast Time (test code = 29137-2) 25.2 23.8-35.5 [facility]oWhite Blood Gxrfu2479-44-05 05:16:00* Test Item Value Reference Range Interpretation Comments White Blood Count (test code = 6690-2) 7.88 4.8-10.8 [facility]oRed Blood Evaik4513-30-20 05:16:00* Test Item Value Reference Range Interpretation Comments Red Blood Count (test code = 789-8) 4.38 3.6-5.1 [facility]oHemoglobin2019-02-24 05:16:00* Test Item Value Reference Range Interpretation Comments Hemoglobin (test code = 87730-4) 12.9 12.0-16.0 [facility]oHematocrit2019-02-24 05:16:00* Test Item Value Reference Range Interpretation Comments Hematocrit (test code = 4544-3) 41.4 34.2-44.1 [facility]aredoMean Corpuscular Ktvnzk1230-19-18 05:16:00* Test Item Value Reference Range Interpretation Comments Mean Corpuscular Volume (test code = 787-2) 94.5 81-99 [facility]oMean Corpuscular Bqgwpmyqrr8416-51-00 05:16:00* Test Item Value Reference Range Interpretation Comments Mean Corpuscular Hemoglobin (test code = 785-6) 29.5 28-32 [facility]oMean Corpuscular Hemoglobin Concent 2018-07-26 05:16:00* Test Item Value Reference Range Interpretation Comments Mean Corpuscular Hemoglobin Concent (test code = 786-4) 31.2 31-35 [facility]aredoRed Cell Distribution Poglt4180-06-60 05:16:00* Test Item Value Reference Range Interpretation Comments Red Cell Distribution Width (test code = 51370-6) 12.6 11.7 -14.4 [facility] LaredoPlatelet Hawxk8782-65-21 05:16:00* Test Item Value Reference Range Interpretation Comments Platelet Count (test code = 777-3) 152 140-360 [facility]oNeutrophils (%) (Auto)2018-07-26 05:16:00 * Test Item Value Reference Range Interpretation Comments Neutrophils (%) (Auto) (test code = 18219-0) 38.7 38.7-80.0 [facility]oLymphocytes (%) (Auto)2018-07-26 05:16:00 * Test Item Value Reference Range Interpretation Comments Lymphocytes (%) (Auto) (test code = 736-9) 51.6 18.0-39.1 H [facility]oMonocytes (%) (Auto)2018-07-26 05:16:00* Test Item Value Reference Range Interpretation Comments Monocytes (%) (Auto) (test code = 5905-5) 7.1 4.4-11.3 [facility]oEosinophils (%) (Auto)2018-07-26 05:16:00 * Test Item Value Reference Range Interpretation Comments Eosinophils (%) (Auto) (test code = 713-8) 1.9 0.0-6.0 [facility]oBasophils (%) (Auto)2018-07-26 05:16:00* Test Item Value Reference Range Interpretation Comments Basophils (%) (Auto) (test code = 706-2) 0.4 0.0-1.0 [facility]aredoIM GRANULOCYTES %2018-07-26 05:16:00* Test Item Value Reference Range Interpretation Comments IM GRANULOCYTES % (test code = IM GRANULOCYTES %) 0.3 0.0- 1.0 [facility]oNeutrophils # (Auto)2018-07-26 05:16:00* Test Item Value Reference Range Interpretation Comments Neutrophils # (Auto) (test code = 751-8) 3.1 2.1-6.9 [facility])2018-07-26 05:16:00* Test Item Value Reference Range Interpretation Comments Lymphocytes # (Auto) (test code = 72473-6) 4.1 1.0-3.2 [facility] (Auto)2018-07-26 05:16:00* Test Item Value Reference Range Interpretation Comments Monocytes # (Auto) (test code = 742-7) 0.6 0.2-0.8 [facility] (Auto)2018-07-26 05:16:00* Test Item Value Reference Range Interpretation Comments Eosinophils # (Auto) (test code = 711-2) 0.2 0.0-0.4 [facility] # (Auto)2018-07-26 05:16:00* Test Item Value Reference Range Interpretation Comments Basophils # (Auto) (test code = 704-7) 0.0 0.0-0.1 [facility] Immature Granulocyte (auto 2018-07-26 05:16:00* Test Item Value Reference Range Interpretation Comments Absolute Immature Granulocyte (auto (aron t code = Absolute Immature Granulocyte (auto) 0.02 0-0.1 [facility] Blood Uzlwb7001-22-04 05:16:00* Test Item Value Reference Range Interpretation Comments White Blood Count (test code = 6690-2) 7.88 4.8-10.8 [facility]oRed Blood Unxeu3594-37-75 05:16:00* Test Item Value Reference Range Interpretation Comments Red Blood Count (test code = 789-8) 4.38 3.6-5.1 [facility]emoglobin2019-02-24 05:16:00* Test Item Value Reference Range Interpretation Comments Hemoglobin (test code = 19871-1) 12.9 12.0-16.0 [facility]ematocrit2019-02-24 05:16:00* Test Item Value Reference Range Interpretation Comments Hematocrit (test code = 4544-3) 41.4 34.2-44.1 [facility]oMean Corpuscular Hrukkc1334-31-73 05:16:00* Test Item Value Reference Range Interpretation Comments Mean Corpuscular Volume (test code = 787-2) 94.5 81-99 [facility]oMean Corpuscular Sdshvsoano5278-53-98 05:16:00* Test Item Value Reference Range Interpretation Comments Mean Corpuscular Hemoglobin (test code = 785-6) 29.5 28-32 [facility]oMean Corpuscular Hemoglobin Concent 2018-07-26 05:16:00* Test Item Value Reference Range Interpretation Comments Mean Corpuscular Hemoglobin Concent (test code = 786-4) 31.2 31-35 [facility]oRed Cell Distribution Xspoy5286-41-19 05:16:00* Test Item Value Reference Range Interpretation Comments Red Cell Distribution Width (test code = 09724-7) 12.6 11.7 -14.4 [facility]oPlatelet Qxpge6080-29-92 05:16:00* Test Item Value Reference Range Interpretation Comments Platelet Count (test code = 777-3) 152 140-360 [facility]oNeutrophils (%) (Auto)2018-07-26 05:16:00 * Test Item Value Reference Range Interpretation Comments Neutrophils (%) (Auto) (test code = 66988-8) 38.7 38.7-80.0 [facility]ymphocytes (%) (Auto)2018-07-26 05:16:00 * Test Item Value Reference Range Interpretation Comments Lymphocytes (%) (Auto) (test code = 736-9) 51.6 18.0-39.1 [facility]ocytes (%) (Auto)2018-07-26 05:16:00* Test Item Value Reference Range Interpretation Comments Monocytes (%) (Auto) (test code = 5905-5) 7.1 4.4-11.3 [facility]osinophils (%) (Auto)2018-07-26 05:16:00 * Test Item Value Reference Range Interpretation Comments Eosinophils (%) (Auto) (test code = 713-8) 1.9 0.0-6.0 [facility]oBasophils (%) (Auto)2018-07-26 05:16:00* Test Item Value Reference Range Interpretation Comments Basophils (%) (Auto) (test code = 706-2) 0.4 0.0-1.0 [facility]oIM GRANULOCYTES %2018-07-26 05:16:00* Test Item Value Reference Range Interpretation Comments IM GRANULOCYTES % (test code = IM GRANULOCYTES %) 0.3 0.0- 1.0 [facility]oNeutrophils # (Auto)2018-07-26 05:16:00* Test Item Value Reference Range Interpretation Comments Neutrophils # (Auto) (test code = 751-8) 3.1 2.1-6.9 [facility]ymphocytes # (Auto)2018-07-26 05:16:00* Test Item Value Reference Range Interpretation Comments Lymphocytes # (Auto) (test code = 47328-1) 4.1 1.0-3.2 H [facility]oMonocytes # (Auto)2018-07-26 05:16:00* Test Item Value Reference Range Interpretation Comments Monocytes # (Auto) (test code = 742-7) 0.6 0.2-0.8 [facility]osinophils # (Auto)2018-07-26 05:16:00* Test Item Value Reference Range Interpretation Comments Eosinophils # (Auto) (test code = 711-2) 0.2 0.0-0.4 [facility]oBasophils # (Auto)2018-07-26 05:16:00* Test Item Value Reference Range Interpretation Comments Basophils # (Auto) (test code = 704-7) 0.0 0.0-0.1 [facility]oAbsolute Immature Granulocyte (auto 2018-07-26 05:16:00* Test Item Value Reference Range Interpretation Comments Absolute Immature Granulocyte (auto (aron t code = Absolute Immature Granulocyte (auto) 0.02 0-0.1 [facility]oMRI HAND LEFT [id number] 16:10:00 [place] [address] Patient Name: XOCHILT FAN MR #: [id number] : 1980 Age/Sex: 37/F Req #: [id number] Adm Physician: DOREEN MONTAÑO MD Ordered by: KARLA FLORES MD Report #: [id number] Location: [place] [address] Room/Bed: [facility] Procedure: [id number] MRI/MRI HAND LEFT WO Exam Date: 07/25/18 [...] on Jul at 1621 hours. Signed by: Dr. Don Davis D.O., M.M.M. on 07/27/2018 8:10 AM Dictated By: DON DAVIS DO 9 Transcribed By: YULISSA on 07/27/18809 COPY TO: KARLA FLORES MD Total Wgpidoees8010-25-07 13:28:00* Test Item Value Reference Range Interpretation Comments Total Bilirubin (test code = 1975-2) 0.3 0.2-1.2 [facility]oAspartate Amino Transf (AST/SGOT) 2018-07-25 13:28:00* Test Item Value Reference Range Interpretation Comments Aspartate Amino Transf (AST/SGOT) (test code = Aspartate Amino Transf (AST/SGOT)) 14 5-34 [facility]oAlanine Aminotransferase (ALT/SGPT) 2018-07-25 13:28:00* Test Item Value Reference Range Interpretation Comments Alanine Aminotransferase (ALT/SGPT) (test code = 1742-6) 42 0-55 [facility]oTotal Ngpznpb3119-12-58 13:28:00* Test Item Value Reference Range Interpretation Comments Total Protein (test code = 2885-2) 6.4 6.5-8.1 L [facility]oAlbumin2019-02-23 13:28:00* Test Item Value Reference Range Interpretation Comments Albumin (test code = 1751-7) 3.4 3.5-5.0 L [facility]oGlobulin2019-02-23 13:28:00* Test Item Value Reference Range Interpretation Comments Globulin (test code = 80468-5) 3.0 2.3-3.5 [facility]oAlbumin/Globulin Eirvs4813-08-02 13:28:00 * Test Item Value Reference Range Interpretation Comments Albumin/Globulin Ratio (test code = 1759-0) 1.1 0.8-2.0 [facility]oAlkaline Vktftxcajbp8157-46-68 13:28:00* Test Item Value Reference Range Interpretation Comments Alkaline Phosphatase (test code = 6768-6) 63 40-150 [facility]oTotal Srmsbnhuz7026-60-10 13:28:00* Test Item Value Reference Range Interpretation Comments Total Bilirubin (test code = 1975-2) 0.3 0.2-1.2 [facility]oAspartate Amino Transf (AST/SGOT) 2018-07-25 13:28:00* Test Item Value Reference Range Interpretation Comments Aspartate Amino Transf (AST/SGOT) (test code = Aspartate Amino Transf (AST/SGOT)) 14 5-34 [facility]oAlanine Aminotransferase (ALT/SGPT) 2018-07-25 13:28:00* Test Item Value Reference Range Interpretation Comments Alanine Aminotransferase (ALT/SGPT) (test code = 1742-6) 42 0-55 [facility]oTotal Cqndiqq6926-51-21 13:28:00* Test Item Value Reference Range Interpretation Comments Total Protein (test code = 2885-2) 6.4 6.5-8.1 L [facility]oAlbumin2019-02-23 13:28:00* Test Item Value Reference Range Interpretation Comments Albumin (test code = 1751-7) 3.4 3.5-5.0 L [facility]oGlobulin2019-02-23 13:28:00* Test Item Value Reference Range Interpretation Comments Globulin (test code = 17589-2) 3.0 2.3-3.5 [facility]oAlbumin/Globulin Afcdk2846-66-34 13:28:00 * Test Item Value Reference Range Interpretation Comments Albumin/Globulin Ratio (test code = 1759-0) 1.1 0.8-2.0 [facility]oAlkaline Czrkfqnqfqq1442-60-80 13:28:00* Test Item Value Reference Range Interpretation Comments Alkaline Phosphatase (test code = 6768-6) 63 40-150 [facility]oUrine Bxjwqhwpulks5649-29-58 12:26:00* Test Item Value Reference Range Interpretation Comments Urine Urobilinogen (test code = 74319-3) 0.2 0.2-1 [facility]oU[facility] Znpkmuwag7157-61-15 12:26:00* Test Item Value Reference Range Interpretation Comments Urine Bilirubin (test code = 1978-6) NEGATIVE NEGATIVE [facility]oU[facility] Evvhb6432-45-95 12:26:00* Test Item Value Reference Range Interpretation Comments Urine Blood (test code = 26390-9) NEGATIVE NEGATIVE [facility]oU[facility] HHV8657-43-60 12:26:00* Test Item Value Reference Range Interpretation Comments Urine WBC (test code = 5821-4) 0-5 0-5 [facility] CVM7467-19-75 12:26:00* Test Item Value Reference Range Interpretation Comments Urine RBC (test code = 83815-8) 0-5 0-5 [facility] Npykywzv1450-66-28 12:26:00* Test Item Value Reference Range Interpretation Comments Urine Bacteria (test code = 75920-0) FEW NONE [facility] Epithelial Aqwzz6700-02-20 12:26:00 * Test Item Value Reference Range Interpretation Comments Urine Epithelial Cells (test code = 92238-8) MANY NONE [facility] Jzmlravapsta4375-40-69 12:26:00* Test Item Value Reference Range Interpretation Comments Urine Urobilinogen (test code = 42848-6) 0.2 0.2-1 [facility] Gsxjbethp9285-10-84 12:26:00* Test Item Value Reference Range Interpretation Comments Urine Bilirubin (test code = 1978-6) NEGATIVE NEGATIVE [facility] Wekpm4733-76-14 12:26:00* Test Item Value Reference Range Interpretation Comments Urine Blood (test code = 13000-7) NEGATIVE NEGATIVE [facility] ZXG8180-80-01 12:26:00* Test Item Value Reference Range Interpretation Comments Urine WBC (test code = 5821-4) 0-5 0-5 [facility] [id number] 12:26:00* Test Item Value Reference Range Interpretation Comments Urine RBC (test code = 75866-6) 0-5 0-5 [facility] Ffpfevmq9046-66-25 12:26:00* Test Item Value Reference Range Interpretation Comments Urine Bacteria (test code = 92527-4) FEW NONE [facility] Epithelial Gxean0567-81-87 12:26:00 * Test Item Value Reference Range Interpretation Comments Urine Epithelial Cells (test code = 41071-3) MANY NONE [facility] Zhvevavlxapa5739-00-84 12:26:00* Test Item Value Reference Range Interpretation Comments Urine Urobilinogen (test code = 95300-2) 0.2 0.2-1 [facility] Hymyejksi6138-19-04 12:26:00* Test Item Value Reference Range Interpretation Comments Urine Bilirubin (test code = 1978-6) NEGATIVE NEGATIVE [facility] Lildc0919-87-85 12:26:00* Test Item Value Reference Range Interpretation Comments Urine Blood (test code = 69923-0) NEGATIVE NEGATIVE [facility] HUC5175-79-53 12:26:00* Test Item Value Reference Range Interpretation Comments Urine WBC (test code = 5821-4) 0-5 0-5 [facility] MFS2299-29-73 12:26:00* Test Item Value Reference Range Interpretation Comments Urine RBC (test code = 02139-3) 0-5 0-5 [facility] Uihsstrd3237-65-29 12:26:00* Test Item Value Reference Range Interpretation Comments Urine Bacteria (test code = 86149-1) FEW NONE [facility] Ep[facility]helial Ckpro3714-25-04 12:26:00 * Test Item Value Reference Range Interpretation Comments Urine Epithelial Cells (test code = 84286-4) MANY NONE [facility] Vkenwbbqwldl3732-31-73 12:26:00* Test Item Value Reference Range Interpretation Comments Urine Urobilinogen (test code = 85454-4) 0.2 0.2-1 [facility] Jjroygirk7139-76-30 12:26:00* Test Item Value Reference Range Interpretation Comments Urine Bilirubin (test code = 1977-6) NEGATIVE NEGATIVE [facility] Testc2400-28-45 12:26:00* Test Item Value Reference Range Interpretation Comments Urine Blood (test code = 40645-4) NEGATIVE NEGATIVE [facility] VQY6822-40-27 12:26:00* Test Item Value Reference Range Interpretation Comments Urine WBC (test code = 5821-4) 0-5 0-5 [facility] OWN4621-96-51 12:26:00* Test Item Value Reference Range Interpretation Comments Urine RBC (test code = 08000-4) 0-5 0-5 [facility] Rcmuhfug1753-85-55 12:26:00* Test Item Value Reference Range Interpretation Comments Urine Bacteria (test code = 19057-1) FEW NONE [facility] Ep[facility]helial Sjbwt8526-96-75 12:26:00 * Test Item Value Reference Range Interpretation Comments Urine Epithelial Cells (test code = 44636-6) MANY NONE [facility] Vbfynbupthgh5594-20-19 12:26:00* Test Item Value Reference Range Interpretation Comments Urine Urobilinogen (test code = 96682-5) 0.2 0.2-1 [facility] Hdhfvoskf2163-13-40 12:26:00* Test Item Value Reference Range Interpretation Comments Urine Bilirubin (test code = 1977-6) NEGATIVE NEGATIVE [facility] Dzfrq9537-84-41 12:26:00* Test Item Value Reference Range Interpretation Comments Urine Blood (test code = 12736-4) NEGATIVE NEGATIVE [facility] QOB0659-93-29 12:26:00* Test Item Value Reference Range Interpretation Comments Urine WBC (test code = 5821-4) 0-5 0-5 [facility] QOV6316-24-89 12:26:00* Test Item Value Reference Range Interpretation Comments Urine RBC (test code = 28902-7) 0-5 0-5 [facility] Kgxkhfog9587-35-66 12:26:00* Test Item Value Reference Range Interpretation Comments Urine Bacteria (test code = 13300-9) FEW NONE [facility] Epithelial Mxfly8161-28-62 12:26:00 * Test Item Value Reference Range Interpretation Comments Urine Epithelial Cells (test code = 21846-3) MANY NONE [facility] Ejkkw9900-73-16 12:19:00* Test Item Value Reference Range Interpretation Comments Urine Color (test code = 5778-6) YELLOW YELLOW [facility] Zadazyt8531-57-99 12:19:00* Test Item Value Reference Range Interpretation Comments Urine Clarity (test code = 74632-9) HAZY CLEAR [facility] Specific Craawkr9366-94-30 12:19:00 * Test Item Value Reference Range Interpretation Comments Urine Specific [place] (test code = 5811-5) 1.030 1.010-1.02 5 H [facility] iY5409-97-38 12:19:00* Test Item Value Reference Range Interpretation Comments Urine pH (test code = 01900-2) 6 5-7 [facility] Leukocyte Ommbtiqf8890-70-13 12:19:00* Test Item Value Reference Range Interpretation Comments Urine Leukocyte Esterase (test code = 5799-2) TRACE NEGATIVE H [facility] Jwvwfrb7291-39-50 12:19:00* Test Item Value Reference Range Interpretation Comments Urine Nitrite (test code = 26372-8) NEGATIVE NEGATIVE [facility] Ohncouf2384-99-31 12:19:00* Test Item Value Reference Range Interpretation Comments Urine Protein (test code = 5804-0) TRACE NEGATIVE H [facility] Glucose (UA)2018-07-25 12:19:00* Test Item Value Reference Range Interpretation Comments Urine Glucose (UA) (test code = 2349-9) NEGATIVE NEGATIVE [facility] Ejrnjcl8435-21-34 12:19:00* Test Item Value Reference Range Interpretation Comments Urine Ketones (test code = 17902-5) NEGATIVE NEGATIVE [facility] Opiates Imzpcv0678-09-82 12:19:00* Test Item Value Reference Range Interpretation Comments Urine Opiates Screen (test code = 46913-7) POSITIVE NEGATIVE H ALL TESTS PERFORMED MANUALLY ON [employer] TOX/SEE TEST This test provides only a sc reen. Positive results should be repeated by a confirmatory test.[facility] Barbiturates Lpcqrp8504-50-82 12:19:00* Test Item Value Reference Range Interpretation Comments Urine Barbiturates Screen (test code = 683483438) NEGATIVE NEGA TIVE [facility] Phencyclidine Jrmxsz9236-73-68 12:19:00* Test Item Value Reference Range Interpretation Comments Urine Phencyclidine Screen (test code = 03067-0) NEGATIVE NEGAT JACQUI [facility] Amphetamines Xkhmcl7541-41-91 12:19:00* Test Item Value Reference Range Interpretation Comments Urine Amphetamines Screen (test code = 50838-2) POSITIVE NEGATI VE H This test provides only a screen. Positive results should be repeated by a confi rmatory test.[facility] Methamphetamines Nxxwoe9294-52-08 12:19:00* Test Item Value Reference Range Interpretation Comments Urine Methamphetamines Screen (test code = Urine Metha mphetamines Screen) POSITIVE NEGATIVE H This test provides only a screen. Positive results should be repeated by a confi rmatory test.[facility] Benzodiazepines Screen 2018-07-25 12:19:00* Test Item Value Reference Range Interpretation Comments Urine Benzodiazepines Screen (test code = 00751-5) POSITIVE NEG ATIVE H This test provides only a screen. Positive results should be repeated by a confi rmatory test.[facility] Cocaine Screen 2018-07-25 12:19:00* Test Item Value Reference Range Interpretation Comments Urine Cocaine Screen (test code = 3398-5) NEGATIVE NEGATIVE [facility] Cannabinoids Ufuusn7133-87-02 12:19:00* Test Item Value Reference Range Interpretation Comments Urine Cannabinoids Screen (test code = 77170-8) NEGATIVE NEGATI VE THESE RESULTS ARE FOR MEDICAL TREATMENT ONLYTHIS REPORT CONTAINS UNCONFIR MED SCREENING RESULTS*POSITIVE RESULTS WILL BE CONFIRMED BY REFERENCE LAB UPON R EQUEST CUT-OFFDRUG CLASS CONCENTRATION ng/mLAmphetamines 1000Methamphetamines 1000Cocaine 300Opiate 300Phencyc lidine 25Cannabinoid 50Barbiturates 300Benzodiazepine 300Methadone 300[facility] Methadone Xayrww4255-03-30 12:19:00* Test Item Value Reference Range Interpretation Comments Urine Methadone Screen (test code = 55022-1) NEGATIVE NEGATIVE THESE RESULTS ARE FOR MEDICAL TREATMENT ONLYTHIS REPORT CONTAINS UNCONFIR MED SCREENING RESULTS*POSITIVE RESULTS WILL BE CONFIRMED BY REFERENCE LAB UPON R EQUEST CUT-OFFDRUG CLASS CONCENTRATION ng/mLAmphetamines 1000Methamphetamines 1000Cocaine Metabolite 300Opiate 300Phencyc lidine 25Cannabinoid 50Barbiturates 300Benzodiazepine 300Methadone 300[facility] Apqr6846-32-35 12:19:00* Test Item Value Reference Range Interpretation Comments Urine Test (test code = 2106-3) NEGATIVE NEGATIVE [facility] Vmuzm7583-11-81 12:19:00* Test Item Value Reference Range Interpretation Comments Urine Color (test code = 5778-6) YELLOW YELLOW [facility] Bgfuhql2825-43-30 12:19:00* Test Item Value Reference Range Interpretation Comments Urine Clarity (test code = 81852-8) HAZY CLEAR [facility] Specific Wvnwcel0974-30-72 12:19:00 * Test Item Value Reference Range Interpretation Comments Urine Specific [place] (test code = 5811-5) 1.030 1.010-1.02 5 H [facility] bQ4548-94-50 12:19:00* Test Item Value Reference Range Interpretation Comments Urine pH (test code = 60592-2) 6 5-7 [facility] Leukocyte Jrqgnibh1344-23-45 12:19:00* Test Item Value Reference Range Interpretation Comments Urine Leukocyte Esterase (test code = 5799-2) TRACE NEGATIVE H [facility] Ufehchi5991-89-55 12:19:00* Test Item Value Reference Range Interpretation Comments Urine Nitrite (test code = 90484-2) NEGATIVE NEGATIVE [facility] Sjtxpqc2135-21-22 12:19:00* Test Item Value Reference Range Interpretation Comments Urine Protein (test code = 5804-0) TRACE NEGATIVE H [facility] Glucose (UA)2018-07-25 12:19:00* Test Item Value Reference Range Interpretation Comments Urine Glucose (UA) (test code = 2349-9) NEGATIVE NEGATIVE [facility] Ygrmlyd0107-23-11 12:19:00* Test Item Value Reference Range Interpretation Comments Urine Ketones (test code = 59866-4) NEGATIVE NEGATIVE [facility] Opiates Eqeowe0986-46-37 12:19:00* Test Item Value Reference Range Interpretation Comments Urine Opiates Screen (test code = 28173-6) POSITIVE NEGATIVE H ALL TESTS PERFORMED MANUALLY ON [employer] TOX/SEE TEST This test provides only a sc reen. Positive results should be repeated by a confirmatory test.[facility] Barbiturates Eflxdx2655-94-72 12:19:00* Test Item Value Reference Range Interpretation Comments Urine Barbiturates Screen (test code = 529552354) NEGATIVE NEGA TIVE [facility] Phencyclidine Rhpriy1647-48-62 12:19:00* Test Item Value Reference Range Interpretation Comments Urine Phencyclidine Screen (test code = 38718-9) NEGATIVE NEGAT JACQUI [facility] Amphetamines Ygitfj5690-46-50 12:19:00* Test Item Value Reference Range Interpretation Comments Urine Amphetamines Screen (test code = 88233-7) POSITIVE NEGATI VE H This test provides only a screen. Positive results should be repeated by a confi rmatory test.[facility] Methamphetamines Gyqwjh3430-28-91 12:19:00* Test Item Value Reference Range Interpretation Comments Urine Methamphetamines Screen (test code = Urine Metha mphetamines Screen) POSITIVE NEGATIVE H This test provides only a screen. Positive results should be repeated by a confi rmatory test.[facility] Benzodiazepines Screen 2018-07-25 12:19:00* Test Item Value Reference Range Interpretation Comments Urine Benzodiazepines Screen (test code = 50678-6) POSITIVE NEG ATIVE H This test provides only a screen. Positive results should be repeated by a confi rmatory test.[facility] Cocaine Screen 2018-07-25 12:19:00* Test Item Value Reference Range Interpretation Comments Urine Cocaine Screen (test code = 3398-5) NEGATIVE NEGATIVE [facility] Cannabinoids Nlrwci1426-33-45 12:19:00* Test Item Value Reference Range Interpretation Comments Urine Cannabinoids Screen (test code = 00735-2) NEGATIVE NEGATI VE THESE RESULTS ARE FOR MEDICAL TREATMENT ONLYTHIS REPORT CONTAINS UNCONFIR MED SCREENING RESULTS*POSITIVE RESULTS WILL BE CONFIRMED BY REFERENCE LAB UPON R EQUEST CUT-OFFDRUG CLASS CONCENTRATION ng/mLAmphetamines 1000Methamphetamines 1000Cocaine 300Opiate 300Phencyc lidine 25Cannabinoid 50Barbiturates 300Benzodiazepine 300Methadone 300[facility]adone Dwmkqd8182-89-95 12:19:00* Test Item Value Reference Range Interpretation Comments Urine Methadone Screen (test code = 44804-9) NEGATIVE NEGATIVE THESE RESULTS ARE FOR MEDICAL TREATMENT ONLYTHIS REPORT CONTAINS UNCONFIR MED SCREENING RESULTS*POSITIVE RESULTS WILL BE CONFIRMED BY REFERENCE LAB UPON R EQUEST CUT-OFFDRUG CLASS CONCENTRATION ng/mLAmphetamines 1000Methamphetamines 1000Cocaine Metabolite 300Opiate 300Phencyc lidine 25Cannabinoid 50Barbiturates 300Benzodiazepine 300Methadone 300[facility] Lhow5189-93-68 12:19:00* Test Item Value Reference Range Interpretation Comments Urine Test (test code = 2106-3) NEGATIVE NEGATIVE [facility] Gbssd5665-01-96 12:19:00* Test Item Value Reference Range Interpretation Comments Urine Color (test code = 5778-6) YELLOW YELLOW [facility] Tirojif5809-15-41 12:19:00* Test Item Value Reference Range Interpretation Comments Urine Clarity (test code = 40564-6) HAZY CLEAR [facility] Specific Upohpru7899-99-62 12:19:00 * Test Item Value Reference Range Interpretation Comments Urine Specific [place] (test code = 5811-5) 1.030 1.010-1.02 5 H [facility] rG3021-37-31 12:19:00* Test Item Value Reference Range Interpretation Comments Urine pH (test code = 51504-5) 6 5-7 [facility] Leukocyte Cdtdfnqg4504-22-80 12:19:00* Test Item Value Reference Range Interpretation Comments Urine Leukocyte Esterase (test code = 5799-2) TRACE NEGATIVE H [facility] Bxkrbxd9552-44-32 12:19:00* Test Item Value Reference Range Interpretation Comments Urine Nitrite (test code = 04507-7) [facility]IVE [facility] [id number] 12:19:00* Test Item Value Reference Range Interpretation Comments Urine Protein (test code = 5804-0) TRACE NEGATIVE H [facility] Glucose (UA)2018-07-25 12:19:00* Test Item Value Reference Range Interpretation Comments Urine Glucose (UA) (test code = 2349-9) NEGATIVE NEGATIVE [facility] Jrxustc2949-80-85 12:19:00* Test Item Value Reference Range Interpretation Comments Urine Ketones (test code = 99501-9) NEGATIVE NEGATIVE [facility] Opiates Aozuva0745-05-75 12:19:00* Test Item Value Reference Range Interpretation Comments Urine Opiates Screen (test code = 14018-7) POSITIVE NEGATIVE H ALL TESTS PERFORMED MANUALLY ON [employer] TOX/SEE TEST This test provides only a sc reen. Positive results should be repeated by a confirmatory test.[facility] Barbitur[facility] Geguep1838-09-67 12:19:00* Test Item Value Reference Range Interpretation Comments Urine Barbiturates Screen (test code = 559056733) NEGATIVE NEGA TIVE [facility] Phencyclidine Rwijzf8352-10-66 12:19:00* Test Item Value Reference Range Interpretation Comments Urine Phencyclidine Screen (test code = 34548-7) NEGATIVE NEGAT JACQUI [facility] Amphetamines Gcqoer7236-29-21 12:19:00* Test Item Value Reference Range Interpretation Comments Urine Amphetamines Screen (test code = 09252-6) POSITIVE NEGATI VE H This test provides only a screen. Positive results should be repeated by a confi rmatory test.[facility] Methamphetamines Vdxdqs3684-27-37 12:19:00* Test Item Value Reference Range Interpretation Comments Urine Methamphetamines Screen (test code = Urine Metha mphetamines Screen) POSITIVE NEGATIVE H This test provides only a screen. Positive results should be repeated by a confi rmatory test.[facility] Benzodiazepines Screen 2018-07-25 12:19:00* Test Item Value Reference Range Interpretation Comments Urine Benzodiazepines Screen (test code = 06556-5) POSITIVE NEG ATIVE H This test provides only a screen. Positive results should be repeated by a confi rmatory test.[facility] Cocaine Screen 2018-07-25 12:19:00* Test Item Value Reference Range Interpretation Comments Urine Cocaine Screen (test code = 3398-5) NEGATIVE NEGATIVE [facility] Cannabinoids Skzzzc1340-27-68 12:19:00* Test Item Value Reference Range Interpretation Comments Urine Cannabinoids Screen (test code = 06700-9) NEGATIVE NEGATI VE THESE RESULTS ARE FOR MEDICAL TREATMENT ONLYTHIS REPORT CONTAINS UNCONFIR MED SCREENING RESULTS*POSITIVE RESULTS WILL BE CONFIRMED BY REFERENCE LAB UPON R EQUEST CUT-OFFDRUG CLASS CONCENTRATION ng/mLAmphetamines 1000Methamphetamines 1000Cocaine 300Opiate 300Phencyc lidine 25Cannabinoid 50Barbiturates 300Benzodiazepine 300Methadone 300[facility] Pvagre8737-94-59 12:19:00* Test Item Value Reference Range Interpretation Comments Urine Methadone Screen (test code = 53681-1) NEGATIVE NEGATIVE THESE RESULTS ARE FOR MEDICAL TREATMENT ONLYTHIS REPORT CONTAINS UNCONFIR MED SCREENING RESULTS*POSITIVE RESULTS WILL BE CONFIRMED BY REFERENCE LAB UPON R EQUEST CUT-OFFDRUG CLASS CONCENTRATION ng/mLAmphetamines 1000Methamphetamines 1000Cocaine Metabolite 300Opiate 300Phencyc lidine 25Cannabinoid 50Barbiturates 300Benzodiazepine 300Methadone 300[facility] Rafb5605-13-04 12:19:00* Test Item Value Reference Range Interpretation Comments Urine Test (test code = 2106-3) NEGATIVE NEGATIVE [facility] Dmeel6798-88-48 12:19:00* Test Item Value Reference Range Interpretation Comments Urine Color (test code = 5778-6) YELLOW YELLOW [facility] Eygykqh3277-26-31 12:19:00* Test Item Value Reference Range Interpretation Comments Urine Clarity (test code = 38254-3) HAZY CLEAR [facility] Specific Vsfrobb1917-47-21 12:19:00 * Test Item Value Reference Range Interpretation Comments Urine Specific [place] (test code = 5811-5) 1.030 1.010-1.02 5 H [facility] [id number] 12:19:00* Test Item Value Reference Range Interpretation Comments Urine pH (test code = 05070-8) 6 5-7 [facility] Leukocyte Lxkjzwox0320-45-94 12:19:00* Test Item Value Reference Range Interpretation Comments Urine Leukocyte Esterase (test code = 5799-2) TRACE NEGATIVE H [facility] Wajhzpa3957-03-52 12:19:00* Test Item Value Reference Range Interpretation Comments Urine Nitrite (test code = 57487-7) NEGATIVE NEGATIVE [facility] Lqytbhm7894-44-35 12:19:00* Test Item Value Reference Range Interpretation Comments Urine Protein (test code = 5804-0) [facility]ACE [facility]GATIVE [facility]2018-[facility] 12:19:00* Test Item Value Reference Range Interpretation Comments Urine Glucose (UA) (test code = 2349-9) NEGATIVE NEGATIVE [facility] Kieycwa7539-99-97 12:19:00* Test Item Value Reference Range Interpretation Comments Urine Ketones (test code = 96107-0) NEGATIVE NEGATIVE [facility] Opiates Zpooqo7906-38-77 12:19:00* Test Item Value Reference Range Interpretation Comments Urine Opiates Screen (test code = 73634-7) POSITIVE NEGATIVE H ALL TESTS PERFORMED MANUALLY ON [employer] TOX/SEE TEST This test provides only a sc reen. Positive results should be repeated by a confirmatory test.[facility] Bar[facility] Ooccxk5511-49-60 12:19:00* Test Item Value Reference Range Interpretation Comments Urine Barbiturates Screen (test code = 602373154) NEGATIVE NEGA TIVE [facility] Phencyclidine Ysxevc6910-60-86 12:19:00* Test Item Value Reference Range Interpretation Comments Urine Phencyclidine Screen (test code = 52930-6) NEGATIVE NEGAT JACQUI [facility] Amphetamines Bfmajh7921-00-90 12:19:00* Test Item Value Reference Range Interpretation Comments Urine Amphetamines Screen (test code = 26333-3) POSITIVE NEGATI VE H This test provides only a screen. Positive results should be repeated by a confi rmatory test.[facility] Methamphetamines Lepvhe9381-96-37 12:19:00* Test Item Value Reference Range Interpretation Comments Urine Methamphetamines Screen (test code = Urine Metha mphetamines Screen) POSITIVE NEGATIVE H This test provides only a screen. Positive results should be repeated by a confi rmatory test.[facility] Benzodiazepines Screen 2018-07-25 12:19:00* Test Item Value Reference Range Interpretation Comments Urine Benzodiazepines Screen (test code = 16366-6) POSITIVE NEG ATIVE H This test provides only a screen. Positive results should be repeated by a confi rmatory test.[facility] Cocaine Screen 2018-07-25 12:19:00* Test Item Value Reference Range Interpretation Comments Urine Cocaine Screen (test code = 3398-5) NEGATIVE NEGATIVE [facility] Cannabinoids Zjwbyf5384-26-02 12:19:00* Test Item Value Reference Range Interpretation Comments Urine Cannabinoids Screen (test code = 67343-9) NEGATIVE NEGATI VE THESE RESULTS ARE FOR MEDICAL TREATMENT ONLYTHIS REPORT CONTAINS UNCONFIR MED SCREENING RESULTS*POSITIVE RESULTS WILL BE CONFIRMED BY REFERENCE LAB UPON R EQUEST CUT-OFFDRUG CLASS CONCENTRATION ng/mLAmphetamines 1000Methamphetamines 1000Cocaine 300Opiate 300Phencyc lidine 25Cannabinoid 50Barbiturates 300Benzodiazepine 300Methadone 300[facility] Meth[facility]one Eeuxqg6799-46-65 12:19:00* Test Item Value Reference Range Interpretation Comments Urine Methadone Screen (test code = 07040-9) NEGATIVE NEGATIVE THESE RESULTS ARE FOR MEDICAL TREATMENT ONLYTHIS REPORT CONTAINS UNCONFIR MED SCREENING RESULTS*POSITIVE RESULTS WILL BE CONFIRMED BY REFERENCE LAB UPON R EQUEST CUT-OFFDRUG CLASS CONCENTRATION ng/mLAmphetamines 1000Methamphetamines 1000Cocaine Metabolite 300Opiate 300Phencyc lidine 25Cannabinoid 50Barbiturates 300Benzodiazepine 300Methadone 300[facility] Yzdm6496-24-08 12:19:00* Test Item Value Reference Range Interpretation Comments Urine Test (test code = 2106-3) NEGATIVE NEGATIVE [facility] Dywno1750-11-97 12:19:00* Test Item Value Reference Range Interpretation Comments Urine Color (test code = 5778-6) YELLOW YELLOW [facility] Bmvivzz5715-34-38 12:19:00* Test Item Value Reference Range Interpretation Comments Urine Clarity (test code = 04676-2) HAZY CLEAR [facility] Specific Srjwopz0589-74-70 12:19:00 * Test Item Value Reference Range Interpretation Comments Urine Specific [place] (test code = 5811-5) 1.030 1.010-1.02 5 H [facility] [id number] 12:19:00* Test Item Value Reference Range Interpretation Comments Urine pH (test code = 53673-0) 6 5-7 [facility] Leukocyte Ipuvjzdg3424-47-59 12:19:00* Test Item Value Reference Range Interpretation Comments Urine Leukocyte Esterase (test code = 5799-2) TRACE NEGATIVE H [facility] Nbgxrju5472-44-29 12:19:00* Test Item Value Reference Range Interpretation Comments Urine Nitrite (test code = 44646-1) NEGATIVE NEGATIVE [facility] Mdpzrtb0892-45-32 12:19:00* Test Item Value Reference Range Interpretation Comments Urine Protein (test code = 5804-0) TRACE NEGATIVE H [facility] Glucose (UA)2018-07-25 12:19:00* Test Item Value Reference Range Interpretation Comments Urine Glucose (UA) (test code = 2349-9) NEGATIVE NEGATIVE [facility] Blgtztu2243-56-01 12:19:00* Test Item Value Reference Range Interpretation Comments Urine Ketones (test code = 45710-7) NEGATIVE NEGATIVE [facility] Opiates Jeepzr8701-45-62 12:19:00* Test Item Value Reference Range Interpretation Comments Urine Opiates Screen (test code = 91933-3) POSITIVE NEGATIVE H ALL TESTS PERFORMED MANUALLY ON [employer] TOX/SEE TEST This test provides only a sc reen. Positive results should be repeated by a confirmatory test.[facility] Bar[facility] Axztnm6252-42-65 12:19:00* Test Item Value Reference Range Interpretation Comments Urine Barbiturates Screen (test code = 036570666) NEGATIVE NEGA TIVE [facility] Phencyclidine Jyaqql7731-52-33 12:19:00* Test Item Value Reference Range Interpretation Comments Urine Phencyclidine Screen (test code = 98934-9) NEGATIVE NEGAT JACQUI [facility] Amphetamines Qwkbke7111-81-03 12:19:00* Test Item Value Reference Range Interpretation Comments Urine Amphetamines Screen (test code = 86424-3) POSITIVE NEGATI VE H This test provides only a screen. Positive results should be repeated by a confi rmatory test.[facility] Methamphetamines Msxvbc1432-40-52 12:19:00* Test Item Value Reference Range Interpretation Comments Urine Methamphetamines Screen (test code = Urine Metha mphetamines Screen) POSITIVE NEGATIVE H This test provides only a screen. Positive results should be repeated by a confi rmatory test.[facility] Benzodiazepines Screen 2018-07-25 12:19:00* Test Item Value Reference Range Interpretation Comments Urine Benzodiazepines Screen (test code = 62329-7) POSITIVE NEG ATIVE H This test provides only a screen. Positive results should be repeated by a confi rmatory test.[facility] Cocaine Screen 2018-07-25 12:19:00* Test Item Value Reference Range Interpretation Comments Urine Cocaine Screen (test code = 3398-5) NEGATIVE NEGATIVE [facility] Cannabinoids Vulqcg6410-56-24 12:19:00* Test Item Value Reference Range Interpretation Comments Urine Cannabinoids Screen (test code = 31323-5) NEGATIVE NEGATI VE THESE RESULTS ARE FOR MEDICAL TREATMENT ONLYTHIS REPORT CONTAINS UNCONFIR MED SCREENING RESULTS*POSITIVE RESULTS WILL BE CONFIRMED BY REFERENCE LAB UPON R EQUEST CUT-OFFDRUG CLASS CONCENTRATION ng/mLAmphetamines 1000Methamphetamines 1000Cocaine 300Opiate 300Phencyc lidine 25Cannabinoid 50Barbiturates 300Benzodiazepine 300Methadone 300[facility] Methadone Mvptfo6556-52-68 12:19:00* Test Item Value Reference Range Interpretation Comments Urine Methadone Screen (test code = 47878-9) NEGATIVE NEGATIVE THESE RESULTS ARE FOR MEDICAL TREATMENT ONLYTHIS REPORT CONTAINS UNCONFIR MED SCREENING RESULTS*POSITIVE RESULTS WILL BE CONFIRMED BY REFERENCE LAB UPON R EQUEST CUT-OFFDRUG CLASS CONCENTRATION ng/mLAmphetamines 1000Methamphetamines 1000Cocaine Metabolite 300Opiate 300Phencyc lidine 25Cannabinoid 50Barbiturates 300Benzodiazepine 300Methadone 300[facility] Hdjx8905-54-41 12:19:00* Test Item Value Reference Range Interpretation Comments Urine Test (test code = 2106-3) NEGATIVE NEGATIVE [facility] VIEWS [id number] 12:16:00 [facility] [place] [address] Patient Name: XOCHILT FAN MR #: [id number] : 1980 Age/Sex: 37/F Req #: [id number] Adm Physician: Ordered by: NICHOLE CHANG ACCORDION REPAIRER Report #: [id number] Location: ER Room/Bed: Procedure: [id number] DX/ HAND 3+ VIEWS LEFT Exam Date: [...] on 07/25/18 1222 COPY TO: NICHOLE CHANG ACCORDION REPAIRER COMPREHENSIVE METABOLIC [id number] 19:40:00* Test Item Value Reference Range Interpretation [...] due to change in reagent. HCG SERUM [id number] 19:40:00* Test Item Value Reference Range Interpretation Comments HCG SERUM QUAL (test code = HCGQL) NEGATIVE NEGATIVE This HCGQL test is NOT applicable for MALE patients.Check with nurse about probable order error.If Tumor Marker Test needed, nurse should order test "HCGTU"(Test #550.47462) COMPREHENSIVE METABOLIC [id number] 19:22:00* Test Item Value Reference Range Interpretation [...] code = ALKP) IUnit/L 45-117 HCG SERUM [id number] 19:22:00* Test Item Value Reference Range Interpretation Comments HCG SERUM QUAL (test code = HCGQL) NEGATIVE NEGATIVE This HCGQL test is NOT applicable for MALE patients.Check with nurse about probable order error.If Tumor Marker Test needed, nurse should order test "HCGTU"(Test #550.39098) COMPREHENSIVE METABOLIC [id number] 19:13:00* Test Item Value Reference Range Interpretation [...] code = ALKP) IUnit/L 45-117 HCG SERUM [id number] 19:13:00* Test Item Value Reference Range Interpretation Comments HCG SERUM QUAL (test code = HCGQL) NEGATIVE CBC W/MANUAL [id number] 19:06:00* Test Item Value Reference Range Interpretation [...] % - XR HAND 3 + V [id number] 19:04:00 FAX: OSMAR LALA MD [place]: St: REG FAX: Eliceo Queen [phone] Name: XOCHILT FAN [facility] : 1980 Age/S: 37/F [address] [facility] Unit #: [id number] Loc: [place] [address] Phys: Eliceo Queen NP Acct: [id number] Dis Date: Status: REG ER PHONE #: [phone] Exam Date: 07/24/2018 1859 FAX #: [phone] Reason: SWELLING EXAMS: CPT CODE: [id number] XR HAND 3 + [place] [id number] REASON FOR EXAM: SWELLING EXAM ORDER DATE: [...] (1907) PAGE 1 Signed Report CBC W/MANUAL [id number] 18:53:00 * Test Item Value Reference Range [...] MORPHOLOGY (test code = PLTMORPH) CBC W/MANUAL [id number] 18:46:00* Test Item Value Reference Range Interpretation [...] MORPHOLOGY (test code = PLTMORPH) CBC W/MANUAL [id number] 18:46:00* Test Item Value Reference Range Interpretation [...] MORPHOLOGY (test code = PLTMORPH) CBC W/MANUAL [id number] 18:46:00* Test Item Value Reference Range Interpretation [...] MORPHOLOGY (test code = PLTMORPH) CBC W/MANUAL [id number] 18:46:00* Test Item Value Reference Range Interpretation [...] MORPHOLOGY (test code = PLTMORPH) BASIC METABOLIC [id number] 09:12:00* Test Item Value Reference Range Interpretation [...] CA) 8.3 mg/dL 8.5-10.1 L HCG SERUM [id number] 09:12:00* Test Item Value Reference Range Interpretation Comments HCG SERUM QUAL (test code = HCGQL) NEGATIVE NEGATIVE This HCGQL test is NOT applicable for MALE patients.Check with nurse about probable order error.If Tumor Marker Test needed, nurse should order test "HCGTU"(Test #550.14975) BASIC METABOLIC [id number] 09:11:00* Test Item Value Reference Range Interpretation [...] CA) 8.3 mg/dL 8.5-10.1 L HCG SERUM [id number] 09:11:00* Test Item Value Reference Range Interpretation Comments HCG SERUM QUAL (test code = HCGQL) NEGATIVE CBC W/O [id number] 09:03:00* Test Item Value Reference Range Interpretation [...] MPV) 10.4 fL 6.7-11.0 N CBC W/O [id number] 09:00:00* Test Item Value Reference Range Interpretation [...]
== END 2020-03-31 14:57 | disposition home or self-care (01) ==
LOC: ER 14:38
DX: L03.114 Cellulitis of left upper limb (principal); F41.9 Anxiety disorder, unspecified; F31.9 Bipolar disorder, unspecified; F43.10 Post-traumatic stress disorder, unspecified; Z98.84 Bariatric surgery status
CPT/HCPCS: 99283

== ENCOUNTER 2021-06-18 06:11 | Inpatient (IN) | payer MEDICARE ==
[2021-06-15 11:18] LABS: BASOPHILS % 0.5 % (0.0-1.0); EOSINOPHILS # (AUTO) 0.2 (0.0-0.4); EOSINOPHILS % 2.5 % (0.0-6.0); HEMATOCRIT 45.3 % (34.2-44.1); HEMOGLOBIN 14.9 g/dL (12.0-16.0); LYMPHOCYTES # (AUTO) 2.5 (1.0-3.2); MEAN CORPUSCULAR HEMOGLOBIN 28.1 pg (28-32); MEAN CORPUSCULAR HGB CONC 32.9 g/dL (31-35); MEAN CORPUSCULAR VOLUME 85.3 fL (81-99); MONOCYTES # (AUTO) 0.6 (0.2-0.8); MONOCYTES % 7.2 % (4.4-11.3); NEUTROPHILS % 59.4 % (38.7-80.0); PLATELET COUNT 305 x10e3/uL (140-360); RED BLOOD COUNT 5.31 x10e6/uL (3.6-5.1)
[~2021-06-18] VITALS: Ht 152.4 cm; Wt 113.4 kg
[~2021-06-18 06:11] MED LIST changes: +CLINDAMYCIN HC150 MG PO; +LAMICTAL100 MG PO
[2021-06-18] MEDS ORDERED: HYDROXYZINE HCL25 MG PO (06:35)
[2021-06-18] MEDS ORDERED: SODIUM CHLORIDE 0.9% 50ML 100 ML ONE (06:57)
[2021-06-18] MEDS ORDERED: Vancomycin IV 1 GM VIAL ONE (07:41)
[2021-06-18] MEDS ORDERED: SODIUM CHLORIDE 0.9% 500ML 0 ML ONE (07:41)
[2021-06-18] MEDS ORDERED: BUPIVACAINE 0.25% 30ML SDV ONE (07:41)
[2021-06-18] MEDS ORDERED: SCOPOLAMINE 1.5 MG PATCH ONE (09:45)
[2021-06-18] MEDS ORDERED: SUGAMMADEX SODIUM 200 MG/2 ML VIAL IV ONE (11:46)
[2021-06-18] MEDS ORDERED: ONDANSETRON HCL INJ 2MG/ML 2ML 2 MG/ML VIAL ONE ×2 (12:06→13:11)
[2021-06-18] MEDS ORDERED: HYDROCODONE/APAP 7.5MG-325MG 1 EA TAB PO PRN (12:15)
[2021-06-18] MEDS ORDERED: ONDANSETRON HCL INJ 2MG/ML 2ML 2 MG/ML VIAL IV PRN (12:15)
[2021-06-18] MEDS ORDERED: FENTANYL CITRATE/PF 100MCG/2 ML INJ ONE ×2 (12:18→13:17)
[2021-06-18] MEDS ORDERED: HYDROMORPHONE 1MG/1ML INJ ONE ×2 (12:52→13:38)
[2021-06-18] MEDS ORDERED: POVIDONE IODINE 0.05% 0.05 % ML PO ONE (13:11)
[2021-06-18] MEDS ORDERED: GLYCOPYRROLATE INJ 0.2 MG/ML VIAL ONE (13:11)
[2021-06-18] MEDS ORDERED: LIDOCAINE HCL 2% LOCAL INJ 5 ML SDV VIAL INJ ONE (13:11)
[2021-06-18] MEDS ORDERED: SEVOFLURANE INHAL SOLN 250 ML PEN BTL ONE (13:11)
[2021-06-18] MEDS ORDERED: NEOSTIGMINE 1 MG/ML 10ML VIAL ONE (13:11)
[2021-06-18] MEDS ORDERED: DEXAMETHASONE SOD PHOS INJ 4 MG/ML SDV ONE (13:11)
[2021-06-18] MEDS ORDERED: PROPOFOL IV EMULSION 10 MG/ML 20 ML VIAL ONE (13:11)
[2021-06-18] MEDS ORDERED: EPHEDRINE SULFATE INJ 50 MG/ML VIAL ONE (13:11)
[2021-06-18] MEDS ORDERED: MIDAZOLAM HCL 2 MG/2 ML VIAL ONE (13:17)
[2021-06-18] MEDS ORDERED: KETAMINE HCL INJ 50 MG/ML 10 ML VIAL ONE (13:17)
[2021-06-18 13:34] LABS: BASOPHILS # (AUTO) 0.1 (0.0-0.1); BASOPHILS % 0.3 % (0.0-1.0); EOSINOPHILS # (AUTO) 0.1 (0.0-0.4); EOSINOPHILS % 0.3 % (0.0-6.0); HEMATOCRIT 47.1 % (34.2-44.1); HEMOGLOBIN 14.5 g/dL (12.0-16.0); LYMPHOCYTES # (AUTO) 1.6 (1.0-3.2); LYMPHOCYTES % 8.7 % (18.0-39.1); MEAN CORPUSCULAR HEMOGLOBIN 28.5 pg (28-32); MEAN CORPUSCULAR HGB CONC 30.8 g/dL (31-35); MEAN CORPUSCULAR VOLUME 92.7 fL (81-99); MONOCYTES # (AUTO) 0.3 (0.2-0.8); MONOCYTES % 1.5 % (4.4-11.3); NEUTROPHILS # (AUTO) 15.9 (2.1-6.9); NEUTROPHILS % 88.8 % (38.7-80.0); PLATELET COUNT 285 x10e3/uL (140-360); RED BLOOD COUNT 5.08 x10e6/uL (3.6-5.1); RED CELL DISTRIBUTION WIDTH 13.1 % (11.7-14.4)
[2021-06-18] MEDS: Morphine 2mg Syringe 2 MG/ML SYR IV PRN ×2 (14:50→16:58)
[2021-06-18] MEDS: SODIUM CHLORIDE 0.9% 1000ML 1,000 ML IV SCH ×2 (14:57→23:48)
[2021-06-18 14:58] VITALS: BP 129/89
[2021-06-18 15:16] VITALS: BP 129/89
[2021-06-18] MEDS ORDERED: HYDROMORPHONE 1MG/1ML INJ IV PRN (18:00)
[2021-06-18] MEDS: HYDROMORPHONE 1MG/1ML INJ IV PRN ×2 (19:51→23:48)
[2021-06-18] MEDS: ENOXAPARIN SOD INJ 40 MG/0.4 ML SYR SC SCH (20:18)
[2021-06-18] MEDS: PROMETHAZINE 12.5MG/ NACL 0.9% 12.5 MG/50 ML BAG IV PRN (20:20)
[2021-06-18 21:00] VITALS: BP 136/86
[2021-06-18 21:01] VITALS: BP 136/86
[2021-06-19 00:24] VITALS: BP 128/64
[2021-06-19] MEDS: PROMETHAZINE 12.5MG/ NACL 0.9% 12.5 MG/50 ML BAG IV PRN ×2 (03:53→08:42)
[2021-06-19] MEDS: HYDROMORPHONE 1MG/1ML INJ IV PRN ×2 (03:53→08:42)
[2021-06-19] MEDS: SODIUM CHLORIDE 0.9% 1000ML 1,000 ML IV SCH ×2 (04:15→11:24)
[2021-06-19 05:14] VITALS: BP 117/75
[2021-06-19 08:07] LABS: BASOPHILS % 0.1 % (0.0-1.0); EOSINOPHILS % 0.1 % (0.0-6.0); HEMATOCRIT 42.5 % (34.2-44.1); HEMOGLOBIN 13.3 g/dL (12.0-16.0); LYMPHOCYTES # (AUTO) 3.1 (1.0-3.2); LYMPHOCYTES % 19.5 % (18.0-39.1); MEAN CORPUSCULAR HEMOGLOBIN 28.5 pg (28-32); MEAN CORPUSCULAR HGB CONC 31.3 g/dL (31-35); MONOCYTES % 6.2 % (4.4-11.3); NEUTROPHILS # (AUTO) 11.8 (2.1-6.9); NEUTROPHILS % 73.8 % (38.7-80.0); PLATELET COUNT 287 x10e3/uL (140-360); RED BLOOD COUNT 4.67 x10e6/uL (3.6-5.1); RED CELL DISTRIBUTION WIDTH 13.2 % (11.7-14.4)
[2021-06-19 08:21] VITALS: BP_SYST 132
[2021-06-19 08:22] VITALS: BP 132/76
[2021-06-19 08:33] LABS: ALBUMIN 3.4 g/dL (3.5-5.0); ANION GAP 14.2 mmol/L (8-16); CALCIUM 8.6 mg/dL (8.4-10.2); CREATININE, SERUM 0.76 mg/dL (0.57-1.11); POTASSIUM 4.2 mmol/L (3.5-5.1)
[2021-06-19] MEDS: ENOXAPARIN SOD INJ 40 MG/0.4 ML SYR SC SCH (08:42)
[2021-06-19 09:07] VITALS: BP 132/76
== END 2021-06-19 11:42 | disposition home or self-care (01) | DRG 621 ==
LOC: OR 06:11 → PACU V 11:53 → MED/SURG2 14:31
PROVIDERS: ADMIT Internal Medicine; ATTEND Internal Medicine
PROC: 0DP64CZ Removal of Extraluminal Device from Stomach, Percutaneous Endoscopic Approach (ICD-10-PCS; 2021-06-18)
PROC: 0DB64Z3 Excision of Stomach, Percutaneous Endoscopic Approach, Vertical (ICD-10-PCS; principal; 2021-06-18 09:47)
DX: E66.01 Morbid (severe) obesity due to excess calories (principal); Z68.42 Body mass index [BMI] 45.0-49.9, adult; Z90.49 Acquired absence of other specified parts of digestive tract; K21.9 Gastro-esophageal reflux disease without esophagitis; I11.9 Hypertensive heart disease without heart failure; F10.11 Alcohol abuse, in remission; F31.9 Bipolar disorder, unspecified; R13.10 Dysphagia, unspecified; Z20.822 Contact with and (suspected) exposure to COVID-19
CPT/HCPCS: 36415; 80053; 81025; 83735; 85025; 94799; J0690; J1100; J1170; J1650; J2001; J2250; J2270; J2405; J2550; J2710; J3010; J3370; J7030; J7040; U0002

== ENCOUNTER → 2022-09-09 | Day surgery (SDC) | payer MEDICARE ==
[~2022-09-09] MED LIST changes: +ACETAMINOPHEN 1000 MG/100 ML 100 ML IV ONE; +CRESTOR10 MG PO; +CYCLOBENZAPRINE5 MG PO; +DEXAMETHASONE SOD PHOS 10 MG/1 ML VIAL ONE; +DEXAMETHASONE SOD PHOS INJ 4 MG/ML SDV ONE; +FENTANYL CITRATE/PF 100MCG/2 ML INJ ONE; +FUROSEMIDE40 MG PO; +HYDROXYZINE HCL25 MG PO; +KETOROLAC TROMETHAMINE 30 MG/ML VIAL ONE; +LIDOCAINE HCL 2% LOCAL INJ 5 ML SDV VIAL INJ ONE; +METHOCARBAMOL750 MG PO; +MIDAZOLAM HCL 2 MG/2 ML VIAL ONE; +NEURONTIN100 MG PO; +NORCO 5-325 PO; +NUVIGIL250 MG PO; +ONDANSETRON HCL INJ 2MG/ML 2ML 2 MG/ML VIAL ONE; +POVIDONE IODINE 0.05% 0.05 % ML PO ONE; +PROPOFOL IV EMULSION 10 MG/ML 20 ML VIAL ONE; +ROPIVACAINE 0.5% 5 MG/ML 30 ML SDV ONE; +SEVOFLURANE INHAL SOLN 250 ML PEN BTL ONE; +VYVANSE60 M1 PO
[2022-09-09 12:05] VITALS: BP 105/65
== END | disposition home or self-care (01) ==
LOC: OR 07:55
PROVIDERS: ATTEND Specialist
DX: S52.202A Unspecified fracture of shaft of left ulna, initial encounter for closed fracture (principal); S92.031A Displaced avulsion fracture of tuberosity of right calcaneus, initial encounter for closed fracture; F43.10 Post-traumatic stress disorder, unspecified; F17.210 Nicotine dependence, cigarettes, uncomplicated; S52.222A Displaced transverse fracture of shaft of left ulna, initial encounter for closed fracture; V49.9XXA Car occupant (driver) (passenger) injured in unspecified traffic accident, initial encounter; Z88.8 Allergy status to other drugs, medicaments and biological substances; Z79.899 Other long term (current) drug therapy
CPT/HCPCS: 25545; 36415; 76000; 84702; C1713 ×5; J0131; J0690; J1100 ×2; J1885; J2001; J2250; J2405; J2704; J2795; J3010

== ENCOUNTER → 2022-10-29 | Day surgery (SDC) | payer MEDICARE ==
[~2022-10-29] MED LIST changes: +BUPIVACAINE HCL 0.5% INJ 30 ML VIAL INJ ONE; +HYDROCODONE/APAP 7.5MG-325MG 1 EA TAB ONE; +LACTATED RINGER'S 1,000 ML ONE; +POTASSIUM CHLO20 ME1 PO; -PRAZOSIN HCL2 MG; +PRAZOSIN HCL2 MG PO; -ROPIVACAINE 0.5% 5 MG/ML 30 ML SDV ONE; +TRIAMTERENE-HC1 EAC2 PO
[2022-10-29 11:03] VITALS: BP 99/58; PULSE 57; RESP 18; O2SAT 98
== END | disposition home or self-care (01) ==
LOC: OR 06:30
PROVIDERS: ATTEND Specialist
DX: T84.123A Displacement of internal fixation device of bone of left forearm, initial encounter (principal); S52.222K Displaced transverse fracture of shaft of left ulna, subsequent encounter for closed fracture with nonunion; K21.9 Gastro-esophageal reflux disease without esophagitis; R06.02 Shortness of breath; F41.9 Anxiety disorder, unspecified; F90.9 Attention-deficit hyperactivity disorder, unspecified type; F31.9 Bipolar disorder, unspecified; F60.3 Borderline personality disorder; F17.210 Nicotine dependence, cigarettes, uncomplicated; Y83.8 Other surgical procedures as the cause of abnormal reaction of the patient, or of later complication, without mention of misadventure at the time of the procedure; Z88.8 Allergy status to other drugs, medicaments and biological substances; Z01.810 Encounter for preprocedural cardiovascular examination; Z01.818 Encounter for other preprocedural examination; Z79.899 Other long term (current) drug therapy; Z68.42 Body mass index [BMI] 45.0-49.9, adult
CPT/HCPCS: 25400; 71046; 76000; 81025; 87071; 87075; 87205; 93005; C1713 ×5; J0131; J0690; J1100 ×2; J1885; J2001; J2250; J2405; J2704; J3010; J7121

== ENCOUNTER 2022-10-30 18:18 | Observation (INO) | payer MEDICARE ==
[~2022-10-30] VITALS: Ht 152.4 cm; Wt 99.1 kg
[~2022-10-30 18:18] MED LIST changes: -POTASSIUM CHLO20 ME1 PO
[2022-10-30] MEDS ORDERED: POTASSIUM CHLORIDE 20 MEQ TAB CR PO STA (19:15)
[2022-10-30] MEDS ORDERED: SODIUM CHLORIDE FLUSH 10 ML SYR INJ PRN (19:15)
[2022-10-30] MEDS ORDERED: POTASSIUM CHLORIDE 20MEQ/100ML 100 ML IV STA (19:15)
[2022-10-30] MEDS ORDERED: ONDANSETRON HCL INJ 2MG/ML 2ML 2 MG/ML VIAL IV PRN (19:15)
[2022-10-30] MEDS ORDERED: CLONAZEPAM 1 MG TAB PO PRN (19:30)
[2022-10-30] MEDS: HYDROCODONE/APAP 10MG-325MG TAB PO PRN (21:14)
[2022-10-30] MEDS ORDERED: POTASSIUM CHLORIDE 20MEQ/100ML 100 ML IV ONE (21:15)
[2022-10-31 04:40] LABS: ANION GAP 13.8 mmol/L (8-16); CALCIUM 8.5 mg/dL (8.4-10.2); CREATININE, SERUM 0.98 mg/dL (0.57-1.11)
[2022-10-31 04:42] LABS: POTASSIUM 2.8 mmol/L (3.5-5.1)
[2022-10-31 05:43] VITALS: BP 102/60; PULSE 65; RESP 18; TEMP 97.9; O2SAT 94
[2022-10-31] MEDS ORDERED: SODIUM CHLORIDE 0.9% 250ML 250 ML ONE (05:43)
[2022-10-31] MEDS: HYDROCODONE/APAP 10MG-325MG TAB PO PRN ×2 (05:50→11:37)
[2022-10-31] MEDS: POTASSIUM CHLORIDE 20MEQ/100ML 100 ML IV SCH ×2 (05:51→08:05)
[2022-10-31 05:55] VITALS: BP 102/60; PULSE 65; RESP 18; TEMP 97.9; O2SAT 94
[2022-10-31 07:55] VITALS: BP 104/60; PULSE 58; RESP 17; TEMP 98.2; O2SAT 94
[2022-10-31 08:00] VITALS: BP 104/60; PULSE 58; RESP 17; TEMP 98.2; O2SAT 94
[2022-10-31] MEDS ORDERED: POTASSIUM CHLORIDE 20 MEQ TAB CR PO SCH (09:00)
[2022-10-31] MEDS ORDERED: LORAZEPAM INJ 2 MG/ML VIAL IV ONE (11:00)
[2022-10-31 11:58] LABS: ANION GAP 11.5 mmol/L (8-16); CALCIUM 8.5 mg/dL (8.4-10.2); CREATININE, SERUM 0.86 mg/dL (0.57-1.11); POTASSIUM 3.5 mmol/L (3.5-5.1)
[2022-10-31 12:24] VITALS: BP 126/90; PULSE 115; RESP 18; TEMP 97.9; O2SAT 95
[2022-10-31] MEDS ORDERED: POTASSIUM CHLO20 ME1 PO (12:40)
== END 2022-10-31 13:24 | disposition home or self-care (01) ==
LOC: ER 18:27 → ERHOLD 19:18 → MED/SURG 10-31 05:29
PROVIDERS: ADMIT Family Medicine; ATTEND Family Medicine
DX: E87.6 Hypokalemia (principal); F17.200 Nicotine dependence, unspecified, uncomplicated; F90.9 Attention-deficit hyperactivity disorder, unspecified type; F60.3 Borderline personality disorder; F31.9 Bipolar disorder, unspecified; F43.10 Post-traumatic stress disorder, unspecified; F41.9 Anxiety disorder, unspecified; F17.210 Nicotine dependence, cigarettes, uncomplicated; Z20.822 Contact with and (suspected) exposure to COVID-19; Z79.899 Other long term (current) drug therapy
CPT/HCPCS: 0223U; 36415 ×2; 36569; 80048; 99284; G0378 ×2; J2060; J3480 ×2; J7050

== ENCOUNTER → 2022-10-30 | Outpatient (CLI) | payer MEDICARE ==
[~2022-10-30] MED LIST changes: -ACETAMINOPHEN 1000 MG/100 ML 100 ML IV ONE; -BUPIVACAINE HCL 0.5% INJ 30 ML VIAL INJ ONE; -DEXAMETHASONE SOD PHOS 10 MG/1 ML VIAL ONE; -DEXAMETHASONE SOD PHOS INJ 4 MG/ML SDV ONE; -FENTANYL CITRATE/PF 100MCG/2 ML INJ ONE; -HYDROCODONE/APAP 7.5MG-325MG 1 EA TAB ONE; -KETOROLAC TROMETHAMINE 30 MG/ML VIAL ONE; -LACTATED RINGER'S 1,000 ML ONE; -LIDOCAINE HCL 2% LOCAL INJ 5 ML SDV VIAL INJ ONE; -MIDAZOLAM HCL 2 MG/2 ML VIAL ONE; -ONDANSETRON HCL INJ 2MG/ML 2ML 2 MG/ML VIAL ONE; -POVIDONE IODINE 0.05% 0.05 % ML PO ONE; -PROPOFOL IV EMULSION 10 MG/ML 20 ML VIAL ONE; -SEVOFLURANE INHAL SOLN 250 ML PEN BTL ONE
[2022-10-30 15:02] LABS: BASOPHILS # (AUTO) 0.1 (0.0-0.1); BASOPHILS % 0.4 % (0.0-1.0); EOSINOPHILS # (AUTO) 0.3 (0.0-0.4); EOSINOPHILS % 2.7 % (0.0-6.0); HEMATOCRIT 36.5 % (34.2-44.1); HEMOGLOBIN 12.2 g/dL (12.0-16.0); LYMPHOCYTES # (AUTO) 5.1 (1.0-3.2); LYMPHOCYTES % 41.5 % (18.0-39.1); MEAN CORPUSCULAR HEMOGLOBIN 29.8 pg (28-32); MEAN CORPUSCULAR HGB CONC 33.4 g/dL (31-35); MONOCYTES # (AUTO) 0.8 (0.2-0.8); MONOCYTES % 6.2 % (4.4-11.3); NEUTROPHILS # (AUTO) 6.1 (2.1-6.9); NEUTROPHILS % 48.9 % (38.7-80.0); PLATELET COUNT 318 x10e3/uL (140-360); RED CELL DISTRIBUTION WIDTH 12.5 % (11.7-14.4)
[2022-10-30 15:13] LABS: ALBUMIN 3.6 g/dL (3.5-5.0); ALBUMIN/GLOBULIN RATIO 1.1 (0.8-2.0); ANION GAP 15.3 mmol/L (8-16); CALCIUM 8.7 mg/dL (8.4-10.2); CHOL/HDL RATIO 4.1 (3.0-3.6); CREATININE, SERUM 1.12 mg/dL (0.57-1.11)
[2022-10-30 15:34] LABS: FREE THYROXINE INDEX 1.5033 (1.4-3.8); THYROID STIMULATING HORMONE 1.325 uIU/mL (0.350-4.940)
[2022-10-30 15:39] LABS: ERYTHROCYTE SEDIMENTATION RATE 25 mm/hr (0-20)
[2022-10-30 17:04] LABS: POTASSIUM 2.3 mmol/L (3.5-5.1)
== END ==
LOC: LAB 13:44
PROVIDERS: ATTEND Nurse Practitioner Adult Health
DX: E87.6 Hypokalemia (principal); M25.511 Pain in right shoulder; R60.0 Localized edema; M60.9 Myositis, unspecified
CPT/HCPCS: 36415; 80053; 80061; 82550; 83036; 84436; 84443; 84479; 85025; 85651; 86039; 86140; 86160; 86225; 86431